=== PATIENT | male | born 1960 | race Caucasian/White ===

== ENCOUNTER 2016-08-28 08:40 | Inpatient (IN) | payer BC, OTHER ==
[~2016-08-28] VITALS: Ht 182.9 cm; Wt 85.5 kg
[2016-08-28] MEDS ORDERED: OMEG10007 PO (09:00)
[2016-08-28] MEDS ORDERED: ASCO10003 PO (09:00)
[2016-08-28] MEDS ORDERED: MULT-506 PO (09:00)
[2016-08-28] MEDS ORDERED: [UNRECOGNIZED DRUG - OTHER] PO (09:00)
[2016-08-28] MEDS ORDERED: CALC500C3 PO (09:00)
[2016-08-28] MEDS ORDERED: SODIUM CHLORIDE 0.9% 1000ML 1,000 ML IV STA (09:59)
--- NOTE | 2016-08-28 10:14 | EMERGENCY ROOM VISIT NOTE ---
History Report prepared by Pedro: Alexia Hawkins Under the Supervision of: Dr. Kell Jarrell D.O. First contact with patient: 09:46 Chief Complaint: DIZZY Stated Complaint: LIGHTHEADED, COUGH, DIZZY History of Present Illness The patient is a 56 year old male who presents to the Emergency Room with complaints of persistent bilateral eye swelling that he first noticed yesterday. The patient states that yesterday he woke up with bilateral eye puffiness which improved during the day. When he woke up this morning his eyes were much more edematous but again have improved since being up . He denies any other rash or itchiness to any other area. He denies any new meds other than otc Jazzmine [place] and Aleve which he has been taking for a cold. No change in detergents or household products. He denies hx of similar and has not taken anything for his symptoms. He also complains of a recent URI and cold He states that two weeks ago he developed a sore throat, and cough has been taking Jazzmine-seltzer and Aleve for his symptoms with improvement. He has had lightheadedness and dizziness with change of position. The patient states that his dizziness is a room spinning sensation. Last night he felt SOB and was having difficulty breathing with lying flat. He associates a productive cough, chills, diaphoresis, post nasal drainage, and two episodes of vomiting with his symptoms. He denies associated chest pain. His , who is present, states he has had increasing exertional dyspnea today as well. He denies a hx of lung or heart disease He also complaining of lower abd pain associated with constipation earlier this week. He took Mylanta which alleviated his constipation. His urine has been darker, but denies any other urinary complaints. The patient notes chronic back problems, but denies any other active medical problems. He states that he quit smoking 1994. He drinks over a 30 pack of beer per week. The patient notes a history of Hepatitis A, but denies any other liver problems. The patient denies any recent travel. He states that he had a tick bite 3 weeks ago that was on his body for less than 24 hours. Source of History: patient Onset: yesterday Position: eye Quality: other (swelling) Timing: other Associated Symptoms: + abdominal pain, + chills, + cough, + diaphoresis, + sorethroat, + vomiting, No chest pain, No fevers Note: Associated symptoms: post nasal drainage, darker urine, dizziness, lightheadedness, room spinning sensation Review of Systems See HPI for pertinent positives & negatives. A total of 10 systems reviewed and were otherwise negative. Past Medical & Surgical Medical Problems: (1) Atrial fibrillation with RVR (2) Hepatitis A Surgical Problems: (1) H/O shoulder surgery Alcoholism Family History Diabetes mellitus Heart disease Social History Smoking Status: Former Smoker Smokeless Tobacco Use: No Alcohol Use: heavy, other (moderate) Marital Status: Housing Status: lives with significant other Current/Historical Medications Scheduled Ascorbic Acid (Vitamin C), 1 TAB PO DAILY Calcium Carbonate (Tums), 1 TAB PO DAILY Fish Oil ([place]-3), 1 CAP PO DAILY Multivitamin (Multivitamin), 1 TAB PO DAILY [Liveco], 2 TAB PO DAILY Allergies Coded Allergies: No Known Allergies (Unverified , 08/28/16) Physical Exam Vital Signs Date Time Temp Pulse Resp B/P Pulse Ox O2 Delivery O2 Flow Rate FiO2 08/28/16 12:31 133/74 08/28/16 12:30 145 20 93 08/28/16 12:16 114/86 08/28/16 12:15 164 30 94 08/28/16 12:01 126/77 08/28/16 12:00 124 22 93 08/28/16 11:52 128/89 08/28/16 11:51 37.5 153 20 135/94 93 Room Air 08/28/16 11:45 146 24 08/28/16 11:36 135/94 08/28/16 11:31 114/79 08/28/16 11:30 125 24 93 08/28/16 11:16 126/98 08/28/16 11:15 139 22 93 08/28/16 11:01 101/92 08/28/16 11:00 158 25 93 08/28/16 10:58 143 20 104/82 08/28/16 10:37 Nasal Cannula 3.0 08/28/16 10:17 193 08/28/16 08:44 37.5 113 20 125/73 95 Physical Exam GENERAL: The patient is a pleasant 56 year old male in no acute distress. Odor of alcohol on breath VITALS: Febrile, tachycardic, normotensive, normal pulse oximetry on room air. FACE: Atraumatic, nontender HEAD: Normocephalic and atraumatic. EARS: Tympanic membranes visualized and intact without infection, erythema , or hemotympanum. EYES: Mild periorbital edema. Pupils equal and reactive to light. Extraocular muscles intact. Conjunctiva are clear. Fundi are benign. NOSE: Nasal mucosa is clear without rhinorrhea or edema. THROAT: Airway is patent. Oral mucosa is minimally injected, no exudate. NECK: Supple without adenopathy. Trachea is midline. No nuchal rigidity, spinal tenderness, or palpable step-off. LUNGS: Clear without wheezing, rhonchi, or rales. THORAX: Symmetrical and nontender to palpation without deformity or palpable crepitus. HEART: Regular rate and rhythm ABDOMEN: Obese, soft and tender in left upper quadrant. without guarding, rigidity, or rebound tenderness. Bowel sounds are present in all 4 quadrants. There are no palpable masses, or organomegaly. No gross costovertebral angle tenderness. Femoral pulses are +2 and symmetrical BACK: Nontender to palpation without step off. PELVIS: Stable to pelvic rock without point tenderness or instability. EXTREMITIES: +1 pitting edema. Without deformity or point tenderness. There are no palpable cords, or erythema. Pulses are palpable and symmetrical. NEUROLOGIC: Exam is intact without focal deficits. SKIN: Without rash. Normal turgor and temperature. Medical Decision & Procedures ER Provider Diagnostic Interpretation: X-ray results as stated below per interpretation by me and the radiologist: CHEST ONE VIEW PORTABLE CLINICAL HISTORY: a fib sob dyspnea COMPARISON STUDY: No previous studies for comparison. FINDINGS: Radiographic findings of congestive failure. Prominent pulmonary vasculature. Heart is top limits normal terms of size. IMPRESSION: Developing congestive failure versus the less likely possibility of bibasilar infiltrates Electronically signed by: Marko Bernal M.D. 08/28/2016 11:15 AM Dictated Date/Time: 08/28/2016 11:14 AM Laboratory Results 08/28/16 10:15 Red Blood Count 3.51, Mean Corpuscular Volume 99.1, Mean Corpuscular Hemoglobin 35.3, Mean Corpuscular Hemoglobin Concent 35.6, Mean Platelet Volume 10.9, Neutrophils (%) (Auto) 81.7, Lymphocytes (%) (Auto) 7.0, Monocytes (%) (Auto) 10.8, Eosinophils (%) (Auto) 0.2, Basophils (%) (Auto) 0.1, Neutrophils # (Auto ) 8.14, Lymphocytes # (Auto) 0.70, Monocytes # (Auto) 1.08, Eosinophils # (Auto ) 0.02, Basophils # (Auto) 0.01 08/28/16 10:15 Test 08/28/16 00:00 08/28/16 10:15 08/28/16 10:24 Urine Opiates Screen NEG (NEG) Urine Methadone, Qualitative NEG (NEG) Urine Barbiturates NEG (NEG) Urine Phencyclidine (PCP) Level NEG (NEG) Ur Amphetamine/Methamphetamine NEG (NEG) MDMA (Ecstasy) Screen NEG (NEG) Urine Benzodiazepines Screen NEG (NEG) Urine Cocaine Metabolite NEG (NEG) Urine Marijuana (THC) NEG (NEG) Influenza Type A (RT-PCR) Neg for Influ A (NEG) Influenza Type B (RT-PCR) Neg for Influ B (NEG) White Blood Count 9.97 K/uL (4.8-10.8) Red Blood Count 3.51 M/uL (4.7-6.1) Hemoglobin 12.4 g/dL (14.0-18.0) Hematocrit 34.8 % (42-52) Mean Corpuscular Volume 99.1 fL (80-100) Mean Corpuscular Hemoglobin 35.3 pg (25-34) Mean Corpuscular Hemoglobin Concent 35.6 g/dl (32-36) Platelet Count 154 K/uL (130-400) Mean Platelet Volume 10.9 fL (7.4-10.4) Neutrophils (%) (Auto) 81.7 % Lymphocytes (%) (Auto) 7.0 % Monocytes (%) (Auto) 10.8 % Eosinophils (%) (Auto) 0.2 % Basophils (%) (Auto) 0.1 % Neutrophils # (Auto) 8.14 K/uL (1.4-6.5) Lymphocytes # (Auto) 0.70 K/uL (1.2-3.4) Monocytes # (Auto) 1.08 K/uL (0.11-0.59) Eosinophils # (Auto) 0.02 K/uL (0-0.5) Basophils # (Auto) 0.01 K/uL (0-0.2) RDW Standard Deviation 44.3 fL (36.4-46.3) RDW Coefficient of Variation 12.3 % (11.5-14.5) Immature Granulocyte % (Auto) 0.2 % Immature Granulocyte # (Auto) 0.02 K/uL (0.00-0.02) Nucleated RBC Absolute Count (auto) 0.02 K/uL (0-0) Nucleated Red Blood Cells % 0.2 % Prothrombin Time 13.8 SECONDS (9.0-12.0) Prothromb Time International Ratio 1.3 (0.9-1.1) Activated Partial Thromboplast Time 29.6 SECONDS (21.0-31.0) Partial Thromboplastin Ratio 1.1 Anion Gap 13.0 mmol/L (3-11) Est Creatinine Clear Calc Drug Dose 129.4 ml/min Estimated GFR () 122.3 Estimated GFR (Non- 105.5 BUN/Creatinine Ratio 9.9 (10-20) Calcium Level 8.3 mg/dl (8.5-10.1) Total Bilirubin 2.9 mg/dl (0.2-1) Direct Bilirubin 1.2 mg/dl (0-0.2) Aspartate Amino Transf (AST/SGOT) 159 U/L (15-37) Alanine Aminotransferase (ALT/SGPT) 193 U/L (12-78) Alkaline Phosphatase 93 U/L (45-117) Total Creatine Kinase 507 U/L (39-308) Creatine Kinase MB 3.9 ng/ml (0.5-3.6) Total Protein 6.6 gm/dl (6.4-8.2) Albumin 3.1 gm/dl (3.4-5.0) Lipase 227 U/L (73-393) Thyroid Stimulating Hormone (TSH) 2.100 uIu/ml (0.300-4.500) Lyme Disease IgG Antibody NEG (NEG) Lyme Disease IgM Antibody NEG (NEG) Bedside Troponin I 0.010 ng/ml (0-0.045) Laboratory studies as stated above per my review. Medications Administered Medications (Trade) Dose Ordered Sig/Vickie Route Start Time Stop Time Status Last Admin Dose Admin Sodium Chloride (Nss 1000ml) 1,000 ml @ 250 mls/hr Q4H STAT IV 08/28/16 09:59 08/28/16 11:31 DC 08/28/16 10:32 250 MLS/HR Diphenhydramine HCl (Benadryl Cap) 50 mg NOW ONCE PO 08/28/16 10:00 08/28/16 10:04 DC 08/28/16 10:32 50 MG Diltiazem HCl (Cardizem Bolus / Drip) 1 ea NOW STAT IV 08/28/16 10:48 08/28/16 10:49 DC 08/28/16 11:25 1 EA Diltiazem HCl 25 mg 25 mg STK-MED ONCE .ROUTE 08/28/16 10:49 08/28/16 10:52 DC 08/28/16 10:58 20 MG Diltiazem HCl/ Dextrose (Cardizem Inj/D5 100ml) 125 ml @ 0 mls/hr Q0M PRN IV 08/28/16 11:00 09/27/16 10:59 08/28/16 11:23 5 MLS/HR Furosemide (Lasix Inj) 20 mg NOW STAT IV 08/28/16 11:23 08/28/16 11:24 DC 08/28/16 14:08 20 MG Diltiazem HCl (Cardizem Inj) 25 mg NOW STAT IV 08/28/16 11:55 08/28/16 11:57 DC 08/28/16 12:40 25 MG ECG Indication: SOB/dyspnea Rate (beats per minute): 174 Rhythm: atrial fibrillation (with RVR) Findings: nonspecific-ST abn, other (rapid rate, RVR, no ST elevation) Comparison ECG Date: 10/18/13 Change: EKG Change: When compared to EKG done on 10/18/13, atrial fibrillation replaced normal sinus rhythm, and nonspecific ST changes are new. ED Course 0947: Past medical records reviewed. The patient was evaluated in room B8. A complete history and physical examination was performed. On examination he was complaining of intermittent facial swelling for the past 2 days. He did have some periorbital edema. No other findings to suggest significant anaphylaxis. He was also complaining of a persistent respiratory illness associated with increasing dyspnea. He was mildly tachycardic during my exam but did not appear to be in atrial fibrillation however, he was searching for his wallet and became markedly more tachycardic- telemetry revealed an A. fib with RVR. An IV of normal saline was initially established at a low rate. This was discontinued. He was medicated with 20 mg of IV Cardizem. He did have mild improvement with this but continued to be quite tachycardic and he was remedicated with 25 mg of IV Cardizem and started on a Cardizem drip with improvement. He was also initially treated with 50 mg of oral Benadryl for his facial swelling. Later with 20 mg of IV Lasix for his CHF. He underwent the above diagnostic workup. Twelve-lead ECG showed an atrial fibrillation with RVR. When compared to previous atrial fibrillation had replaced sinus rhythm and nonspecific ST changes were noted. Chest x-ray did show findings consistent with acute congestive heart failure. On laboratory studies he has a Borderline anemia with a hemoglobin of 12.4. Calcium is 131 with a chloride of 94 calcium is low at 8.3 magnesium is normal. Other electrolytes are normal. His liver function test are elevated with a total bili of 2.9 and direct bili of 1.2 AST of 159 ALT of 193 lipase is normal not suggestive of pancreatitis. CK enzyme is elevated at 507 with an MB of 3.9 his troponin however is normal at 0.010 this is most likely secondary to muscle breakdown. TSH is normal. Magnesium is normal. Urinalysis shows 1+ ketone otherwise negative. Alcohol is 14. INR is 1.3.Strept screen is negative. Lyme IGG is negative This is a 56-year-old gentleman who presents with acute dyspnea and facial swelling. At this time he does have evidence of new onset A. fib with RVR and associated congestive heart failure. He also has been having some vague abdominal pain which he relates to constipation. His liver function tests are all elevated but he admits to heavy alcohol use and this is felt to be reflective of his alcoholism. He has a remote hx of tick bite but lyme testing is negative and this is not felt to be significant, Of note -after discussion with the patient and his - he does recount that he had a chemical exposure in 1995 and did have a tachyarrhythmia which required cardioversion as well as some pulmonary toxicity. He has not had any recurrence or difficulties with arrhythmia since. Consultation has been made with Dr. Ybarra and the patient is being admitted. I refer you to her dictation for further treatment plan. While here in the emergency room he has had clinical improvement and currently is hemodynamically stable. 0959: Ordered Sodium Chloride 1000 ml @ 250 mls/hr IV. 1000: Ordered Benadryl Cap 50 mg PO. 1042: Per nursing staff, the patient has gone in to Atrial fibrillation with RVR. 1048: Ordered Diltiazem HCl 1 ea IV, Diltiazem HCl 25 mg .route. 1050: I reevaluated the patient and he is resting. I discussed the EKG findings with him. 1100: Ordered Diltiazem HCl 125 mg/Dextrose 125 ml @ 5 mls/hr Protocol IV. 1117: I discussed the patients case with NIRU Buchanan. She is going to evaluate the patient for further treatment. 1123: Ordered Lasix Inj 20 mg IV. 1127: I reevaluated the patient and he is resting comfortably. I discussed all the exam findings with him and I discussed the treatment plan. He verbalized complete understanding and agreement. He is going to be evaluated for further treatment. 1155: Ordered Diltiazem HCl 25 mg IV. Medical Decision EMR, nurse's notes, diagnostic studies personally reviewed Differential diagnosis-see above The chart was completed utilizing [employer] Speech Voice Recognition Software. Grammatical errors, random word insertions, pronoun errors, and incomplete sentences are an occasional consequence of this system due to software limitations, ambient noise, and hardware issues. Any formal questions or concerns about the content, text, or information contained within the body of this dictation should be directly addressed to the physician for clarification. Consults Time Called: 1107 Consulting Physician: NIRU Buchanan Returned Call: 1117 I discussed the patients case with NIRU Buchanan. She is going to evaluate the patient for further treatment. Impression Primary Impression: New onset a-fib Additional Impressions: Facial edema LFT elevation Alcohol abuse Critical Care I have personally spent greater than 35 minutes of critical care time in the direct management of this patient. This includes bedside care, interpretation of diagnostic studies, and testing, discussion with consultants, patient, and family members, and other required patient management activities. This 35 minutes is in excess of all separately billable procedures.. Scribe Attestation The scribe's documentation has been prepared under my direction and personally reviewed by me in its entirety. I confirm that the note above accurately reflects all work, treatment, procedures, and medical decision making performed by me. Departure Information Dispostion Being Evaluated By Hospitalist Referrals Ruiz Mercer D.O.Int.Med. (PCP) Problem Qualifiers
[2016-08-28 10:35] LABS: BASO % 0.1 %; BASO ABS # 0.01 K/uL (0-0.2); COMPLETE YES; EOS % 0.2 %; HEMATOCRIT 34.8 % (42-52); IG% 0.2 %; MEAN CELL VOLUME 99.1 fL (80-100); MEAN CORPUSCULAR HEMOGLOBIN 35.3 pg (25-34); MEAN CORPUSCULAR HGB CONC 35.6 g/dl (32-36); MEAN PLATELET VOLUME 10.9 fL (7.4-10.4); MONO % 10.8 %; NEUT % 81.7 %; PLATELET COUNT 154 K/uL (130-400); RED BLOOD COUNT 3.51 M/uL (4.7-6.1); WHITE BLOOD COUNT 9.97 K/uL (4.8-10.8)
[2016-08-28 10:46] LABS: BUN/CREATININE RATIO 9.9 (10-20); CALCIUM 8.3 mg/dl (8.5-10.1); CREATININE 0.7 mg/dl (0.60-1.40); POTASSIUM 3.7 mmol/L (3.5-5.1)
[2016-08-28] MEDS ORDERED: DILTIAZEM BOLUS / DRIP IV STA (10:48)
[2016-08-28] MEDS ORDERED: DILTIAZEM HCL 5 MG/ML 5 ML VIAL ONE (10:49)
[2016-08-28 10:50] LABS: INR 1.3 (0.9-1.1); PARTIAL THROMBOPLASTIN RATIO 1.1; PROTHROMBIN TIME (PATIENT) 13.8 SECONDS (9.0-12.0)
[2016-08-28 10:55] LABS: CKMB/CK RATIO 0.8 (0-3.0); THYROID STIMULATING HORMONE 2.1 uIu/ml (0.300-4.500)
--- NOTE | 2016-08-28 11:17 | DIAGNOSTIC IMAGING REPORT ---
CHEST ONE VIEW PORTABLE CLINICAL HISTORY: a fib sob dyspnea COMPARISON STUDY: No previous studies for comparison. FINDINGS: Radiographic findings of congestive failure. Prominent pulmonary vasculature. Heart is top limits normal terms of size. IMPRESSION: Developing congestive failure versus the less likely possibility of bibasilar infiltrates Electronically signed by: Marko Bernal M.D. 08/28/2016 11:15 AM Dictated Date/Time: 08/28/2016 11:14 AM
[2016-08-28] MEDS: DILTIAZEM HCL INJ 125 MG in DEXTROSE 5% 100ML IV PRN ×2 (11:23→21:52)
[2016-08-28] MEDS ORDERED: FUROSEMIDE 40 MG/4 ML VIAL IV STA (11:23)
[2016-08-28 11:45] LABS: LYME DISEASE AB IGG NEG (NEG)
[2016-08-28 11:51] VITALS: BP 135/94; PULSE 153; TEMP 37.5; O2SAT 93; Ht 182.9 cm; Wt 85.5 kg
[2016-08-28] MEDS ORDERED: DILTIAZEM HCL 5 MG/ML 5 ML VIAL IV STA (11:55)
[2016-08-28] MEDS ORDERED: PIPERACILL/TAZOBAC IV 4.5 GM in DEXTROSE 5% 100ML 100 ML IV SCH (12:45)
[2016-08-28] MEDS ORDERED: ACETAMINOPHEN 325 MG TAB PO PRN (12:45)
[2016-08-28] MEDS ORDERED: POLYETHYLENE (MIRALAX) 17 GM PACK PO PRN (12:45)
[2016-08-28] MEDS ORDERED: ONDANSETRON INJ 2 MG/ML 2 ML VIAL IV PRN (12:45)
[2016-08-28 13:10] LABS: URINE APPEARANCE CLEAR (CLEAR); URINE BILIRUBIN NEG (NEG); URINE COLOR YELLOW; URINE NITRITE NEG (NEG); URINE SPECIFIC GRAVITY 1.003 (1.000-1.030); UROBILINOGEN NEG (NEG)
--- NOTE | 2016-08-28 13:12 | History and Physical ---
History & Physical Date & Time of Service: Aug 28, 2016 at 12:44 Chief Complaint: Lightheaded, Cough, Dizzy Primary Care Physician: Ruiz Mercer D.O.Int.Med. History of Present Illness This is a 56-year-old male with past medical history including Hepatitis A, chronic alcohol abuse, upper respiratory infection, facial edema, prior exposure to trichloroethylene <10 years ago who presents after an episode of puffy eyes, shortness of breath, and lightheadedness this morning. The patient notes that he has been short of breath for about the past 2 weeks. The patient developed an upper respiratory infection 2 weeks ago with cough, fever, sputum production, chills where he took Jazzmine-[place] and Aleve for relief. Patient notes that this did not seem to help. Shortness of breath became increasingly worse today, patient notices that after going up 1 flight of stairs he is acutely short of breath. The patient does not wear supplemental oxygen at baseline. The patient notes left lower quadrant pain which seems to be worse with cough, he does not notice that this is per his postprandial pain, or pain prior to having a bowel movement. Patient reports that he drinks Natural Light x 6-10beers per day for many years, last drink was yesterday. He reports being bit by a tick 3 weeks ago, the tick was removed after 24 hours. Patient admits to body aches, joint aches, fever as described above 2 weeks ago and chills. He was not treated empirically for this with antibiotics. The patient also notes 2 episodes of vomiting in the past 2 days seem to "come out of no where", he denies feeling nauseous currently. In the ER CXR was reviewed showing developing congestive failure versus possibility of high basilar infiltrates. Past Medical/Surgical History Medical Problems: (1) Hepatitis A Status: Resolved Surgical Problems: (1) H/O shoulder surgery Status: Resolved Family History Diabetes mellitus Heart disease Social History Smoking Status: Former Smoker Smokeless Tobacco Use: No Alcohol Use: heavy (6-10 beers daily) Drug Use: none Marital Status: Housing status: lives with family Occupational Status: retired Multi-Drug Resistant Organisms History of MDRO: No Allergies Coded Allergies: No Known Allergies (Unverified , 08/28/16) Home Medications Scheduled Ascorbic Acid (Vitamin C), 1 TAB PO DAILY Calcium Carbonate (Tums), 1 TAB PO DAILY Fish Oil ([place]-3), 1 CAP PO DAILY Multivitamin (Multivitamin), 1 TAB PO DAILY [Liveco], 2 TAB PO DAILY Review of Systems Constitutional: + chills, + fever, + sweats Eyes: + problem reported (puffy eyes), No diplopia ENT: + nasal symptoms, + sore throat, No tinnitus, No trouble swallowing Respiratory: + cough, + dyspnea on exertion, + shortness of breath, + sputum, No dyspnea at rest, No hemoptysis, No wheezing Cardiovascular: No chest pain, No orthopnea, No palpitations Abdomen: + vomiting, No constipation, No diarrhea, No nausea, No pain Musculoskeletal: + joint pain, + muscle pain, No calf pain, No swelling Genitourinary - Male: No dysuria Neurologic: No balance problems, No numbness/tingling, No weakness Endocrine: No fatigue Hematologic / Lymphatic: + night sweats, No abnormal bleeding/bruising, No swollen lymph nodes Integumentary: No itch, No rash Physical Exam Vital Signs Date Time Temp Pulse Resp B/P Pulse Ox O2 Delivery O2 Flow Rate FiO2 08/28/16 11:51 37.5 153 20 135/94 93 Room Air 08/28/16 10:58 143 20 104/82 08/28/16 10:37 Nasal Cannula 3.0 08/28/16 10:17 193 08/28/16 08:44 37.5 113 20 125/73 95 General Appearance: WD/WN, no apparent distress, + pertinent finding (appears flushed) Head: normocephalic, atraumatic Eyes: PERRL, EOMI ENT: hearing grossly normal, pharynx normal Neck: supple, no JVD Respiratory/Chest: chest non-tender, lungs clear, no respiratory distress, no accessory muscle use, + pertinent finding (cough, productive with yellow mucus) Cardiovascular: no murmur, + irregularly irregular, + pertinent finding (Hr= 180s with deep breaths, 140s while sitting ) Abdomen/GI: normal bowel sounds, non tender, soft, + distended Back: normal inspection, no CVA tenderness Extremities/Musculoskelatal: no calf tenderness, no pedal edema, normal range of motion Neurologic/Psych: alert, normal mood/affect, oriented x 3 Skin: normal color, warm/dry Diagnostics Laboratory Results Results Past 24 Hours Test 08/28/16 10:15 08/28/16 10:24 Range/Units White Blood Count 9.97 4.8-10.8 K/uL Red Blood Count 3.51 4.7-6.1 M/uL Hemoglobin 12.4 14.0-18.0 g/dL Hematocrit 34.8 42-52 % Mean Corpuscular Volume 99.1 80-100 fL Mean Corpuscular Hemoglobin 35.3 25-34 pg Mean Corpuscular Hemoglobin Concent 35.6 32-36 g/dl Platelet Count 154 130-400 K/uL Mean Platelet Volume 10.9 7.4-10.4 fL Neutrophils (%) (Auto) 81.7 % Lymphocytes (%) (Auto) 7.0 % Monocytes (%) (Auto) 10.8 % Eosinophils (%) (Auto) 0.2 % Basophils (%) (Auto) 0.1 % Neutrophils # (Auto) 8.14 1.4-6.5 K/uL Lymphocytes # (Auto) 0.70 1.2-3.4 K/uL Monocytes # (Auto) 1.08 0.11-0.59 K/uL Eosinophils # (Auto) 0.02 0-0.5 K/uL Basophils # (Auto) 0.01 0-0.2 K/uL RDW Standard Deviation 44.3 36.4-46.3 fL RDW Coefficient of Variation 12.3 11.5-14.5 % Immature Granulocyte % (Auto) 0.2 % Immature Granulocyte # (Auto) 0.02 0.00-0.02 K/uL Nucleated RBC Absolute Count (auto) 0.02 0-0 K/uL Nucleated Red Blood Cells % 0.2 % Prothrombin Time 13.8 9.0-12.0 SECONDS Prothromb Time International Ratio 1.3 0.9-1.1 Activated Partial Thromboplast Time 29.6 21.0-31.0 SECONDS Partial Thromboplastin Ratio 1.1 Sodium Level 131 136-145 mmol/L Potassium Level 3.7 3.5-5.1 mmol/L Chloride Level 94 98-107 mmol/L Carbon Dioxide Level 24 21-32 mmol/L Anion Gap 13.0 3-11 mmol/L Blood Urea Nitrogen 7 7-18 mg/dl Creatinine 0.70 0.60-1.40 mg/dl Est Creatinine Clear Calc Drug Dose 129.4 ml/min Estimated GFR () 122.3 Estimated GFR (Non- 105.5 BUN/Creatinine Ratio 9.9 10-20 Random Glucose 90 70-99 mg/dl Calcium Level 8.3 8.5-10.1 mg/dl Magnesium Level 2.0 1.8-2.4 mg/dl Total Bilirubin 2.9 0.2-1 mg/dl Direct Bilirubin 1.2 0-0.2 mg/dl Aspartate Amino Transf (AST/SGOT) 159 15-37 U/L Alanine Aminotransferase (ALT/SGPT) 193 12-78 U/L Alkaline Phosphatase 93 45-117 U/L Total Creatine Kinase 507 39-308 U/L Creatine Kinase MB 3.9 0.5-3.6 ng/ml Creatine Kinase MB Ratio 0.8 0-3.0 Total Protein 6.6 6.4-8.2 gm/dl Albumin 3.1 3.4-5.0 gm/dl Lipase 227 73-393 U/L Thyroid Stimulating Hormone (TSH) 2.100 0.300-4.500 uIu/ml Lyme Disease IgG Antibody NEG NEG Bedside Troponin I 0.010 0-0.045 ng/ml Microbiology Results 08/28/16 Group A Streptococcus Screen - Final, Resulted SPECIMEN NEGATIVE FOR GROUP A BETA ST... 08/28/16 Group A Streptococcus Screen (VEENA), Resulted Pending Diagnostic Radiology CHEST ONE VIEW PORTABLE CLINICAL HISTORY: a fib sob dyspnea COMPARISON STUDY: No previous studies for comparison. FINDINGS: Radiographic findings of congestive failure. Prominent pulmonary vasculature. Heart is top limits normal terms of size. IMPRESSION: Developing congestive failure versus the less likely possibility of bibasilar infiltrates Electronically signed by: Marko Bernal M.D. 08/28/2016 11:15 AM Dictated Date/Time: 08/28/2016 11:14 AM The status of this report is Signed. EKG Vent. rate 174 BPM NV interval * ms QRS duration 88 ms QT/QTc 270/459 ms P-R-T axes * 71 41 Atrial fibrillation with RVR Impression Assessment and Plan 56-year-old male with past medical history including Hepatitis A, chronic alcohol abuse, upper respiratory infection, facial edema, prior exposure to trichloroethylene <10 years ago who presents after an episode of puffy eyes, shortness of breath, and lightheadedness this morning. A. fib with RVR Shortness of breath ? new onset CHF exacerbation ? Superimposed upper respiratory infection - Admit to telemetry - Cardiology consulted - In the ED the patient was started on Cardizem IV push, will start on Cardizem drip - Patient is currently still in A. 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 The patient was started on Librium today 25 mg Q8H - When necessary Ativan IV 1 mg - Continue multivitamin, started on folic acid and thiamine Hyponatremia, Na 131 - Likely due to increased alcohol consumption as above Upper respiratory infection - Patient reports history of tick bite 3 weeks ago, will rule out Lyme's disease with lab testing + Western blot - Started empirically on doxycycline 100 mg twice a day - ID consulted History of hepatitis A DVT prophylaxis: Teds, SCDs, out of bed as tolerated CODE STATUS: Full code Disposition: patient from home, return once medically stable The patient was seen and discussed with the attending, please refer to attending addendum for any additions or clarifications. Level of Care Telemetry Advanced Directives Existing Living Will: No Existing Power of Hematology Nurse Educator: No Resuscitation Status FULL RESUSCITATION VTE Prophylaxis VTE Risk Assessment Done? Y/N: Yes Risk Level: Low Given or contraindicated: T.E.D. Stockings, SCD's
[2016-08-28 13:13] LABS: LYME DISEASE AB IGM NEG (NEG)
[2016-08-28 13:15] LABS: MANUAL MICROSCOPIC REQUIRED? NO; REVIEW REQ? NO
[2016-08-28] MEDS ORDERED: FUROSEMIDE 40 MG/4 ML VIAL ONE (14:00)
[2016-08-28] MEDS ORDERED: COUGH DROP (SUGAR FREE) LOZ 24 LOZ/1 BOX PO PRN (14:45)
[2016-08-28] MEDS ORDERED: PANTOprazole SOD 40 MG TAB PO STA (14:52)
[2016-08-28] MEDS ORDERED: NURSING VERBAL MED ORDER ONE ×2 (15:15→17:30)
[2016-08-28 15:21] VITALS: BP 131/83; PULSE 211; TEMP 37.5; O2SAT 94
[2016-08-28] MEDS ORDERED: LORAZEPAM 2 MG/ML 1 ML VIAL IV SCH (15:30)
[2016-08-28] MEDS ORDERED: LORAZEPAM 2 MG/ML 1 ML VIAL IV PRN (15:45)
[2016-08-28] MEDS ORDERED: LORAZEPAM 1 MG TAB PO PRN (15:45)
[2016-08-28] MEDS ORDERED: DIGOXIN IV 250 MCG in SYRINGE 9 ML IV SCH (15:45)
[2016-08-28 15:52] VITALS: BP 124/86
[2016-08-28 16:00] VITALS: O2SAT 94
[2016-08-28] MEDS ORDERED: MULTI-VITAMIN INFUSION INJ 10 ML, THIAMINE HCL INJ 100 MG, FoLIC ACID INJ 1 MG in SODIU... IV ONE (16:00)
--- NOTE | 2016-08-28 16:10 | Medical Consult ---
Consultation Date of Consultation: Aug 28, 2016. Attending Physician: Dominic Boss MD, PhD Reason for Consultation: Lyme, URI, alcoholic History of Present Illness Patient is a 55 yo with history of Hepatitis A and chronic alcohol abuse who presented to the ED with concerns of facial swelling and SOB. The patient states that since Friday, he has been experiencing sweats, chills, subjective fever, and slight swelling of his face. Yesterday, the swelling of his face increased and this morning it ws severe around his eyes. The patient has been having body aches and joint pains for approximately 2 weeks. He does note that he was bitten by a tick about 3 weeks ago on the right elbow. He removed this tick as soon as he noticed it. He also has been having a cough, nasal congestion , post-nasal drip, sore throat and generalized malaise for about 2 weeks as well. Approximately 2 nights ago, the patient took both Aleve and Jazzmine-[place] Plus night time after which he did note some facial swelling and then he took this again last night and woke up with the severe swelling. He has taken both of these medications previously, but never together. He does chronically drink at least 6-10 beers per day, specially Natty Light. He also states that about 2- 3 days ago, he noticed that his urine started to become bright orange. It has been orange since then. He is also experiencing pain in his mid-lower abdomen and bilateral flank pain. He feels bloated but has been moving his bowels in small amounts. He did use stool softeners over the weekend which he has never taken before otherwise. Since admission, the patient was noted to have a WBC count of 9.97. Negative lyme screens. AST and ALT are elevated to 100's, and CK level was 507. Strep screen was negative. CXR showed developing congestive failure and less likely bibasilar infiltrations. This patient has not passed out from alcohol recently and does not seem to have risk for aspiration. I discussed this patient with Dr. Boss. Past Medical/Surgical History Medical Problems: (1) Facial edema Status: Acute (2) New onset a-fib Status: Acute Medical Problems: (1) Atrial fibrillation with RVR (2) Hepatitis A (3) Hx chemical exposure (4) Hx Cardioversion (1996) Surgical Problems: (1) H/O shoulder surgery Family History Diabetes mellitus Heart disease Noncontributory Social History Smoking Status: Former Smoker Smokeless Tobacco Use: No Alcohol Use: heavy (6-10 beers daily) Drug Use: none Marital Status: Housing Status: lives with significant other Occupation Status: retired Allergies Coded Allergies: No Known Allergies (Unverified , 08/28/16) Home Medications Reported Home Medications Medications Dose Route/Sig Max Daily Dose Days Date Category Multivitamin (Multivitamins) Tab 1 Tab PO DAILY 08/28/16 Reported [place]-3 (Fish Oil) 1 Ea Cap 1 Cap PO DAILY 08/28/16 Reported Tums (Calcium Carbonate) 500 Mg Chew 1 Tab PO DAILY 08/28/16 Reported [Liveco] 2 Tab PO DAILY 08/28/16 Reported Vitamin C (Ascorbic Acid) 1,000 Mg Tab 1 Tab PO DAILY 08/28/16 Reported Current Inpatient Medications Current Inpatient Medications Medications (Trade) Dose Ordered Sig/Vickie Route Start Time Stop Time Status Last Admin Dose Admin Diltiazem HCl/ Dextrose (Cardizem Inj/D5 100ml) 125 ml @ 0 mls/hr Q0M PRN IV 08/28/16 11:00 09/27/16 10:59 08/28/16 11:23 5 MLS/HR Acetaminophen (Tylenol Tab) 650 mg Q4H PRN PO 08/28/16 12:45 09/27/16 12:44 Ondansetron HCl (Zofran Inj) 4 mg Q6H PRN IV 08/28/16 12:45 09/27/16 12:44 Polyethylene (Miralax Powder Packet) 17 gm DAILY PRN PO 08/28/16 12:45 09/27/16 12:44 Calcium Carbonate (Tums Chew Tab) 500 mg DAILY PO 08/29/16 09:00 09/28/16 08:59 Fish Oil ([place]-3 (Purified Fish Oil) Cap) 1 gm DAILY PO 08/29/16 09:00 09/28/16 08:59 Multivitamins (Multivitamin Tab) 1 tab DAILY PO 08/29/16 09:00 09/28/16 08:59 Chlordiazepoxide (Librium Cap) 25 mg Q8 PO 08/28/16 22:00 09/27/16 21:59 Folic Acid (Folvite Tab) 1 mg QAM PO 08/29/16 09:00 09/28/16 08:59 Doxycycline Hyclate 100 mg 100 mg BID PO 08/28/16 21:00 09/07/16 20:59 Digoxin/Syringe (Digoxin IV/ Syringe) 10 ml @ 2 mls/min 1545 IV 08/28/16 15:45 08/28/16 16:30 08/28/16 15:52 2 MLS/MIN Digoxin (Lanoxin Tab) 0.125 mg DAILY@16 PO 08/29/16 16:00 09/28/16 15:59 Benzonatate (Tessalon Perles Cap) 100 mg 3XDQ4 PO 08/28/16 16:00 09/27/16 15:59 Guaifenesin (Mucinex Contr Rel Tab) 600 mg Q12 PO 08/28/16 21:00 09/27/16 20:59 Menthol ([place]) 1 socorro Q1H PRN PO 08/28/16 14:45 09/27/16 14:44 Thiamine HCl (Vitamin B-1 Tab) 100 mg QAM PO 08/29/16 09:00 09/28/16 08:59 Pantoprazole Sodium (Protonix Tab) 40 mg QAM PO 08/29/16 09:00 09/28/16 08:59 Enoxaparin Sodium (Lovenox Inj) 40 mg QAM SQ 08/29/16 09:00 09/28/16 08:59 Lorazepam 1 mg 1 mg 1530 IV 08/28/16 15:30 08/28/16 16:00 08/28/16 15:34 1 MG Multivitamins/ Thiamine HCl/ Folic Acid/Sodium Chloride (Mvi Infusion Inj/Vitamin B-1 Inj/Folvite Inj/ Nss 1000ml) 1,011.2 ml @ 500 mls/ hr Q2H2M ONCE IV 08/28/16 16:00 08/28/16 18:01 Lorazepam (Ativan Tab) 1 mg ONE PRN PO 08/28/16 15:45 09/11/16 15:44 Lorazepam (Ativan Inj) PER PROTOCOL Q1H PRN IV 08/28/16 15:45 09/27/16 15:44 Review of Systems Constitutional: + chills, + fatigue, + fever (subjective), + sweats, + weakness Eyes: No worsening of vision ENT: No hearing loss Respiratory: + cough, + dyspnea on exertion (since this morning- walking up stairs), + shortness of breath Cardiovascular: No chest pain, No palpitations Abdomen: + constipation, + pain (lower mid abdominal), No diarrhea Musculoskeletal: + joint pain (knees, toes, etc.), + muscle pain (generalized) , No swelling Genitourinary - Male: + problem reported (orange urine x 2-3 days), + urinary frequency, No dysuria, No hematuria, No urinary hesitancy Neurologic: + weakness Integumentary: + problem reported (tick bite right elbow 3 weeks ago- no rash) , No itch, No new/changing skin lesions, No rash Physical Exam Date Time Temp Pulse Resp B/P Pulse Ox O2 Delivery O2 Flow Rate FiO2 08/28/16 15:52 124/86 08/28/16 15:52 167 08/28/16 15:21 37.5 211 26 131/83 94 Nasal Cannula 2.0 08/28/16 14:30 144 20 151/92 92 08/28/16 14:15 153 20 133/87 91 Nasal Cannula 3.0 08/28/16 13:53 139 18 135/84 95 Nasal Cannula 3.0 08/28/16 13:02 130 138/78 92 Room Air 08/28/16 12:46 08/28/16 12:45 127 24 137/85 90 08/28/16 12:31 133/74 08/28/16 12:30 145 20 93 08/28/16 12:16 114/86 08/28/16 12:15 164 30 94 08/28/16 12:01 126/77 08/28/16 12:00 124 22 93 08/28/16 11:52 128/89 08/28/16 11:51 37.5 153 20 135/94 93 Room Air 08/28/16 11:45 146 24 08/28/16 11:36 135/94 08/28/16 11:31 114/79 08/28/16 11:30 125 24 93 08/28/16 11:16 126/98 08/28/16 11:15 139 22 93 08/28/16 11:01 101/92 08/28/16 11:00 158 25 93 08/28/16 10:58 143 20 104/82 08/28/16 10:37 Nasal Cannula 3.0 08/28/16 10:17 193 08/28/16 08:44 37.5 113 20 125/73 95 General Appearance: WD/WN, no apparent distress, + pertinent finding (tremor on exam) Head: normocephalic, atraumatic Eyes: normal inspection, sclerae normal ENT: hearing grossly normal Neck: supple, trachea midline Respiratory/Chest: chest non-tender, lungs clear, normal breath sounds, no respiratory distress, no accessory muscle use Cardiovascular: + tachycardia, + extra beats Abdomen/GI: + tenderness (left lower quadrant), + distended Back: normal inspection Extremities/Musculoskelatal: no pedal edema, normal range of motion Neurologic/Psych: alert, normal mood/affect Skin: normal color, warm/dry, no rash Laboratory Results CHEST ONE VIEW PORTABLE CLINICAL HISTORY: a fib sob dyspnea COMPARISON STUDY: No previous studies for comparison. FINDINGS: Radiographic findings of congestive failure. Prominent pulmonary vasculature. Heart is top limits normal terms of size. IMPRESSION: Developing congestive failure versus the less likely possibility of bibasilar infiltrates RUN DATE: 08/28/16 [facility] LAB PAGE 1 RUN TIME: 1044 Specimen Inquiry PATIENT: MALIK HERNÁNDEZ LOC: [facility] U # : [id number] AGE/SX: 56/M ROOM: REG : 08/28/[address]: Kell Jarrell : 1960 BED: DIS : STATUS: REG ER TLOC: SPEC #: [id number] SHERLEY: 08/28/16 STATUS: RES REQ #: [id number] RECD: 08/28/[address] [facility] [address]: Kell JarrellD.OMarcelo SOURCE: THROAT ENTR: 08/28/[address]: Ruiz Mercer D.OMarceloInt.Med. SPDESC: ORDERED: GRP A STRP SCN COMMENTS: Specimen Comment RAPID STREP NEG. Has Specimen Been Obtained/Collected? Y Procedure Result Verified Site RAPID GRP A BETA STREP SCREEN Final 08/28/16 SPECIMEN NEGATIVE FOR GROUP A BETA STREP. BY RAPID METHOD, CULTURE REPORT TO FOLLOW. GRP A STREP BACKUP CULTURE PENDING Last 24 Hours Test 08/28/16 10:15 08/28/16 10:24 08/28/16 12:45 08/28/16 13:20 White Blood Count 9.97 K/uL Red Blood Count 3.51 M/uL Hemoglobin 12.4 g/dL Hematocrit 34.8 % Mean Corpuscular Volume 99.1 fL Mean Corpuscular Hemoglobin 35.3 pg Mean Corpuscular Hemoglobin Concent 35.6 g/dl Platelet Count 154 K/uL Mean Platelet Volume 10.9 fL Neutrophils (%) (Auto) 81.7 % Lymphocytes (%) (Auto) 7.0 % Monocytes (%) (Auto) 10.8 % Eosinophils (%) (Auto) 0.2 % Basophils (%) (Auto) 0.1 % Neutrophils # (Auto) 8.14 K/uL Lymphocytes # (Auto) 0.70 K/uL Monocytes # (Auto) 1.08 K/uL Eosinophils # (Auto) 0.02 K/uL Basophils # (Auto) 0.01 K/uL RDW Standard Deviation 44.3 fL RDW Coefficient of Variation 12.3 % Immature Granulocyte % (Auto) 0.2 % Immature Granulocyte # (Auto) 0.02 K/uL Nucleated RBC Absolute Count (auto) 0.02 K/uL Nucleated Red Blood Cells % 0.2 % Prothrombin Time 13.8 SECONDS Prothromb Time International Ratio 1.3 Activated Partial Thromboplast Time 29.6 SECONDS Partial Thromboplastin Ratio 1.1 Sodium Level 131 mmol/L Potassium Level 3.7 mmol/L Chloride Level 94 mmol/L Carbon Dioxide Level 24 mmol/L Anion Gap 13.0 mmol/L Blood Urea Nitrogen 7 mg/dl Creatinine 0.70 mg/dl Est Creatinine Clear Calc Drug Dose 129.4 ml/min Estimated GFR () 122.3 Estimated GFR (Non- 105.5 BUN/Creatinine Ratio 9.9 Random Glucose 90 mg/dl Calcium Level 8.3 mg/dl Magnesium Level 2.0 mg/dl Total Bilirubin 2.9 mg/dl Direct Bilirubin 1.2 mg/dl Aspartate Amino Transf (AST/SGOT) 159 U/L Alanine Aminotransferase (ALT/SGPT) 193 U/L Alkaline Phosphatase 93 U/L Total Creatine Kinase 507 U/L Creatine Kinase MB 3.9 ng/ml Creatine Kinase MB Ratio 0.8 Total Protein 6.6 gm/dl Albumin 3.1 gm/dl Lipase 227 U/L Thyroid Stimulating Hormone (TSH) 2.100 uIu/ml Lyme Disease IgG Antibody NEG Lyme Disease IgM Antibody NEG Bedside Troponin I 0.010 ng/ml Urine Color YELLOW Urine Appearance CLEAR Urine pH 6.0 Urine Specific [place] 1.003 Urine Protein NEG Urine Glucose (UA) NEG Urine Ketones 1+ Urine Occult Blood NEG Urine Nitrite NEG Urine Bilirubin NEG Urine Urobilinogen NEG Urine Leukocyte Esterase NEG Ethyl Alcohol mg/dL 14.0 mg/dl Test 08/28/16 14:40 08/28/16 15:37 08/28/16 15:38 Creatine Kinase MB Ratio Assessment & Plan Patient with acute illness including chills, sweats, myalgias, arthralgias, bilateral flank pain, abdominal discomfort, and SOB along with Afib with RVR in the setting of alcoholism. He is currently on Doxycycline for concerns of Lyme disease. Lyme screen was negative. Will check Lyme WB and Anaplasma serology along with Urine culture- UA pending. Noted Flu PCR also pending. U/S of abdomen pending. Feel that Doxycycline is appropriate pending further workup. With elevated LFTs, will also check acute hepatitis panel. We will follow. Plan: 1. Continue Doxy 2. Lyme WB, Anaplasma serology 3. Acute hepatitis panel 4. Urine culture PROVIDER ADDENDUM: Pt. examined and reviewed with Ms. Chin. Agree with above assessment. Lyme unlikely given negative screening serology.
[2016-08-28] MEDS: BENZONATATE 100MG CAP PO SCH (16:26)
[2016-08-28 16:51] LABS: MAGNESIUM 2.1 mg/dl (1.8-2.4); PHOSPHORUS 2.4 mg/dl (2.5-4.9)
[2016-08-28 17:08] LABS: BENZODIAZEPINE, URINE NEG (NEG); COCAINE,URINE NEG (NEG); PHENCYCLIDINE, URINE NEG (NEG)
--- NOTE | 2016-08-28 17:24 | DIAGNOSTIC IMAGING REPORT ---
ABDOMINAL AORTIC ULTRASOUND CLINICAL HISTORY: Severe abdominal pain. Evaluate for abdominal aortic aneurysm. COMPARISON STUDY: Abdominal aortic ultrasound November 21, 2013. FINDINGS: The proximal abdominal aorta measures 2.7 x 2.6 cm. The mid abdominal aorta measures 2.5 x 2 cm. The distal abdominal aorta measures 2.1 x 2 cm. The caliber of the proximal bilateral common iliac arteries is normal. The abdominal aorta was slightly obscured on this exam. IMPRESSION: Partially obscured abdominal aorta but no abdominal aortic aneurysm identified. Ectatic abdominal aorta without aneurysmal dilatation. Electronically signed by: Nino Ashford M.D. 08/28/2016 5:23 PM Dictated Date/Time: 08/28/2016 5:22 PM
[2016-08-28] MEDS ORDERED: DIGOXIN IV 250 MCG in SYRINGE 9 ML IV ONE (17:45)
--- NOTE | 2016-08-28 17:47 | Cardiology Consultation ---
Cardiology Consultation Date of Consultation: Aug 28, 2016. Requesting Physician: Dr. Boss Reason for Consultation: AF with RVR Pt evaluation today including: conversation w/ patient, conversation w/ family , physical exam, lab review, review of studies, review of inpatient medication list, conversation w/ attending History of Present Illness This is a 56-year-old gentleman who has a reported history of rapid AF occurring about 20 years ago, he reports that they could not control his heart rate with medications and he had cardioversion performed. He has had none since that he knows of but on presentation here he did not have palpitations. He apparently felt poorly for several weeks, but in a nonspecific way including facial swelling, and when he arrived in the emergency room was noted to be in atrial fibrillation with a very rapid heart rate. He denies chest discomfort, presyncope or syncope. He was started on diltiazem intravenously up to 15 mg per hour and received one dose of digoxin 0.25 mg intravenously. His heart remained rapid. At the time of my evaluation he felt better, he was unaware of his heart rate ( which was still rapid but slower than on admission) and had no chest discomfort , lightheadedness or dizziness.l Past Medical/Surgical History (1) Atrial fibrillation with RVR (2) Alcohol abuse (3) LFT elevation (4) Facial edema Family History Diabetes mellitus Heart disease Social History Smoking Status: Former Smoker History of Alcohol Use: Yes (8-10 BEERS A DAY) Review of Systems Constitutional: No fever, No weakness, No weight loss Respiratory: No cough, No dyspnea on exertion, No shortness of breath, No wheezing Cardiac: + see HPI, No PND, No chest pain, No edema, No orthopnea, No palpitations Abdomen: No GI bleeding, No diarrhea, No nausea, No pain, No vomiting Male : No nocturia more than once/night, No sexual dysfunction, No slowing stream, No urinary frequency Neurologic: No balance problems, No numbness/tingling, No paralysis, No weakness Heme: No abnormal bleeding/bruising, No clotting problems Endo: No fatigue Skin: No problem reported All Other Systems: Reviewed and Negative Allergies Coded Allergies: No Known Allergies (Unverified , 08/28/16) Medications Current Inpatient Medications Medications (Trade) Dose Ordered Sig/Vickie Route Start Time Stop Time Status Last Admin Dose Admin Diltiazem HCl/ Dextrose (Cardizem Inj/D5 100ml) 125 ml @ 0 mls/hr Q0M PRN IV 08/28/16 11:00 09/27/16 10:59 08/28/16 11:23 5 MLS/HR Acetaminophen (Tylenol Tab) 650 mg Q4H PRN PO 08/28/16 12:45 09/27/16 12:44 Ondansetron HCl (Zofran Inj) 4 mg Q6H PRN IV 08/28/16 12:45 09/27/16 12:44 Polyethylene (Miralax Powder Packet) 17 gm DAILY PRN PO 08/28/16 12:45 09/27/16 12:44 Calcium Carbonate (Tums Chew Tab) 500 mg DAILY PO 08/29/16 09:00 09/28/16 08:59 Fish Oil ([place]-3 (Purified Fish Oil) Cap) 1 gm DAILY PO 08/29/16 09:00 09/28/16 08:59 Multivitamins (Multivitamin Tab) 1 tab DAILY PO 08/29/16 09:00 09/28/16 08:59 Chlordiazepoxide (Librium Cap) 25 mg Q8 PO 08/28/16 22:00 09/27/16 21:59 Folic Acid (Folvite Tab) 1 mg QAM PO 08/29/16 09:00 09/28/16 08:59 Doxycycline Hyclate (Vibramycin Cap) 100 mg BID PO 08/28/16 21:00 09/07/16 20:59 Digoxin (Lanoxin Tab) 0.125 mg DAILY@16 PO 08/29/16 16:00 09/28/16 15:59 Benzonatate (Tessalon Perles Cap) 100 mg 3XDQ4 PO 08/28/16 16:00 09/27/16 15:59 08/28/16 16:26 100 MG Guaifenesin (Mucinex Contr Rel Tab) 600 mg Q12 PO 08/28/16 21:00 09/27/16 20:59 Menthol (Nice Socorro) 1 socorro Q1H PRN PO 08/28/16 14:45 09/27/16 14:44 Thiamine HCl (Vitamin B-1 Tab) 100 mg QAM PO 08/29/16 09:00 09/28/16 08:59 Pantoprazole Sodium (Protonix Tab) 40 mg QAM PO 08/29/16 09:00 09/28/16 08:59 Enoxaparin Sodium 40 mg 40 mg QAM SQ 08/29/16 09:00 09/28/16 08:59 Multivitamins/ Thiamine HCl/ Folic Acid/Sodium Chloride (Mvi Infusion Inj/Vitamin B-1 Inj/Folvite Inj/ Nss 1000ml) 1,011.2 ml @ 500 mls/ hr Q2H2M ONCE IV 08/28/16 16:00 08/28/16 18:01 08/28/16 16:07 500 MLS/HR Lorazepam (Ativan Tab) 1 mg ONE PRN PO 08/28/16 15:45 09/11/16 15:44 Lorazepam PER PROTOCOL Q1H PRN IV 08/28/16 15:45 09/27/16 15:44 Digoxin/Syringe (Digoxin IV/ Syringe) 10 ml @ 2 mls/min NOW ONCE IV 08/28/16 17:45 08/28/16 17:49 Physical Exam Vital Signs Past 12 Hours Date Time Temp Pulse Resp B/P Pulse Ox O2 Delivery O2 Flow Rate FiO2 08/28/16 16:00 94 Nasal Cannula 2.0 08/28/16 15:52 124/86 08/28/16 15:52 167 08/28/16 15:21 37.5 211 26 131/83 94 Nasal Cannula 2.0 08/28/16 14:30 144 20 151/92 92 08/28/16 14:15 153 20 133/87 91 Nasal Cannula 3.0 08/28/16 13:53 139 18 135/84 95 Nasal Cannula 3.0 08/28/16 13:02 130 138/78 92 Room Air 08/28/16 12:46 08/28/16 12:45 127 24 137/85 90 08/28/16 12:31 133/74 08/28/16 12:30 145 20 93 08/28/16 12:16 114/86 08/28/16 12:15 164 30 94 08/28/16 12:01 126/77 08/28/16 12:00 124 22 93 08/28/16 11:52 128/89 08/28/16 11:51 37.5 153 20 135/94 93 Room Air 08/28/16 11:45 146 24 3/15/17 11:36 135/94 08/28/16 11:31 114/79 08/28/16 11:30 125 24 93 08/28/16 11:16 126/98 08/28/16 11:15 139 22 93 08/28/16 11:01 101/92 08/28/16 11:00 158 25 93 08/28/16 10:58 143 20 104/82 08/28/16 10:37 Nasal Cannula 3.0 08/28/16 10:17 193 08/28/16 08:44 37.5 113 20 125/73 95 Constitutional: General Apperance: heathly-appearing Level of Distress: NAD Psychiatric: Mental Status: active & alert Head: normocephalic Eyes: EOM: EOMI ENMT: normal ENT inspection, hearing grossly normal Neck: supple, no masses Lungs: Respiratory effort: no dyspnea, good air movement Auscultation: breath sounds normal, no wheezing Cardiovascular: Heart Auscultation: no murmurs, no rubs, no gallops, tachycardia, irregular rate rhythm Peripheral Pulses: Bruits: none appreciated Abdomen: Bowel Sounds: normal Inspection & Palpation: soft, no tenderness, guarding & rebound, no masses Musculoskeletal: normal strength (5/5 throughout) Extremities: no edema Neurologic: Cranial Nerves: grossly intact Sensation: grossly intact Data Laboratory Results: Last 24 Hours Test 08/28/16 00:00 08/28/16 10:15 08/28/16 10:24 08/28/16 12:45 Urine Opiates Screen NEG Urine Methadone, Qualitative NEG Urine Barbiturates NEG Urine Phencyclidine (PCP) Level NEG Ur Amphetamine/Methamphetamine NEG MDMA (Ecstasy) Screen NEG Urine Benzodiazepines Screen NEG Urine Cocaine Metabolite NEG Urine Marijuana (THC) NEG White Blood Count 9.97 K/uL Red Blood Count 3.51 M/uL Hemoglobin 12.4 g/dL Hematocrit 34.8 % Mean Corpuscular Volume 99.1 fL Mean Corpuscular Hemoglobin 35.3 pg Mean Corpuscular Hemoglobin Concent 35.6 g/dl Platelet Count 154 K/uL Mean Platelet Volume 10.9 fL Neutrophils (%) (Auto) 81.7 % Lymphocytes (%) (Auto) 7.0 % Monocytes (%) (Auto) 10.8 % Eosinophils (%) (Auto) 0.2 % Basophils (%) (Auto) 0.1 % Neutrophils # (Auto) 8.14 K/uL Lymphocytes # (Auto) 0.70 K/uL Monocytes # (Auto) 1.08 K/uL Eosinophils # (Auto) 0.02 K/uL Basophils # (Auto) 0.01 K/uL RDW Standard Deviation 44.3 fL RDW Coefficient of Variation 12.3 % Immature Granulocyte % (Auto) 0.2 % Immature Granulocyte # (Auto) 0.02 K/uL Nucleated RBC Absolute Count (auto) 0.02 K/uL Nucleated Red Blood Cells % 0.2 % Prothrombin Time 13.8 SECONDS Prothromb Time International Ratio 1.3 Activated Partial Thromboplast Time 29.6 SECONDS Partial Thromboplastin Ratio 1.1 Sodium Level 131 mmol/L Potassium Level 3.7 mmol/L Chloride Level 94 mmol/L Carbon Dioxide Level 24 mmol/L Anion Gap 13.0 mmol/L Blood Urea Nitrogen 7 mg/dl Creatinine 0.70 mg/dl Est Creatinine Clear Calc Drug Dose 129.4 ml/min Estimated GFR () 122.3 Estimated GFR (Non- 105.5 BUN/Creatinine Ratio 9.9 Random Glucose 90 mg/dl Calcium Level 8.3 mg/dl Magnesium Level 2.0 mg/dl Total Bilirubin 2.9 mg/dl Direct Bilirubin 1.2 mg/dl Aspartate Amino Transf (AST/SGOT) 159 U/L Alanine Aminotransferase (ALT/SGPT) 193 U/L Alkaline Phosphatase 93 U/L Total Creatine Kinase 507 U/L Creatine Kinase MB 3.9 ng/ml Creatine Kinase MB Ratio 0.8 Total Protein 6.6 gm/dl Albumin 3.1 gm/dl Lipase 227 U/L Thyroid Stimulating Hormone (TSH) 2.100 uIu/ml Lyme Disease IgG Antibody NEG Lyme Disease IgM Antibody NEG Bedside Troponin I 0.010 ng/ml Urine Color YELLOW Urine Appearance CLEAR Urine pH 6.0 Urine Specific Amelia 1.003 Urine Protein NEG Urine Glucose (UA) NEG Urine Ketones 1+ Urine Occult Blood NEG Urine Nitrite NEG Urine Bilirubin NEG Urine Urobilinogen NEG Urine Leukocyte Esterase NEG Test 08/28/16 13:20 08/28/16 14:40 08/28/16 15:52 Ethyl Alcohol mg/dL 14.0 mg/dl Creatine Kinase MB Ratio Phosphorus Level 2.4 mg/dl Magnesium Level 2.1 mg/dl Imaging: Echo pending EKG: On arrival atrial fibrillation with a rapid heart rate of 174 bpm. Telemetry reviewed: AF, rapid HR, improved but still fast Assessment & Plan 1. Atrial fibrillation with rapid ventricular response: His AF has probably been present for 2-3 weeks, he does not of palpitations and his feelings are nonspecific therefore I can't be sure. I would would control HR if possible, I' m going to give him another dose of digoxin and when necessary IV metoprolol and continue the intravenous diltiazem. He may need JUAN guided CVN. I will check his echo when available. Thank you for allowing me to participate in his care.
[2016-08-28] MEDS ORDERED: HEPARIN IV BOLUS 7,000 UNIT in SYRINGE 0 ML IV ONE (18:15)
[2016-08-28] MEDS: HEPARIN 25,000 UNIT/500ML D5W 500 ML IV PRN (18:19)
[2016-08-28 19:04] LABS: INFLUENZA A PCR Neg for Influ A (NEG); INFLUENZA B PCR Neg for Influ B (NEG)
[2016-08-28 19:34] VITALS: BP 134/73; PULSE 139; TEMP 37.3; O2SAT 93
[2016-08-28] MEDS: DOXYCYCLINE HYCLATE 100 MG CAP PO SCH (19:37)
[2016-08-28] MEDS: GUAIFENESIN 600 MG TABCR PO SCH (19:37)
[2016-08-28] MEDS ORDERED: DIGOXIN 0.25 MG TAB PO ONE (20:00)
[2016-08-28] MEDS: CHLORDIAZEPOXIDE 25 MG CAP PO SCH (21:53)
[2016-08-29] VITALS (27 sets, daily range): BP systolic 110–143; BP diastolic 72–110; PULSE 78–135; TEMP 36.7–37.3; O2SAT 89–96
[2016-08-29 01:35] LABS: PARTIAL THROMBOPLASTIN RATIO 2.1
[2016-08-29] MEDS: HEPARIN 25,000 UNIT/500ML D5W 500 ML IV PRN ×3 (03:13→09:52)
[2016-08-29] MEDS ORDERED: NURSING DECISION MEDICATION ORDER SCH (04:30)
[2016-08-29] MEDS: DILTIAZEM HCL INJ 125 MG in DEXTROSE 5% 100ML IV PRN ×2 (05:00→13:28)
[2016-08-29] MEDS: CHLORDIAZEPOXIDE 25 MG CAP PO SCH ×3 (05:10→20:36)
[2016-08-29] MEDS: METOPROLOL TARTRATE 1 MG/ML VIAL IV PRN ×2 (05:15→09:47)
[2016-08-29 06:17] LABS: BASO % 0.5 %; BASO ABS # 0.04 K/uL (0-0.2); COMPLETE YES; EOS % 0.5 %; HEMATOCRIT 37.6 % (42-52); IG% 0.3 %; LYMPH % 13.6 %; LYMPH ABS # 1.06 K/uL (1.2-3.4); MEAN CORPUSCULAR HEMOGLOBIN 35.1 pg (25-34); MEAN CORPUSCULAR HGB CONC 35.1 g/dl (32-36); MEAN PLATELET VOLUME 10.8 fL (7.4-10.4); MONO % 12.9 %; NEUT % 72.2 %; PLATELET COUNT 197 K/uL (130-400); RED BLOOD COUNT 3.76 M/uL (4.7-6.1)
[2016-08-29 06:32] LABS: PARTIAL THROMBOPLASTIN RATIO 1.8
[2016-08-29 06:59] LABS: BUN/CREATININE RATIO 8.3 (10-20); CALCIUM 8.4 mg/dl (8.5-10.1); CREATININE 0.92 mg/dl (0.60-1.40); MAGNESIUM 2.4 mg/dl (1.8-2.4); POTASSIUM 3.1 mmol/L (3.5-5.1)
[2016-08-29] MEDS ORDERED: HEPARIN IV BOLUS 3,000 UNIT in SYRINGE 0 ML IV ONE (07:00)
[2016-08-29] MEDS ORDERED: POTASSIUM CHLORIDE 10 MEQ TABCR PO STA (07:11)
[2016-08-29] MEDS: POTASSIUM CHLR 10 MEQ / WTR 10 MEQ in PREMIXED WATER 100 ML IV SCH ×2 (07:35→08:19)
[2016-08-29] MEDS: THIAMINE HCL 100 MG TAB PO SCH (07:39)
[2016-08-29] MEDS: DOXYCYCLINE HYCLATE 100 MG CAP PO SCH ×2 (07:39→20:35)
[2016-08-29] MEDS: GUAIFENESIN 600 MG TABCR PO SCH ×2 (07:40→20:35)
[2016-08-29] MEDS: BENZONATATE 100MG CAP PO SCH ×3 (07:40→16:00)
[2016-08-29] MEDS: OMEGA-3 (PURIFIED FISH OIL) 1 GM CAP PO SCH (07:41)
[2016-08-29] MEDS: MULTIVITAMIN TAB PO SCH (07:41)
[2016-08-29] MEDS: CALCIUM CARBONATE 500 MG CHEWABLE PO SCH (07:42)
[2016-08-29] MEDS: PANTOprazole SOD 40 MG TAB PO SCH (08:19)
[2016-08-29] MEDS ORDERED: ENOXAPARIN 40 MG/0.4 ML SYR SQ SCH (09:00)
--- NOTE | 2016-08-29 09:36 | ECHOCARDIOGRAM REPORT ---
*NOTICE TO RECEIVING [employer] This information is strictly Confidential and protected under [place] law. [place] law prohibits you from making any further disclosure of this information unless further disclosure is expressly permitted by the written consent of the person to whom it pertains or is authorized by law. A general authorization for the release of medical or other information is not sufficient for this purpose. Hospital accepts no responsibility if the information is made available to any other person, INCLUDING THE PATIENT. Interpretation Summary * Name: MALIK HERNÁNDEZ Study Date: 08/28/2016 04:08 PM BP: 126/82 mmHg * Patient Location: C.2E\S\E206\S\1 HR: 115 * : 1960 (M/d/yyyy) Gender: Male Height: 72 in * Age: 56 yrs Ethnicity: [place] Weight: 198 lb * Ordering Physician: Celine Wesley * Referring Physician: Self, Referred * Performed By: Nicolette Denny RCS * * Reason For Study: A-FIB * BSA: 2.1 m2 * -- Conclusions -- * Left ventricular systolic function is mildly reduced. * The left atrium is moderately dilated. * There is mild mitral regurgitation. * Right ventricular systolic pressure is elevated at >60mmHg. * There is moderate concentric left ventricular hypertrophy. Procedure Details * A complete two-dimensional transthoracic echocardiogram was performed (2D, M-mode, Doppler and color flow Doppler). Left Ventricle * The left ventricle is grossly normal size. * There is moderate concentric left ventricular hypertrophy. * Ejection Fraction = 40-45%. * Left ventricular systolic function is mildly reduced. Right Ventricle * The right ventricle is grossly normal size. Atria * The left atrium is moderately dilated. * The right atrium is borderline dilated. Mitral Valve * The mitral valve leaflets appear thickened, but open well. * There is mild mitral regurgitation. Tricuspid Valve * The tricuspid valve is not well visualized, but is grossly normal. * There is mild tricuspid regurgitation. * Right ventricular systolic pressure is elevated at >60mmHg. Aortic Valve * The aortic valve is normal in structure and function. * No hemodynamically significant valvular aortic stenosis. * There is no significant aortic regurgitation. Great Vessels * The aortic root is normal size. Pericardium/Pleural * There is no pericardial effusion. Left Ventricular Diastolic Function * Cannnot be assessed due to arrhythmia MMode 2D Measurements and Calculations IVSd 1.5 cm IVSs 1.8 cm LVIDd 5.1 cm LVIDs 3.7 cm LVPWd 1.3 cm LVPWs 1.6 cm IVS/LVPW 1.2 FS 26.6 % EDV(Teich) 122.6 ml ESV(Teich) 59.2 ml EF(Teich) 51.7 % EDV(cubed) 131.0 ml ESV(cubed) 51.9 ml EF(cubed) 60.4 % % IVS thick 19.7 % % LVPW thick 25.8 % LV mass(C)d 288.8 grams LV mass(C)dI 136.1 grams/m\S\2 LV mass(C)s 253.1 grams LV mass(C)sI 119.3 grams/m\S\2 SV(Teich) 63.3 ml SI(Teich) 29.9 ml/m\S\2 SV(cubed) 79.1 ml SI(cubed) 37.3 ml/m\S\2 Ao root diam 3.5 cm Ao root area 9.4 cm\S\2 LA dimension 4.9 cm LA/Ao 1.4 LVOT diam 2.0 cm LVOT area 3.1 cm\S\2 LVAd ap4 21.7 cm\S\2 LVLd ap4 6.1 cm EDV(MOD-sp4) 65.2 ml EDV(sp4-el) 65.9 ml LVAs ap4 15.3 cm\S\2 LVLs ap4 5.3 cm ESV(MOD-sp4) 38.4 ml ESV(sp4-el) 37.4 ml EF(MOD-sp4) 41.0 % EF(sp4-el) 43.3 % LVAd ap2 28.4 cm\S\2 LVLd ap2 7.6 cm EDV(MOD-sp2) 84.8 ml EDV(sp2-el) 90.2 ml LVAs ap2 18.9 cm\S\2 LVLs ap2 6.1 cm ESV(MOD-sp2) 48.6 ml ESV(sp2-el) 49.7 ml EF(MOD-sp2) 42.7 % EF(sp2-el) 44.9 % LVLd %diff 20.2 % EDV(MOD-bp) 79.0 ml LVLs %diff 12.2 % ESV(MOD-bp) 45.9 ml EF(MOD-bp) 41.9 % SV(MOD-sp4) 26.8 ml SI(MOD-sp4) 12.6 ml/m\S\2 SV(MOD-sp2) 36.2 ml SI(MOD-sp2) 17.1 ml/m\S\2 SV(MOD-bp) 33.1 ml SI(MOD-bp) 15.6 ml/m\S\2 SV(sp4-el) 28.5 ml SI(sp4-el) 13.4 ml/m\S\2 SV(sp2-el) 40.5 ml SI(sp2-el) 19.1 ml/m\S\2 Doppler Measurements and Calculations Ao V2 max 146.3 cm/sec Ao max PG 8.6 mmHg Ao max PG (full) 4.7 mmHg JUAN(V,A) 2.1 cm\S\2 JUAN(V,D) 2.1 cm\S\2 LV V1 max PG 3.9 mmHg LV V1 max 98.5 cm/sec TR max mari 367.1 cm/sec
--- NOTE | 2016-08-29 10:32 | Infectious Disease Progress Nt ---
Progress Note Date of Service Aug 29, 2016. Subjective Pt evaluation today including: conversation w/ patient, conversation w/ family , physical exam, chart review, lab review, review of studies, review of inpatient medication list Throat culture is pending but states "Beta Hemolytic colonies present". Urine culture pending. Hep B & C Ab negative. Further studies pending. Patient is feeling improved this morning. He continues to have Afib and tachycardia. He states that he had a "good BM" this morning which relieved his abdominal pain. He continues to have some coughing and 'crackling' in his chest. He also had a sharp pain in his right knee and ankle this morning but that quickly subsided. Abdominal U/S showed no evidence of AAA. He is tolerating Doxycycline well. All Other Systems: Reviewed and Negative Medications Current Inpatient Medications Medications (Trade) Dose Ordered Sig/Vickie Route Start Time Stop Time Status Last Admin Dose Admin Diltiazem HCl/ Dextrose (Cardizem Inj/D5 100ml) 125 ml @ 0 mls/hr Q0M PRN IV 08/28/16 11:00 09/27/16 10:59 08/29/16 05:00 15 MLS/HR Acetaminophen (Tylenol Tab) 650 mg Q4H PRN PO 08/28/16 12:45 09/27/16 12:44 Ondansetron HCl (Zofran Inj) 4 mg Q6H PRN IV 08/28/16 12:45 09/27/16 12:44 Polyethylene (Miralax Powder Packet) 17 gm DAILY PRN PO 08/28/16 12:45 09/27/16 12:44 08/29/16 08:19 17 GM Calcium Carbonate (Tums Chew Tab) 500 mg DAILY PO 08/29/16 09:00 09/28/16 08:59 08/29/16 07:42 500 MG Fish Oil ([place]-3 (Purified Fish Oil) Cap) 1 gm DAILY PO 08/29/16 09:00 09/28/16 08:59 08/29/16 07:41 1 GM Multivitamins (Multivitamin Tab) 1 tab DAILY PO 08/29/16 09:00 09/28/16 08:59 08/29/16 07:41 1 TAB Chlordiazepoxide (Librium Cap) 25 mg Q8 PO 08/28/16 22:00 09/27/16 21:59 Folic Acid (Folvite Tab) 1 mg QAM PO 08/29/16 09:00 09/28/16 08:59 08/29/16 07:40 1 MG Doxycycline Hyclate (Vibramycin Cap) 100 mg BID PO 08/28/16 21:00 09/07/16 20:59 08/29/16 07:39 100 MG Digoxin (Lanoxin Tab) 0.125 mg DAILY@16 PO 08/29/16 16:00 09/28/16 15:59 Benzonatate (Tessalon Perles Cap) 100 mg 3XDQ4 PO 08/28/16 16:00 09/27/16 15:59 08/29/16 07:40 100 MG Guaifenesin (Mucinex Contr Rel Tab) 600 mg Q12 PO 08/28/16 21:00 09/27/16 20:59 08/29/16 07:40 600 MG Menthol (Nice [place]) 1 socorro Q1H PRN PO 08/28/16 14:45 09/27/16 14:44 Thiamine HCl (Vitamin B-1 Tab) 100 mg QAM PO 08/29/16 09:00 09/28/16 08:59 08/29/16 07:39 100 MG Pantoprazole Sodium (Protonix Tab) 40 mg QAM PO 08/29/16 09:00 09/28/16 08:59 08/29/16 08:19 40 MG Lorazepam (Ativan Tab) 1 mg ONE PRN PO 08/28/16 15:45 09/11/16 15:44 Lorazepam (Ativan Inj) PER PROTOCOL Q1H PRN IV 08/28/16 15:45 09/27/16 15:44 Metoprolol Tartrate 5 mg 5 mg Q4 PRN IV 08/28/16 20:00 09/27/16 19:59 08/29/16 09:47 5 MG Heparin Sodium/ Dextrose (Heparin 25,000 Unit/500ml D5W) 500 ml @ 33 mls/hr [id number] PRN IV 08/28/16 18:15 09/27/16 18:14 08/29/16 09:52 33 MLS/HR Objective Vital Signs Date Time Temp Pulse Resp B/P Pulse Ox O2 Delivery O2 Flow Rate FiO2 08/29/16 09:47 135 114/82 08/29/16 09:46 135 114/82 08/29/16 09:41 135 08/29/16 08:25 94 Room Air 08/29/16 08:05 Room Air 08/29/16 08:00 Room Air 08/29/16 07:43 37.2 117 22 126/82 93 Nasal Cannula 4.0 08/29/16 05:15 130 126/81 08/29/16 04:25 37.2 130 18 133/78 92 Nasal Cannula 4.0 08/29/16 04:00 Nasal Cannula 4.0 08/29/16 00:05 37.2 132 18 136/87 95 Nasal Cannula 08/29/16 00:00 Nasal Cannula 2.0 08/28/16 20:00 Nasal Cannula 2.0 08/28/16 19:37 137 08/28/16 19:34 37.3 139 22 134/73 93 Nasal Cannula 4.0 08/28/16 17:59 140 08/28/16 16:00 94 Nasal Cannula 2.0 08/28/16 15:52 124/86 08/28/16 15:52 167 08/28/16 15:21 37.5 211 26 131/83 94 Nasal Cannula 2.0 08/28/16 14:30 144 20 151/92 92 08/28/16 14:15 153 20 133/87 91 Nasal Cannula 3.0 08/28/16 13:53 139 18 135/84 95 Nasal Cannula 3.0 08/28/16 13:02 130 138/78 92 Room Air 08/28/16 12:46 08/28/16 12:45 127 24 137/85 90 08/28/16 12:31 133/74 08/28/16 12:30 145 20 93 08/28/16 12:16 114/86 08/28/16 12:15 164 30 94 08/28/16 12:01 126/77 08/28/16 12:00 124 22 93 08/28/16 11:52 128/89 08/28/16 11:51 37.5 153 20 135/94 93 Room Air 08/28/16 11:45 146 24 08/28/16 11:36 135/94 08/28/16 11:31 114/79 08/28/16 11:30 125 24 93 08/28/16 11:16 126/98 08/28/16 11:15 139 22 93 08/28/16 11:01 101/92 08/28/16 11:00 158 25 93 08/28/16 10:58 143 20 104/82 08/28/16 10:37 Nasal Cannula 3.0 Physical Exam General Appearance: WD/WN, no apparent distress Eyes: normal inspection, sclerae normal ENT: hearing grossly normal Neck: supple, trachea midline Respiratory/Chest: no respiratory distress, no accessory muscle use, + crackles (left lower lobe especially), + wheezing (throughout upper lobes and left lower lobe) Cardiovascular: + tachycardia, + irregularly irregular Abdomen: normal bowel sounds, + distended Extremities: non-tender, no pedal edema Neurologic/Psychiatric: alert, normal mood/affect Skin: normal color, warm/dry, no rash Laboratory Results Item Value Date Time Group A Streptococcus Screen - Final Resulted 08/28/16 1015 Throat SPECIMEN NEGATIVE FOR GROUP A BETA ST... Urine Culture Received 08/28/16 0000 Urine , Clean Catch Pending ABDOMINAL AORTIC ULTRASOUND CLINICAL HISTORY: Severe abdominal pain. Evaluate for abdominal aortic aneurysm. COMPARISON STUDY: Abdominal aortic ultrasound November 21, 2013. FINDINGS: The proximal abdominal aorta measures 2.7 x 2.6 cm. The mid abdominal aorta measures 2.5 x 2 cm. The distal abdominal aorta measures 2.1 x 2 cm. The caliber of the proximal bilateral common iliac arteries is normal. The abdominal aorta was slightly obscured on this exam. IMPRESSION: Partially obscured abdominal aorta but no abdominal aortic aneurysm identified. Ectatic abdominal aorta without aneurysmal dilatation. Last 24 Hours Test 08/28/16 12:45 08/28/16 13:20 08/28/16 14:40 08/28/16 15:52 Urine Color YELLOW Urine Appearance CLEAR Urine pH 6.0 Urine Specific [place] 1.003 Urine Protein NEG Urine Glucose (UA) NEG Urine Ketones 1+ Urine Occult Blood NEG Urine Nitrite NEG Urine Bilirubin NEG Urine Urobilinogen NEG Urine Leukocyte Esterase NEG Ethyl Alcohol mg/dL 14.0 mg/dl Creatine Kinase MB Ratio Phosphorus Level 2.4 mg/dl Magnesium Level 2.1 mg/dl Troponin I 0.025 ng/ml Test 08/29/16 00:46 08/29/16 05:44 Activated Partial Thromboplast Time 53.7 SECONDS 46.4 SECONDS Partial Thromboplastin Ratio 2.1 1.8 White Blood Count 7.80 K/uL Red Blood Count 3.76 M/uL Hemoglobin 13.2 g/dL Hematocrit 37.6 % Mean Corpuscular Volume 100.0 fL Mean Corpuscular Hemoglobin 35.1 pg Mean Corpuscular Hemoglobin Concent 35.1 g/dl Platelet Count 197 K/uL Mean Platelet Volume 10.8 fL Neutrophils (%) (Auto) 72.2 % Lymphocytes (%) (Auto) 13.6 % Monocytes (%) (Auto) 12.9 % Eosinophils (%) (Auto) 0.5 % Basophils (%) (Auto) 0.5 % Neutrophils # (Auto) 5.63 K/uL Lymphocytes # (Auto) 1.06 K/uL Monocytes # (Auto) 1.01 K/uL Eosinophils # (Auto) 0.04 K/uL Basophils # (Auto) 0.04 K/uL RDW Standard Deviation 45.5 fL RDW Coefficient of Variation 12.6 % Immature Granulocyte % (Auto) 0.3 % Immature Granulocyte # (Auto) 0.02 K/uL Sodium Level 138 mmol/L Potassium Level 3.1 mmol/L Chloride Level 100 mmol/L Carbon Dioxide Level 29 mmol/L Anion Gap 9.0 mmol/L Blood Urea Nitrogen 8 mg/dl Creatinine 0.92 mg/dl Est Creatinine Clear Calc Drug Dose 98.4 ml/min Estimated GFR () 107.4 Estimated GFR (Non- 92.6 BUN/Creatinine Ratio 8.3 Random Glucose 145 mg/dl Calcium Level 8.4 mg/dl Phosphorus Level 3.0 mg/dl Magnesium Level 2.4 mg/dl Total Bilirubin 2.4 mg/dl Direct Bilirubin 1.0 mg/dl Aspartate Amino Transf (AST/SGOT) 106 U/L Alanine Aminotransferase (ALT/SGPT) 160 U/L Alkaline Phosphatase 92 U/L Total Protein 6.8 gm/dl Albumin 3.3 gm/dl Hepatitis B Surface Antigen NEG Hepatitis C Antibody NEG Assessment and Plan Patient with acute illness with Afib in the setting of alcoholism. He is currently on Doxycycline and appears to be slightly improving. His throat culture shows beta hemolytic colonies present, so will add Keflex as well for now pending culture. Feel that he most likely has a viral syndrome or respiratory tract infection. Will continue abx pending further improvement/ workup. We will follow. PROVIDER ADDENDUM: Patient examined and reviewed with Ms. Chin. Agree with above assessment. ``
--- NOTE | 2016-08-29 13:17 | Progress Note ---
Subjective Date of Service: Aug 29, 2016. Subjective Pt evaluation today including: conversation w/ patient, conversation w/ family , physical exam, chart review, lab review, review of studies, conversation w/ fashion consultant sales, review of inpatient medication list Voiding: no voiding problems Heart rate is better controlled, this morning was around 110 to 130, looks much less anxious, pleasant, conversational, no tremor Problem List Medical Problems: (1) Alcohol abuse Status: Acute (2) Facial edema Status: Acute (3) LFT elevation Status: Acute (4) New onset a-fib Status: Acute Review of Systems Constitutional: + fatigue, No chills, No fever, No problem reported, No sweats , No weakness, No weight loss Eyes: No diplopia, No discharge, No eye pain, No redness, No worsening of vision ENT: No dental problems, No hearing loss, No nasal symptoms, No sore throat, No tinnitus, No trouble swallowing, No unusual epistaxis Respiratory: + shortness of breath, + wheezing, No cough, No dyspnea at rest, No dyspnea on exertion, No hemoptysis, No sputum Cardiac: + edema, No PND, No chest pain, No claudication, No orthopnea, No palpitations Abdomen: No constipation, No diarrhea, No nausea, No pain, No vomiting Musculoskeletal: No calf pain, No joint pain, No muscle pain, No swelling Male : No dysuria, No hematuria, No incontinence, No nocturia more than once/ night, No slowing stream, No urinary frequency Neurologic: No balance problems, No memory loss, No numbness/tingling, No paralysis, No vertigo, No weakness Psychiatric: No anhedonism, No anxiety, No depression symptoms, No insomnia, No substance abuse Heme: No abnormal bleeding/bruising, No clotting problems, No night sweats, No swollen lymph nodes Endo: No excessive thirst, No excessive urination, No fatigue Skin: No bleeding, No color change, No itch, No new/changing skin lesions, No rash Objective Vital Signs Date Time Temp Pulse Resp B/P Pulse Ox O2 Delivery O2 Flow Rate FiO2 08/29/16 12:09 37.2 108 18 126/73 89 Room Air 08/29/16 12:00 Room Air 08/29/16 09:47 135 114/82 08/29/16 09:46 135 114/82 08/29/16 09:41 135 08/29/16 08:25 94 Room Air 08/29/16 08:05 Room Air 08/29/16 08:00 Room Air 08/29/16 07:43 37.2 117 22 126/82 93 Nasal Cannula 4.0 08/29/16 05:15 130 126/81 08/29/16 04:25 37.2 130 18 133/78 92 Nasal Cannula 4.0 08/29/16 04:00 Nasal Cannula 4.0 08/29/16 00:05 37.2 132 18 136/87 95 Nasal Cannula 08/29/16 00:00 Nasal Cannula 2.0 08/28/16 20:00 Nasal Cannula 2.0 08/28/16 19:37 137 08/28/16 19:34 37.3 139 22 134/73 93 Nasal Cannula 4.0 08/28/16 17:59 140 08/28/16 16:00 94 Nasal Cannula 2.0 08/28/16 15:52 124/86 08/28/16 15:52 167 08/28/16 15:21 37.5 211 26 131/83 94 Nasal Cannula 2.0 08/28/16 14:30 144 20 151/92 92 08/28/16 14:15 153 20 133/87 91 Nasal Cannula 3.0 08/28/16 13:53 139 18 135/84 95 Nasal Cannula 3.0 Physical Exam General Appearance: WD/WN, no apparent distress Eyes: normal inspection, PERRL, EOMI, sclerae normal ENT: normal ENT inspection, hearing grossly normal, pharynx normal Neck: supple, no adenopathy, thyroid normal, no JVD, no carotid bruits, trachea midline Respiratory/Chest: chest non-tender, normal breath sounds, no respiratory distress, no accessory muscle use, + decreased breath sounds, + crackles Cardiovascular: no edema, no gallop, no JVD, no murmur, + irregularly irregular (with hR 130) Abdomen: normal bowel sounds, non tender, soft, no organomegaly, no pulsatile mass Extremities: normal range of motion, non-tender, normal inspection, no pedal edema, no calf tenderness, normal capillary refill, pelvis stable, + swelling (1 +) Neurologic/Psychiatric: tester waste disposal leakage II-XII nml as tested, no motor/sensory deficits, alert, normal mood/affect, oriented x 3 Skin: normal color, warm/dry, no rash Lymphatic: no adenopathy Laboratory Results Last 24 Hours Test 08/28/16 13:20 08/28/16 14:40 08/28/16 15:52 08/29/16 00:46 Ethyl Alcohol mg/dL 14.0 mg/dl Creatine Kinase MB Ratio Phosphorus Level 2.4 mg/dl Magnesium Level 2.1 mg/dl Troponin I 0.025 ng/ml Activated Partial Thromboplast Time 53.7 SECONDS Partial Thromboplastin Ratio 2.1 Test 08/29/16 05:44 08/29/16 13:00 White Blood Count 7.80 K/uL Red Blood Count 3.76 M/uL Hemoglobin 13.2 g/dL Hematocrit 37.6 % Mean Corpuscular Volume 100.0 fL Mean Corpuscular Hemoglobin 35.1 pg Mean Corpuscular Hemoglobin Concent 35.1 g/dl Platelet Count 197 K/uL Mean Platelet Volume 10.8 fL Neutrophils (%) (Auto) 72.2 % Lymphocytes (%) (Auto) 13.6 % Monocytes (%) (Auto) 12.9 % Eosinophils (%) (Auto) 0.5 % Basophils (%) (Auto) 0.5 % Neutrophils # (Auto) 5.63 K/uL Lymphocytes # (Auto) 1.06 K/uL Monocytes # (Auto) 1.01 K/uL Eosinophils # (Auto) 0.04 K/uL Basophils # (Auto) 0.04 K/uL RDW Standard Deviation 45.5 fL RDW Coefficient of Variation 12.6 % Immature Granulocyte % (Auto) 0.3 % Immature Granulocyte # (Auto) 0.02 K/uL Activated Partial Thromboplast Time 46.4 SECONDS Partial Thromboplastin Ratio 1.8 Sodium Level 138 mmol/L Potassium Level 3.1 mmol/L Chloride Level 100 mmol/L Carbon Dioxide Level 29 mmol/L Anion Gap 9.0 mmol/L Blood Urea Nitrogen 8 mg/dl Creatinine 0.92 mg/dl Est Creatinine Clear Calc Drug Dose 98.4 ml/min Estimated GFR () 107.4 Estimated GFR (Non- 92.6 BUN/Creatinine Ratio 8.3 Random Glucose 145 mg/dl Calcium Level 8.4 mg/dl Phosphorus Level 3.0 mg/dl Magnesium Level 2.4 mg/dl Total Bilirubin 2.4 mg/dl Direct Bilirubin 1.0 mg/dl Aspartate Amino Transf (AST/SGOT) 106 U/L Alanine Aminotransferase (ALT/SGPT) 160 U/L Alkaline Phosphatase 92 U/L Total Protein 6.8 gm/dl Albumin 3.3 gm/dl Hepatitis B Surface Antigen NEG Hepatitis C Antibody NEG Assessment and Plan 56-year-old male with past medical history including Hepatitis A, chronic alcohol abuse, upper respiratory infection, facial edema, prior exposure to trichloroethylene <10 years ago admitted on 2016 a with n episode of puffy eyes, shortness of breath, and lightheadedness this morning. A. fib with RVR was up to more than 200 with 2 episodes yesterday, currently improved with beta tavon, Cardizem and digoxin, Shortness of breath Possible new onset acute on chronic mild systolic CHF exacerbation , and significant increased Right ventricular systolic pressure: Echo report * Left ventricular systolic function is mildly reduced. * The left atrium is moderately dilated. * There is mild mitral regurgitation. * Right ventricular systolic pressure is elevated at >60mmHg. * There is moderate concentric left ventricular hypertrophy. Is on heparin drip for stroke prevention because heart rate went up to more than 200, will discussed with cardiology to stop drip sooner Cardiology on the case, cardiology planning JUAN and cardioversion if negative thrombosis in the JUAN Possible Superimposed upper respiratory infection with throat culture shows beta hemolytic colonies present : Keflex added Resend a tick bite 3 weeks ago, Lyme's IgG IgM negative, on doxycycline, western blot sent Acute on Chronic Alcohol use Hyponatremia, Na 131, and hypokinemia, Likely due to increased alcohol consumption as above History of hepatitis A [facility] protocol, follow-up lyres - Continue current care, watch for fluid overload, follow-up cardiology input, - Continue multivitamin, folic acid and thiamine GI and DVT prophylaxis covered, discussed with patient about care plan Continued [facility] stay due to: multiple IV medications needed Discharge planning: home
[2016-08-29 13:34] LABS: PARTIAL THROMBOPLASTIN RATIO 2.1
--- NOTE | 2016-08-29 15:04 | Medical Student: [facility] ---
Med Student Progress Note Date of Service Aug 29, 2016. Subjective Pt evaluation today including: conversation w/ patient Mr. Guerrero is a 56 year old male with past medical history significant for Hep A infection, chronic alcohol abuse, and trichloroethylene exposure ten years ago being treated for URI, uncontrolled afib, and alcohol withdrawal. Per RN no acute events overnight and heart rate has decreased from 200s to 110s. Per tele rate controlled afib without RVR. Heart rate in 110s. Patient states he is feeling much better. Notes facial swelling and shortness of breath have resolved. Reports productive cough and congestion. Notes appetite and sleep good. Denies fever, chills, chest pain, nausea, diarrhea, vomiting, sweating, anxiety, tremor, hallucinations. Review of Systems Constitutional: No chills, No fatigue, No fever, No sweats Respiratory: + cough, + sputum, No hemoptysis, No shortness of breath, No wheezing Cardiac: No chest pain, No edema, No orthopnea, No palpitations Abdomen: No GI bleeding, No diarrhea, No nausea, No pain, No vomiting Musculoskeletal: No calf pain, No swelling Male : No dysuria, No urinary frequency Psychiatric: No anxiety Skin: No rash Objective Vital Signs Date Time Temp Pulse Resp B/P Pulse Ox O2 Delivery O2 Flow Rate FiO2 08/29/16 12:09 37.2 108 18 126/73 89 Room Air 08/29/16 12:00 Room Air 08/29/16 09:47 135 114/82 08/29/16 09:46 135 114/82 08/29/16 09:41 135 08/29/16 08:25 94 Room Air 08/29/16 08:05 Room Air 08/29/16 08:00 Room Air 08/29/16 07:43 37.2 117 22 126/82 93 Nasal Cannula 4.0 08/29/16 05:15 130 126/81 08/29/16 04:25 37.2 130 18 133/78 92 Nasal Cannula 4.0 08/29/16 04:00 Nasal Cannula 4.0 08/29/16 00:05 37.2 132 18 136/87 95 Nasal Cannula 08/29/16 00:00 Nasal Cannula 2.0 08/28/16 20:00 Nasal Cannula 2.0 08/28/16 19:37 137 08/28/16 19:34 37.3 139 22 134/73 93 Nasal Cannula 4.0 08/28/16 17:59 140 08/28/16 16:00 94 Nasal Cannula 2.0 08/28/16 15:52 124/86 08/28/16 15:52 167 08/28/16 15:21 37.5 211 26 131/83 94 Nasal Cannula 2.0 08/28/16 14:30 144 20 151/92 92 08/28/16 14:15 153 20 133/87 91 Nasal Cannula 3.0 Physical Exam General Appearance: WD/WN, no apparent distress ENT: + nasal congestion, + nasal drainage Neck: supple, no adenopathy, no JVD, no carotid bruits Respiratory/Chest: + crackles (diffuse bilaterally), + rhonchi (bilateral diffuse), + wheezing (diffuse, expiratory bilateral) Cardiovascular: + tachycardia, + irregularly irregular Abdomen: normal bowel sounds, non tender, no organomegaly, + distended Extremities: normal inspection, no pedal edema, no calf tenderness Neurologic/Psychiatric: normal mood/affect, oriented x 3 Skin: normal color, warm/dry, no rash Laboratory Results Last 24 Hours Test 08/28/16 14:40 08/28/16 15:52 08/29/16 00:46 08/29/16 05:44 Creatine Kinase MB Ratio Phosphorus Level 2.4 mg/dl 3.0 mg/dl Magnesium Level 2.1 mg/dl 2.4 mg/dl Troponin I 0.025 ng/ml Activated Partial Thromboplast Time 53.7 SECONDS 46.4 SECONDS Partial Thromboplastin Ratio 2.1 1.8 White Blood Count 7.80 K/uL Red Blood Count 3.76 M/uL Hemoglobin 13.2 g/dL Hematocrit 37.6 % Mean Corpuscular Volume 100.0 fL Mean Corpuscular Hemoglobin 35.1 pg Mean Corpuscular Hemoglobin Concent 35.1 g/dl Platelet Count 197 K/uL Mean Platelet Volume 10.8 fL Neutrophils (%) (Auto) 72.2 % Lymphocytes (%) (Auto) 13.6 % Monocytes (%) (Auto) 12.9 % Eosinophils (%) (Auto) 0.5 % Basophils (%) (Auto) 0.5 % Neutrophils # (Auto) 5.63 K/uL Lymphocytes # (Auto) 1.06 K/uL Monocytes # (Auto) 1.01 K/uL Eosinophils # (Auto) 0.04 K/uL Basophils # (Auto) 0.04 K/uL RDW Standard Deviation 45.5 fL RDW Coefficient of Variation 12.6 % Immature Granulocyte % (Auto) 0.3 % Immature Granulocyte # (Auto) 0.02 K/uL Sodium Level 138 mmol/L Potassium Level 3.1 mmol/L Chloride Level 100 mmol/L Carbon Dioxide Level 29 mmol/L Anion Gap 9.0 mmol/L Blood Urea Nitrogen 8 mg/dl Creatinine 0.92 mg/dl Est Creatinine Clear Calc Drug Dose 98.4 ml/min Estimated GFR () 107.4 Estimated GFR (Non- 92.6 BUN/Creatinine Ratio 8.3 Random Glucose 145 mg/dl Calcium Level 8.4 mg/dl Total Bilirubin 2.4 mg/dl Direct Bilirubin 1.0 mg/dl Aspartate Amino Transf (AST/SGOT) 106 U/L Alanine Aminotransferase (ALT/SGPT) 160 U/L Alkaline Phosphatase 92 U/L Total Protein 6.8 gm/dl Albumin 3.3 gm/dl Hepatitis B Surface Antigen NEG Hepatitis C Antibody NEG Test 08/29/16 13:09 Activated Partial Thromboplast Time 55.6 SECONDS Partial Thromboplastin Ratio 2.1 Medications Current Inpatient Medications Medications (Trade) Dose Ordered Sig/Vickie Route Start Time Stop Time Status Last Admin Dose Admin Diltiazem HCl/ Dextrose (Cardizem Inj/D5 100ml) 125 ml @ 0 mls/hr Q0M PRN IV 08/28/16 11:00 09/27/16 10:59 08/29/16 13:28 15 MLS/HR Acetaminophen (Tylenol Tab) 650 mg Q4H PRN PO 08/28/16 12:45 09/27/16 12:44 Ondansetron HCl (Zofran Inj) 4 mg Q6H PRN IV 08/28/16 12:45 09/27/16 12:44 Polyethylene (Miralax Powder Packet) 17 gm DAILY PRN PO 08/28/16 12:45 09/27/16 12:44 08/29/16 08:19 17 GM Calcium Carbonate (Tums Chew Tab) 500 mg DAILY PO 08/29/16 09:00 09/28/16 08:59 08/29/16 07:42 500 MG Fish Oil (Skipwith-3 (Purified Fish Oil) Cap) 1 gm DAILY PO 08/29/16 09:00 09/28/16 08:59 08/29/16 07:41 1 GM Multivitamins (Multivitamin Tab) 1 tab DAILY PO 08/29/16 09:00 09/28/16 08:59 08/29/16 07:41 1 TAB Chlordiazepoxide (Librium Cap) 25 mg Q8 PO 08/28/16 22:00 09/27/16 21:59 Folic Acid (Folvite Tab) 1 mg QAM PO 08/29/16 09:00 09/28/16 08:59 08/29/16 07:40 1 MG Doxycycline Hyclate (Vibramycin Cap) 100 mg BID PO 08/28/16 21:00 09/07/16 20:59 08/29/16 07:39 100 MG Digoxin (Lanoxin Tab) 0.125 mg DAILY@16 PO 08/29/16 16:00 09/28/16 15:59 Benzonatate (Tessalon Perles Cap) 100 mg 3XDQ4 PO 08/28/16 16:00 09/27/16 15:59 08/29/16 11:58 100 MG Guaifenesin (Mucinex Contr Rel Tab) 600 mg Q12 PO 08/28/16 21:00 09/27/16 20:59 08/29/16 07:40 600 MG Menthol (Nice Socorro) 1 socorro Q1H PRN PO 08/28/16 14:45 09/27/16 14:44 Thiamine HCl (Vitamin B-1 Tab) 100 mg QAM PO 08/29/16 09:00 09/28/16 08:59 08/29/16 07:39 100 MG Pantoprazole Sodium (Protonix Tab) 40 mg QAM PO 08/29/16 09:00 09/28/16 08:59 08/29/16 08:19 40 MG Lorazepam (Ativan Tab) 1 mg ONE PRN PO 08/28/16 15:45 09/11/16 15:44 Lorazepam (Ativan Inj) PER PROTOCOL Q1H PRN IV 08/28/16 15:45 09/27/16 15:44 Metoprolol Tartrate 5 mg 5 mg Q4 PRN IV 08/28/16 20:00 09/27/16 19:59 08/29/16 09:47 5 MG Heparin Sodium/ Dextrose (Heparin 25,000 Unit/500ml D5W) 500 ml @ 33 mls/hr [id number] PRN IV 08/28/16 18:15 09/27/16 18:14 08/29/16 09:52 33 MLS/HR Cephalexin Monohydrate (Keflex Cap) 500 mg BID PO 08/29/16 21:00 09/08/16 20:59 Assessment and Plan Assessment and Plan: Mr. Guerrero is a 56 year old male with past medical history significant for previous Hep A infection, chronic alcohol abuse, trichloroethylene exposure being treated for uncontrolled afib, alcohol withdrawal, and URI. 1. Acute on chronic afib with RVR - Likely due to recent illness, infection, and alcohol use. Heart rate stable this afternoon in 110s. Was in 130s this AM and 200s yesterday. Patient exposed to trichloroethylene in 1996 and subsequently developed afib. Cardioversion resolved episode of afib and patient has not been on medications since and has not had any episodes since that time. [id number] vasc score calculated at 0 with 0.2% risk. HAS-BLED score calculated at 1 with 3.4% risk. - Aim HR <110 - Continue digoxin 0.125 mg, Lopressor 5mg IV q4 PRN, diltiazem 125 mg IV - Consider cardioversion - Continue telemetry - Continue Heparin drip. PTT today 55.6 - Continue to monitor platelets for signs of HIT 2. Facial swelling, URI symptoms - Likely due to infection, bacterial vs. viral. Patient has significant history of sinus infections. Patient is status post sinus surgery and deviated septum surgery with Dr. France over 20 years ago. Patient has had >2 weeks cough, fever, sputum production. Low grade fever since admission. Facial swelling resolved. Patient still notes cough, congestion, sputum production, drainage. Length of symptoms and history make bacterial infection most likely. Swelling likely due to infection. No history of allergies so less likely allergic reaction. UA did not reveal protein making nephrotic syndrome less likely cause. History of tick bite, no rash. Inital Lyme IgG antibody negative, Western blot and further serologies pending. - Consider XR or CT of sinuses for infection - Would not consider blood culture at this time since antibiotics have already begun - Consider sputum culture - Continue Doxycyclin, patient on day 2. Would cover Lyme and other bacterial infection. - Continue symptomatic relief: Mucinex, Robitussin, Tessalon Perles, lozenges - Continue to monitor CBC, BMP 3. Alcohol use disorder - Patient drinks 6-10 beers daily. Last drink over 48 hours ago. Toxicology revealed blood alcohol level of 14.0 mg/dl. CIWA score calculated at 1. - CIWA less than 8. Continue prophylactic Librium 25 mg q8 and Ativan 1 mg PRN - Continue thiamine, folic acid - Continue to monitor for signs of withdrawal 4. Hypokalemia - Potassium dropped from 3.7 to 3.1 today. Bicarb level of 29, seemingly normal acid base status. Likely due to diureses for likely acute CHF exacerbation, Lasix injection 20 mg IV yesterday. - Potassium 40 meq PO given as well as Potassium chloride fusion 10 meq IV - Recheck potassium level - Consider potassium supplement and ABG or urine potassium level if level remains <3.5 5. Elevated LFTs - Likely due to alcohol use disorder. On exam abdomen distended , no hepatosplenomegaly, not jaundiced. AST 106, ALT 160. However ratio AST: ALT not 2:1. Less indicative of alcohol source. Patient has history of Hep A. Hep B antigen and Hep C antibody negative. Hep A and Hep B core antigen still pending. Non alcoholic fatty liver could also be possibility. - Continue to follow levels - Encourage cessation of alcohol use 6. Acute on chronic CHF - CXR findings indicative of CHF with prominent pulmonary vasculature and heart at upper limit of normal in size. Received injection 20 mg Lasix in ED yesterday. Echo revealed mildly reduced left ventricular systolic, mildly dilated left atrium, mild mitral regurgitation, right ventricular systolic pressure elevation >60, and ejection fraction 40-45% . Systolic dysfunction likely due to chronic alcohol use. Crackles in lung and distended abdomen indicate fluid. Patient does not have bilateral lower extremity edema. - Continue to monitor daily weights, I/O - Consider diuretic and acei - Continue to monitor BMP, renal profile 7. DVT prophylaxis/GI prophylaxis - Continue Protonix - Anticoagulated with heparin drip Continued [facility] stay due to: multiple IV medications needed Discharge planning: home
[2016-08-29] MEDS ORDERED: PROPOFOL IV EMULSION 10 MG/ML 20 ML VIAL IV ONE ×2 (15:52→16:54)
[2016-08-29] MEDS ORDERED: KETAMINE HCL INJ 50 MG/ML 10 ML VIAL ONE (15:52)
[2016-08-29] MEDS ORDERED: LIDOCAINE HCL 2% 2 ML VIAL (20MG/ML) ONE (15:52)
[2016-08-29] MEDS ORDERED: DIGOXIN 0.125 MG TAB PO SCH (16:00)
[2016-08-29] MEDS ORDERED: ATROPINE SULFATE 0.1 MG/ML 5ML SYR IV PRN (16:45)
[2016-08-29] MEDS ORDERED: EpHEDrine SULFATE INJ 50 MG/ML AMP IV PRN (16:45)
--- NOTE | 2016-08-29 16:45 | Anesthesiology Progress Note ---
Anesthesia Post Op Note Date & Time Aug 29, 2016 at 16:45 Vital Signs Pain Intensity: 0 Vital Signs Past 12 Hours Date Time Temp Pulse Resp B/P Pulse Ox O2 Delivery O2 Flow Rate FiO2 08/29/16 16:40 86 16 124/87 96 Nasal Cannula 4 08/29/16 16:35 90 16 120/85 96 Nasal Cannula 6 08/29/16 16:30 78 16 120/84 96 Nasal Cannula 6 08/29/16 16:27 134 16 143/93 96 Nasal Cannula 6 08/29/16 16:25 130 16 135/94 96 Nasal Cannula 6 08/29/16 16:20 130 16 141/110 96 Nasal Cannula 6 08/29/16 16:15 135 16 130/90 96 Nasal Cannula 4 08/29/16 16:10 128 16 135/100 96 Nasal Cannula 4 08/29/16 16:00 Room Air 08/29/16 15:20 36.7 105 18 110/80 93 Room Air 08/29/16 14:33 37.2 102 18 126/73 95 Room Air 08/29/16 12:09 37.2 108 18 126/73 89 Room Air 08/29/16 12:00 Room Air 08/29/16 09:47 135 114/82 08/29/16 09:46 135 114/82 08/29/16 09:41 135 08/29/16 08:25 94 Room Air 08/29/16 08:05 Room Air 08/29/16 08:00 Room Air 08/29/16 07:43 37.2 117 22 126/82 93 Nasal Cannula 4.0 08/29/16 05:15 130 126/81 Notes Mental Status: alert / awake / arousable, participated in evaluation Pt Amnestic to Procedure: Yes Nausea / Vomiting: adequately controlled Pain: adequately controlled Airway Patency, RR, SpO2: stable & adequate BP & HR: stable & adequate Hydration State: stable & adequate Anesthetic Complications: no major complications apparent
--- NOTE | 2016-08-29 17:15 | TEE ---
*NOTICE TO RECEIVING DEMOCRAT AGENCY This information is strictly Confidential and protected under [place] law. [place] law prohibits you from making any further disclosure of this information unless further disclosure is expressly permitted by the written consent of the person to whom it pertains or is authorized by law. A general authorization for the release of medical or other information is not sufficient for this purpose. Hospital accepts no responsibility if the information is made available to any other person, INCLUDING THE PATIENT. Interpretation Summary * Name: MALIK HERNÁNDEZ Study Date: 08/29/2016 03:40 PM BP: 138/94 mmHg * Patient Location: [id number].[id number]\E206\S\1 HR: 151 * : 1960 (M/d/yyyy) Gender: Male Height: 72 in * Age: 56 yrs Ethnicity: CA Weight: 189 lb * Ordering Physician: Chris Alvarez * Referring Physician: Self, Referred * Performed By: Nicolette Denny RCS * * Reason For Study: A-FIB * BSA: 2.1 m2 * -- Conclusions -- * Left ventricular systolic function is low normal. * No left atrial mass or thrombus visualized. Procedure Details * JUAN probe #3 was used during procedure. Time Out: 1610 Probe In: 1620 Probe Out: 1627 * The study was performed in Cardiac Catheterization Lab. * Time out was conducted by the physician, nurse, and point of care technician with positive identification of patient and procedure. * Informed consent for Transesophageal Echocardiogram was obtained prior to the procedure. * An intravenous line was placed. A topical anesthetic agent was used for oropharangeal anesthesia. A bite block was inserted. * Sedation performed by the anesthesia department. * The patient's vital signs, including blood pressure, heart rate, pulse oximetry and cardiac rhythm were monitored throughout the procedure . * The posterior oropharynx was anesthetized using a topical anesthetic spray. A bite guard was inserted. * A multifrequency, multiplane transesopheageal echocardiographic endoscope was inserted and manipulated in the standard fashion to achieve multiplane views. * The transesophageal probe was passed without difficulty. * The patient tolerated the procedure well without evidence of orophangeal or esophageal trauma. * A 2D transesophageal echocardiogram with spectral and color flow Doppler was performed. * There were no complications. * A 2D transesophageal echocardiogram with Doppler and color flow Doppler was performed. Left Ventricle * The left ventricle is grossly normal size. * Left ventricular systolic function is low normal. Atria * No left atrial mass or thrombus visualized. Mitral Valve * The mitral valve anatomy is normal. * There is no mitral regurgitation noted. Tricuspid Valve * The tricuspid valve anatomy is normal. Aortic Valve * The aortic valve is trileaflet. * No aortic regurgitation is present. Great Vessels * The aortic root and proximal ascending aorta are normal sized. Pericardium * There is no pericardial effusion.
--- NOTE | 2016-08-29 17:55 | CARDIOVERSION ---
DATE OF OPERATION: 08/29/2016 DATE OF SERVICE: 08/29/2016. PROCEDURE PERFORMED: Electrical cardioversion. STAFF [employer] DEVELOPER: Chrsi Alvarez M.D. INDICATIONS: Mr. Gerardo Guerrero is a 56-year-old gentleman who presented to [facility] with atrial fibrillation and rapid ventricular response. The patient was symptomatic and there was some difficulty with rate control. As such he was felt to be a good candidate for cardioversion. PROCEDURE IN DETAIL: The patient was informed of the risks, benefits and alternatives to the intended procedure. He understood such and wished to proceed. He was taken to the cardiac catheterization suite in a fasting state. Preprocedure JUAN was performed in order to confirm the absence of thrombus in the left atrial appendage. Once this was confirmed the patient underwent administration of general anesthetic by the anesthesiology service. Once appropriately anesthetized the patient underwent cardioversion with 200 joules delivered in biphasic fashion. This returned the patient to sinus rhythm. Post procedure EKG confirmed the rhythm change. The patient tolerated the procedure well. There were no immediate complications. IMPRESSION: Successful cardioversion from atrial fibrillation to normal sinus rhythm. I attest to the content of the Intraoperative Record and any orders documented therein. Any exceptio ns are noted below.
[2016-08-29] MEDS: CEPHALEXIN MONOHYDRATE 500 MG CAP PO SCH (20:36)
[2016-08-30 04:00] VITALS: PULSE 84
[2016-08-30] MEDS: CHLORDIAZEPOXIDE 25 MG CAP PO SCH (06:00)
[2016-08-30 06:41] LABS: PARTIAL THROMBOPLASTIN RATIO 2.1
[2016-08-30 06:52] LABS: MAGNESIUM 2.3 mg/dl (1.8-2.4); PHOSPHORUS 3.4 mg/dl (2.5-4.9)
[2016-08-30 07:20] VITALS: BP 120/61; PULSE 90; TEMP 36.9; O2SAT 90
[2016-08-30] MEDS: POTASSIUM CHLR 10 MEQ / WTR 10 MEQ in PREMIXED WATER 100 ML IV SCH ×2 (09:15→10:02)
[2016-08-30] MEDS: GUAIFENESIN 600 MG TABCR PO SCH (09:53)
[2016-08-30] MEDS: THIAMINE HCL 100 MG TAB PO SCH (09:53)
[2016-08-30] MEDS: DOXYCYCLINE HYCLATE 100 MG CAP PO SCH (09:54)
[2016-08-30] MEDS: OMEGA-3 (PURIFIED FISH OIL) 1 GM CAP PO SCH (09:54)
[2016-08-30] MEDS: CEPHALEXIN MONOHYDRATE 500 MG CAP PO SCH (09:54)
[2016-08-30] MEDS: MULTIVITAMIN TAB PO SCH (09:55)
[2016-08-30] MEDS: CALCIUM CARBONATE 500 MG CHEWABLE PO SCH (09:55)
[2016-08-30] MEDS: BENZONATATE 100MG CAP PO SCH ×2 (09:55→14:05)
[2016-08-30] MEDS: PANTOprazole SOD 40 MG TAB PO SCH (09:55)
[2016-08-30 10:58] VITALS: BP 138/90; PULSE 81; TEMP 36.7; O2SAT 96
[2016-08-30] MEDS ORDERED: XRL20 PO (13:11)
[2016-08-30] MEDS ORDERED: FLV1 PO (13:11)
[2016-08-30] MEDS ORDERED: THM100 PO (13:11)
[2016-08-30] MEDS ORDERED: KFL500 PO (13:11)
[2016-08-30] MEDS ORDERED: LBR25 PO (13:11)
[2016-08-30] MEDS ORDERED: TPRSR50 PO (13:11)
[2016-08-30] MEDS ORDERED: DXY100 PO (13:11)
--- NOTE | 2016-08-30 13:11 | Discharge Instructions ---
Discharge Instructions Date of Service Aug 30, 2016. Admission Reason for Admission: Atrial Fibrillation With Rvr Discharge Discharge Diagnosis / Problem: afib with RVR s/p cardioversion, chronic alcohol abuse Discharge Goals Goal(s): Decrease discomfort, Improve function, Increase independence, Improve disease control, Improve nutritional status, Learn about illness, Diagnostic testing, Therapeutic intervention, Prevent Disease Progression, Specific goals Activity Recommendations Activity Limitations: as noted below Exercise/Sports Limitations: as tolerated May Resume Sexual Activity: when tolerated . Instructions / Follow-Up Instructions / Follow-Up you have A. fib with RVR sp. cardioversion you are on Xarelto orally for stoke prevention URI with throat culture shows beta hemolytic colonies present : Resent a tick bite 3 weeks ago, Lyme's IgG IgM negative, cont on doxycycline, you have Acute on Chronic Alcohol use, you should not continue alcohol intake you need to follow up with cardiology Dr. Meadows in 1 month you need to follow up with infectious disease in 7-10 days - you need to follow up with your primary care physician in 1 week, - take medication as instructed, never overdose or any misuse, or take with alcohol, because misuse of medicine may cause organ damage or , call your primary care physician if have questions of medicaitons. - call your primary care physician OR go to local emergency room if has any fever/chill, chest pain, shortness of breathing, nausea/vomiting/abdominal pain , facial droop/slurry speech/local weakness, or if has any questions. - fall precaution - diet as instructed - you need to follow up with your subspecialist - you should understand that it is important to follow up the above instruction , and "not following the above instruction" may cause delayed or missed care of your medical conditions which may cause permanent organ damage and even . Current Hospital Diet Patient's current hospital diet: AHA Diet (Heart Healthy) Discharge Diet Recommended Diet: AHA Diet (Heart Healthy) Procedures Procedures Performed: cardio version Pending Studies Studies pending at discharge: no Laboratory Results Meds Administered (Past 24Hrs) Medications (Trade) Dose Ordered Sig/Vickie Route Start Time Stop Time Status Last Admin Dose Admin Calcium Carbonate (Tums Chew Tab) 500 mg DAILY PO 08/29/16 09:00 09/28/16 08:59 08/30/16 09:55 500 MG Fish Oil ([place]-3 (Purified Fish Oil) Cap) 1 gm DAILY PO 08/29/16 09:00 09/28/16 08:59 08/30/16 09:54 1 GM Multivitamins (Multivitamin Tab) 1 tab DAILY PO 08/29/16 09:00 09/28/16 08:59 08/30/16 09:55 1 TAB Folic Acid (Folvite Tab) 1 mg QAM PO 08/29/16 09:00 09/28/16 08:59 08/30/16 09:53 1 MG Doxycycline Hyclate 100 mg 100 mg BID PO 08/28/16 21:00 09/07/16 20:59 08/30/16 09:54 100 MG Digoxin/Syringe (Digoxin IV/ Syringe) 10 ml @ 2 mls/min 1545 IV 08/28/16 15:45 08/28/16 16:30 DC 08/28/16 15:52 2 MLS/MIN Benzonatate (Tessalon Perles Cap) 100 mg 3XDQ4 PO 08/28/16 16:00 09/27/16 15:59 08/30/16 09:55 100 MG Guaifenesin (Mucinex Contr Rel Tab) 600 mg Q12 PO 08/28/16 21:00 09/27/16 20:59 08/30/16 09:53 600 MG Thiamine HCl (Vitamin B-1 Tab) 100 mg QAM PO 08/29/16 09:00 09/28/16 08:59 08/30/16 09:53 100 MG Pantoprazole Sodium (Protonix Tab) 40 mg QAM PO 08/29/16 09:00 09/28/16 08:59 08/30/16 09:55 40 MG Pantoprazole Sodium (Protonix Tab) 40 mg NOW STAT PO 08/28/16 14:52 08/28/16 15:00 DC 08/28/16 16:26 40 MG Lorazepam 1 mg 1 mg 1530 IV 08/28/16 15:30 08/28/16 16:00 DC 08/28/16 15:34 1 MG Multivitamins 10 ml/Thiamine HCl 100 mg/Folic Acid 1 mg/Sodium Chloride 1,011.2 ml @ 500 mls/ hr Q2H2M ONCE IV 08/28/16 16:00 08/28/16 18:01 DC 08/28/16 16:07 500 MLS/HR Digoxin/Syringe (Digoxin IV/ Syringe) 10 ml @ 2 mls/min NOW ONCE IV 08/28/16 17:45 08/28/16 17:49 DC 08/28/16 17:59 2 MLS/MIN Digoxin (Lanoxin Tab) 0.25 mg NOW ONCE PO 08/28/16 20:00 08/28/16 20:01 DC 08/28/16 19:37 0.25 MG Metoprolol Tartrate 5 mg 5 mg Q4 PRN IV 08/28/16 20:00 09/27/16 19:59 08/29/16 09:47 5 MG Heparin Sodium (Porcine) 7000 unit/Syringe 7 ml @ 10 mls/min NOW ONCE IV 08/28/16 18:15 08/28/16 18:16 DC 08/28/16 18:17 10 MLS/MIN Heparin Sodium/ Dextrose 500 ml @ 33 mls/hr [id number] PRN IV 08/28/16 18:15 08/30/16 12:59 DC 08/29/16 09:52 33 MLS/HR Heparin Sodium (Porcine) 3000 unit/Syringe 3 ml @ 10 mls/min TODAY@0700 ONCE IV 08/29/16 07:00 08/29/16 07:01 DC 08/29/16 07:00 10 MLS/MIN Potassium Chloride/Prmx (Kcl 10 Meq / Wtr/Premixed Water) 100 ml @ 100 mls/hr Q1H IV 08/29/16 07:30 08/29/16 09:29 DC 08/29/16 08:19 100 MLS/HR Potassium Chloride (Klor-Con M10) 40 meq NOW STAT PO 08/29/16 07:11 08/29/16 07:18 DC 08/29/16 07:36 40 MEQ Cephalexin Monohydrate 500 mg 500 mg BID PO 08/29/16 21:00 09/08/16 20:59 08/30/16 09:54 500 MG Potassium Chloride/Prmx (Kcl 10 Meq / Wtr/Premixed Water) 100 ml @ 100 mls/hr Q1H IV 08/30/16 08:15 08/30/16 10:14 DC 08/30/16 09:15 100 MLS/HR Medical Emergencies . Who to Call and When: Medical Emergencies: If at any time you feel your situation is an emergency, please call 911 immediately. . Non-Emergent Contact Non-Emergency issues call your: Primary Care Provider, Applications Analyst Call Non-Emergent contact if: you have a fever . . "Provider Documentation" section prepared by Dominic Boss. VTE Core Measure Inpt VTE Proph given/why not?: Unfractionated heparin SQ, T.E.D. Stockings, SCD 's
[2016-08-30] MEDS ORDERED: METOPROLOL SUCC 50MG EXT REL TAB PO ONE (13:15)
--- NOTE | 2016-08-30 13:34 | Infectious Disease Progress Nt ---
Progress Note Date of Service Aug 30, 2016. Subjective Pt evaluation today including: conversation w/ patient, physical exam, chart review, lab review, review of studies, review of inpatient medication list Patient is feeling well this morning. His potassium was low at 3.1 this morning. His AST and aloe ALT continued to be elevated at 106 and 160 respectively. His total bilirubin today was 2.4. He is tolerating his antibiotics well. He has no continued pain with swallowing. He continues to cough up some yellow sputum. He is having no further shortness of breath, pain in his bilateral lower extremity, or abdominal pain. He is up and go home today. He has been afebrile. His urine culture showed no growth. I did note the patient had a cardioversion yesterday. This report was reviewed today. He was successfully converted from atrial fibrillation to normal sinus rhythm. All Other Systems: Reviewed and Negative Medications Current Inpatient Medications Medications (Trade) Dose Ordered Sig/Vickie Route Start Time Stop Time Status Last Admin Dose Admin Acetaminophen (Tylenol Tab) 650 mg Q4H PRN PO 08/28/16 12:45 09/27/16 12:44 Ondansetron HCl (Zofran Inj) 4 mg Q6H PRN IV 08/28/16 12:45 09/27/16 12:44 Polyethylene (Miralax Powder Packet) 17 gm DAILY PRN PO 08/28/16 12:45 09/27/16 12:44 08/29/16 08:19 17 GM Calcium Carbonate (Tums Chew Tab) 500 mg DAILY PO 08/29/16 09:00 09/28/16 08:59 08/30/16 09:55 500 MG Fish Oil ([place]-3 (Purified Fish Oil) Cap) 1 gm DAILY PO 08/29/16 09:00 09/28/16 08:59 08/30/16 09:54 1 GM Multivitamins (Multivitamin Tab) 1 tab DAILY PO 08/29/16 09:00 09/28/16 08:59 08/30/16 09:55 1 TAB Chlordiazepoxide (Librium Cap) 25 mg Q8 PO 08/28/16 22:00 09/27/16 21:59 Folic Acid (Folvite Tab) 1 mg QAM PO 08/29/16 09:00 09/28/16 08:59 08/30/16 09:53 1 MG Doxycycline Hyclate (Vibramycin Cap) 100 mg BID PO 08/28/16 21:00 09/07/16 20:59 08/30/16 09:54 100 MG Benzonatate (Tessalon Perles Cap) 100 mg 3XDQ4 PO 08/28/16 16:00 09/27/16 15:59 08/30/16 09:55 100 MG Guaifenesin (Mucinex Contr Rel Tab) 600 mg Q12 PO 08/28/16 21:00 09/27/16 20:59 08/30/16 09:53 600 MG Menthol ([place]) 1 [place] Q1H PRN PO 08/28/16 14:45 09/27/16 14:44 Thiamine HCl (Vitamin B-1 Tab) 100 mg QAM PO 08/29/16 09:00 09/28/16 08:59 08/30/16 09:53 100 MG Pantoprazole Sodium (Protonix Tab) 40 mg QAM PO 08/29/16 09:00 09/28/16 08:59 08/30/16 09:55 40 MG Lorazepam (Ativan Tab) 1 mg ONE PRN PO 08/28/16 15:45 09/11/16 15:44 Lorazepam (Ativan Inj) PER PROTOCOL Q1H PRN IV 08/28/16 15:45 09/27/16 15:44 Metoprolol Tartrate (Lopressor Iv) 5 mg Q4 PRN IV 08/28/16 20:00 09/27/16 19:59 08/29/16 09:47 5 MG Cephalexin Monohydrate (Keflex Cap) 500 mg BID PO 08/29/16 21:00 09/08/16 20:59 08/30/16 09:54 500 MG Metoprolol Succinate (Toprol Xl Tab) 50 mg QAM PO 08/31/16 09:00 09/30/16 08:59 Objective Vital Signs Date Time Temp Pulse Resp B/P Pulse Ox O2 Delivery O2 Flow Rate FiO2 08/30/16 12:00 Room Air 08/30/16 10:58 36.7 81 16 138/90 96 Room Air 08/30/16 08:00 Room Air 08/30/16 07:20 36.9 90 24 120/61 90 Room Air 08/30/16 04:00 Room Air 08/30/16 04:00 84 16 Room Air 08/30/16 00:05 Room Air 08/29/16 23:53 37.3 96 18 125/73 94 Nasal Cannula 3.0 08/29/16 20:30 89 22 135/73 93 Nasal Cannula 2.0 08/29/16 20:00 92 20 136/72 94 Nasal Cannula 2.0 08/29/16 20:00 Room Air 08/29/16 19:30 84 22 131/73 96 Nasal Cannula 2.0 08/29/16 19:10 37.2 82 24 119/84 94 Nasal Cannula 2.0 08/29/16 18:30 36.8 84 19 119/84 95 Nasal Cannula 2.0 08/29/16 18:15 36.8 80 19 115/81 94 Nasal Cannula 2.0 08/29/16 18:04 36.7 85 18 119/80 94 Nasal Cannula 2.0 08/29/16 17:45 36.7 85 18 125/84 91 Nasal Cannula 2.0 08/29/16 17:21 36.7 85 18 120/77 91 Nasal Cannula 2.0 08/29/16 17:02 86 16 122/81 96 Room Air 08/29/16 16:52 82 128/78 96 Room Air 08/29/16 16:42 92 120/80 96 Room Air 08/29/16 16:40 86 16 124/87 96 Nasal Cannula 4 08/29/16 16:35 90 16 120/85 96 Nasal Cannula 6 08/29/16 16:30 78 16 120/84 96 Nasal Cannula 6 08/29/16 16:27 134 16 143/93 96 Nasal Cannula 6 08/29/16 16:25 130 16 135/94 96 Nasal Cannula 6 08/29/16 16:20 130 16 141/110 96 Nasal Cannula 6 08/29/16 16:15 135 16 130/90 96 Nasal Cannula 4 08/29/16 16:10 128 16 135/100 96 Nasal Cannula 4 08/29/16 16:00 Room Air 08/29/16 15:20 36.7 105 18 110/80 93 Room Air 08/29/16 14:33 37.2 102 18 126/73 95 Room Air Physical Exam General Appearance: WD/WN, no apparent distress Eyes: normal inspection, sclerae normal ENT: hearing grossly normal Neck: supple, trachea midline Respiratory/Chest: chest non-tender, no respiratory distress, no accessory muscle use, + wheezing (Right lower lobe-mild) Cardiovascular: regular rate, rhythm, no murmur Abdomen: normal bowel sounds, non tender, soft Extremities: normal range of motion Neurologic/Psychiatric: alert, normal mood/affect Skin: normal color, warm/dry, no rash Laboratory Results Item Value Date Time Urine Culture - Final Complete 08/28/16 0000 Urine , Clean Catch NO GROWTH - LESS THAN 1,000 COLONIES/ML Last 24 Hours Test 08/30/16 05:48 08/30/16 13:18 Activated Partial Thromboplast Time 55.3 SECONDS Partial Thromboplastin Ratio 2.1 Phosphorus Level 3.4 mg/dl Magnesium Level 2.3 mg/dl Assessment and Plan Patient with acute illness with Afib in the setting of alcoholism. He is currently on Doxycycline and Keflex. Feel that he most likely has a viral syndrome or respiratory tract infection. Due to his continued mild wheezing and yellow mucus production on exam, recommend continuing p.o. doxycycline and Keflex to complete 7 days. He should follow up with ID next week. He has otherwise okay for discharge from ID perspective. PROVIDER ADDENDUM: Patient reviewed with Ms. Chin. Agree with above assessment.
[2016-08-30 13:38] VITALS: BP 138/90; PULSE 81; TEMP 36.7; O2SAT 96
[2016-08-30 13:52] LABS: BUN/CREATININE RATIO 7.4 (10-20); CALCIUM 8.7 mg/dl (8.5-10.1); CREATININE 0.82 mg/dl (0.60-1.40); MAGNESIUM 2.2 mg/dl (1.8-2.4); POTASSIUM 3.8 mmol/L (3.5-5.1)
[2016-08-30 13:53] LABS: PARTIAL THROMBOPLASTIN RATIO 1.9
--- NOTE | 2016-08-30 15:17 | Discharge Summary ---
Discharge Summary Date of Service Aug 30, 2016. Discharge Summary Admission Date: Aug 28, 2016 at 12:43 Discharge Date: Aug 30, 2016 Discharge Disposition: Home Principal Diagnosis: A. fib with RVR sp. cardioversion Problems/Secondary Diagnoses: URI with throat culture shows beta hemolytic colonies present : Resent a tick bite 3 weeks ago, Lyme's IgG IgM negative, cont on doxycycline, Acute on Chronic Alcohol abuse Procedures: A. fib with RVR sp. cardioversion Consultations: Ground School Instructor and infectious disease Medication Reconciliation New Medications: Rivaroxaban (Xarelto) 20 Mg Tab 20 MG PO DAILY for 30 Days free sample given by grain miller helper, no Rx Cephalexin Monohydrate (Cephalexin) 500 Mg Cap 500 MG PO BID for 5 Days, #10 CAP Chlordiazepoxide (Chlordiazepoxide HCl) 25 Mg Cap 25 MG PO Q8 for 7 Days, #12 CAP 25 mg po tid for 2 days, then 25mg po bid for 2 days then 12.5 mg po bid for 2 days then stop Doxycycline Hyclate (Doxycycline Hyclate) 100 Mg Cap 100 MG PO BID for 19 Days, #38 CAP Folic Acid (Folic Acid) 1 Mg Tab 1 MG PO QAM for 30 Days, #30 TAB Metoprolol Succinate (Metoprolol Succinate ER) 50 Mg Tabcr 50 MG PO QAM for 30 Days Thiamine HCl (Vitamin B-1) 100 Mg Tab 100 MG PO QAM for 30 Days, #30 TAB Continued Medications: Ascorbic Acid (Vitamin C) 1,000 Mg Tab 1 TAB PO DAILY Calcium Carbonate (Tums) 500 Mg Chew 1 TAB PO DAILY Fish Oil ([place]-3) 1 Ea Cap 1 CAP PO DAILY, CAP Multivitamin (Multivitamin) Tab 1 TAB PO DAILY, TAB [Liveco] () 2 TAB PO DAILY Discharge Exam Doing well, up and walk, no complaining, Review of Systems: Constitutional: No chills, No fatigue, No fever, No problem reported, No sweats, No weakness, No weight loss Eyes: No diplopia, No discharge, No eye pain, No problem reported, No redness, No worsening of vision ENT: No dental problems, No hearing loss, No nasal symptoms, No problem reported, No sore throat, No tinnitus, No trouble swallowing, No unusual epistaxis Respiratory: No cough, No dyspnea at rest, No dyspnea on exertion, No hemoptysis, No problem reported, No shortness of breath, No sputum, No wheezing Cardiovascular: + edema (is better), No PND, No chest pain, No claudication , No orthopnea, No palpitations, No problem reported Abdomen: No GI bleeding, No constipation, No diarrhea, No nausea, No pain, No problem reported, No vomiting Musculoskeletal: No calf pain, No joint pain, No muscle pain, No problem reported, No swelling Neurologic: No balance problems, No memory loss, No numbness/tingling, No paralysis, No problem reported, No vertigo, No weakness Psychiatric: No anhedonism, No anxiety, No depression symptoms, No insomnia , No problem reported, No substance abuse Endocrine: No excessive thirst, No excessive urination, No fatigue, No problem reported Hematologic / Lymphatic: No abnormal bleeding/bruising, No clotting problems , No night sweats, No problem reported, No swollen lymph nodes Integumentary: No bleeding, No color change, No itch, No new/changing skin lesions, No problem reported, No rash Physical Exam: General Appearance: WD/WN, no apparent distress ENT: normal ENT inspection, hearing grossly normal, TMs normal Neck: supple Respiratory/Chest: chest non-tender, normal breath sounds, no respiratory distress, no accessory muscle use, + decreased breath sounds, + wheezing ( occasion) Cardiovascular: regular rate, rhythm, no gallop, no murmur, normal peripheral pulses, + pertinent finding (1+ edema) Abdomen / GI: normal bowel sounds, non tender, soft, no organomegaly, no pulsatile mass Extremities: normal inspection, no calf tenderness, normal capillary refill Neurologic/Psychiatric: payroll bookkeeper II-XII nml as tested, no motor/sensory deficits , alert, normal mood/affect, normal reflexes, oriented x 3 Skin: normal color, warm/dry Hospital Course 56-year-old male with past medical history including Hepatitis A, chronic alcohol abuse, upper respiratory infection, facial edema, prior exposure to trichloroethylene <10 years ago admitted on 2016 a with n episode of puffy eyes, shortness of breath, and lightheadedness this morning. A. fib with RVR was up to more than 200 with 2 episodes upon admission He was treated with beta tavon, Cardizem and digoxin, He had a cardioversion yesterday afternoon, continue on normal sinus resume now Echo report * Left ventricular systolic function is mildly reduced. * The left atrium is moderately dilated. * There is mild mitral regurgitation. * Right ventricular systolic pressure is elevated at >60mmHg. * There is moderate concentric left ventricular hypertrophy. Started heparin drip for stroke prevention because heart rate went up to more than 200, Discussed with grain miller helper, he recommend Xarelto anti-coagulation for stroke prevention, free coupons was given to patient by grain miller helper, therefore I updated medicine because mutation, but does not include disp of prescription Possible Superimposed upper respiratory infection with throat culture shows beta hemolytic colonies present : Keflex added will continue 5 days more to complete totally 7 days of treatment Resend a tick bite 3 weeks ago, Lyme's IgG IgM negative, on doxycycline, western blot sent will continue antibiotic for totally 21 days, I told patient need to follow-up with infectious disease as outpatient, they agreed Acute on Chronic Alcohol use Hyponatremia, Na 131, and hypokinemia, Likely due to increased alcohol consumption as above History of hepatitis A alcohol withdrawal protocol, Librium scheduled, Ativan as needed,, was given banana bag, Will give tapering dose of Librium, will continue thiamine, folate acid, and multiple vitamin, has counselling not start any alcohol when or medication, which can cause injury an ddeath, in the bedside, patient agreed, and also agreed to take on the risk by self if taking alcohol. GI and DVT prophylaxis covered, discussed with patient about care plan Instructions / Follow-Up you have A. fib with RVR sp. cardioversion you are on Xarelto orally for stoke prevention URI with throat culture shows beta hemolytic colonies present : Resent a tick bite 3 weeks ago, Lyme's IgG IgM negative, cont on doxycycline, you have Acute on Chronic Alcohol use, you should not continue alcohol intake you need to follow up with cardiology Dr. Meadows in 1 month you need to follow up with infectious disease in 7-10 days - you need to follow up with your primary care physician in 1 week, - take medication as instructed, never overdose or any misuse, or take with alcohol, because misuse of medicine may cause organ damage or , call your primary care physician if have questions of medicaitons. - call your primary care physician OR go to local emergency room if has any fever/chill, chest pain, shortness of breathing, nausea/vomiting/abdominal pain , facial droop/slurry speech/local weakness, or if has any questions. - fall precaution - diet as instructed - you need to follow up with your subspecialist - you should understand that it is important to follow up the above instruction , and "not following the above instruction" may cause delayed or missed care of your medical conditions which may cause permanent organ damage and even . Total Time Spent: Greater than 30 minutes This includes examination of the patient, discharge planning, medication reconciliation, and communication with other providers. Discharge Instructions Please refer to the electronic Patient Visit Report (Discharge Instructions) for additional information. Additional Copies To Ruiz Mercer D.O.Int.Med.
[2016-08-31] MEDS ORDERED: METOPROLOL SUCC 50MG EXT REL TAB PO SCH (09:00)
[2016-08-31 11:27] LABS: ANAPLASMA PHAGOCYTOPHIL IGG <1:64 (<1:64); ANAPLASMA PHAGOCYTOPHIL IGM <1:20 (<1:20)
[2016-09-03 05:33] LABS: 18KDIGG BAND NONREACTIVE (NONREACTIVE); 23KDIGG BAND NONREACTIVE (NONREACTIVE); 23KDIGM BAND NONREACTIVE (NONREACTIVE); 28KDIGG BAND NONREACTIVE (NONREACTIVE); 30KDIGG BAND NONREACTIVE (NONREACTIVE); 39KDIGG BAND NONREACTIVE (NONREACTIVE); 39KDIGM BAND NONREACTIVE (NONREACTIVE); 41KDIGG BAND REACTIVE (NONREACTIVE); 41KDIGM BAND NONREACTIVE (NONREACTIVE); 45KDIGG BAND NONREACTIVE (NONREACTIVE); 58KDIGG BAND NONREACTIVE (NONREACTIVE); 66KDIGG BAND NONREACTIVE (NONREACTIVE); 93KDIGG BAND NONREACTIVE (NONREACTIVE)
--- NOTE | 2017-01-28 18:34 | Procedure Note ---
Procedure Note Date of Service August 29, 2016. Procedure Note Procedure performed: Electrical cardioversion Staff ammunition storage superintendent:Con Alvarez Indication: Symptomatic rapid atrial fibrillation Procedure in detail The patient was informed of the risks benefits alternatives to the intended procedure. He was brought to the cardiac catheterization holding area. A general anesthetic was administered by the Anesthesiology Service. Once appropriately anesthetized the patient underwent cardioversion using a biphasic waveform. Patient returned to sinus rhythm. He was neurologically intact subsequent to the procedure. There were no immediate complications. Impression: Successful cardioversion from atrial fibrillation to sinus rhythm
== END 2016-08-30 14:27 | disposition home or self-care (01) | DRG 308 ==
LOC: ENRESERVTM → ENRESERVDT → C.EDB 08:42 → C.2E 12:43
PROVIDERS: ADMIT Hospitalist; ATTEND Hospitalist
PROC: 5A2204Z Restoration of Cardiac Rhythm, Single (ICD-10-PCS; principal; 2016-08-29 16:00)
DX: I48.91 Unspecified atrial fibrillation (principal); I50.23 Acute on chronic systolic (congestive) heart failure; E87.1 Hypo-osmolality and hyponatremia; I42.6 Alcoholic cardiomyopathy; J06.9 Acute upper respiratory infection, unspecified; F10.20 Alcohol dependence, uncomplicated; R22.0 Localized swelling, mass and lump, head

== ENCOUNTER → 2016-11-20 | Outpatient (CLI) | payer BC ==
[~2016-11-20] MED LIST: ASCO10003 PO; CALC500C3 PO; DXY100 PO; FLV1 PO; KFL500 PO; LBR25 PO; MULT-506 PO; OMEG10007 PO; THM100 PO; TPRSR50 PO; XRL20 PO; [UNRECOGNIZED DRUG - OTHER] PO
--- NOTE | 2016-11-20 11:17 | DIAGNOSTIC IMAGING REPORT ---
C-SPINE ROUTINE 4 OR 5 VIEWS CLINICAL HISTORY: M54.12 Right cervical [id number] Neck [id number] COMPARISON STUDY: No previous studies for comparison. FINDINGS: The prevertebral soft tissues are normal. There are no acute fractures. There are degenerative changes most pronounced the C5-6 and C6-7 levels. There is 3.4 mm of anterolisthesis of C7 on T1, likely degenerative. There is uncovertebral joint spurring with foraminal narrowing most pronounced at the C5-6 and C6-7 levels. IMPRESSION: 1. No acute fractures 2. 3.4 mm of anterolisthesis of C7 on T1, likely degenerative 3. Multilevel degenerative changes most pronounced the C5-6 and C6-7 levels with disc space narrowing and bony foraminal encroachment Electronically signed by: Altaf Childress M.D. 11/20/2016 11:15 AM Dictated Date/Time: 11/20/2016 11:14 AM
[2016-11-20 13:52] LABS: BASO % 1.1 %; BASO ABS # 0.07 K/uL (0-0.2); COMPLETE YES; EOS % 0.8 %; HEMATOCRIT 44.2 % (42-52); IG% 0.2 %; LYMPH % 20.9 %; MEAN CELL VOLUME 102.6 fL (80-100); MEAN CORPUSCULAR HEMOGLOBIN 34.8 pg (25-34); MEAN CORPUSCULAR HGB CONC 33.9 g/dl (32-36); MONO % 9.2 %; NEUT % 67.8 %; PLATELET COUNT 192 K/uL (130-400); RED BLOOD COUNT 4.31 M/uL (4.7-6.1); WHITE BLOOD COUNT 6.21 K/uL (4.8-10.8)
[2016-11-20 14:30] LABS: ALKALINE PHOSPHATASE 80 U/L (45-117); ALT/SGPT 42 U/L (12-78); BLOOD UREA NITROGEN 9 mg/dl (7-18); BUN/CREATININE RATIO 10.6 (10-20); CARBON DIOXIDE 28 mmol/L (21-32); CHLORIDE 104 mmol/L (98-107); CREATININE 0.82 mg/dl (0.60-1.40); GLUCOSE 82 mg/dl (70-99); POTASSIUM 4.3 mmol/L (3.5-5.1); SODIUM 141 mmol/L (136-145)
[2016-11-20 14:32] LABS: ALB/GLOB RATIO 1.2 (0.9-2); AST/SGOT 36 U/L (15-37)
[2016-11-20 14:34] LABS: LYME DISEASE AB IGG NEG (NEG); LYME DISEASE AB IGM NEG (NEG)
[2016-11-20 14:36] LABS: CALCIUM 9.1 mg/dl (8.5-10.1)
== END | disposition home or self-care (01) ==
LOC: C.RADBC 10:50
PROVIDERS: ATTEND Family Medicine
DX: M54.2 Cervicalgia (principal); M54.12 Radiculopathy, cervical region; G45.9 Transient cerebral ischemic attack, unspecified; R51 Headache; T14.8 Other injury of unspecified body region; W57.XXXA Bitten or stung by nonvenomous insect and other nonvenomous arthropods, initial encounter; M43.13 Spondylolisthesis, cervicothoracic region; M50.322 Other cervical disc degeneration at C5-C6 level; M50.323 Other cervical disc degeneration at C6-C7 level

== ENCOUNTER → 2016-11-25 | Outpatient (CLI) | payer BC ==
[~2016-11-25] MED LIST changes: +GADAVIST IV PRN
--- NOTE | 2016-11-25 09:02 | DIAGNOSTIC IMAGING REPORT ---
Brain and internal auditory canal MRI WITH AND WITHOUT CONTRAST HISTORY: R51 Right-sided face pain TECHNIQUE: Multiplanar multisequence MRI of the brain and internal auditory canals were performed both before and after the intravenous administration of contrast. COMPARISON STUDY: None. FINDINGS: Small retention cysts within the left maxillary sinus. The mastoid air cells are clear. The major vascular flow voids at the skull base are well-maintained. The ventricles and sulci are within normal limits for age. There is no mass, hematoma, midline shift, acute infarct. There are few punctate foci of T2 hyperintensity seen within the white matter of the frontal lobes. These are nonspecific but favor minimal microvascular ischemic change. These are of doubtful clinical significance. No abnormal enhancement. No abnormal enhancement or masses within the bilateral internal auditory canals. The 7th and 8th cranial nerves are normal and course and caliber. IMPRESSION: No acute intracranial abnormality. Normal bilateral internal auditory canals. Electronically signed by: Jalen Temple M.D. 11/25/2016 9:01 AM Dictated Date/Time: 11/25/2016 8:53 AM
== END ==
LOC: C.MRIBC 06:37
PROVIDERS: ATTEND Family Medicine
DX: G45.9 Transient cerebral ischemic attack, unspecified (principal); R51 Headache

== ENCOUNTER → 2017-01-31 | Outpatient (CLI) | payer BC ==
[~2017-01-31] MED LIST changes: -GADAVIST IV PRN
[2017-01-31 14:12] LABS: LYME DISEASE AB IGG NEG (NEG); LYME DISEASE AB IGM NEG (NEG)
== END | disposition home or self-care (01) ==
LOC: C.LABBC 10:13
PROVIDERS: ATTEND Internal Medicine
DX: R50.9 Fever, unspecified (principal); M25.50 Pain in unspecified joint

== ENCOUNTER 2017-10-14 13:30 | Observation (INO) | payer BC, MEDICARE ==
[~2017-10-14] VITALS: Ht 182.9 cm; Wt 80.1 kg
[2017-10-14] MEDS ORDERED: SODIUM CHLORIDE 0.9% 1000ML 1,000 ML IV STA (13:46)
[2017-10-14] MEDS ORDERED: METOPROLOL TARTRATE 1 MG/ML VIAL IV STA ×2 (13:47→13:48)
[2017-10-14] MEDS ORDERED: METOPROLOL TARTRATE 1 MG/ML VIAL ONE (13:49)
[2017-10-14 13:57] LABS: BASO % 0.4 %; BASO ABS # 0.03 K/uL (0-0.2); EOS % 0.2 %; EOS ABS # 0.02 K/uL (0-0.5); HEMATOCRIT 42.2 % (42-52); IG# 0.03 K/uL (0.00-0.02); LYMPH % 17.8 %; LYMPH ABS # 1.47 K/uL (1.2-3.4); MEAN CELL VOLUME 104.5 fL (80-100); MEAN CORPUSCULAR HEMOGLOBIN 37.1 pg (25-34); MEAN CORPUSCULAR HGB CONC 35.5 g/dl (32-36); MEAN PLATELET VOLUME 9.7 fL (7.4-10.4); MONO % 9.8 %; MONO ABS # 0.81 K/uL (0.11-0.59); NEUT % 71.4 %; NEUT ABS # 5.92 K/uL (1.4-6.5); PLATELET COUNT 201 K/uL (130-400); RED CELL DISTRIBUTION WIDTH CV 12.9 % (11.5-14.5); WHITE BLOOD COUNT 8.28 K/uL (4.8-10.8)
[2017-10-14 14:02] LABS: ISTAT CREATININE 1.1 mg/dl (0.6-1.3); ISTAT IONIZED CALCIUM 1.18 mmol/l (1.12-1.32); ISTAT POTASSIUM 3.8 mEq/L (3.3-5.0)
[2017-10-14 14:09] LABS: INR 1.1 (0.9-1.1); PTT PATIENT 26.3 SECONDS (21.0-31.0)
[2017-10-14 14:13] LABS: ALBUMIN 3.8 gm/dl (3.4-5.0); ALT/SGPT 405 U/L (12-78); AST/SGOT 247 U/L (15-37); BLOOD UREA NITROGEN 11 mg/dl (7-18); CALCIUM 9.2 mg/dl (8.5-10.1); CARBON DIOXIDE 22 mmol/L (21-32); CREATININE 0.95 mg/dl (0.60-1.40); GLUCOSE 112 mg/dl (70-99); POTASSIUM 3.8 mmol/L (3.5-5.1); SODIUM 130 mmol/L (136-145)
[2017-10-14] MEDS ORDERED: ASPIRIN 81 MG CHEW PO STA (14:32)
[2017-10-14] MEDS ORDERED: RIVAROXABAN 20 MG TAB PO STA (14:35)
[2017-10-14] MEDS ORDERED: METOPROLOL TARTRATE 50 MG TAB PO STA (14:35)
[2017-10-14] MEDS ORDERED: DILTIAZEM BOLUS / DRIP IV STA ×2 (14:35→16:52)
[2017-10-14] MEDS ORDERED: DILTIAZEM HCL 5 MG/ML 5 ML VIAL IV STA (14:35)
[2017-10-14 14:41] LABS: ALKALINE PHOSPHATASE 78 U/L (45-117); CKMB 6.1 ng/ml (0.5-3.6)
--- NOTE | 2017-10-14 14:42 | DIAGNOSTIC IMAGING REPORT ---
CHEST ONE VIEW PORTABLE CLINICAL HISTORY: EVALUATE WEAKNESS dyspnea COMPARISON STUDY: 08/28/2016 FINDINGS: Mild stable cardiomegaly. Slight interstitial and reticular nodular prominence in the lower lungs bilaterally. Diaphragms are smooth. Pulmonary apices are clear. IMPRESSION: Mild stable cardiomegaly. Mild interstitial prominence both lung bases possibly inflammatory. The above report was generated using voice recognition software. It may contain grammatical, syntax or spelling errors. Electronically signed by: Marko Bernal M.D. 10/14/2017 2:40 PM Dictated Date/Time: 10/14/2017 2:40 PM
[2017-10-14] MEDS ORDERED: CALC1TAB27 PO (15:21)
[2017-10-14] MEDS: DILTIAZEM HCL INJ 125 MG in DEXTROSE 5% 100ML IV PRN (15:21)
[2017-10-14] MEDS ORDERED: ASPI-435 PO (15:21)
[2017-10-14] MEDS ORDERED: ONDANSETRON INJ 2 MG/ML 2 ML VIAL IV PRN (17:00)
[2017-10-14] MEDS ORDERED: ALUMINUM/MAGNESIUM/SIMETH (MAALOX MAX) 30 ML UDC PO PRN (17:00)
[2017-10-14] MEDS ORDERED: POLYETHYLENE (MIRALAX) 17 GM PACK PO PRN (17:00)
[2017-10-14] MEDS ORDERED: LORAZEPAM 1 MG TAB PO PRN (17:00)
[2017-10-14] MEDS ORDERED: MAGNESIUM HYDROXIDE SUSP 30 ML UDC PO PRN (17:00)
[2017-10-14] MEDS ORDERED: ACETAMINOPHEN 325 MG TAB PO PRN (17:00)
--- NOTE | 2017-10-14 17:33 | History and Physical ---
History & Physical Date & Time of Service: October 14, 2017 at 17:12 Chief Complaint: Can't Breathe Primary Care Physician: Neftaly Giles M.D. History of Present Illness Source: patient, spouse ( at bedside), clinic records, hospital records This is a 57 y/o male with a history of a-fib, alcohol use, and GERD who presented to the ED on 10/14 with atrial flutter with RVR. The patient notes intermittent shortness of breath recently which became acutely worse today following administration of his Flovent inhaler. He states he felt a burning in his lungs and chest after taking the inhaler, followed by worsening dyspnea on exertion. He had also felt dizzy at that time. He denies palpitations, however. The patient states his symptoms resided with rest. Upon arrival to the ED, he was found to be in a-flutter with RVR. The patient has a history of a-fib in the past. He had a cardioversion in 1996 and was in a-fib again last August which again required electrical cardioversion. The patient has been on diltiazem and Xarelto in the past, but stopped these medications of his own volition several months ago. During my exam, the patient reports feeling well and that his breathing is improved. He does report at times a mild lower abdominal pain, which he states has been present since he started doxycycline over a month ago for his several tick bites. He stopped the doxy about 2 days ago. The patient denies fevers, chills, sweats, chest pain, palpitations, claudication, cough, wheezing, nausea, vomiting, dysuria, hematuria, urinary retention, paralysis, weakness, numbness and tingling. Past Medical/Surgical History Medical Problems: (1) Alcohol abuse (2) Atrial fibrillation with RVR (3) Facial edema (4) Hepatitis A (5) LFT elevation (6) New onset a-fib Surgical Problems: (1) H/O shoulder surgery Family History Diabetes mellitus Heart disease Hypertension Social History Smoking Status: Former Smoker (quit 1995) Smokeless Tobacco Use: No Alcohol Use: heavy (4-5 12 ounce beers/day) Drug Use: none Marital Status: Housing status: lives with significant other Occupational Status: retired Allergies Coded Allergies: No Known Allergies (Unverified , 10/14/17) Home Medications Scheduled Ascorbic Acid (Vitamin C), 1 TAB PO DAILY Aspirin (Aspirin 81), 81 MG PO QAM Calcium Carbonate (Tums), 1 TAB PO DAILY Nmhpfkj-Auyevrvgu-Jxfz (Calcium Magnesium & Zinc), 1 TAB PO DAILY Multivitamin (Multivitamin), 1 TAB PO DAILY Review of Systems Constitutional: No fever, No chills, No sweats Eyes: No worsening of vision, No eye pain, No diplopia ENT: No hearing loss, No nasal symptoms, No trouble swallowing Respiratory: +SHERIDAN. No cough, No wheezing Cardiovascular: No chest pain, No claudication, No palpitations Abdomen: +Abd pain. No nausea, No vomiting Musculoskeletal: No joint pain, No muscle pain, No swelling Genitourinary - Male: No dysuria, No urinary retention, No hematuria Neurologic: No paralysis, No weakness, No numbness/tingling Integumentary: No rash, No itch, No color change Physical Exam Vital Signs Date Time Temp Pulse Resp B/P (MAP) Pulse Ox O2 Delivery O2 Flow Rate FiO2 10/14/17 17:00 137 18 127/93 97 Nasal Cannula 2.0 10/14/17 15:43 120 17 115/88 97 Nasal Cannula 1.0 10/14/17 15:23 139 15 121/88 98 Nasal Cannula 1.0 10/14/17 15:15 138 27 115/96 97 Room Air 10/14/17 14:56 149 20 130/90 95 Nasal Cannula 2.0 10/14/17 14:31 137 20 120/97 96 Nasal Cannula 2.0 10/14/17 14:18 144 16 127/100 97 Nasal Cannula 2.0 10/14/17 14:16 97 Nasal Cannula 2.0 10/14/17 14:10 155 119/89 10/14/17 14:06 159 18 121/96 98 Room Air 10/14/17 13:59 156 136/113 10/14/17 13:56 Nasal Cannula 2.0 10/14/17 13:56 98 Nasal Cannula 2.0 10/14/17 13:54 155 152/123 10/14/17 13:50 155 10/14/17 13:34 36.7 129 22 96/71 98 Room Air General appearance: Well-developed, well-nourished, no apparent distress Head: Normocephalic, atraumatic Eyes: Normal inspection, PERRL, EOMI ENT: Normal ENT inspection, hearing grossly normal, pharynx normal Neck: Supple, no JVD, trachea midline Respiratory/Chest: +On 2L. Lungs clear to auscultation, normal breath sounds, no respiratory distress Cardiovascular: +Irregularly irregular, tachycardic. No gallop, no murmur Abdomen/GI: Normal bowel sounds, non-tender, soft Extremities/Musculoskeletal: Normal inspection, no calf tenderness, no pedal edema Neurological/Psych: Alert, normal mood/affect, oriented x 3 Skin: Normal color, warm/dry, no rash Diagnostics Laboratory Results Results Past 24 Hours Test 10/14/17 13:45 10/14/17 13:51 10/14/17 13:52 10/14/17 15:10 Range/Units White Blood Count 8.28 4.8-10.8 K/uL Red Blood Count 4.04 4.7-6.1 M/uL Hemoglobin 15.0 14.0-18.0 g/dL Hematocrit 42.2 42-52 % Mean Corpuscular Volume 104.5 80-100 fL Mean Corpuscular Hemoglobin 37.1 25-34 pg Mean Corpuscular Hemoglobin Concent 35.5 32-36 g/dl Platelet Count 201 130-400 K/uL Mean Platelet Volume 9.7 7.4-10.4 fL Neutrophils (%) (Auto) 71.4 % Lymphocytes (%) (Auto) 17.8 % Monocytes (%) (Auto) 9.8 % Eosinophils (%) (Auto) 0.2 % Basophils (%) (Auto) 0.4 % Neutrophils # (Auto) 5.92 1.4-6.5 K/uL Lymphocytes # (Auto) 1.47 1.2-3.4 K/uL Monocytes # (Auto) 0.81 0.11-0.59 K/uL Eosinophils # (Auto) 0.02 0-0.5 K/uL Basophils # (Auto) 0.03 0-0.2 K/uL RDW Standard Deviation 49.0 36.4-46.3 fL RDW Coefficient of Variation 12.9 11.5-14.5 % Immature Granulocyte % (Auto) 0.4 % Immature Granulocyte # (Auto) 0.03 0.00-0.02 K/uL Prothrombin Time 11.3 9.0-12.0 SECONDS Prothromb Time International Ratio 1.1 0.9-1.1 Activated Partial Thromboplast Time 26.3 21.0-31.0 SECONDS Partial Thromboplastin Ratio 1.0 Sodium Level 130 136-145 mmol/L Potassium Level 3.8 3.5-5.1 mmol/L Chloride Level 98 98-107 mmol/L Carbon Dioxide Level 22 21-32 mmol/L Anion Gap 10.0 18.0 16-25 mmol/L Blood Urea Nitrogen 11 7-18 mg/dl Creatinine 0.95 0.60-1.40 mg/dl Est Creatinine Clear Calc Drug Dose 94.2 ml/min Estimated GFR () 102.6 Estimated GFR (Non- 88.5 BUN/Creatinine Ratio 11.3 10-20 Random Glucose 112 70-99 mg/dl Calcium Level 9.2 8.5-10.1 mg/dl Magnesium Level 2.1 1.8-2.4 mg/dl Total Bilirubin 2.2 0.2-1 mg/dl Direct Bilirubin 0.7 0-0.2 mg/dl Aspartate Amino Transf (AST/SGOT) 247 15-37 U/L Alanine Aminotransferase (ALT/SGPT) 405 12-78 U/L Alkaline Phosphatase 78 45-117 U/L Total Creatine Kinase 179 39-308 U/L Creatine Kinase MB 6.1 0.5-3.6 ng/ml Creatine Kinase MB Ratio 3.4 0-3.0 Troponin I < 0.015 0-0.045 ng/ml Total Protein 7.0 6.4-8.2 gm/dl Albumin 3.8 3.4-5.0 gm/dl Thyroid Stimulating Hormone (TSH) 1.900 0.300-4.500 uIu/ml Bedside Hemoglobin 16.0 14.0-18.0 g/dl Bedside Hematocrit 47 42-52 % Bedside Sodium 131 135-144 mEq/L Bedside Potassium 3.8 3.3-5.0 mEq/L Bedside Chloride 95 101-112 mEq/L Bedside Total CO2 22 24-31 mEq/l Bedside Blood Urea Nitrogen 11 7-18 mg/dl Bedside Creatinine 1.1 0.6-1.3 mg/dl Bedside Glucose (other) 115 70-99 mg/dl Bedside Ionized Calcium (Mary Lou) 1.18 1.12-1.32 mmol/l Bedside Troponin I < 0.030 0-0.045 ng/ml Urine Color YELLOW Urine Appearance CLEAR CLEAR Urine pH 6.0 4.5-7.5 Urine Specific [place] 1.008 1.000-1.030 Urine Protein NEG NEG Urine Glucose (UA) NEG NEG Urine Ketones NEG NEG Urine Occult Blood NEG NEG Urine Nitrite NEG NEG Urine Bilirubin NEG NEG Urine Urobilinogen NEG NEG Urine Leukocyte Esterase NEG NEG Diagnostic Radiology Reviewed the following studies and agree with interpretation as follows: CHEST ONE VIEW PORTABLE CLINICAL HISTORY: EVALUATE WEAKNESS dyspnea COMPARISON STUDY: 08/28/2016 FINDINGS: Mild stable cardiomegaly. Slight interstitial and reticular nodular prominence in the lower lungs bilaterally. Diaphragms are smooth. Pulmonary apices are clear. IMPRESSION: Mild stable cardiomegaly. Mild interstitial prominence both lung bases possibly inflammatory. EKG Reviewed EKG and agree with interpretation as follows: 136 bpm, atrial flutter Impression Assessment and Plan 57 y/o male with a history of a-fib, alcohol use, and GERD who presented to the ED on 10/14 with a-fib with RVR. Pt tachycardic on arrival with HR up to 150s. Pt hypotensive on arrival but improved with IV fluids. Pt currently on 2L NC, does not wear oxygen at home. The patient received several doses of Lopressor IV, then a diltiazem bolus of 10 mg IV x1 and started on diltiazem drip in ED as well as Xarelto per cardiology recommendations. CXR shows mild interstitial prominence of both bases. EKG shows a-flutter with RVR. Troponin negative. Potassium, magnesium, TSH WNL. Atrial flutter with RVR--h/o a-fib requiring cardioversion x 2 -Admit to telemetry for observation -Consult cardiology, appreciate recs: Recommend metoprolol 50 mg PO BID, aspirin and Xarelto for now -Continue diltiazem drip, titrate as needed -Lopressor 50 mg PO BID -Continue Xarelto 20 mg PO qd and ASA -Echocardiogram -Trend cardiac enzymes q8h x 3. First troponin negative Hyponatremia -Likely secondary to beer intake, will monitor Alcohol use -Alcohol withdrawal protocol -Ativan 1 mg PO prn -Thiamine 100 mg PO qd, folic acid 1 mg PO qd, MVI Elevated LFTs--no RUQ pain -RUQ ultrasound -Continue to monitor DVT prophylaxis -Xarelto -ERROL hose and SCDs Code Status -Level I, FULL RESUSCITATION STATUS Resuscitation Status VTE Prophylaxis Will order VTE Prophylaxis: Yes
--- NOTE | 2017-10-14 17:36 | EMERGENCY ROOM VISIT NOTE ---
History Report prepared by Pedro: Herman Epps Under the Supervision of: Dr. Scott Hong M.D. First contact with patient: 13:43 Chief Complaint: SHORTNESS OF BREATH Stated Complaint: CAN'T BREATHE History of Present Illness The patient is a 57 year old male who presents to the Emergency Room with complaints of intermittent shortness of breath that the patient has been experiencing since , 4 weeks ago. The patient noticed an acute worsening of his shortness of breath today, and also describes a "burning" sensation in his chest. He also describes a constant "pressure" in his abdominal area. The patient notes that he has been taking FloVent, and took two treatments today prior to arrival. He does have a history of atrial fibrillation, but denies that these symptoms feel similar to what he felt during that episode. The patient is currently free of pain and "burning" upon arrival to ED. He denies any LOC, headache, fevers, chills, diaphoresis, visual changes, nausea, vomiting , back pain, melena, hematochezia, urinary symptoms, numbness, weakness, lymphadenopathy, rash, or other complaints. Onset: 4 weeks of SOB Position: chest Quality: pressure (abdomen), burning (in chest), other (SOB) Timing: intermittent Associated Symptoms: + abdominal pain, No nausea, No vomiting, No back pain Review of Systems See HPI for pertinent positives and negatives. A total of ten systems were reviewed and were otherwise negative. Past Medical & Surgical Medical Problems: (1) Atrial fibrillation with RVR (2) Hepatitis A Surgical Problems: (1) H/O shoulder surgery Family History Diabetes mellitus Heart disease Social History Smoking Status: Never Smoker Alcohol Use: heavy, other Drug Use: none Marital Status: Housing Status: lives with significant other Occupation Status: retired Current/Historical Medications Scheduled Ascorbic Acid (Vitamin C), 1 TAB PO DAILY Aspirin (Aspirin 81), 81 MG PO QAM Calcium Carbonate (Tums), 1 TAB PO DAILY Oafjgxj-Erfyedstp-Dvfr (Calcium Magnesium & Zinc), 1 TAB PO DAILY Multivitamin (Multivitamin), 1 TAB PO DAILY Allergies Coded Allergies: No Known Allergies (Unverified , 10/14/17) Physical Exam Vital Signs Date Time Temp Pulse Resp B/P (MAP) Pulse Ox O2 Delivery O2 Flow Rate FiO2 10/14/17 17:00 137 18 127/93 97 Nasal Cannula 2.0 5/1/18 15:43 120 17 115/88 97 Nasal Cannula 1.0 10/14/17 15:23 139 15 121/88 98 Nasal Cannula 1.0 10/14/17 15:15 138 27 115/96 97 Room Air 10/14/17 14:56 149 20 130/90 95 Nasal Cannula 2.0 10/14/17 14:31 137 20 120/97 96 Nasal Cannula 2.0 10/14/17 14:18 144 16 127/100 97 Nasal Cannula 2.0 10/14/17 14:16 97 Nasal Cannula 2.0 10/14/17 14:10 155 119/89 10/14/17 14:06 159 18 121/96 98 Room Air 10/14/17 13:59 156 136/113 10/14/17 13:56 Nasal Cannula 2.0 10/14/17 13:56 98 Nasal Cannula 2.0 10/14/17 13:54 155 152/123 10/14/17 13:50 155 10/14/17 13:34 36.7 129 22 96/71 98 Room Air Physical Exam GENERAL: Awake, alert, well-appearing, in no distress HENT: Normocephalic, atraumatic. Oropharynx unremarkable. EYES: Normal conjunctiva. Sclera non-icteric. NECK: Supple. No nuchal rigidity. FROM. No masses. RESPIRATORY: Clear to auscultation. No wheezes. No rales. Normal respiratory effort. CARDIAC: Tachycardic rate and somewhat irregular rhythm. No murmurs. No rubs. Extremities warm and well perfused. Pulses equal. No JVD. GI: Soft, non-distended. No tenderness to palpation. No rebound or guarding. No masses. RECTAL: Deferred. MUSCULOSKELETAL: Atraumatic. Chest examination reveals no tenderness. The back is symmetrical on inspection without obvious abnormality. There is no CVA tenderness to palpation. No joint edema. LOWER EXTREMITIES: Calves are equal size bilaterally and non-tender. No edema. No discoloration. NEURO: Normal sensorium. No sensory or motor deficits noted. SKIN: No rash or jaundice noted. Medical Decision & Procedures ER Provider Diagnostic Interpretation: Radiology results as stated below per my review and radiologist interpretation: CHEST ONE VIEW PORTABLE CLINICAL HISTORY: EVALUATE WEAKNESS dyspnea COMPARISON STUDY: 08/28/2016 FINDINGS: Mild stable cardiomegaly. Slight interstitial and reticular nodular prominence in the lower lungs bilaterally. Diaphragms are smooth. Pulmonary apices are clear. IMPRESSION: Mild stable cardiomegaly. Mild interstitial prominence both lung bases possibly inflammatory. The above report was generated using voice recognition software. It may contain grammatical, syntax or spelling errors. Electronically signed by: Marko Bernal M.D. 10/14/2017 2:40 PM Dictated Date/Time: 10/14/2017 2:40 PM Laboratory Results 10/14/17 13:45 Red Blood Count 4.04, Mean Corpuscular Volume 104.5, Mean Corpuscular Hemoglobin 37.1, Mean Corpuscular Hemoglobin Concent 35.5, Mean Platelet Volume 9.7, Neutrophils (%) (Auto) 71.4, Lymphocytes (%) (Auto) 17.8, Monocytes (%) ( Auto) 9.8, Eosinophils (%) (Auto) 0.2, Basophils (%) (Auto) 0.4, Neutrophils # ( Auto) 5.92, Lymphocytes # (Auto) 1.47, Monocytes # (Auto) 0.81, Eosinophils # ( Auto) 0.02, Basophils # (Auto) 0.03 10/14/17 13:45 Test 10/14/17 13:45 10/14/17 13:51 10/14/17 13:52 10/14/17 15:10 White Blood Count 8.28 K/uL (4.8-10.8) Red Blood Count 4.04 M/uL (4.7-6.1) Hemoglobin 15.0 g/dL (14.0-18.0) Hematocrit 42.2 % (42-52) Mean Corpuscular Volume 104.5 fL (80-100) Mean Corpuscular Hemoglobin 37.1 pg (25-34) Mean Corpuscular Hemoglobin Concent 35.5 g/dl (32-36) Platelet Count 201 K/uL (130-400) Mean Platelet Volume 9.7 fL (7.4-10.4) Neutrophils (%) (Auto) 71.4 % Lymphocytes (%) (Auto) 17.8 % Monocytes (%) (Auto) 9.8 % Eosinophils (%) (Auto) 0.2 % Basophils (%) (Auto) 0.4 % Neutrophils # (Auto) 5.92 K/uL (1.4-6.5) Lymphocytes # (Auto) 1.47 K/uL (1.2-3.4) Monocytes # (Auto) 0.81 K/uL (0.11-0.59) Eosinophils # (Auto) 0.02 K/uL (0-0.5) Basophils # (Auto) 0.03 K/uL (0-0.2) RDW Standard Deviation 49.0 fL (36.4-46.3) RDW Coefficient of Variation 12.9 % (11.5-14.5) Immature Granulocyte % (Auto) 0.4 % Immature Granulocyte # (Auto) 0.03 K/uL (0.00-0.02) Prothrombin Time 11.3 SECONDS (9.0-12.0) Prothromb Time International Ratio 1.1 (0.9-1.1) Activated Partial Thromboplast Time 26.3 SECONDS (21.0-31.0) Partial Thromboplastin Ratio 1.0 Est Creatinine Clear Calc Drug Dose 94.2 ml/min Estimated GFR () 102.6 Estimated GFR (Non- 88.5 BUN/Creatinine Ratio 11.3 (10-20) Calcium Level 9.2 mg/dl (8.5-10.1) Magnesium Level 2.1 mg/dl (1.8-2.4) Total Bilirubin 2.2 mg/dl (0.2-1) Direct Bilirubin 0.7 mg/dl (0-0.2) Aspartate Amino Transf (AST/SGOT) 247 U/L (15-37) Alanine Aminotransferase (ALT/SGPT) 405 U/L (12-78) Alkaline Phosphatase 78 U/L (45-117) Total Creatine Kinase 179 U/L (39-308) Creatine Kinase MB 6.1 ng/ml (0.5-3.6) Creatine Kinase MB Ratio 3.4 (0-3.0) Troponin I < 0.015 ng/ml (0-0.045) Total Protein 7.0 gm/dl (6.4-8.2) Albumin 3.8 gm/dl (3.4-5.0) Thyroid Stimulating Hormone (TSH) 1.900 uIu/ml (0.300-4.500) Bedside Hemoglobin 16.0 g/dl (14.0-18.0) Bedside Hematocrit 47 % (42-52) Bedside Sodium 131 mEq/L (135-144) Bedside Potassium 3.8 mEq/L (3.3-5.0) Bedside Chloride 95 mEq/L (101-112) Bedside Total CO2 22 mEq/l (24-31) Anion Gap 18.0 mmol/L (16-25) Bedside Blood Urea Nitrogen 11 mg/dl (7-18) Bedside Creatinine 1.1 mg/dl (0.6-1.3) Bedside Glucose (other) 115 mg/dl (70-99) Bedside Ionized Calcium (Mary Lou) 1.18 mmol/l (1.12-1.32) Bedside Troponin I < 0.030 ng/ml (0-0.045) Urine Color YELLOW Urine Appearance CLEAR (CLEAR) Urine pH 6.0 (4.5-7.5) Urine Specific [place] 1.008 (1.000-1.030) Urine Protein NEG (NEG) Urine Glucose (UA) NEG (NEG) Urine Ketones NEG (NEG) Urine Occult Blood NEG (NEG) Urine Nitrite NEG (NEG) Urine Bilirubin NEG (NEG) Urine Urobilinogen NEG (NEG) Urine Leukocyte Esterase NEG (NEG) Laboratory results reviewed by me Medications Administered Medications (Trade) Dose Ordered Sig/Vickie Route Start Time Stop Time Status Last Admin Dose Admin Sodium Chloride 1,000 ml @ 125 mls/hr Q8H STAT IV 10/14/17 13:46 10/14/17 21:45 10/14/17 14:20 125 MLS/HR Metoprolol Tartrate (Lopressor Iv) 5 mg NOW STAT IV 10/14/17 13:47 10/14/17 13:49 DC 10/14/17 13:54 5 MG Metoprolol Tartrate (Lopressor Iv) 5 mg STK-MED ONCE .ROUTE 10/14/17 13:49 10/14/17 13:50 DC 10/14/17 14:10 5 MG Metoprolol Tartrate (Lopressor Iv) 15 mg NOW STAT IV 10/14/17 13:48 10/14/17 13:57 DC 10/14/17 13:59 5 MG Aspirin (Aspirin Chew) 324 mg NOW STAT PO 10/14/17 14:32 10/14/17 14:35 DC 10/14/17 14:40 324 MG Metoprolol Tartrate (Lopressor Tab) 50 mg NOW STAT PO 10/14/17 14:35 10/14/17 14:37 DC 10/14/17 15:12 50 MG Diltiazem HCl (Cardizem Bolus / Drip) 1 ea NOW STAT IV 10/14/17 14:35 10/14/17 14:37 DC 10/14/17 15:21 1 EA Diltiazem HCl (Cardizem Inj) 10 mg NOW STAT IV 10/14/17 14:35 10/14/17 14:37 DC 10/14/17 14:56 10 MG Rivaroxaban (Xarelto Tab) 20 mg NOW STAT PO 10/14/17 14:35 10/14/17 14:37 DC 10/14/17 14:55 20 MG Diltiazem HCl 125 mg/Dextrose 125 ml @ 0 mls/hr Q0M PRN IV 10/14/17 14:45 11/13/17 14:44 10/14/17 15:21 5 MLS/HR ECG Per My Interpretation Indication: chest pain, SOB/dyspnea Rate (beats per minute): 136 Rhythm: atrial flutter (with 2-1 conduction) Findings: ST depression (Anterolateral), ST elevation (Lateral) Comparison ECG Date: 08/29/2016 Change: Flutter is new. STEPH/STD are new. REPEAT EKG: Shows A-flutter with variable block at 144. ST-segments have improved. REPEAT EKG: Shows A-flutter at 143, no changes from previous. ED Course 1346: The patient was evaluated in room C2B. A complete history and physical exam was performed. 1346: Ordered Sodium Chloride 1000 mL @ 125 mL/hr IV, Lopressor 5 mg IV. 1350: The patient had a normal iSTAT evaluation. 1415: I checked on the patient at this time. He was stable. 1430: I discussed the case with Dr. Schneider - Cardiology. He suggests starting the patient on Cardizem, metoprolol po and Xarelto and admitting to the hospitalist service. 1432: Ordered Aspirin 324 mg PO. 1435: Ordered Xarelto 20 mg PO, Cardizem 10 mg IV, po metoprolol. 1442: I discussed the case with Dr. Karyn TODD Hospitalist. He will evaluate the patient for further treatment. 1445: Ordered Diltiazem HCl gtt. Medical Decision Prior records/ancillary studies reviewed. Triage Nursing notes reviewed and agree them. The patient's history was concerning for chest burning, palpitations. Differential diagnosis: Etiologies such as electrolyte abnormality, cardiac dysrhythmia, cardiac ischemia thyroid dysfunction, pulmonary embolism, infection, gastrointestinal , as well as others were entertained. Physical examination: Tachycardia as above. Otherwise the patient was doing well. ER treatment provided: Cardiac monitoring. IV metoprolol 5 mg 3 IV Cardizem bolus and drip Normal saline hydration Oral asked On reassessment the patient felt better. Diagnostic interpretation by me: The electrocardiogram revealed atrial flutter. Initially ST segments were concerning. They improved on subsequent EKGs as noted above. The labs revealed [] Imaging studies: Chest x-ray as above. Consultation: A consultation was placed with the travel counselor [employer] and hospitalist. The case was discussed and diagnostics were reviewed. The patient was evaluated in the ER for further treatment. Medication Reconcilliation Current Medication List: was personally reviewed by me Blood Pressure Screening Patient's blood pressure: Normal blood pressure Consults Time Called: 1426 Consulting Physician: Dr. Schneider - Cariology Returned Call: 1430 I discussed the case with Dr. Schneider - Cardiology. He suggests starting the patient on Cardizem metoprolol and Xarelto and admitting to the hospitalist service. Additional Consults: Time Called: 1440 Consulted Physician: Dr. Karyn MARRUFO Hospitalist Returned Call: 1442 Additional Comments: I discussed the case with Dr. Karyn MARRUFO Hospitalist. He will evaluate the patient for further treatment. Impression Primary Impression: Atrial flutter with rapid ventricular response Additional Impression: Substernal chest pain Critical Care I have personally spent greater than 30 minutes of critical care time in the direct management of this patient. This includes bedside care, interpretation of diagnostic studies, and testing, discussion with consultants, patient, and family members, and other required patient management activities. This 30 minutes is in excess of all separately billable procedures. Scribe Attestation The scribe's documentation has been prepared under my direction and personally reviewed by me in its entirety. I confirm that the note above accurately reflects all work, treatment, procedures, and medical decision making performed by me. Departure Information Dispostion Being Evaluated By Hospitalist Neftaly Levin M.D. (PCP) Patient Instructions My [facility] Problem Qualifiers
[2017-10-14] MEDS ORDERED: IV FLUIDS COMPLETED PRN (20:00)
[2017-10-14] MEDS: METOPROLOL TARTRATE 50 MG TAB PO SCH (21:05)
[2017-10-14 21:23] VITALS: BP 128/81; PULSE 140; TEMP 37.1; O2SAT 97; Ht 182.9 cm; Wt 80.1 kg
[2017-10-14 22:33] LABS: CKMB 4.4 ng/ml (0.5-3.6)
[2017-10-14 23:28] VITALS: BP 121/91; PULSE 120; TEMP 36.7; O2SAT 97
[2017-10-14 23:59] VITALS: O2SAT 97
[2017-10-15] MEDS ORDERED: METOPROLOL TARTRATE 1 MG/ML VIAL IV STA (00:02)
[2017-10-15] MEDS ORDERED: SODIUM CHLORIDE 0.9% 1000ML 1,000 ML IV SCH (00:15)
[2017-10-15] MEDS ORDERED: DIGOXIN IV 250 MCG in SYRINGE 9 ML IV ONE (01:45)
[2017-10-15] MEDS: DILTIAZEM HCL INJ 125 MG in DEXTROSE 5% 100ML IV PRN (02:14)
[2017-10-15] MEDS ORDERED: LORAZEPAM 2 MG/ML 1 ML VIAL IV STA (03:59)
[2017-10-15] MEDS ORDERED: LORAZEPAM 2 MG/ML 1 ML VIAL ONE (04:01)
[2017-10-15 04:04] LABS: BASO % 0.5 %; BASO ABS # 0.03 K/uL (0-0.2); EOS % 0.9 %; EOS ABS # 0.06 K/uL (0-0.5); HEMATOCRIT 39.5 % (42-52); HEMOGLOBIN 14.1 g/dL (14.0-18.0); IG# 0.01 K/uL (0.00-0.02); LYMPH % 22.1 %; LYMPH ABS # 1.41 K/uL (1.2-3.4); MEAN CELL VOLUME 104.5 fL (80-100); MEAN CORPUSCULAR HEMOGLOBIN 37.3 pg (25-34); MEAN CORPUSCULAR HGB CONC 35.7 g/dl (32-36); MONO % 13.3 %; MONO ABS # 0.85 K/uL (0.11-0.59); NEUT ABS # 4.03 K/uL (1.4-6.5); PLATELET COUNT 196 K/uL (130-400); RED CELL DISTRIBUTION WIDTH SD 49.2 fL (36.4-46.3); WHITE BLOOD COUNT 6.39 K/uL (4.8-10.8)
[2017-10-15 04:25] LABS: ALBUMIN 3.6 gm/dl (3.4-5.0); ALT/SGPT 320 U/L (12-78); AST/SGOT 130 U/L (15-37); BLOOD UREA NITROGEN 11 mg/dl (7-18); CALCIUM 8.9 mg/dl (8.5-10.1); CARBON DIOXIDE 26 mmol/L (21-32); CREATININE 0.75 mg/dl (0.60-1.40); GLUCOSE 99 mg/dl (70-99); POTASSIUM 3.9 mmol/L (3.5-5.1); SODIUM 135 mmol/L (136-145)
[2017-10-15 04:37] LABS: ALKALINE PHOSPHATASE 66 U/L (45-117); CKMB 3.9 ng/ml (0.5-3.6); TOTAL PROTEIN 6.5 gm/dl (6.4-8.2)
[2017-10-15 04:47] VITALS: BP 93/66; PULSE 135; TEMP 36.8; O2SAT 97
[2017-10-15 08:20] VITALS: BP 124/84; PULSE 134; TEMP 36.9; O2SAT 96
--- NOTE | 2017-10-15 08:35 | DIAGNOSTIC IMAGING REPORT ---
(LIVER) ABDOMEN LIMITED CLINICAL HISTORY: 57 years-old Male presenting with elevated LFTs. TECHNIQUE: Real-time grayscale and limited color Doppler ultrasound imaging of the abdomen limited to the right upper quadrant was performed. COMPARISON: None. FINDINGS: Pancreas: Visualized portions of the pancreatic head and body normal. Liver: Mildly hyperechogenic parenchyma, although the right hemidiaphragm remains visible, likely indicating mild steatosis. The liver measures 16.5 cm in maximal sagittal dimension. No sonographic evidence of hepatic mass. Main portal vein patent with normal directional flow. Biliary: No intrahepatic biliary ductal dilatation. Common bile duct measures up to 3 mm in diameter. Gallbladder: Mild gallbladder wall thickening may be present. No gallstones or pathologic distention of the gallbladder. No convincing evidence of pericholecystic fluid or inflammatory change. Right kidney: Normal in appearance without evidence of hydronephrosis. Subcentimeter stable cyst noted at the upper pole. Ascites: None. Other: None. IMPRESSION: 1. No cholelithiasis or biliary ductal dilatation. 2. Mild gallbladder wall thickening, nonspecific. 3. Hepatic steatosis. Correlate with liver function tests to exclude steatohepatitis as a cause for abdominal pain. Electronically signed by: Adán Bey M.D. 10/15/2017 8:34 AM Dictated Date/Time: 10/15/2017 8:24 AM
[2017-10-15] MEDS ORDERED: ASPIRIN 81 MG ECTAB PO SCH (09:00)
[2017-10-15] MEDS ORDERED: THIAMINE HCL 100 MG TAB PO SCH (09:00)
[2017-10-15] MEDS ORDERED: MULTIVITAMIN TAB PO SCH (09:00)
--- NOTE | 2017-10-15 09:02 | Cardiology Consultation ---
Cardiology Consultation Date of Consultation: October 15, 2017. Requesting Physician: Qamar Reason for Consultation: Atrial flutter Pt evaluation today including: conversation w/ patient, physical exam, chart review, lab review, review of studies, review of inpatient medication list History of Present Illness Patient is a 57-year-old gentleman with a history of atrial fibrillation who presented [facility] with worsening shortness of breath and some dizziness. Patient states that over the past month he has been slightly more short of breath. He began using his Flovent inhaler around that time. He is generally an active individual who is able perform routine activity without limiting dyspnea or chest discomfort. His dyspnea was fairly mild. Yesterday he planned on doing some extensive work and took 2 puffs of Flovent as a prophylactic. Shortly thereafter he felt more dyspneic and had a burning sensation in his throat and lungs. He also became somewhat woozy at times. Based on the nature of the symptoms he presented [facility] for evaluation where he discovered to be in atrial flutter with rapid ventricular response. Patient states that he did not feel presyncopal. He did not have any symptoms of chest discomfort. He was unaware of his heart racing until he reached the emergency room. He does report taking his blood pressure on occasion measuring his pulse and has not noticed any elevated readings. Past Medical/Surgical History Atrial fibrillation September 2016 Alcohol abuse Gastroesophageal reflux disease Brachial plexopathy Cervical radiculopathy Past surgical history: Rhinoplasty Shoulder surgery Family History Diabetes mellitus Heart disease Hypertension Brother with arrhythmia, likely atrial flutter Social History Smoking Status: Former Smoker History of Alcohol Use: Yes Patient claims to drink anywhere from 3-8 beers daily. He reports having discontinue caffeine use. Review of Systems Cardiac: + see HPI Recently the patient was subjected to several tick bites. He was put on doxycycline as a prophylactic. He did not test positive for Lyme disease but appeared to have a superficial skin infection as well. He has not report subjective fevers or chills. He has been eating well. He has not had any other symptoms of pain, chest pain or syncope. All Other Systems: Reviewed and Negative Allergies Coded Allergies: No Known Allergies (Unverified , 10/14/17) Medications Current Inpatient Medications Medications (Trade) Dose Ordered Sig/Vickie Route Start Time Stop Time Status Last Admin Dose Admin Diltiazem HCl 125 mg/Dextrose 125 ml @ 0 mls/hr Q0M PRN IV 10/14/17 14:45 11/13/17 14:44 10/15/17 02:14 15 MLS/HR Acetaminophen (Tylenol Tab) 650 mg Q4H PRN PO 10/14/17 17:00 11/13/17 16:59 Al Hydrox/Mg Hydrox/Simethicone (Maalox Max Susp) 15 ml Q4H PRN PO 10/14/17 17:00 11/13/17 16:59 Magnesium Hydroxide (Milk Of Magnesia Susp) 30 ml Q12H PRN PO 10/14/17 17:00 11/13/17 16:59 Ondansetron HCl (Zofran Inj) 4 mg Q6H PRN IV 10/14/17 17:00 11/13/17 16:59 Polyethylene (Miralax Powder Packet) 17 gm DAILY PRN PO 10/14/17 17:00 11/13/17 16:59 Rivaroxaban (Xarelto Tab) 20 mg DAILYBD PO 10/15/17 16:00 11/14/17 15:59 Metoprolol Tartrate (Lopressor Tab) 50 mg BID PO 10/14/17 21:00 11/13/17 20:59 10/14/17 21:05 50 MG Aspirin (Ecotrin Tab) 81 mg QAM PO 10/15/17 09:00 11/14/17 08:59 Thiamine HCl (Vitamin B-1 Tab) 100 mg DAILY PO 10/15/17 09:00 11/14/17 08:59 Lorazepam (Ativan Tab) 1 mg ONE PRN PO 10/14/17 17:00 11/13/17 16:59 Folic Acid (Folvite Tab) 1 mg QAM PO 10/15/17 09:00 11/14/17 08:59 Multivitamins (Multivitamin Tab) 1 tab DAILY PO 10/15/17 09:00 11/14/17 08:59 Miscellaneous (Iv Fluids Completed) 1 ea PRN PRN N/A 10/14/17 20:00 10/14/18 19:59 Sodium Chloride 1,000 ml @ 125 mls/hr Q8H IV 10/15/17 00:15 11/14/17 00:14 10/15/17 00:23 125 MLS/HR Physical Exam Vital Signs Past 12 Hours Date Time Temp Pulse Resp B/P (MAP) Pulse Ox O2 Delivery O2 Flow Rate FiO2 10/15/17 08:20 36.9 134 18 124/84 (97) 96 10/15/17 04:47 36.8 135 18 93/66 (75) 97 Nasal Cannula 2.0 10/15/17 04:00 Nasal Cannula 2.0 10/15/17 02:13 114 10/15/17 00:24 131 121/91 10/14/17 23:59 97 Nasal Cannula 2.0 10/14/17 23:28 36.7 120 18 121/91 (101) 97 Nasal Cannula 2.0 10/14/17 21:23 37.1 140 18 128/81 97 Nasal Cannula 2.0 The patient is alert and oriented. Mood and affect appeared normal. He answered all questions appropriately. HEENT: Pupils are equal and reactive to light and accommodation. Extraocular movements are intact. The sclerae are anicteric. Neuro: Cranial nerves intact Neck: Patient's neck is supple. He has palpable carotid pulses bilaterally without bruits on auscultation. There is no evidence of jugular venous distention. The thyroid is not enlarged. Lungs: Clear to auscultation bilaterally. He has good air movement without use of accessory muscles. No rales wheezes or rhonchi. Cardiac: Heart demonstrates a irregular rate and rhythm. Normal S1 and S2. No murmurs on examination. Pulses: The patient has palpable radial pulses bilaterally that are equal in intensity Extremities: There was no evidence of hypoperfusion. There is no cyanosis or clubbing. There is no edema. Skin: I did not appreciate any rashes on examination today. He does have some macular pigmented lesions on the left abdominal area Data Laboratory Results: Last 24 Hours Test 10/14/17 13:45 10/14/17 13:51 10/14/17 13:52 10/14/17 15:10 White Blood Count 8.28 K/uL Red Blood Count 4.04 M/uL Hemoglobin 15.0 g/dL Hematocrit 42.2 % Mean Corpuscular Volume 104.5 fL Mean Corpuscular Hemoglobin 37.1 pg Mean Corpuscular Hemoglobin Concent 35.5 g/dl Platelet Count 201 K/uL Mean Platelet Volume 9.7 fL Neutrophils (%) (Auto) 71.4 % Lymphocytes (%) (Auto) 17.8 % Monocytes (%) (Auto) 9.8 % Eosinophils (%) (Auto) 0.2 % Basophils (%) (Auto) 0.4 % Neutrophils # (Auto) 5.92 K/uL Lymphocytes # (Auto) 1.47 K/uL Monocytes # (Auto) 0.81 K/uL Eosinophils # (Auto) 0.02 K/uL Basophils # (Auto) 0.03 K/uL RDW Standard Deviation 49.0 fL RDW Coefficient of Variation 12.9 % Immature Granulocyte % (Auto) 0.4 % Immature Granulocyte # (Auto) 0.03 K/uL Prothrombin Time 11.3 SECONDS Prothromb Time International Ratio 1.1 Activated Partial Thromboplast Time 26.3 SECONDS Partial Thromboplastin Ratio 1.0 Sodium Level 130 mmol/L Potassium Level 3.8 mmol/L Chloride Level 98 mmol/L Carbon Dioxide Level 22 mmol/L Anion Gap 10.0 mmol/L 18.0 mmol/L Blood Urea Nitrogen 11 mg/dl Creatinine 0.95 mg/dl Est Creatinine Clear Calc Drug Dose 94.2 ml/min Estimated GFR () 102.6 Estimated GFR (Non- 88.5 BUN/Creatinine Ratio 11.3 Random Glucose 112 mg/dl Calcium Level 9.2 mg/dl Magnesium Level 2.1 mg/dl Total Bilirubin 2.2 mg/dl Direct Bilirubin 0.7 mg/dl Aspartate Amino Transf (AST/SGOT) 247 U/L Alanine Aminotransferase (ALT/SGPT) 405 U/L Alkaline Phosphatase 78 U/L Total Creatine Kinase 179 U/L Creatine Kinase MB 6.1 ng/ml Creatine Kinase MB Ratio 3.4 Troponin I < 0.015 ng/ml Total Protein 7.0 gm/dl Albumin 3.8 gm/dl Thyroid Stimulating Hormone (TSH) 1.900 uIu/ml Bedside Hemoglobin 16.0 g/dl Bedside Hematocrit 47 % Bedside Sodium 131 mEq/L Bedside Potassium 3.8 mEq/L Bedside Chloride 95 mEq/L Bedside Total CO2 22 mEq/l Bedside Blood Urea Nitrogen 11 mg/dl Bedside Creatinine 1.1 mg/dl Bedside Glucose (other) 115 mg/dl Bedside Ionized Calcium (Mary Lou) 1.18 mmol/l Bedside Troponin I < 0.030 ng/ml Urine Color YELLOW Urine Appearance CLEAR Urine pH 6.0 Urine Specific [place] 1.008 Urine Protein NEG Urine Glucose (UA) NEG Urine Ketones NEG Urine Occult Blood NEG Urine Nitrite NEG Urine Bilirubin NEG Urine Urobilinogen NEG Urine Leukocyte Esterase NEG Test 10/14/17 21:49 10/15/17 03:53 Total Creatine Kinase 133 U/L 103 U/L Creatine Kinase MB 4.4 ng/ml 3.9 ng/ml Creatine Kinase MB Ratio 3.3 3.8 Troponin I < 0.015 ng/ml < 0.015 ng/ml Chemistry Specimen Hemolysis White Blood Count 6.39 K/uL Red Blood Count 3.78 M/uL Hemoglobin 14.1 g/dL Hematocrit 39.5 % Mean Corpuscular Volume 104.5 fL Mean Corpuscular Hemoglobin 37.3 pg Mean Corpuscular Hemoglobin Concent 35.7 g/dl Platelet Count 196 K/uL Mean Platelet Volume 10.0 fL Neutrophils (%) (Auto) 63.0 % Lymphocytes (%) (Auto) 22.1 % Monocytes (%) (Auto) 13.3 % Eosinophils (%) (Auto) 0.9 % Basophils (%) (Auto) 0.5 % Neutrophils # (Auto) 4.03 K/uL Lymphocytes # (Auto) 1.41 K/uL Monocytes # (Auto) 0.85 K/uL Eosinophils # (Auto) 0.06 K/uL Basophils # (Auto) 0.03 K/uL RDW Standard Deviation 49.2 fL RDW Coefficient of Variation 13.0 % Immature Granulocyte % (Auto) 0.2 % Immature Granulocyte # (Auto) 0.01 K/uL Sodium Level 135 mmol/L Potassium Level 3.9 mmol/L Chloride Level 102 mmol/L Carbon Dioxide Level 26 mmol/L Anion Gap 7.0 mmol/L Blood Urea Nitrogen 11 mg/dl Creatinine 0.75 mg/dl Est Creatinine Clear Calc Drug Dose 119.3 ml/min Estimated GFR () 118.0 Estimated GFR (Non- 101.8 BUN/Creatinine Ratio 15.2 Random Glucose 99 mg/dl Calcium Level 8.9 mg/dl Magnesium Level 2.0 mg/dl Total Bilirubin 3.6 mg/dl Direct Bilirubin 0.5 mg/dl Aspartate Amino Transf (AST/SGOT) 130 U/L Alanine Aminotransferase (ALT/SGPT) 320 U/L Alkaline Phosphatase 66 U/L Total Protein 6.5 gm/dl Albumin 3.6 gm/dl Ethyl Alcohol mg/dL < 3.0 mg/dl Imaging: Liver ultrasound suggested steatosis. Chest x-ray essentially unremarkable EKG: Atrial flutter with rapid ventricular response Telemetry reviewed: Atrial flutter with rapid ventricular response Assessment & Plan 1. Atrial flutter: This is of unclear duration. The patient does report normal heart rates last week, but he has had symptoms of dyspnea for nearly a month. I think we have a clear timeline regarding the duration of his atrial flutter. Last admission in September 2016 his EKG was more consistent with atrial fibrillation. He has minimal symptoms currently. His rate control was poor during his last admission and continues to be poor despite medical therapy during this admission. It appears that a better option for him is cardioversion. Overall he has a chads Vasc score 0. He was administered Xarelto last night and this would likely need to be continued for a month subsequent to cardioversion at which point could be discontinued. Given the unknown duration of his atrial flutter a JUAN will be performed prior to cardioversion in order to exclude thrombus in the left atrial appendage. If his sole rhythm was atrial flutter he would be a good candidate for catheter based therapy as the efficacy at prevent additional episodes approaches 100%. However, with a combination of atrial fibrillation and flutter he is likely to have recurrent arrhythmia is in any event. Given the long period of time without arrhythmia I think a simple cardioversion may be reasonable. Additionally, he does have a history of heavy alcohol use and claims to be interested in stopping or reducing his intake. This may prevent additional episodes of arrhythmia. Addendum: Shortly after my visit the patient did convert to a sinus rhythm. He will not require cardioversion. He went over a year without any documented arrhythmia. I do not think he requires any specific prophylaxis or treatment for his atrial arrhythmias currently. His chads Vasc score is 0. As we did not perform any cardioversion, I do not believe he needs to go home on any anticoagulant. He should follow up in the office for a discussion regarding his risk of recurrent events and additional therapies for prevention. Discontinuing alcohol use may have some benefits reducing his risk of additional episodes.
[2017-10-15] MEDS: METOPROLOL TARTRATE 50 MG TAB PO SCH (09:10)
--- NOTE | 2017-10-15 10:00 | Discharge Instructions ---
Discharge Instructions Date of Service October 15, 2017. Admission Reason for Admission: Atrial Fibrillation With Rvr Discharge Discharge Diagnosis / Problem: Paroxysmal atrial flutter/fibrillation Discharge Goals Goal(s): Improve function, Improve disease control Activity Recommendations Activity Limitations: resume your previous activity . Instructions / Follow-Up Instructions / Follow-Up Medications: no changes Paroxysmal atrial flutter: cardioverted on medications Dr. Alvarez evaluated everything, you are okay for discharge no new medications, you were tried on rate control medications in the past and did not tolerate well no need for anticoagulation, your risk score was calculated to be 0 please be aware that heavy alcohol consumption will set you up for recurrent episodes of atrial flutter and fibrillation, could become permanent Alcohol abuse: recommended that you stop drinking as above, will put you at risk for permanent heart issues also, your liver ultrasound shows some steatosis which is early changes that can lead to cirrhosis Librium: taper to help with withdrawal symptoms 5/2: 50mg at 5pm and 11pm 5/3: 50mg at 7am, 3pm, 11pm 5/4: 25mg at 7am, 3pm, 11pm 5/5: 10mg at 7am and 7pm, continue for 3 days at this dose then stop Ativan: 1mg tablet, can take if you develop bad tremors, anxiety, withdrawal symptoms, can use every 8 hours as needed as we discussed, strongly recommend that you start going to AA meetings immediately if you are committed to quitting increases the chance that you stay sober if you have good support system, others who have gone through similar situations FOLLOW UP - Dr. Alvarez would like to see you in the office in one month, call for appointment, - Call for appointment with Dr. Giles in one week, hospital follow up, assess how you are doing with alcohol withdrawal Current Hospital Diet Patient's current hospital diet: AHA Diet (Heart Healthy) Discharge Diet Recommended Diet: AHA Diet (Heart Healthy) Pending Studies Studies pending at discharge: no Medical Emergencies . Who to Call and When: Medical Emergencies: If at any time you feel your situation is an emergency, please call 911 immediately. . Non-Emergent Contact Non-Emergency issues call your: Fiber Designer Call Non-Emergent contact if: you have any medication questions . . "Provider Documentation" section prepared by Jm Foote. . [place] Drug Monitoring Program Search Results: no issues identified
[2017-10-15 10:23] VITALS: BP 124/84; PULSE 134; TEMP 36.9; O2SAT 96
[2017-10-15] MEDS ORDERED: CHLO10CA7 PO (10:29)
[2017-10-15] MEDS ORDERED: ATV/1 PO (10:29)
[2017-10-15] MEDS ORDERED: CHLO25CA10 PO (10:29)
[2017-10-15] MEDS ORDERED: ATRIN INH (10:29)
[2017-10-15] MEDS ORDERED: CHLORDIAZEPOXIDE 25 MG CAP PO ONE (10:30)
--- NOTE | 2017-10-15 13:27 | ECHOCARDIOGRAM REPORT ---
*NOTICE TO RECEIVING [employer] This information is strictly Confidential and protected under [place] law. [place] law prohibits you from making any further disclosure of this information unless further disclosure is expressly permitted by the written consent of the person to whom it pertains or is authorized by law. A general authorization for the release of medical or other information is not sufficient for this purpose. Hospital accepts no responsibility if the information is made available to any other person, INCLUDING THE PATIENT. Interpretation Summary * Name: MALIK HERNÁNDEZ Study Date: 10/15/2017 06:43 AM BP: 93/66 mmHg * Patient Location: C.2T\S\S242\S\2 HR: 138 * : 1960 (M/d/yyyy) Gender: Male Height: 72 in * Age: 57 yrs Ethnicity: [place] Weight: 185 lb * Ordering Physician: Chacha Talley * Referring Physician: Faheem Carrasquillo * Performed By: Alexia Ma RDCS * * Reason For Study: AFIB * BSA: 2.1 m2 * -- Conclusions -- * Left ventricular systolic function is normal. * No regional wall motion abnormalities noted. * Ejection Fraction = 50-55%. * There is mild concentric left ventricular hypertrophy. * There is mild mitral regurgitation. * There is mild tricuspid regurgitation. Procedure Details * A complete two-dimensional transthoracic echocardiogram was performed (2D, M-mode, Doppler and color flow Doppler). Left Ventricle * The left ventricle is normal in size. * There is mild concentric left ventricular hypertrophy. * Ejection Fraction = 50-55%. * Left ventricular systolic function is normal. * No regional wall motion abnormalities noted. Right Ventricle * The right ventricle is normal size. * The right ventricular systolic function is normal as assessed by tricuspid annular plane systolic excursion (TAPSE) (normal >1.5 cm). Atria * The left atrium is mildly dilated. * The right atrium is mildly dilated. * No ASD detected; PFO is not assessed. Mitral Valve * The mitral valve anatomy is normal. * There is no mitral valve stenosis. * There is mild mitral regurgitation. Tricuspid Valve * The tricuspid valve anatomy is normal. * There is no tricuspid stenosis. * There is mild tricuspid regurgitation. Aortic Valve * The aortic valve is normal in structure and function. * No hemodynamically significant valvular aortic stenosis. * There is no significant aortic regurgitation. Pulmonic Valve * The pulmonary valve is not well seen, but the Doppler examination is normal without significant regurgitation or stenosis. Great Vessels * The aortic root is normal size. * The pulmonary is not well visualized. Pericardium/Pleural * There is no pericardial effusion. Great Vessels * Normal inferior vena cava size and collapsability with sniff indicates a normal right atrial pressure of 3 mmHg MMode 2D Measurements and Calculations IVSd 1.5 cm IVSs 1.6 cm LVIDd 5.5 cm LVIDs 4.1 cm LVPWd 1.4 cm LVPWs 1.8 cm IVS/LVPW 1.1 FS 25.4 % EDV(Teich) 146.3 ml ESV(Teich) 73.7 ml EF(Teich) 49.6 % EDV(cubed) 164.7 ml ESV(cubed) 68.3 ml EF(cubed) 58.5 % % IVS thick 4.1 % % LVPW thick 32.9 % LV mass(C)d 346.4 grams LV mass(C)dI 168.1 grams/m\S\2 LV mass(C)s 288.3 grams LV mass(C)sI 139.9 grams/m\S\2 SV(Teich) 72.6 ml SI(Teich) 35.2 ml/m\S\2 SV(cubed) 96.4 ml SI(cubed) 46.8 ml/m\S\2 Ao root diam 3.0 cm Ao root area 7.2 cm\S\2 LA dimension 4.3 cm LA/Ao 1.4 LVAd ap4 24.4 cm\S\2 LVLd ap4 8.1 cm EDV(MOD-sp4) 60.9 ml EDV(sp4-el) 62.1 ml LVAs ap4 16.0 cm\S\2 LVLs ap4 7.5 cm ESV(MOD-sp4) 30.7 ml ESV(sp4-el) 29.1 ml EF(MOD-sp4) 49.6 % EF(sp4-el) 53.0 % LVAd ap2 27.7 cm\S\2 LVLd ap2 7.9 cm EDV(MOD-sp2) 80.4 ml EDV(sp2-el) 83.0 ml LVAs ap2 17.3 cm\S\2 LVLs ap2 6.9 cm ESV(MOD-sp2) 37.9 ml ESV(sp2-el) 37.2 ml EF(MOD-sp2) 52.8 % EF(sp2-el) 55.1 % LVLd %diff -3.57 % EDV(MOD-bp) 69.8 ml LVLs %diff -8.80 % ESV(MOD-bp) 35.2 ml EF(MOD-bp) 49.6 % SV(MOD-sp4) 30.2 ml SI(MOD-sp4) 14.7 ml/m\S\2 SV(MOD-sp2) 42.5 ml SI(MOD-sp2) 20.6 ml/m\S\2 SV(MOD-bp) 34.6 ml SI(MOD-bp) 16.8 ml/m\S\2 SV(sp4-el) 32.9 ml SI(sp4-el) 16.0 ml/m\S\2 SV(sp2-el) 45.7 ml SI(sp2-el) 22.2 ml/m\S\2 Doppler Measurements and Calculations Ao V2 max 112.6 cm/sec Ao max PG 5.1 mmHg Ao max PG (full) 2.3 mmHg LV V1 max PG 2.8 mmHg LV V1 max 83.0 cm/sec TR max mari 189.8 cm/sec
[2017-10-15] MEDS ORDERED: RIVAROXABAN 10 MG TAB PO SCH (16:00)
--- NOTE | 2017-10-16 08:53 | Discharge Summary ---
Discharge Summary Date of Service October 15, 2017. Discharge Summary Admission Date: October 14, 2017 at 17:12 Discharge Date: October 15, 2017 Discharge Disposition: Home Principal Diagnosis: Paroxysmal atrial flutter Problems/Secondary Diagnoses: Alcohol abuse Procedures: none Consultations: Cardiology - Dr. Alvarez Medication Reconciliation New Medications: Chlordiazepoxide (Librium) 25 Mg Cap 25 MG PO UD for 3 Days, #16 CAP 50mg x 2 doses on 10/15 (1700 and 2300) 50mg x 3 doses on 10/16 (0700, 1500 and 2300) 25mg x 3 doses on 10/17 Chlordiazepoxide (Librium) 10 Mg Cap 10 MG PO Q12 for 3 Days, #6 CAP start on 10/18 Ipratropium [place] (Atrovent Hfa) 200 Puffs/3400 Mcg Aers 2 PUFFS INH QID PRN for Shortness of Breath, #12.9 GM 5 Refills Lorazepam (Ativan) 1 Mg Tab 1 MG PO Q8H PRN for Anxiety/Agitation, #30 TAB Continued Medications: Ascorbic Acid (Vitamin C) 1,000 Mg Tab 1 TAB PO DAILY Aspirin (Aspirin 81) 81 Mg Tab 81 MG PO QAM Calcium Carbonate (Tums) 500 Mg Chew 1 TAB PO DAILY Qodduah-[place]ri[place]oyt-Sldc (Calcium Magnesium & Zinc) 1 Tab Tab 1 TAB PO DAILY Multivitamin (Multivitamin) Tab 1 TAB PO DAILY, TAB Discharge Exam Patient feeling well in the morning. He converted to normal sinus rhythm prior to requiring cardioversion. Discussed the case with Dr. Alvarez. He felt that the patient would not require rate/rhythm control medications, he did not tolerate them well in the past, low blood pressures. CHADSVASc score of 0 so no anticoagulation recommended. Cleared to go home with cardiology follow up. Long discussion with patient and his regarding alcohol abuse. The patient reported drinking 6-8 beers a day. His told me that it was more like 15- 20 beers. 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 Discussed in detail the dangers of drinking, including damage to heart with cardiomyopathy and future episodes of atrial fibrillation, damage to the liver and cirrhosis and possible early . He said that the had quit once before, lasted about 1-2 months. Asked if he had interest in quitting currently and he said yes, that he did not want to develop cirrhosis. Explained to him that his liver US showed some steatosis but no scarring and no cirrhosis so if he would quit now he could spare further damage to liver. He was visibly shaking with tremors in the morning. He had received a dose of Ativan in the morning, helped with the tremors. Discussed plan for discharge and going through withdrawal, see details below. Review of Systems: Constitutional: + weakness, + fatigue, No fever, No chills, No sweats, No weight loss, No problem reported Eyes: No worsening of vision, No eye pain, No redness, No discharge, No diplopia, No problem reported ENT: No hearing loss, No unusual epistaxis, No nasal symptoms, No sore throat, No tinnitus, No dental problems, No trouble swallowing, No problem reported Respiratory: No cough, No sputum, No wheezing, No shortness of breath, No dyspnea on exertion, No dyspnea at rest, No hemoptysis, No problem reported Abdomen: No pain, No nausea, No vomiting, No diarrhea, No constipation, No GI bleeding, No problem reported Musculoskeletal: No joint pain, No muscle pain, No swelling, No calf pain, No problem reported Genitourinary - Male: No hematuria, No dysuria, No urinary frequency, No urinary urgency Neurologic: + problem reported (tremors), No memory loss, No paralysis, No weakness, No numbness/tingling, No vertigo, No balance problems Psychiatric: + anxiety, + substance abuse (alcohol) Endocrine: No fatigue, No excessive thirst, No excessive urination, No problem reported Hematologic / Lymphatic: No abnormal bleeding/bruising, No clotting problems , No swollen lymph nodes, No night sweats, No problem reported Integumentary: No rash, No itch, No new/changing skin lesions, No color change, No bleeding, No problem reported Physical Exam: General Appearance: WD/WN, no apparent distress Eyes: normal inspection, EOMI, sclerae normal ENT: normal ENT inspection, hearing grossly normal, pharynx normal Neck: supple, no adenopathy, no JVD, trachea midline Respiratory/Chest: chest non-tender, lungs clear, normal breath sounds, no respiratory distress, no accessory muscle use Cardiovascular: regular rate, rhythm, no edema, no gallop, no JVD, no murmur , normal peripheral pulses Abdomen / GI: normal bowel sounds, non tender, soft, no organomegaly Extremities: normal inspection, no calf tenderness, normal capillary refill , no pedal edema, normal range of motion, pelvis stable 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 Alvarez, was planning on performing cardioversion prior to the patient converting spontaneously echocardiogram showed a preserved EF, but atria both dilated, going to be prone to atrial arrhythmias in the future no role for metoprolol or cardizem on discharge, he did not tolerate these in the past no need for anticoagulation, CHADSVASc score 0 will follow up with Dr. Alvarez in one month in the office - Alcohol abuse: drinks 15-20 beers a day patient is committed to quitting, his is supportive, present for entire conversation prescribed a Librium taper of 50mg q8 x 2 days, 25mg q8 x 1 day then 10mg q12 for 3 days Ativan 1mg PO provided to take as needed for any increased tremors/anxiety he quit cold turkey before and never had a withdrawal seizure discussed resources such as AA, strongly encouraged him to start going to meetings immediately he had been to AA in the past, he knew of two locations close to his home his said that she was going to make him go follow up in one week with PCP for alcohol withdrawal - Dyspnea: had been prescribed Albuterol inhaler in the past by Dr. Mercer discontinued this due to atrial fibrillation, could have triggered most recent episode prescribed Ipratropium inhaler to use instead DVT prophylaxis: received Xarelto while admitted Total Time Spent: Greater than 30 minutes This includes examination of the patient, discharge planning, medication reconciliation, and communication with other providers. Discharge Instructions Please refer to the electronic Patient Visit Report (Discharge Instructions) for additional information. Follow-Up Dr. Giles in one week Dr. Alvarez in one month Additional Copies To Chris Alvarez MD; Neftaly Giles M.D.
== END 2017-10-15 11:47 | disposition home or self-care (01) ==
LOC: C.EDB 13:31 → C.2T 17:12 → ENRESERV 17:25 → CANRESERV 17:25 → ENRESERV 19:37
PROVIDERS: ADMIT Hospitalist; ATTEND Internal Medicine
DX: I48.92 Unspecified atrial flutter (principal); F10.10 Alcohol abuse, uncomplicated; R06.00 Dyspnea, unspecified; Z79.899 Other long term (current) drug therapy; K21.9 Gastro-esophageal reflux disease without esophagitis; Z98.890 Other specified postprocedural states; Z83.3 Family history of diabetes mellitus; Z82.49 Family history of ischemic heart disease and other diseases of the circulatory system; Z87.891 Personal history of nicotine dependence; Z79.01 Long term (current) use of anticoagulants; Z79.82 Long term (current) use of aspirin

== ENCOUNTER → 2018-01-19 | Outpatient (CLI) | payer MEDICARE ==
[~2018-01-19] MED LIST changes: +ASPI-435 PO; +ATRIN INH; +CALC1TAB27 PO; -DXY100 PO; -FLV1 PO; -KFL500 PO; -LBR25 PO; -OMEG10007 PO; -THM100 PO; -TPRSR50 PO; -XRL20 PO; -[UNRECOGNIZED DRUG - OTHER] PO
--- NOTE | 2018-01-19 16:10 | DIAGNOSTIC IMAGING REPORT ---
LEFT FOREFOOT MRI HISTORY: LEFT FOOT PAIN TECHNIQUE: Multiplanar multisequence MRI of the left forefoot was performed without the use of intravenous contrast. COMPARISON STUDY: None. FINDINGS: No acute fracture or dislocation within the forefoot. Small well-corticated ossified lesion at the dorsal base of the proximal phalanx of the first toe. This measures 6 mm and is well corticated. There is minimal associated edema. This may be due to old trauma or long-standing degenerative change. Full-thickness cartilage loss seen throughout the majority of the first MTP joint with small marginal osteophytes and minimal subchondral edema. There is also a small joint effusion. This is consistent with severe osteoarthritis. Between the first and second MTP joints there is a 2.9 x 1.3 cm subcutaneous septated cyst. This appears to demonstrate a tiny tract extending to the first MTP joint. Therefore, this is consistent with a ganglion cyst. Mild subcutaneous edema within the dorsal aspect of the MTP joints. The flexor and extensor tendons are intact. IMPRESSION: 1. No acute fracture or dislocation within the forefoot. 2. Dorsal to and between the first and second MTP joints there is a septated 2.9 x 1.3 cm subcutaneous cyst. This is consistent with a ganglion cyst. 3. 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 4. A 6 mm loose body dorsal to the base of the proximal phalanx of the first toe. This is likely due to long-standing degenerative change or trauma. This demonstrates minimal edema which is also likely result of the adjacent degenerative change. Electronically signed by: Jalen Temple M.D. 01/19/2018 4:08 PM Dictated Date/Time: 01/19/2018 3:59 PM
== END | disposition home or self-care (01) ==
LOC: C.MRIBC 14:48
PROVIDERS: ATTEND Podiatrist Foot & Ankle Surgery
DX: B43.2 Subcutaneous pheomycotic abscess and cyst (principal); M19.072 Primary osteoarthritis, left ankle and foot

== ENCOUNTER 2018-06-11 08:56 | Inpatient (IN) ==
[2018-06-11] MEDS ORDERED: LORazepam 1 MG TAB PO STA (09:02)
[2018-06-11] MEDS ORDERED: MULTI-VITAMIN INFUSION 10 ML, THIAMINE HCL 100 MG, FOLIC ACID 1 MG in SODIUM CHLORIDE 0... IV SCH (09:15)
--- NOTE | 2018-06-11 09:30 | XRay Report ---
XR chest 1V portable HISTORY: 58 years-old Male Pt c/o left sided back pain acute left-sided low back pain COMPARISON: Chest CT 06/02/2018, chest radiograph 10/14/2017 TECHNIQUE: Portable AP view of the chest FINDINGS: Cardiomediastinal and hilar silhouettes are within normal limits. No pneumothorax, pleural effusion, focal airspace consolidation or overt pulmonary edema. Bones of the chest appear grossly intact. Dege nerative changes of the shoulders and spine. IMPRESSION: No acute process. The above report was generated using voice recognition software. It may contain grammatical, syntax o r spelling errors. Electronically signed by: Russel Keys M.D. 06/11/2018 9:28 AM
[2018-06-11 09:34] LABS: Basophils # (auto) 0.08 K/uL (0-0.2); Basophils % (auto) 1.1 %; Eosinophils # (auto) 0.11 K/uL (0-0.5); Eosinophils % (auto) 1.5 %; Hematocrit (blood only) 35.9 % (42-52); Hemoglobin 11.7 g/dL (14.0-18.0); Immature Granulocytes # (auto) 0.02 K/uL (0.00-0.02); Immature Granulocytes % (auto) 0.3 %; Lymphocytes # (auto) 1.13 K/uL (1.2-3.4); Lymphocytes % (auto) 15.4 %; Mean Corpuscular Hgb Conc 32.6 g/dL (32-36); Mean Corpuscular Volume 99.7 fL (80-100); Mean Platelet Volume 9.7 fL (7.4-10.4); Monocytes # (auto) 0.66 K/uL (0.11-0.59); Neutrophils # (auto) 5.36 K/uL (1.4-6.5); Neutrophils % (auto) 72.7 %; Platelet Count 518 K/uL (130-400); RDW Coefficient of Variation 18.4 % (11.5-14.5); RDW Standard Deviation 67.9 fL (36.4-46.3); White Blood Count 7.36 K/uL (4.8-10.8)
[2018-06-11 09:57] LABS: BUN Creatinine Ratio 13.1 (10-20); Calcium 8.7 mg/dl (8.5-10.1); Creatinine Clr Calc Pharmacy 122.7 ml/min; Est GFR (African American) 119.2; Est GFR (Non-African American) 102.8; Potassium 3.8 mmol/L (3.5-5.1)
[2018-06-11 09:57] LABS: Appearance Urine Clear (Clear); Bacteria Urine Automated Negative (Negative); Bilirubin Urine Negative (Negative); Color Urine Dark Yellow; Glucose Urine UA Negative (Negative); Ketones Urine Negative (Negative); Leukocyte Esterase Urine Trace (Negative); Nitrite Urine Positive (Negative); Protein Urine Negative (Negative); Specific Gravity Urine 1.018 (1.000-1.030); Urobilinogen Urine Negative (Negative); pH Urine 7.5 (4.5-7.5)
--- NOTE | 2018-06-11 09:57 | CT Scan Report ---
CT head/brain wo con CLINICAL HISTORY: 58 years-old Male with Pt c/o AMS. Acutely altered mental status TECHNIQUE: Multiple axial CT images of the head were obtained without contrast. A dose lowering tech nique was utilized adhering to the principles of ALARA. CT DOSE: 614.27 mGy.cm COMPARISON: CT head 06/02/2018. FINDINGS: No acute intracranial hemorrhage, midline shift, intracranial mass, hydrocephalus, territorial ischem ia or abnormal extra-axial collection. Mild atrophy. Senescent calcifications of the lentiform nuclei . Mild degree of ill-defined low-attenuation about the white matter suggest chronic microvascular isc hemic changes. The calvarium is intact. Mild mucosal thickening of the paranasal sinuses. Mastoid air cells are jeanie ar. Soft tissues and orbits appear unremarkable. IMPRESSION: No acute intracranial abnormality. The above report was generated using voice recognition software. It may contain grammatical, syntax o r spelling errors. Electronically signed by: Russel Keys M.D. 06/11/2018 9:56 AM
[2018-06-11 10:07] LABS: Albumin Globulin Ratio 0.8 (0.9-2); Bilirubin,Total 1.1 mg/dl (0.1-1)
[2018-06-11 10:08] LABS: Acetaminophen < 2 ug/ml (10-30); Salicylate < 1.7 mg/dl (2.8-20)
[2018-06-11 10:31] LABS: Creatine Kinase 224 U/L (39-308); Creatine Kinase MB 1.4 ng/ml (0.5-3.6); Troponin I < 0.015 ng/ml (0-0.045)
[2018-06-11 10:54] LABS: Amphetamines+Metham, Urine Neg (Neg); Barbiturates, Urine Neg (Neg); Benzodiazepine, Urine Pos (Neg); Cocaine, Urine Neg (Neg); MDMA (Ecstacy), Urine Neg (Neg); Methadone, Urine Neg (Neg); Opiate, Urine Neg (Neg); Phencyclidine, Urine Neg (Neg)
[2018-06-11] MEDS ORDERED: LORazepam 2 MG/4 ML VIAL ONE (11:49)
--- NOTE | 2018-06-11 12:36 | Magnetic Resonance Report ---
MRI OF THE BRAIN WITHOUT CONTRAST CLINICAL HISTORY: Acute change in mental status. Possible stroke. COMPARISON STUDY: Noncontrast head CT dated 06/11/2018 FINDINGS: Sagittal T1, axial diffusion, proton density and T2 weighted axial, coronal FLAIR, and axial T1-weigh bang images were acquired. No intra or extra-axial mass lesions are visualized Axial diffusion-weighted images reveal no evidence of acute or subacute infarction. There is no evidence of ventricular dilatation. Proton density T2-weighted and FLAIR images reveal minimal foci of increased T2 signal within the whi te matter, likely on a small vessel basis. There are no abnormal flow voids. IMPRESSION: 1. No acute intracranial findings 2. No evidence of acute or subacute infarction 3. No evidence of intracranial mass on this noncontrast study Electronically signed by: Altaf Childress M.D. 06/11/2018 12:35 PM
[2018-06-11] MEDS ORDERED: LORazepam 1 MG/2 ML VIAL IV STA (12:45)
[2018-06-11] MEDS ORDERED: HALOPERIDOL LACTATE 5 MG/ML 1 ML VIAL IV PRN (14:27)
[2018-06-11] MEDS ORDERED: ALUMINUM/MAGNESIUM SUSP 30 ML UDC PO PRN (14:28)
[2018-06-11] MEDS ORDERED: ONDANSETRON INJ 2 MG/ML 2 ML VIAL IV PRN (14:28)
[2018-06-11] MEDS ORDERED: THIAMINE HCL 100 MG in SYRINGE 9 ML IV STA (14:33)
[2018-06-11] MEDS ORDERED: LORazepam 2 MG/4 ML VIAL IV STA (14:36)
[2018-06-11] MEDS ORDERED: HALOPERIDOL LACTATE 5 MG/ML 1 ML VIAL ONE (14:38)
--- NOTE | 2018-06-11 14:51 | History & Physical Report ---
Date of Service June 11, 2018 Assessment & Plan (1) Acute encephalopathy: - This is of unknown etiology and appears to have been progressive since initial admission to [facility] on 05/23 - reports she was told this was from his ETOH withdrawal and ICU delirium but has not returned to his baseline mentation since - reports moments of clarity and recognizes her and calls her by her name. She states these symptoms seem to worsen at night but yesterday prior to his combativeness in the evening he was the best he has been over these past couple weeks - No known mental health issues per - Wernickes/Korsakoff? vs UTI vs Serotonin Syndrome (Tramadol?) vs Other - overuse of benzos given concern for ETOH withdrawal? no signs of infection and MRI unremarkable - maybe need to consider CT/MRI of back to assess for any abscess even though infection unlikely - may need to consider LP? - Check ammonia; UCx pending - Outpatient record with B12/Folate/TSH/Vit D all WNL; Anaplasmosis/Lyme negative; Asbas rice elevated? - He was receiving Lactuolose BID at [facility] - unsure if this was due to hyperammonemia vs simply for bowel regimen - It appears he has been on thiamine but will given Thiamine 500 mg IV TID x 2 days then reduce to 250 mg daily x 5 days - Given extremes of agitation and possible need for sedative medications for protection will admit to the ICU for close monitoring - He was started on Seroquel taking 75 mg HS with 25 mg daily PRN - maybe the cause? - Will hold Seroquel for now given possible need for other medications to control agitation - Haldol 5 mg Q6H PRN - It appears he finished a Librium taper from [facility] - Consult neurology - appreciate input? Present on Admission?: Yes (2) Alcohol abuse: - Per outpatient records he reported 2-3 beers/day and 4-5 on weekends - is not sure how much he drinks as she works and he is disabled and is unemployed - States he is functional even with his drinking - Last drink was 05/23 - reports he has stopped drinking in the past without issues of withdrawal other than a slight tremor but reports his personality improves when he is not drinking Present on Admission?: Yes (3) Paroxysmal atrial fibrillation: - Currently NSR - Was recently started on Toprol XL 12.5 mg daily at [facility] - Will monitor for rebound and may need to consider using IV formulations PRN until mentation improves Present on Admission?: Yes (4) Urinary retention: - Has had a Boyec for majority of the last few weeks per and she reports he was having some retention requiring straight cath and that is why it has remained - Neg bacteria on UA but will send for Cx to R/O UTI as cause of presentation Present on Admission?: Yes (5) Traumatic fracture of right femur with routine healing: - Traumatic fall from tree stand approx. 20 feet resulting in R femur fx; R pubic ring fx; sacral fx; L2 fx - S/P repair of the femur fx - Receiving PT/OT at [facility] Present on Admission?: Yes History of Present Illness Chief Complaint: Altered Mental Status Primary Care Provider: Maribeth Mcdonough MD Mr. Guerrero is a 58 y/o male with PMHx of Paroxysmal Atrial Fibrillation, GERD, ETOH Abuse, and Traumatic Fall with Lumbar Fx/R Femur Fx/Pelvic Fx (admission to [facility] beginning of month) who has had progressive AMS x 3 weeks. HPI obtained by at bedside and [facility] records as patient cannot contribute. Per , patient presented to [facility] on 05/23 after falling from a tree stand. He denied LOC or head injury at that time and scans were negative. However, states he was dangling by his leg from the stand then fell approx. 20 feet so likely did hit his head. Per , he was at his baseline mentation at that time but that was the last he was his normal. She notes progressive mental status changes since this time and has not returned to his baseline. She reports he has moments of clarity and knows her name and can do some functional thinking/tasks but then will rapidly change to disorientation. Currently he is trying to get out of bed to go get ice-cream. Earlier was stating he saw a bear and was whistling for a dog. Per [facility], he was yelling out for the Police last night and the states he thought he was being detained. He has become combative and he was brought to the ED for further evaluation. Per , she states [facility] kept stating his mental status was due to ETOH withdrawal and ICU delirium. Per outpatient records he drinks 2-3 beers/day and approx. 4-5 on weekends. states she is not sure how much he drinks as she works but states regardless he is normally functional at baseline. She denies any known mental health issues for him. She does not recall any complaints that he has had. She does note that his RLE has becoming increasingly edematous and ecchymotic and does report a fall out of bed possibly around Vicky while at [facility]. MRI was negative for acute findings. CXR without infection. Afebrile and no leukocytosis. UA without bacteria but other findings may support this and UCx sent. Last drink would have been on 05/23 as he reported drinking prior to climbing the tree stand and was found to have beer cans in his pockets upon arrival to the ED on that date. Extensive review of outpatient records show he has had multiple testing due to progressive arthralgias. Anaplasmosis/Lyme negative; B12/Folate WNL; TSH WNL; Vit D WNL; mono neg; sabas rice virus elevated. 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 Allergies Allergy/AdvReac Type Severity Reaction Status Date / Time No Known Allergies Allergy Unverified 06/11/18 10:29 Home Medications Home Medications Medication Instructions Recorded Confirmed Type ascorbic acid (vitamin C) 500 mg PO DAILY PRN 05/23/18 06/11/18 History aspirin [Aspir-81] 81 mg PO DAILY PRN 05/23/18 06/11/18 History calcium carb-mag ox-zinc sulf 1 tab PO DAILY 05/23/18 06/11/18 History calcium carbonate [Tums] 200 mg PO UD PRN 05/23/18 06/11/18 History ipratropium bromide [Atrovent HFA] 2 puff INHALATION QID PRN 05/23/18 06/11/18 History multivitamin 1 tab PO DAILY 05/23/18 06/11/18 History Past Med/Surg History Medical History Atrial fibrillation Atrial fibrillation with RVR (Chronic) History of spinal fracture Family History Other No significant family history Social History marital status: Current Living Situation: [facility] Other Information That Helps Us Care for You: No Feels Safe at Home: Declines to Answer Smoking Status: Never smoker Do You Dip or Chew Tobacco: No Second Hand Exposure: No Tobacco Cessation Education Requested by Patient: No Hx Alcohol Use: No Hx Substance Use: No Beliefs That Will Affect Care: None Preferred Language: Tajik Communication Ability: Impaired 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 Review of Systems Unobtainable due to cognitive status Physical Exam 2 Vital Signs (Past 24 Hours): Last Vital Signs Temp 36.8 C 06/11/18 09:32 Pulse 76 06/11/18 13:01 Resp 16 06/11/18 13:01 BP 126/79 06/11/18 13:01 Pulse Ox 97 06/11/18 13:24 Constitutional: well developed, well nourished, + thin and + altered mental status Eyes: + anicteric sclerae largely pinpoint pupils but will react to light; during some moments of alertness would spontaneously open R eye but not the L eye; unable to follow commands for EOM testing ENMT: Throat: no posterior oropharynx abnormality Neck: trachea midline Respiratory: normal respiratory effort, lungs clear to auscultation Cardiovascular: Rate/Rhythm: regular rate and regular rhythm Gastrointestinal (Abdomen): Inspection/Auscultation: normal bowel sounds Percussion/Palpation: abdomen soft; abdomen nontender Musculoskeletal: Head/Neck/Chest: normocephalic, head atraumatic and neck supple Extremities: + extremities abnormal to inspection (RLE with scattered ecchymosis and edema; 2+ dorsal pedis pulse) Skin: no rashes, warm and dry Neurologic: moves all extremities Speech / Cognition: + abnormal speech ( garbled) Motor/Sensory: no tremor unable to perform focused neurological examination due to mental status; was moving all extremities but would only open R eye intermittently and does not follow commands very well Psychiatric: intermittently alert and unable to ask orientation questions; recognizes his at bedside but is intermittently sleeping and combative Results & Data Diagnostic Findings MRI OF THE BRAIN WITHOUT CONTRAST FINDINGS: Sagittal T1, axial diffusion, proton density and T2 weighted axial, coronal FLAIR, and axial T1-weighted images were acquired. No intra or extra-axial mass lesions are visualized Axial diffusion-weighted images reveal no evidence of acute or subacute infarction. There is no evidence of ventricular dilatation. Proton density T2-weighted and FLAIR images reveal minimal foci of increased T2 signal within the white matter, likely on a small vessel basis. There are no abnormal flow voids. IMPRESSION: 1. No acute intracranial findings 2. No evidence of acute or subacute infarction 3. No evidence of intracranial mass on this noncontrast study Code Status & VTE Plan Code Status FULL RESUSCITATION VTE Prophylaxis Plan VTE Prophylaxis will be ordered: Yes Supervising Physician Co-Signing Physician Notes Attending note: patient seen and examined with Fouzia Nicholas PA-C. I agree with her HPI, history, exam, ROS and A/P. I personally reviewed the labs and imaging findings. Case discussed with patient's at the bedside. She says that he has not been normal for three weeks. They were initially treating him for alcohol withdrawal at [facility]. He was discharged on Seroquel at [facility]. She says that not once has he been the she has known for all these years. Extensively reviewed possible causes. MRI brain normal, no stroke, no encephalitis. No signs of infection, normal renal function, normal electrolytes. Ammonia normal at 13. - Encephalopathy: unclear if this is metabolic or toxic, but leaning towards metabolic as there are not signs of a specific toxicity considering Wernicke's due to heavy alcohol use, treat with Thiamine, thiamine level sent out and will be pending ammonia normal, no infection, normal MRI brain consult nephrology for any other recommendations use Haldol PRN, try to avoid benzodiazepines admit to ICU, discussed with Dr. White, he will consider using Phenobarbital patient would likely be too much for the floot given his severe confusion and propensity to get OOB, get violent with staff try to limit tethers, does he need a boyce catheter? treat delirium with re- orientation for full details refer to Fouzia Nicholas's note
[2018-06-11] MEDS ORDERED: IPRATROPIUM BROMIDE HFA INHALER INH PRN (16:49)
--- NOTE | 2018-06-11 17:08 | Critical Care Consultation ---
Date of Consultation June 11, 2018 Assessment & Plan (1) Acute encephalopathy: Impression: 1. Hyperactive delirium, etiology likely related to second phase of alcohol withdrawal which can extend up to a month after the initial phase. 2. Cannot rule out the possibility of organic brain syndrome, it usually improves as the patient clinical condition improved. 3. Paroxysmal A. fib, not anticoagulated due to risk of fall. 4. History of alcoholism. 5. Right hip fracture status post ORIF. Plan: 1. I will treat the patient for the first face in the second phase of alcohol withdrawal including phenobarbital 130 mg IV every 4 hours as well as neuroleptic drugs such as olanzapine 10 mg sublingual twice daily. 2. Continue with Haldol on as-needed basis. 3. Agree with high dose of thiamine. 4. One-on-one sitter. 5. There is no value of continuous infusion of DMM. 6. The patient likely would benefit from psych consult once he is more able to carry on a conversation. 7. We will monitor the patient in ICU overnight. 8. GI and DVT prophylaxis. 9. A.m. labs. 10. I will attempt to avoid benzodiazepines as much as possible. Thank you, case discussed with the staff on rounds and details, critical care time spent with the patient was [address] Foote, appreciate his assistance. History of Present Illness Reason for Consultation: Delirium and agitation and possible withdrawal. Requesting Physician: Dr. Foote Attending Physician: Jm Foote, DO History of Present Illness Dear Dr. Foote: Thank you for your kind referral of Mr. Guerrero to critical care service. This is a 58-year-old gentleman with a history of alcoholism, proximal A. fib not anticoagulated, recently the patient fell off a tree while he was intoxicated with alcohol, and was sent to [facility] where he had his right hip fixation repair. The patient was sent to [facility] where he was found to be hyper actively delirious, the patient was not been able to be controlled at [facility], and transferred to our institution for further management. The patient was admitted to the ICU due to hyperactive delirium, apparently, the patient was treated with benzodiazepines as an outpatient, he has not been treated with vitamin B1, and his home medications did not include any psychedelic drugs. When I interviewed the patient, he was totally paranoid, his answers were not related to the questions are asked him. He denies any pain including chest pain or abdominal pain, no nausea or vomiting reported. He did not have pain in his right hip area as well. He was agitated climbing out of bed. The patient apparently was heavy drinker, his last drink was prior to his admission to [place] 3 weeks ago. He has not been in alcohol withdrawal according to the records, however I cannot verify that. He has not been in AA in the past. Review of system was limited due to the patient's severe agitation. His family history is not obtainable as well as his social history. Past surgical history consistent with right ORIF. Allergies Allergy/AdvReac Type Severity Reaction Status Date / Time No Known Allergies Allergy Unverified 06/11/18 10:29 Home Medications Home Medications Medication Instructions Recorded Confirmed Type ascorbic acid (vitamin C) 500 mg PO DAILY PRN 05/23/18 06/11/18 History aspirin [Aspir-81] 81 mg PO DAILY PRN 05/23/18 06/11/18 History calcium carb-mag ox-zinc sulf 1 tab PO DAILY 05/23/18 06/11/18 History calcium carbonate [Tums] 200 mg PO UD PRN 05/23/18 06/11/18 History ipratropium bromide [Atrovent HFA] 2 puff INHALATION QID PRN 05/23/18 06/11/18 History multivitamin 1 tab PO DAILY 05/23/18 06/11/18 History Patient History Medical History Atrial fibrillation Atrial fibrillation with RVR (Chronic) History of spinal fracture Family History Other No significant family history Social History marital status: Current Living Situation: Group Home Other Information That Helps Us Care for You: No Feels Safe at Home: Declines to Answer Smoking Status: Never smoker Do You Dip or Chew Tobacco: No Second Hand Exposure: No Tobacco Cessation Education Requested by Patient: No Hx Alcohol Use: No Hx Substance Use: No Beliefs That Will Affect Care: None Preferred Language: Lao Communication Ability: Impaired Emissions Testing And Repair Technician Required: No Review of Systems Review of system is not obtainable. Physical Exam 2 Vital Signs (Past 24 Hours): Last Vital Signs Temp 36.8 C 06/11/18 09:32 Pulse 98 H 06/11/18 15:59 Resp 17 06/11/18 15:59 BP 126/79 06/11/18 13:01 Pulse Ox 98 06/11/18 15:59 Physical Exam: Patient vital signs are stable, he is agitated at times, his vital signs however with a heart rate of 99 and blood pressure 127/63. Respiratory rate is 18 O2 sat on room air is 95%. No JVP, S1-S2 regular rate and rhythm, his lungs are clear, abdomen is soft and benign, sutures from ORIF on the right side was noted. No edema in the periphery. Neurologically he is nonfocal but agitated.
[2018-06-11] MEDS: SODIUM CHLORIDE 0.9% 1000ML 1,000 ML IV SCH (17:24)
[2018-06-11] MEDS ORDERED: THIAMINE HCL 500 MG in SYRINGE 9 ML IV SCH (17:30)
[2018-06-11] MEDS: THIAMINE HCL 500 MG in 0.9 % SODIUM CHLORIDE 100 ML IV SCH ×2 (17:43→21:12)
[2018-06-11] MEDS: OLANZAPINE ZYDIS 10 MG ORALLY DIS. TAB PO SCH ×2 (17:44→21:12)
[2018-06-12 04:50] LABS: Hematocrit (blood only) 34.4 % (42-52); Hemoglobin 11.2 g/dL (14.0-18.0); Mean Corpuscular Hgb Conc 32.6 g/dL (32-36); Mean Corpuscular Volume 99.4 fL (80-100); Mean Platelet Volume 9.6 fL (7.4-10.4); Platelet Count 441 K/uL (130-400); RDW Coefficient of Variation 18.3 % (11.5-14.5); RDW Standard Deviation 67.1 fL (36.4-46.3); Red Blood Count 3.46 M/uL (4.7-6.1); White Blood Count 6.16 K/uL (4.8-10.8)
[2018-06-12] MEDS: SODIUM CHLORIDE 0.9% 1000ML 1,000 ML IV SCH ×2 (05:10→17:11)
[2018-06-12 05:19] LABS: Albumin Level 2.9 gm/dl (3.4-5.0); BUN Creatinine Ratio 15.4 (10-20); Calcium 8.8 mg/dl (8.5-10.1); Creatinine Clr Calc Pharmacy 131.5 ml/min; Est GFR (African American) 125.1; Est GFR (Non-African American) 107.9; Potassium 3.6 mmol/L (3.5-5.1)
[2018-06-12 05:22] LABS: Albumin Globulin Ratio 0.7 (0.9-2); Bilirubin,Total 1.1 mg/dl (0.1-1); Total Protein 6.9 gm/dl (6.4-8.2)
[2018-06-12] MEDS ORDERED: OLANZAPINE ZYDIS 10 MG ORALLY DIS. TAB PO PRN (08:20)
[2018-06-12] MEDS: FOLIC ACID 1 MG in SYRINGE 9.8 ML IV SCH (09:21)
[2018-06-12] MEDS: THIAMINE HCL 500 MG in 0.9 % SODIUM CHLORIDE 100 ML IV SCH ×3 (09:21→19:24)
[2018-06-12] MEDS: QUETIAPINE FUMARATE 25 MG TABLET PO SCH ×5 (09:21→19:24)
[2018-06-12] MEDS: MULTIVITAMIN TAB PO SCH ×3 (09:22→10:11)
--- NOTE | 2018-06-12 09:25 | Neurology Consultation ---
Date of Consultation June 12, 2018 Assessment & Plan (1) Acute encephalopathy: This is a 58-year-old male who presents with acute encephalopathy for the past 3 weeks. Appeared to be precipitated by alcohol withdrawal when he was admitted to [facility] for right hip fracture repair. There is no evidence of stroke, vasculitis, or infection on MRI of the brain. At this time there does not appear to be any primary neurological cause for the patient's ongoing delirium and encephalopathy Recommendations: I had ordered an EEG this morning to rule out seizures or partial status as cause for the patient's ongoing encephalopathy. EEG was remarkably normal. Try to avoid medications that can contribute to delirium such as benzodiazepines if possible. Agree with current treatment of delirium with antipsychotics. Agree with testing for thiamine and empiric administration of thiamine. In the future if patient continues to be encephalopathic, could consider testing for RPR, ESR, CRP, RASTA, B12 level (recommend levels above 400 and general), and HIV. I do not think that the patient needs a lumbar puncture at this time as there is no clear signs or symptoms for infection. If there is concern for infection in the future, this can be reevaluated. Certainly if the patient continues to worsen and there is no clear etiology, could consider a lumbar puncture to test for cell count, bacterial, viral, and fungal cultures, cryptococcal, VDRL, AFB culture. Secondarily, if needed in the future if worsening status of unknown cause, could also consider testing CSF for protein 14-3-3 (there is nothing to suggest prion disease at this time), neuron specific endolase, and paraneoplastic panel to [facility] or [facility]. Thank you for allowing me to participate in this patient's care. If there is any questions or concerns, feel free to call/page me. History of Present Illness Reason for Consultation: Consult for acute encephalopathy for 3 weeks Attending Physician: Jm Foote, History of Present Illness This is a 58-year-old male who presents for 3 weeks of altered mental status. Unable to get information from patient and history is taken from the chart. Patient was originally admitted to [place] for repair of right hip fracture secondary to fall from a tree while intoxicated. While he was hospitalized at [place] apparently went through what was believed to be alcohol withdrawal and delirium. Patient was eventually discharged to [facility] for rehab but continued to be confused and agitated and so was transferred to [facility] for evaluation. Patient's last drink was reportedly 3 weeks ago before his admission to [place]. No reports of illnesses, seizures, or strokelike symptoms. Patient has been getting phenobarbital and antipsychotics in the ICU for management of what is believed to be secondary to phase of alcohol withdrawal delirium Previous labs are reviewed. Alkaline Shonna noted to be elevated. Otherwise folic acid, TSH, ammonia were unremarkable. Patient was given thiamine and thiamine level is pending. Tox screen was unremarkable with the exception of benzos which were given for agitation. MRI of the brain report and images were reviewed by myself. Essentially normal MRI of the brain for age with only a couple of nonspecific T2 hyperintensities in the subcortical white matter. Past medical history: A. fib not on anticoagulation due to fall. History of alcoholism and recent right hip fracture repair Family history: Not obtainable at this time Social history: Not obtainable due to mental status Allergies Allergy/AdvReac Type Severity Reaction Status Date / Time No Known Allergies Allergy Unverified 06/11/18 10:29 Home Medications Home Medications Medication Instructions Recorded Confirmed Type ascorbic acid (vitamin C) 500 mg PO DAILY PRN 05/23/18 06/11/18 History aspirin [Aspir-81] 81 mg PO DAILY PRN 05/23/18 06/11/18 History calcium carb-mag ox-zinc sulf 1 tab PO DAILY 05/23/18 06/11/18 History calcium carbonate [Tums] 200 mg PO UD PRN 05/23/18 06/11/18 History ipratropium bromide [Atrovent HFA] 2 puff INHALATION QID PRN 05/23/18 06/11/18 History multivitamin 1 tab PO DAILY 05/23/18 06/11/18 History Patient History Medical History Atrial fibrillation Atrial fibrillation with RVR (Chronic) History of spinal fracture Family History Other No significant family history Social History marital status: Current Living Situation: Assisted Other Information That Helps Us Care for You: No Feels Safe at Home: Declines to Answer Smoking Status: Never smoker Do You Dip or Chew Tobacco: No Second Hand Exposure: No Tobacco Cessation Education Requested by Patient: No Hx Alcohol Use: No Hx Substance Use: No Beliefs That Will Affect Care: None Preferred Language: Yakut Communication Ability: Impaired Business Services Manager Required: No Review of Systems Review of systems not obtainable due to mental status Physical Exam 2 Vital Signs (Past 24 Hours): Last Vital Signs Temp 36.3 C L 06/12/18 07:01 Pulse 88 06/12/18 07:01 Resp 19 06/12/18 07:01 BP 138/89 06/12/18 07:01 Pulse Ox 97 06/12/18 07:01 Physical Exam: Gen.: Exam is severely limited due to mental status. Patient was also reportedly up all night and now appears sleepy. Patient is minimally responsive and does not follow commands or answer questions. Heart: Regular rate and rhythm Extremities: No gross deformities or rashes noted Neurological examination: Mental status: Minimally responsive to tactile and noxious stimuli. No speech is produced. Winces to deep nailbed pressure Cranial nerves: Funduscopic examination was not well visualized. Pupils were pinpoint bilaterally difficult to see reaction to light. Unable to test the rest of cranial nerves due to mental status Strength: Minimally moves extremities bilaterally to nailbed pressure.Tone is normal. Sensation: Grossly intact to nailbed pressure in all 4 extremities Deep tendon reflexes: +1 in bilateral biceps and patellar. Toes are equivocal to plantar stimulation bilaterally Coordination: Unable to test due to mental status Gait not testable due to mental status
--- NOTE | 2018-06-12 09:28 | Procedure Note ---
EEG Procedure Note Date of Service June 12, 2018 Start / End Times Start Time: 7:49 AM End Time: 8:09 AM Referring Physician eMg Thomas History This is a 58-year-old male with acute encephalopathy for 3 weeks. EEG for further evaluation of possible seizure etiology partial status epilepticus. Home Medication List Home Medications Medication Instructions Recorded Confirmed Type ascorbic acid (vitamin C) 500 mg PO DAILY PRN 05/23/18 06/11/18 History aspirin [Aspir-81] 81 mg PO DAILY PRN 05/23/18 06/11/18 History calcium carb-mag ox-zinc sulf 1 tab PO DAILY 05/23/18 06/11/18 History calcium carbonate [Tums] 200 mg PO UD PRN 05/23/18 06/11/18 History ipratropium bromide [Atrovent HFA] 2 puff INHALATION QID PRN 05/23/18 06/11/18 History multivitamin 1 tab PO DAILY 05/23/18 06/11/18 History Inpatient Medication List Haloperidol Lactate (Haldol) 5 mg IV Q6H PRN PRN Reason: Agitation Stop: 07/11/18 14:26 Last Admin: 06/11/18 17:26 Dose: 5 mg Sodium Chloride (Nss 1000ml) 1,000 mls @ 80 mls/hr IV .[id number] [facility] Stop: 07/11/18 17:29 Last Admin: 06/12/18 05:10 Dose: 80 mls/hr Infusion: 06/12/18 05:10 Dose: 0 mls/hr Admin: 06/11/18 17:24 Dose: 80 mls/hr Folic Acid 1 mg/ Syringe 10 mls @ 5 mls/min IV QAM [facility] Stop: 07/12/18 08:59 Last Admin: 06/12/18 09:21 Dose: 5 mls/min Thiamine HCl 500 mg/ Sodium (Chloride) 105 mls @ 210 mls/hr IV TID [facility] Stop: 06/13/18 14:30 Last Admin: 06/12/18 09:21 Dose: 210 mls/hr Infusion: 06/11/18 21:53 Dose: 0 mls/hr Admin: 06/11/18 21:12 Dose: 210 mls/hr Infusion: 06/11/18 18:20 Dose: 0 mls/hr Admin: 06/11/18 17:43 Dose: 210 mls/hr Phenobarbital Sodium 130 mg/ (Syringe) 2 mls @ 2 mls/min IV Q4H [facility] Stop: 07/11/18 19:59 Last Admin: 06/12/18 09:21 Dose: 2 mls/min Admin: 06/12/18 03:49 Dose: 2 mls/min Admin: 06/11/18 23:40 Dose: 2 mls/min Admin: 06/11/18 20:11 Dose: 2 mls/min Multivitamins (Multivitamin) 1 tab PO QAM [facility] Stop: 07/12/18 08:59 Last Admin: 06/12/18 09:22 Dose: 1 tab Quetiapine Fumarate (Seroquel) 50 mg PO TID [facility] Stop: 07/12/18 08:59 Last Admin: 06/12/18 09:21 Dose: 50 mg Discontinued Medications Haloperidol Lactate (Haldol) Confirm Administered Dose 5 mg .ROUTE .STK-MED ONE Stop: 06/11/18 14:39 Last Admin: 06/11/18 14:45 Dose: 5 mg Multivitamins 10 ml/ Thiamine HCl 100 mg/ Folic Acid 1 mg/Sodium Chloride 1, 011.2 mls @ 1,011.2 mls/hr IV .Q1H [facility] Stop: 06/11/18 10:14 Last Infusion: 06/11/18 11:13 Dose: 0 mls/hr Admin: 06/11/18 10:03 Dose: 1,011.2 mls/hr Lorazepam (Ativan) 1 mg in 2 mls @ 2 mls/min IV NOW STA Stop: 06/11/18 12:46 Last Admin: 06/11/18 12:54 Dose: 2 mls/min Thiamine HCl 100 mg/ Syringe 10 mls @ 2 mls/hr IV Q24H STA Stop: 06/11/18 19:32 Last Admin: 06/11/18 15:55 Dose: 2 mls/hr Phenobarbital Sodium 65 mg/ (Syringe) 1 mls @ 2 mls/min IV Q4 [facility] Stop: 07/11/18 17:29 Last Admin: 06/11/18 17:10 Dose: 2 mls/min Lorazepam (Ativan) 1 mg PO NOW STA Stop: 06/11/18 09:03 Last Admin: 06/11/18 09:27 Dose: 1 mg Lorazepam (Ativan) Confirm Administered Dose 2 mg .ROUTE .STK-MED ONE Stop: 06/11/18 11:50 Last Admin: 06/11/18 12:03 Dose: 1 mg Olanzapine (Zyprexa Zydis Od) 10 mg PO BID [facility] Stop: 07/11/18 20:59 Last Admin: 06/11/18 21:12 Dose: 10 mg Description This is a 21 electrode EEG with a single channel dedicated to limited EKG. The electrodes were placed in accordance with the International 10-20 system. At the start of the recording the patient was in altered mental status. Background was well organized and composed of symmetric mixed alpha and excess beta frequencies. There was a symmetric well-formed moderate amplitude 8-9 hz posterior dominant rhythm. Hyperventilation was not done. Intermittent photic stimulation at various frequencies produced no abnormalities. Drowsiness was indicated by loss of muscle artifact and slowing of the background rhythm and poorly formed vertex waves. There was no stage II sleep transients. Interpretation This is a normal awake and drowsy routine EEG. There was no electrographic seizures or epileptiform discharges. Clinical Correlation A normal EEG does not rule out epilepsy if there is a strong clinical suspicion. Excess beta frequency in the background are likely secondary to medications, such as benzodiazepines
[2018-06-12] MEDS: ACETAMINOPHEN 325 MG TAB PO PRN ×2 (10:52→19:33)
--- NOTE | 2018-06-12 12:35 | Hospitalist Progress Note ---
Date of Service June 12, 2018 Assessment & Plan (1) Acute encephalopathy: - This has been continuous since his admission to [facility] on 05/23 - it appears he displays higher levels of thinking and can recognize his however gets episodes of agitation/confusion/hallucinations - No known mental health issues per - It appears he finished a Librium taper from [facility] - Suspect this is a continuation of his alcohol withdrawal - will avoid overuse of benzos at this time - UCx remains pending - Thiamine 500 mg IV TID x 2 days then reduce to 250 mg daily x 5 days; Folate daily - Haldol 5 mg Q6H PRN; Zyprexa 10 mg BID; Phenobarbital PRN; Seroquel 50 mg TID - Neurology consulted - appreciate input - EEG was WNL Present on Admission?: Yes (2) Alcohol abuse: - Per outpatient records he reported 2-3 beers/day and 4-5 on weekends - is not sure how much he drinks as she works and he is disabled/unemployed and he purchases his own beer - States he is functional even with his drinking - Last drink was 05/23 - reports he has stopped drinking in the past without issues of withdrawal other than a slight tremor but reports his personality improves when he is not drinking Present on Admission?: Yes (3) Paroxysmal atrial fibrillation: - Currently NSR; Not on chronic anticoagulation - Was recently started on Toprol XL 12.5 mg daily at [facility] - Will monitor for rebound and may need to consider using IV formulations PRN until mentation improves Present on Admission?: Yes (4) Urinary retention: - Has had a Patel for majority of the last few weeks per and she reports he was having some retention requiring straight cath and that is why it has remained - Neg bacteria on UA but will send for Cx to R/O UTI as cause of presentation Present on Admission?: Yes (5) Traumatic fracture of right femur with routine healing: - Traumatic fall from tree stand approx. 20 feet resulting in R femur fx; R pubic ring fx; sacral fx; L2 fx - S/P repair of the femur fx - Receiving PT/OT at [facility] Subjective Patient is sedated upon my arrival to the room. He is snoring and vitals stable. He does not awake to pinching/fingernail pressing/sternal rubbing. Pupils are pinpoint but reactive. No acute findings to explain his mentation. EEG was normal. It appears he has the ability to intermittently complete more higher level of thinking but then hallucinates or gets very delirious. Review of Systems Unobtainable due to cognitive status Physical Exam 2 Vital Signs (Past 24 Hours): Last Vital Signs Temp 36.3 C L 06/12/18 07:01 Pulse 99 H 06/12/18 10:01 Resp 23 06/12/18 10:01 BP 150/84 H 06/12/18 10:01 Pulse Ox 98 06/12/18 10:01 Constitutional: well developed, well nourished, + thin and + altered mental status Eyes: + anicteric sclerae, reactive pupils and + pinpoint pupils Neck: trachea midline Respiratory: normal respiratory effort, lungs clear to auscultation Cardiovascular: Rate/Rhythm: regular rate and regular rhythm Gastrointestinal (Abdomen): Inspection/Auscultation: normal bowel sounds Percussion/Palpation: abdomen soft; abdomen nontender Musculoskeletal: Head/Neck/Chest: normocephalic, head atraumatic and neck supple Extremities: + extremities abnormal to inspection (RLE with scattered ecchymosis and edema; 2+ dorsal pedis pulse) Skin: no rashes, warm and dry Neurologic: + obtunded
--- NOTE | 2018-06-12 12:51 | Critical Care Progress Note ---
Date of Service June 12, 2018 Assessment & Plan (1) Acute encephalopathy: Impression: 1. Hyperactive delirium, etiology likely related to second phase of alcohol withdrawal which can extend up to a month after the initial phase. 2. 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 3. Paroxysmal A. fib, not anticoagulated due to risk of fall. 4. History of alcoholism. 5. Right hip fracture status post ORIF. 6. By records, the patient has lumbar fracture from recent fall, but the patient is asymptomatic at the moment. Plan: 1. I will start the patient on Seroquel 50 mg p.o. 3 times daily. 2. Continue with Haldol on as-needed basis. 3. Agree with high dose of thiamine. 4. One-on-one sitter. 5. Change Zyprexa to as needed. 6. The patient likely would benefit from psych consult once he is more able to carry on a conversation. 7. Oral intake as tolerated. 8. GI and DVT prophylaxis. 9. Discussed in details with the , all her concerns been answered, will continue with neuroleptics for what appears to be hyperactive delirium and manic disorder. 10. I will attempt to avoid benzodiazepines as much as possible. 11. The patient has right hip sutures that needs to come out according to the on June 15, we will arrange to do so. Thank you, case discussed with the staff on rounds and details, critical care time spent with the patient was [address] Fotoe, appreciate his assistance. Subjective The patient is more somnolent today, likely related to the medications, open his eyes however he continued to have confusion and occasionally delirium. No new symptoms reported. Able to tolerate eating breakfast today. Physical Exam 2 Vital Signs (Past 24 Hours): Last Vital Signs Temp 36.9 C 06/12/18 12: Pulse 107 H 06/12/18 12: Resp 23 06/12/18 12:02 BP 132/70 06/12/18 12: Pulse Ox 91 06/12/18 12:02 Physical Exam: Vital signs were stable, S1-S2 regular rate and rhythm, lungs are distant clear, abdomen is benign, surgical wound on the right side is clear , no edema. Neurologically difficult to assess. Results & Data Laboratory Results Labs were reviewed personally. Diagnostic Findings EEG was done by Dr. Thomas, appreciate input, no evidence of seizure. Head CT did not show any intracranial catastrophe.
[2018-06-12] MEDS ORDERED: PHENobarbital sodium 130 MG/ML VIAL IV PRN (17:10)
[2018-06-12] MEDS: TRAZODONE HCL 100 MG TAB PO SCH (19:24)
[2018-06-13] MEDS: ACETAMINOPHEN 325 MG TAB PO PRN (04:47)
[2018-06-13] MEDS: SODIUM CHLORIDE 0.9% 1000ML 1,000 ML IV SCH ×2 (04:50→17:07)
[2018-06-13 06:46] LABS: Hematocrit (blood only) 34.5 % (42-52); Hemoglobin 11.4 g/dL (14.0-18.0); Mean Corpuscular Volume 99.4 fL (80-100); Mean Platelet Volume 9.1 fL (7.4-10.4); Platelet Count 382 K/uL (130-400); RDW Coefficient of Variation 18.3 % (11.5-14.5); Red Blood Count 3.47 M/uL (4.7-6.1); White Blood Count 7.69 K/uL (4.8-10.8)
[2018-06-13 07:21] LABS: Albumin Level 2.8 gm/dl (3.4-5.0); Calcium 8.6 mg/dl (8.5-10.1); Creatinine Clr Calc Pharmacy 118.4 ml/min; Est GFR (African American) 120.6; Potassium 3.8 mmol/L (3.5-5.1)
[2018-06-13 07:23] LABS: Albumin Globulin Ratio 0.7 (0.9-2); Bilirubin,Total 0.9 mg/dl (0.1-1); Total Protein 6.8 gm/dl (6.4-8.2)
[2018-06-13] MEDS: THIAMINE HCL 500 MG in 0.9 % SODIUM CHLORIDE 100 ML IV SCH ×2 (08:11→13:31)
[2018-06-13] MEDS: FOLIC ACID 1 MG in SYRINGE 9.8 ML IV SCH (08:11)
[2018-06-13] MEDS: QUETIAPINE FUMARATE 25 MG TABLET PO SCH ×3 (08:11→20:32)
[2018-06-13] MEDS: MULTIVITAMIN TAB PO SCH (08:11)
--- NOTE | 2018-06-13 12:25 | Hospitalist Progress Note ---
Date of Service June 13, 2018 Assessment & Plan (1) Acute encephalopathy: - Mentation is improving slowly each day - This has been continuous since his admission to [facility] on 05/23 - it appears he displays higher levels of thinking and can recognize his however gets episodes of agitation/confusion/hallucinations - No known mental health issues per - It appears he finished a Librium taper from [facility] - Suspect this is a continuation of his alcohol withdrawal with hyperactive delirium and maybe and organic brain injury...maybe undiagnosed mental health conditions given substance abuse?- will continue to avoid overuse of benzos at this time - UCx with pinpoint growth; no acute findings to explain encephalopathy - Completed Thiamine 500 mg TID x 2 days and will convert to 250 mg daily x 5 days; Folate daily - Haldol 5 mg Q6H PRN; Zyprexa 10 mg BID; Phenobarbital PRN; Seroquel 50 mg TID - Neurology consulted - appreciate input - EEG was WNL - Pending continued improvement with mentation may benefit from psychiatric input and will get PT/OT Present on Admission?: Yes (2) Alcohol abuse: - Per outpatient records he reported 2-3 beers/day and 4-5 on weekends - is not sure how much he drinks as she works and he is disabled/unemployed and he purchases his own beer - States he is functional even with his drinking and his current state is nowhere near his baseline - Last drink was 05/23 Present on Admission?: Yes (3) Paroxysmal atrial fibrillation: - Currently NSR; Not on chronic anticoagulation - Was recently started on Toprol XL 12.5 mg daily at [facility] - Will monitor for rebound and may need to consider using IV formulations PRN until mentation improves Present on Admission?: Yes (4) Urinary retention: - Has had a Patel for majority of the last few weeks per and she reports he was having some retention requiring straight cath and that is why it has remained - UCx with pinpoint growth - If functionally he continues to improve may be able to remove Patel in next day or two (5) Traumatic fracture of right femur with routine healing: - Traumatic fall on 05/23 from tree stand approx. 20 feet resulting in R femur fx; R pubic ring fx; sacral fx; L2 fx - S/P repair of the femur fx - Given improvement in mentation will place PT/OT evaluations - Sutures need removed from hip on 06/15 which can be done here (6) DVT prophylaxis: - SCDs; Will add Lovenox at this time Disposition: Anticipate prolonged stay due to mental status; As verbal abilities improve will have behavioral health evaluation. Will get PT/OT ordered given his femur fx/back fracture and to assist with disposition planning. If mentation continues to be stable without the need for IV sedatives can likely go to Med/Surg tomorrow Subjective Patient is doing a lot better today. Is awake and oriented to self but easily confused. Is calm and cooperative and following commands. He is exhibiting some flight of ideas. 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 Speech is more comprehensible but can be garbled at times. Poor eye contact. A lot of times will close his eyes and hold a conversation largely with himself. at bedside states occ. he is expressing delusions/hallucinations and asked her to move a box of apples that he thought was in his room. At his most alert state, I introduced myself and he states he thinks he met me before and then stated he hoped he wasn't causing problems then. He does not seem to grasp why he is here or what is truly going on. reports this is the best he has been since this all began and is optimistic for continued better days. Review of Systems Unobtainable due to mental health condition Physical Exam 2 Vital Signs (Past 24 Hours): Last Vital Signs Temp 36.5 C 06/13/18 11:12 Pulse 92 H 06/13/18 11:12 Resp 20 06/13/18 11:12 BP 104/66 06/13/18 11:12 Pulse Ox 97 06/13/18 11:12 Constitutional: well developed, well nourished and + thin Eyes: + anicteric sclerae and PERRL ENMT: Throat: no posterior oropharynx abnormality Neck: trachea midline Respiratory: normal respiratory effort, lungs clear to auscultation Cardiovascular: Rate/Rhythm: regular rate and regular rhythm Gastrointestinal (Abdomen): Inspection/Auscultation: normal bowel sounds Percussion/Palpation: abdomen soft; abdomen nontender Musculoskeletal: Head/Neck/Chest: normocephalic, head atraumatic and neck supple Skin: no rashes, warm and dry Neurologic: + obtunded Speech / Cognition: + abnormal speech (garbled) Motor/Sensory: no tremor Psychiatric: Orientation: alert Eye Contact: + poor eye contact Motor Behavior: + tremor Speech: + mute Affect: + flat affect Thought Process : + flight of ideas Thought Content: + delusions Hallucinations: + visual hallucinations Insight: + poor insight Judgement: + poor judgement
--- NOTE | 2018-06-13 17:20 | Emergency Department Note ---
Entered by Magalie Johns acting as a scribe for Grant Serrano MD History of Present Illness General Chief complaint: Mental Health Evaluation Stated complaint: [facility] / [facility] Time Seen by Provider: 06/11/18 09:02 Source: patient and EMS History of Present Illness Onset (ago): day(s) (yesterday) Location: head Pain Consistency: + other (episode) Maximum Pain Intensity: 9 Quality: + other (mental health evaluation) Associated symptoms: + denies other symptoms (abdominal pain) and + other ( combative, dizziness, left rib pain) The patient is a 58 year old male who presents to the Emergency Room for a mental health evaluation. Per EMS, the patient had significant trauma from falling out of a tree stand during hunting season after drinking alcohol. They report that he ended up being transferred to [place] and he was discharged to [facility]. They states that while being at [facility] he has gone through alcohol withdrawal. They report that he has exponentially gotten worse the past few days and yesterday started becoming combative towards staff and his . They report that the patient was bought in for a psychiatric evaluation and to rule out a head injury. The patient complains of being dizzy right now and having left rib pain. The patient denies abdominal pain. Home Medications Home Medications Medication Instructions Recorded Confirmed Type ascorbic acid (vitamin C) 500 mg PO DAILY PRN 05/23/18 06/11/18 History aspirin [Aspir-81] 81 mg PO DAILY PRN 05/23/18 06/11/18 History calcium carb-mag ox-zinc sulf 1 tab PO DAILY 05/23/18 06/11/18 History calcium carbonate [Tums] 200 mg PO UD PRN 05/23/18 06/11/18 History ipratropium bromide [Atrovent HFA] 2 puff INHALATION QID PRN 05/23/18 06/11/18 History multivitamin 1 tab PO DAILY 05/23/18 06/11/18 History Allergies Allergy/AdvReac Type Severity Reaction Status Date / Time No Known Allergies Allergy Unverified 06/11/18 10:29 Past Med/Surg History Medical History Atrial fibrillation Atrial fibrillation with RVR (Chronic) History of spinal fracture Family History Other No significant family history Social History marital status: Current Living Situation: [facility] Other Information That Helps Us Care for You: No Feels Safe at Home: Declines to Answer Smoking Status: Never smoker Do You Dip or Chew Tobacco: No Second Hand Exposure: No Tobacco Cessation Education Requested by Patient: No Hx Alcohol Use: No Hx Substance Use: No Beliefs That Will Affect Care: None Communication Ability: Effective Review of Systems See HPI for pertinent positives & negatives. and A total of 10 systems reviewed and were otherwise negative Physical Exam Vital Signs Vital Signs - 24 hr 06/12/18 19:21 06/12/18 19:25 06/12/18 23:15 Temperature 36.6 C 36.4 C L Temperature Source Oral Oral Pulse Rate [Finger] 98 H 89 Pulse Rhythm [Finger] Pulse Strength [Finger] Respiratory Rate 19 18 Respiratory Effort / Characteristics Non-Labored Spontaneous Respiratory Depth Normal Respiratory Pattern Regular Blood Pressure [Left Arm] Blood Pressure [Right Arm] 132/88 138/87 Blood Pressure Mean [Left Arm] Blood Pressure Mean [Right Arm] 102 104 Blood Pressure Position [Left Arm] Blood Pressure Position [Right Arm] Lying Lying Pulse Oximetry 95 97 Oxygen Delivery Method Room Air Room Air Room Air 06/12/18 23:50 06/13/18 03:25 06/13/18 07:17 Temperature 37.1 C 36.5 C Temperature Source Oral Axillary Pulse Rate [Finger] 81 80 Pulse Rhythm [Finger] Pulse Strength [Finger] Respiratory Rate 18 22 Respiratory Effort / Characteristics Non-Labored Spontaneous Respiratory Depth Normal Respiratory Pattern Regular Blood Pressure [Left Arm] 109/76 Blood Pressure [Right Arm] 122/75 Blood Pressure Mean [Left Arm] 87 Blood Pressure Mean [Right Arm] 90 Blood Pressure Position [Left Arm] Lying Blood Pressure Position [Right Arm] Lying Pulse Oximetry 96 96 Oxygen Delivery Method Room Air Room Air Room Air 06/13/18 11:12 06/13/18 16:25 Temperature 36.5 C 36.9 C Temperature Source Oral Oral Pulse Rate [Finger] 92 H 94 H Pulse Rhythm [Finger] Regular Pulse Strength [Finger] Normal Respiratory Rate 20 18 Respiratory Effort / Characteristics Non-Labored Respiratory Depth Normal Respiratory Pattern Regular Blood Pressure [Left Arm] 104/66 Blood Pressure [Right Arm] 122/79 Blood Pressure Mean [Left Arm] 78 Blood Pressure Mean [Right Arm] 93 Blood Pressure Position [Left Arm] Lying Blood Pressure Position [Right Arm] Lying Pulse Oximetry 97 96 Oxygen Delivery Method Room Air Room Air GENERAL: Awake, alert, well-appearing, in no distress HENT: Normocephalic, atraumatic. Oropharynx unremarkable. EYES: Normal conjunctiva. Sclera non-icteric. NECK: Supple. No nuchal rigidity. FROM. No masses. RESPIRATORY: Clear to auscultation. No wheezes. No rales. Normal respiratory effort. CARDIAC: Normal rate. Normal rhythm. No murmurs. No rubs. Extremities warm and well perfused. Pulses equal. No JVD. GI: Soft, non-distended. No tenderness to palpation. No rebound or guarding. No masses. : Patel in place. RECTAL: Deferred. MUSCULOSKELETAL: Atraumatic. Chest examination reveals no tenderness. The back is symmetrical on inspection without obvious abnormality. There is no CVA tenderness to palpation. No joint edema. LOWER EXTREMITIES: Calves are equal size bilaterally and non-tender. No edema. No discoloration. NEURO: Normal sensorium. No sensory or motor deficits noted. Course 0858: Past medical records reviewed. The patient was evaluated in room A5, and a complete history and physical examination were performed. 0952: I spoke with the patient's at this time. She is requesting an MRI of his head be done because she does not believe he is going through withdrawal. I informed you that I have already started this process and he has had a CT of his head. 1007: I reevaluated the patient and spoke with his a gain. We had a long talk. I explained that I think his confusion is multifactorial from withdrawal, the fall, and the medications he has been placed on since being at [facility]. She still is requesting an MRI of his head. 1247: I reevaluated the patient and updated him and his on his test results. I discussed the treatment plan with them. They verbally agree and understnad. 1252: I reviewed the patient's case with Dr. Ethan MARRUFO Hospitalist. He will evaluate the patient for further management. Consultations Consultation #1: I reviewed the patient's case with Dr. Ethan MARRUFO Hospitalist. He will evaluate the patient for further management. Time: 12:52 Administered Medications Acetaminophen (Tylenol) 650 mg PO Q4H PRN PRN Reason: Pain or Fever Stop: 07/11/18 14:27 Last Admin: 06/13/18 04:47 Dose: 650 mg Admin: 06/12/18 19:33 Dose: 650 mg Admin: 06/12/18 10:52 Dose: 650 mg Sodium Chloride (Nss 1000ml) 1,000 mls @ 80 mls/hr IV .[id number] [facility] Stop: 07/11/18 17:29 Last Admin: 06/13/18 17:07 Dose: 80 mls/hr Infusion: 06/13/18 14:02 Dose: 0 mls/hr Admin: 06/13/18 04:50 Dose: 80 mls/hr Infusion: 06/13/18 04:50 Dose: 80 mls/hr Admin: 06/12/18 17:11 Dose: 80 mls/hr Infusion: 06/12/18 17:11 Dose: 80 mls/hr Admin: 06/12/18 05:10 Dose: 80 mls/hr Infusion: 06/12/18 05:10 Dose: 0 mls/hr Admin: 06/11/18 17:24 Dose: 80 mls/hr Folic Acid 1 mg/ Syringe 10 mls @ 5 mls/min IV QAM [facility] Stop: 07/12/18 08:59 Last Admin: 06/13/18 08:11 Dose: 5 mls/min Admin: 06/12/18 09:21 Dose: 5 mls/min Multivitamins (Multivitamin) 1 tab PO QAM [facility] Stop: 07/12/18 08:59 Last Admin: 06/13/18 08:11 Dose: 1 tab Admin: 06/12/18 10:11 Dose: 1 tab Admin: 06/12/18 09:29 Dose: Not Given Olanzapine (Zyprexa Zydis Od) 10 mg PO BID PRN PRN Reason: Agitation Stop: 07/11/18 20:59 Last Admin: 06/12/18 20:55 Dose: 10 mg Quetiapine Fumarate (Seroquel) 50 mg PO TID [facility] Stop: 07/12/18 08:59 Last Admin: 06/13/18 13:31 Dose: 50 mg Admin: 12/29/18 08:11 Dose: 50 mg Admin: 06/12/18 19:24 Dose: 50 mg Admin: 06/12/18 14:14 Dose: 50 mg Admin: 06/12/18 10:11 Dose: 50 mg Admin: 06/12/18 09:29 Dose: Not Given Trazodone HCl (Desyrel) 100 mg PO HS DREAD Stop: 07/12/18 20:59 Last Admin: 06/12/18 19:24 Dose: 100 mg Discontinued Medications Haloperidol Lactate (Haldol) 5 mg IV Q6H PRN PRN Reason: Agitation Stop: 07/11/18 14:26 Last Admin: 06/11/18 17:26 Dose: 5 mg Haloperidol Lactate (Haldol) Confirm Administered Dose 5 mg .ROUTE .STK-MED ONE Stop: 06/11/18 14:39 Last Admin: 06/11/18 14:45 Dose: 5 mg Multivitamins 10 ml/ Thiamine HCl 100 mg/ Folic Acid 1 mg/Sodium Chloride 1, 011.2 mls @ 1,011.2 mls/hr IV .Q1H DREAD Stop: 06/11/18 10:14 Last Infusion: 06/11/18 11:13 Dose: 0 mls/hr Admin: 06/11/18 10:03 Dose: 1,011.2 mls/hr Lorazepam (Ativan) 1 mg in 2 mls @ 2 mls/min IV NOW STA Stop: 06/11/18 12:46 Last Admin: 06/11/18 12:54 Dose: 2 mls/min Thiamine HCl 100 mg/ Syringe 10 mls @ 2 mls/hr IV Q24H STA Stop: 06/11/18 19:32 Last Admin: 06/11/18 15:55 Dose: 2 mls/hr Phenobarbital Sodium 65 mg/ (Syringe) 1 mls @ 2 mls/min IV Q4 DREAD Stop: 07/11/18 17:29 Last Admin: 06/11/18 17:10 Dose: 2 mls/min Thiamine HCl 500 mg/ Sodium (Chloride) 105 mls @ 210 mls/hr IV TID DREAD Stop: 06/13/18 14:30 Last Infusion: 06/13/18 14:02 Dose: 0 mls/hr Admin: 06/13/18 13:31 Dose: 210 mls/hr Infusion: 06/13/18 09:02 Dose: 0 mls/hr Admin: 06/13/18 08:11 Dose: 210 mls/hr Infusion: 06/12/18 20:07 Dose: 0 mls/hr Admin: 06/12/18 19:24 Dose: 210 mls/hr Infusion: 06/12/18 14:45 Dose: 0 mls/hr Admin: 06/12/18 14:11 Dose: 210 mls/hr Infusion: 06/12/18 10:17 Dose: 0 mls/hr Admin: 06/12/18 09:21 Dose: 210 mls/hr Infusion: 06/11/18 21:53 Dose: 0 mls/hr Admin: 06/11/18 21:12 Dose: 210 mls/hr Infusion: 06/11/18 18:20 Dose: 0 mls/hr Admin: 06/11/18 17:43 Dose: 210 mls/hr Phenobarbital Sodium 130 mg/ (Syringe) 2 mls @ 2 mls/min IV Q4H DREAD Stop: 07/11/18 19:59 Last Admin: 06/12/18 09:29 Dose: Not Given Admin: 06/12/18 03:49 Dose: 2 mls/min Admin: 06/11/18 23:40 Dose: 2 mls/min Admin: 06/11/18 20:11 Dose: 2 mls/min Lorazepam (Ativan) 1 mg PO NOW STA Stop: 06/11/18 09:03 Last Admin: 06/11/18 09:27 Dose: 1 mg Lorazepam (Ativan) Confirm Administered Dose 2 mg .ROUTE .STK-MED ONE Stop: 06/11/18 11:50 Last Admin: 06/11/18 12:03 Dose: 1 mg Olanzapine (Zyprexa Zydis Od) 10 mg PO BID [facility] Stop: 07/11/18 20:59 Last Admin: 06/11/18 21:12 Dose: 10 mg Medical Decision Making Differential Diagnosis Differential: Toxicological, Infectious, Stroke, SAH, Trauma, Electrolyte Abnormality, Hypoglycemia, Alcohol Intoxication, Drug Intoxication, Cardiac Abnormality, Sepsis, Meningitis/Encephalitis, Trauma, Excited Delirium, Serotonin Syndrome, Psychiatric, amongst other pathologies entertained. Medical Records Attestation: I reviewed the patient's medical records. Home Medications Current Medication List: was personally reviewed by me Laboratory Data Attestation: I reviewed the patient's lab results. Result diagrams: 06/13/18 06:34 06/13/18 06:34 Lab Results 06/11/18 06/11/18 06/11/18 Range/Units 09:19 09:19 09:19 WBC 7.36 (4.8-10.8) K/uL RBC 3.60 L (4.7-6.1) M/uL Hgb 11.7 L (14.0-18.0) g/dL Hct 35.9 L (42-52) % MCV 99.7 (80-100) fL MCH 32.5 (25-34) pg MCHC 32.6 (32-36) g/dL RDW Std Deviation 67.9 H (36.4-46.3) fL RDW Coeff of Brad 18.4 H (11.5-14.5) % Plt Count 518 H (130-400) K/uL MPV 9.7 (7.4-10.4) fL Immature Gran % (Auto) 0.3 % Neut % (Auto) 72.7 % Lymph % (Auto) 15.4 % [place] % (Auto) 9.0 % Eos % (Auto) 1.5 % Baso % (Auto) 1.1 % Immature Gran # (Auto) 0.02 (0.00-0.02) K/uL Neut # (Auto) 5.36 (1.4-6.5) K/uL Lymph # (Auto) 1.13 L (1.2-3.4) K/uL [place] # (Auto) 0.66 H (0.11-0.59) K/uL Eos # (Auto) 0.11 (0-0.5) K/uL Baso # (Auto) 0.08 (0-0.2) K/uL Sodium 139 (136-145) mmol/L Potassium 3.8 (3.5-5.1) mmol/L Chloride 104 (98-107) mmol/L Carbon Dioxide 29 (21-32) mmol/L Anion Gap 6.0 (3-11) BUN 9 (7-18) mg/dl Creatinine 0.72 (0.6-1.4) mg/dl Est Cr Clr Drug Dosing 122.7 ml/min Est GFR ( Amer) 119.2 Est GFR (Non-Af Amer) 102.8 BUN/Creatinine Ratio 13.1 (10-20) Glucose 103 H (70-99) mg/dl Calcium 8.7 (8.5-10.1) mg/dl Total Bilirubin 1.1 H (0.1-1) mg/dl AST 27 (15-37) U/L ALT 27 (12-78) U/L Alkaline Phosphatase 605 H (45-117) U/L Ammonia (11-32) umol/L Total Creatine Kinase (39-308) U/L CK-MB (CK-2) (0.5-3.6) ng/ml CK/CKMB % Calc (0-3.0) Troponin I (0-0.045) ng/ml Total Protein 7.0 (6.4-8.2) gm/dl Albumin 3.0 L (3.4-5.0) gm/dl Globulin 4.0 (2.5-4.0) gm/dl Albumin/Globulin Ratio 0.8 L (0.9-2) Folate (>5.38) ng/ml TSH 1.280 (0.300-4.500) uIu/ml Urine Color Urine Appearance (Clear) Urine pH (4.5-7.5) Ur Specific [place] (1.000-1.030) Urine Protein (Negative) Urine Glucose (UA) (Negative) Urine Ketones (Negative) Urine Blood (Negative) Urine Nitrite (Negative) Urine Bilirubin (Negative) Urine Urobilinogen (Negative) Ur Leukocyte Esterase (Negative) Urine WBC (Auto) (0-5) /hpf Urine RBC (Auto) (0-4) /hpf U Hyaline Cast (Auto) (0-5) /lpf U Epithel Cells (Auto) (0-5) /lpf Urine Bacteria (Auto) (Negative) Nasal Screen MRSA (PCR) (Negative) Salicylates < 1.7 L (2.8-20) mg/dl Urine Opiates Screen (Neg) Ur Methadone, Qual (Neg) Acetaminophen < 2 L (10-30) ug/ml Urine Barbiturates (Neg) Ur Phencyclidine (PCP) (Neg) U Amphetamin/Meth Scrn (Neg) MDMA (Ecstasy) Screen (Neg) U Benzodiazepines Scrn (Neg) Ur Cocaine Metabolite (Neg) U Marijuana (THC) Screen (Neg) Ethyl Alcohol mg/dL (0-3) mg/dl 06/11/18 06/11/18 06/11/18 Range/Units 09:19 09:19 09:40 WBC (4.8-10.8) K/uL RBC (4.7-6.1) M/uL Hgb (14.0-18.0) g/dL Hct (42-52) % MCV (80-100) fL MCH (25-34) pg MCHC (32-36) g/dL RDW Std Deviation (36.4-46.3) fL RDW Coeff of Brad (11.5-14.5) % Plt Count (130-400) K/uL MPV (7.4-10.4) fL Immature Gran % (Auto) % Neut % (Auto) % Lymph % (Auto) % [place] % (Auto) % Eos % (Auto) % Baso % (Auto) % Immature Gran # (Auto) (0.00-0.02) K/uL Neut # (Auto) (1.4-6.5) K/uL Lymph # (Auto) (1.2-3.4) K/uL [place] # (Auto) (0.11-0.59) K/uL Eos # (Auto) (0-0.5) K/uL Baso # (Auto) (0-0.2) K/uL Sodium (136-145) mmol/L Potassium (3.5-5.1) mmol/L Chloride (98-107) mmol/L Carbon Dioxide (21-32) mmol/L Anion Gap (3-11) BUN (7-18) mg/dl Creatinine (0.6-1.4) mg/dl Est Cr Clr Drug Dosing ml/min Est GFR ( Amer) Est GFR (Non-Af Amer) BUN/Creatinine Ratio (10-20) Glucose (70-99) mg/dl Calcium (8.5-10.1) mg/dl Total Bilirubin (0.1-1) mg/dl AST (15-37) U/L ALT (12-78) U/L Alkaline Phosphatase (45-117) U/L Ammonia (11-32) umol/L Total Creatine Kinase 224 (39-308) U/L CK-MB (CK-2) 1.4 (0.5-3.6) ng/ml CK/CKMB % Calc 0.6 (0-3.0) Troponin I < 0.015 (0-0.045) ng/ml Total Protein (6.4-8.2) gm/dl Albumin (3.4-5.0) gm/dl Globulin (2.5-4.0) gm/dl Albumin/Globulin Ratio (0.9-2) Folate (>5.38) ng/ml TSH (0.300-4.500) uIu/ml Urine Color Urine Appearance (Clear) Urine pH (4.5-7.5) Ur Specific [place] (1.000-1.030) Urine Protein (Negative) Urine Glucose (UA) (Negative) Urine Ketones (Negative) Urine Blood (Negative) Urine Nitrite (Negative) Urine Bilirubin (Negative) Urine Urobilinogen (Negative) Ur Leukocyte Esterase (Negative) Urine WBC (Auto) (0-5) /hpf Urine RBC (Auto) (0-4) /hpf U Hyaline Cast (Auto) (0-5) /lpf U Epithel Cells (Auto) (0-5) /lpf Urine Bacteria (Auto) (Negative) Nasal Screen MRSA (PCR) (Negative) Salicylates (2.8-20) mg/dl Urine Opiates Screen Neg (Neg) Ur Methadone, Qual Neg (Neg) Acetaminophen (10-30) ug/ml Urine Barbiturates Neg (Neg) Ur Phencyclidine (PCP) Neg (Neg) U Amphetamin/Meth Scrn Neg (Neg) MDMA (Ecstasy) Screen Neg (Neg) U Benzodiazepines Scrn Pos H (Neg) Ur Cocaine Metabolite Neg (Neg) U Marijuana (THC) Screen Neg (Neg) Ethyl Alcohol mg/dL < 3.0 (0-3) mg/dl 06/11/18 06/11/18 06/11/18 Range/Units 09:40 14:59 14:59 WBC (4.8-10.8) K/uL RBC (4.7-6.1) M/uL Hgb (14.0-18.0) g/dL Hct (42-52) % MCV (80-100) fL MCH (25-34) pg MCHC (32-36) g/dL RDW Std Deviation (36.4-46.3) fL RDW Coeff of Brad (11.5-14.5) % Plt Count (130-400) K/uL MPV (7.4-10.4) fL Immature Gran % (Auto) % Neut % (Auto) % Lymph % (Auto) % [place] % (Auto) % Eos % (Auto) % Baso % (Auto) % Immature Gran # (Auto) (0.00-0.02) K/uL Neut # (Auto) (1.4-6.5) K/uL Lymph # (Auto) (1.2-3.4) K/uL [place] # (Auto) (0.11-0.59) K/uL Eos # (Auto) (0-0.5) K/uL Baso # (Auto) (0-0.2) K/uL Sodium (136-145) mmol/L Potassium (3.5-5.1) mmol/L Chloride (98-107) mmol/L Carbon Dioxide (21-32) mmol/L Anion Gap (3-11) BUN (7-18) mg/dl Creatinine (0.6-1.4) mg/dl Est Cr Clr Drug Dosing ml/min Est GFR ( Amer) Est GFR (Non-Af Amer) BUN/Creatinine Ratio (10-20) Glucose (70-99) mg/dl Calcium (8.5-10.1) mg/dl Total Bilirubin (0.1-1) mg/dl AST (15-37) U/L ALT (12-78) U/L Alkaline Phosphatase (45-117) U/L Ammonia 13.0 (11-32) umol/L Total Creatine Kinase (39-308) U/L CK-MB (CK-2) (0.5-3.6) ng/ml CK/CKMB % Calc (0-3.0) Troponin I (0-0.045) ng/ml Total Protein (6.4-8.2) gm/dl Albumin (3.4-5.0) gm/dl Globulin (2.5-4.0) gm/dl Albumin/Globulin Ratio (0.9-2) Folate > 24.00 (>5.38) ng/ml TSH (0.300-4.500) uIu/ml Urine Color Dark Yellow Urine Appearance Clear (Clear) Urine pH 7.5 (4.5-7.5) Ur Specific [place] 1.018 (1.000-1.030) Urine Protein Negative (Negative) Urine Glucose (UA) Negative (Negative) Urine Ketones Negative (Negative) Urine Blood 2+ H (Negative) Urine Nitrite Positive H (Negative) Urine Bilirubin Negative (Negative) Urine Urobilinogen Negative (Negative) Ur Leukocyte Esterase Trace H (Negative) Urine WBC (Auto) 1-5 (0-5) /hpf Urine RBC (Auto) >30 H (0-4) /hpf U Hyaline Cast (Auto) 1-5 (0-5) /lpf U Epithel Cells (Auto) 10-20 H (0-5) /lpf Urine Bacteria (Auto) Negative (Negative) Nasal Screen MRSA (PCR) (Negative) Salicylates (2.8-20) mg/dl Urine Opiates Screen (Neg) Ur Methadone, Qual (Neg) Acetaminophen (10-30) ug/ml Urine Barbiturates (Neg) Ur Phencyclidine (PCP) (Neg) U Amphetamin/Meth Scrn (Neg) MDMA (Ecstasy) Screen (Neg) U Benzodiazepines Scrn (Neg) Ur Cocaine Metabolite (Neg) U Marijuana (THC) Screen (Neg) Ethyl Alcohol mg/dL (0-3) mg/dl 06/11/18 06/12/18 06/12/18 Range/Units 18:25 04:33 04:33 WBC 6.16 (4.8-10.8) K/uL RBC 3.46 L (4.7-6.1) M/uL Hgb 11.2 L (14.0-18.0) g/dL Hct 34.4 L (42-52) % MCV 99.4 (80-100) fL MCH 32.4 (25-34) pg MCHC 32.6 (32-36) g/dL RDW Std Deviation 67.1 H (36.4-46.3) fL RDW Coeff of Brad 18.3 H (11.5-14.5) % Plt Count 441 H (130-400) K/uL MPV 9.6 (7.4-10.4) fL Immature Gran % (Auto) % Neut % (Auto) % Lymph % (Auto) % [place] % (Auto) % Eos % (Auto) % Baso % (Auto) % Immature Gran # (Auto) (0.00-0.02) K/uL Neut # (Auto) (1.4-6.5) K/uL Lymph # (Auto) (1.2-3.4) K/uL [place] # (Auto) (0.11-0.59) K/uL Eos # (Auto) (0-0.5) K/uL Baso # (Auto) (0-0.2) K/uL Sodium 140 (136-145) mmol/L Potassium 3.6 (3.5-5.1) mmol/L Chloride 108 H (98-107) mmol/L Carbon Dioxide 28 (21-32) mmol/L Anion Gap 4.0 (3-11) BUN 10 (7-18) mg/dl Creatinine 0.64 (0.6-1.4) mg/dl Est Cr Clr Drug Dosing 131.5 ml/min Est GFR ( Amer) 125.1 Est GFR (Non-Af Amer) 107.9 BUN/Creatinine Ratio 15.4 (10-20) Glucose 87 (70-99) mg/dl Calcium 8.8 (8.5-10.1) mg/dl Total Bilirubin 1.1 H (0.1-1) mg/dl AST 22 (15-37) U/L ALT 25 (12-78) U/L Alkaline Phosphatase 554 H (45-117) U/L Ammonia (11-32) umol/L Total Creatine Kinase (39-308) U/L CK-MB (CK-2) (0.5-3.6) ng/ml CK/CKMB % Calc (0-3.0) Troponin I (0-0.045) ng/ml Total Protein 6.9 (6.4-8.2) gm/dl Albumin 2.9 L (3.4-5.0) gm/dl Globulin 4.0 (2.5-4.0) gm/dl Albumin/Globulin Ratio 0.7 L (0.9-2) Folate (>5.38) ng/ml TSH (0.300-4.500) uIu/ml Urine Color Urine Appearance (Clear) Urine pH (4.5-7.5) Ur Specific [place] (1.000-1.030) Urine Protein (Negative) Urine Glucose (UA) (Negative) Urine Ketones (Negative) Urine Blood (Negative) Urine Nitrite (Negative) Urine Bilirubin (Negative) Urine Urobilinogen (Negative) Ur Leukocyte Esterase (Negative) Urine WBC (Auto) (0-5) /hpf Urine RBC (Auto) (0-4) /hpf U Hyaline Cast (Auto) (0-5) /lpf U Epithel Cells (Auto) (0-5) /lpf Urine Bacteria (Auto) (Negative) Nasal Screen MRSA (PCR) Negative (Negative) Salicylates (2.8-20) mg/dl Urine Opiates Screen (Neg) Ur Methadone, Qual (Neg) Acetaminophen (10-30) ug/ml Urine Barbiturates (Neg) Ur Phencyclidine (PCP) (Neg) U Amphetamin/Meth Scrn (Neg) MDMA (Ecstasy) Screen (Neg) U Benzodiazepines Scrn (Neg) Ur Cocaine Metabolite (Neg) U Marijuana (THC) Screen (Neg) Ethyl Alcohol mg/dL (0-3) mg/dl 06/13/18 06/13/18 Range/Units 06:34 06:34 WBC 7.69 (4.8-10.8) K/uL RBC 3.47 L (4.7-6.1) M/uL Hgb 11.4 L (14.0-18.0) g/dL Hct 34.5 L (42-52) % MCV 99.4 (80-100) fL MCH 32.9 (25-34) pg MCHC 33.0 (32-36) g/dL RDW Std Deviation 67.0 H (36.4-46.3) fL RDW Coeff of Brad 18.3 H (11.5-14.5) % Plt Count 382 (130-400) K/uL MPV 9.1 (7.4-10.4) fL Immature Gran % (Auto) % Neut % (Auto) % Lymph % (Auto) % [place] % (Auto) % Eos % (Auto) % Baso % (Auto) % Immature Gran # (Auto) (0.00-0.02) K/uL Neut # (Auto) (1.4-6.5) K/uL Lymph # (Auto) (1.2-3.4) K/uL [place] # (Auto) (0.11-0.59) K/uL Eos # (Auto) (0-0.5) K/uL Baso # (Auto) (0-0.2) K/uL Sodium 140 (136-145) mmol/L Potassium 3.8 (3.5-5.1) mmol/L Chloride 108 H (98-107) mmol/L Carbon Dioxide 26 (21-32) mmol/L Anion Gap 6.0 (3-11) BUN 11 (7-18) mg/dl Creatinine 0.70 (0.6-1.4) mg/dl Est Cr Clr Drug Dosing 118.4 ml/min Est GFR ( Amer) 120.6 Est GFR (Non-Af Amer) 104.0 BUN/Creatinine Ratio 15.0 (10-20) Glucose 99 (70-99) mg/dl Calcium 8.6 (8.5-10.1) mg/dl Total Bilirubin 0.9 (0.1-1) mg/dl AST 16 (15-37) U/L ALT 22 (12-78) U/L Alkaline Phosphatase 563 H (45-117) U/L Ammonia (11-32) umol/L Total Creatine Kinase (39-308) U/L CK-MB (CK-2) (0.5-3.6) ng/ml CK/CKMB % Calc (0-3.0) Troponin I (0-0.045) ng/ml Total Protein 6.8 (6.4-8.2) gm/dl Albumin 2.8 L (3.4-5.0) gm/dl Globulin 4.0 (2.5-4.0) gm/dl Albumin/Globulin Ratio 0.7 L (0.9-2) Folate (>5.38) ng/ml TSH (0.300-4.500) uIu/ml Urine Color Urine Appearance (Clear) Urine pH (4.5-7.5) Ur Specific [place] (1.000-1.030) Urine Protein (Negative) Urine Glucose (UA) (Negative) Urine Ketones (Negative) Urine Blood (Negative) Urine Nitrite (Negative) Urine Bilirubin (Negative) Urine Urobilinogen (Negative) Ur Leukocyte Esterase (Negative) Urine WBC (Auto) (0-5) /hpf Urine RBC (Auto) (0-4) /hpf U Hyaline Cast (Auto) (0-5) /lpf U Epithel Cells (Auto) (0-5) /lpf Urine Bacteria (Auto) (Negative) Nasal Screen MRSA (PCR) (Negative) Salicylates (2.8-20) mg/dl Urine Opiates Screen (Neg) Ur Methadone, Qual (Neg) Acetaminophen (10-30) ug/ml Urine Barbiturates (Neg) Ur Phencyclidine (PCP) (Neg) U Amphetamin/Meth Scrn (Neg) MDMA (Ecstasy) Screen (Neg) U Benzodiazepines Scrn (Neg) Ur Cocaine Metabolite (Neg) U Marijuana (THC) Screen (Neg) Ethyl Alcohol mg/dL (0-3) mg/dl Imaging Data Radiologist's Impression: Radiology results as stated below per my review and the radiologist's interpretation: XR chest 1V portable HISTORY: 58 years-old Male Pt c/o left sided back pain acute left-sided low back pain COMPARISON: Chest CT 06/02/2018, chest radiograph 10/14/2017 TECHNIQUE: Portable AP view of the chest FINDINGS: Cardiomediastinal and hilar silhouettes are within normal limits. No pneumothorax, pleural effusion, focal airspace consolidation or overt pulmonary edema. Bones of the chest appear grossly intact. Degenerative changes of the shoulders and spine. IMPRESSION: No acute process. The above report was generated using voice recognition software. It may contain grammatical, syntax or spelling errors. Electronically signed by: Russel Keys M.D. 06/11/2018 9:[address] head/brain wo con CLINICAL HISTORY: 58 years-old Male with Pt c/o AMS. Acutely altered mental status TECHNIQUE: Multiple axial CT images of the head were obtained without contrast. A dose lowering technique was utilized adhering to the principles of ALARA. CT DOSE: 614.27 mGy.cm COMPARISON: CT head 06/02/2018. FINDINGS: No acute intracranial hemorrhage, midline shift, intracranial mass, hydrocephalus, territorial ischemia or abnormal extra-axial collection. Mild atrophy. Senescent calcifications of the lentiform nuclei. Mild degree of ill- defined low-attenuation about the white matter suggest chronic microvascular ischemic changes. The calvarium is intact. Mild mucosal thickening of the paranasal sinuses. Mastoid air cells are clear. Soft tissues and orbits appear unremarkable. IMPRESSION: No acute intracranial abnormality. The above report was generated using voice recognition software. It may contain grammatical, syntax or spelling errors. Electronically signed by: Russel Keys M.D. 06/11/2018 9:56 AM MRI OF THE BRAIN WITHOUT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
[2018-06-13] MEDS: TRAZODONE HCL 100 MG TAB PO SCH (20:32)
[2018-06-14] MEDS: SODIUM CHLORIDE 0.9% 1000ML 1,000 ML IV SCH ×2 (04:38→17:22)
[2018-06-14] MEDS: MAGNESIUM HYDROXIDE SUSP 30 ML UDC PO PRN (05:15)
[2018-06-14 06:50] LABS: Hematocrit (blood only) 38.2 % (42-52); Hemoglobin 12.5 g/dL (14.0-18.0); Mean Corpuscular Hgb Conc 32.7 g/dL (32-36); Mean Corpuscular Volume 99.7 fL (80-100); Mean Platelet Volume 9.2 fL (7.4-10.4); Platelet Count 396 K/uL (130-400); RDW Standard Deviation 66.1 fL (36.4-46.3); Red Blood Count 3.83 M/uL (4.7-6.1)
[2018-06-14 07:26] LABS: Albumin Level 3.2 gm/dl (3.4-5.0); BUN Creatinine Ratio 11.9 (10-20); Calcium 9.2 mg/dl (8.5-10.1); Creatinine Clr Calc Pharmacy 93.2 ml/min; Est GFR (African American) 109.2; Est GFR (Non-African American) 94.3; Potassium 3.6 mmol/L (3.5-5.1)
[2018-06-14 07:29] LABS: Albumin Globulin Ratio 0.8 (0.9-2); Bilirubin,Total 0.8 mg/dl (0.1-1); Globulin 4.2 gm/dl (2.5-4.0); Total Protein 7.4 gm/dl (6.4-8.2)
[2018-06-14 09:02] LABS: 7-Aminoclonaz, Confirm NEGATIVE NG/ML (CUTOFF=25); Hydro-Alp Ur, GC/MS NEGATIVE NG/ML (CUTOFF=25); Hydroxyethylflurazepam, Conf NEGATIVE NG/ML (CUTOFF=50); Hydroxytriazolam NEGATIVE NG/ML (CUTOFF=50); Lorazepam, Ur GC/MS 1700 NG/ML (CUTOFF=50); Nordiazepam, Confirm 219 NG/ML (CUTOFF=50); Oxazepam Ur, GC/MS >2000 NG/ML (CUTOFF=50); Temazepam, Confirm NEGATIVE NG/ML (CUTOFF=50)
[2018-06-14] MEDS: cefTRIAXone SODIUM 1,000 MG in DEXTROSE 5% 50 ML IV SCH (09:20)
[2018-06-14] MEDS: FOLIC ACID 1 MG in SYRINGE 9.8 ML IV SCH (09:22)
[2018-06-14] MEDS: ENOXAPARIN INJ 40 MG/0.4 ML SYR SQ SCH (09:22)
[2018-06-14] MEDS: QUETIAPINE FUMARATE 25 MG TABLET PO SCH ×3 (09:24→20:50)
[2018-06-14] MEDS: MULTIVITAMIN TAB PO SCH (09:24)
[2018-06-14] MEDS: THIAMINE HCL 250 MG in SODIUM CHLORIDE 0.9% 50 ML IV SCH (10:20)
--- NOTE | 2018-06-14 10:47 | Hospitalist Progress Note ---
Date of Service June 14, 2018 Assessment & Plan (1) Acute encephalopathy: - Mentation is continuing to improve - is alert and oriented to self and time - This has been continuous since his admission to [place] on 05/23 - it appears he displays higher levels of thinking and can recognize his however gets episodes of agitation/confusion/hallucinations but agitation has significantly reduced over the past 2 days - No known mental health issues per - It appears he finished a Librium taper from [place] - Suspect this is a continuation of his alcohol withdrawal with hyperactive delirium and maybe an organic brain injury...maybe undiagnosed mental health conditions given substance abuse?- will continue to avoid overuse of benzos at this time - Completed Thiamine 500 mg TID x 2 days and will convert to 250 mg daily x 5 days; Folate daily - Haldol 5 mg Q6H PRN; Zyprexa 10 mg BID; Phenobarbital PRN; Seroquel 50 mg TID - Neurology consulted - appreciate input - EEG was WNL - Pending continued improvement with mentation may benefit from psychiatric input and will get PT/OT Present on Admission?: Yes (2) Alcohol abuse: - Per outpatient records he reported 2-3 beers/day and 4-5 on weekends - is not sure how much he drinks as she works and he is disabled/unemployed and he purchases his own beer - States he is functional even with his drinking and his current state is nowhere near his baseline - Last drink was 05/23 Present on Admission?: Yes (3) Paroxysmal atrial fibrillation: - Currently NSR; Not on chronic anticoagulation - Was recently started on Toprol XL 12.5 mg daily at [facility] - Will monitor for rebound and may need to consider using IV formulations PRN until mentation improves Present on Admission?: Yes (4) Acute cystitis: - UCx now displaces low colonies of Klebsiella and another gram + cocci - given the prolonged Boyce and elevating WBC count will initiate Rocephin 1 g IV daily - Do not suspect this was the main cause of his mentation as he is clinically improving without antibiotic coverage but will treat given Boyce/recent issues with retention Present on Admission?: Yes (5) Urinary retention: - Has had a Boyce for majority of the last few weeks per and she reports he was having some retention requiring straight cath and that is why it has remained - Will remove boyce at this time - if retention occurs will straight cath - if ongoing may need to replace and will monitor Present on Admission?: Yes (6) Traumatic fracture of right femur with routine healing: - Traumatic fall on 05/23 from [place] approx. 20 feet resulting in R femur fx; R pubic ring fx; sacral fx; L2 fx - S/P repair of the femur fx - Given improvement in mentation will place PT/OT evaluations - Sutures need removed from hip on 06/15 which can be done here Present on Admission?: Yes (7) DVT prophylaxis: - SCDs; Lovenox Disposition: Anticipate prolonged stay due to mental status; As verbal abilities improve will have behavioral health evaluation. Will get PT/OT ordered given his femur fx/back fracture and to assist with disposition planning. Subjective Patient is calm and eating breakfast on my visit. Per nursing, he was difficult to wake up initially this morning but has been awake since. He mostly responds with yes/no answers. Is alert to self and date but mumbled the response for his location which sounded like [place]. Not displaying flight of ideas like yesterday when he was bouncing from topic to topic and rather conversing with himself with no regards to the conversation occurring between myself and his yesterday. was not at bedside today When trying to ask him questions he was easily distracted by asking if I would sit down and finish his breakfast then asking if I would be interested in marrying a man. He states he is not having any pain at this time Review of Systems Unobtainable due to mental health condition (only able to get out that his denies pain - easily distracted) Physical Exam 2 Vital Signs (Past 24 Hours): Last Vital Signs Temp 37.1 C 06/14/18 07:00 Pulse 93 H 06/14/18 07:00 Resp 16 06/14/18 07:00 BP 126/89 06/14/18 07:00 Pulse Ox 96 06/14/18 07:00 Constitutional: well developed, well nourished and + thin Eyes: + anicteric sclerae Neck: trachea midline Respiratory: normal respiratory effort, lungs clear to auscultation Cardiovascular: Rate/Rhythm: regular rate and regular rhythm Gastrointestinal (Abdomen): Inspection/Auscultation: normal bowel sounds Percussion/Palpation: abdomen soft; abdomen nontender Musculoskeletal: Head/Neck/Chest: normocephalic, head atraumatic and neck supple sutures intact to R hip without drainage or erythema of incisions; incisions are well approximated Skin: no rashes, warm and dry Neurologic: awake Speech / Cognition: + abnormal speech (clearer today but with minimal talking; some occ. garbled speech) Psychiatric: Orientation: alert, oriented to person and oriented to time Eye Contact: + poor eye contact Speech: + mute Affect: + flat affect Insight: + poor insight Judgement: + poor judgement
[2018-06-14] MEDS: POLYETHYLENE (MIRALAX) 17 GM PACK PO PRN (10:49)
[2018-06-14] MEDS: TRAZODONE HCL 100 MG TAB PO SCH (20:50)
[2018-06-15] MEDS: SODIUM CHLORIDE 0.9% 1000ML 1,000 ML IV SCH (05:09)
[2018-06-15] MEDS: QUETIAPINE FUMARATE 25 MG TABLET PO SCH ×2 (08:32→22:14)
[2018-06-15] MEDS: MULTIVITAMIN TAB PO SCH (08:33)
[2018-06-15] MEDS: ENOXAPARIN INJ 40 MG/0.4 ML SYR SQ SCH (08:33)
[2018-06-15] MEDS: cefTRIAXone SODIUM 1,000 MG in DEXTROSE 5% 50 ML IV SCH (08:34)
[2018-06-15] MEDS: FOLIC ACID 1 MG in SYRINGE 9.8 ML IV SCH (08:34)
[2018-06-15] MEDS: THIAMINE HCL 250 MG in SODIUM CHLORIDE 0.9% 50 ML IV SCH (09:42)
--- NOTE | 2018-06-15 11:17 | Hospitalist Progress Note ---
Date of Service June 15, 2018 Assessment & Plan (1) Acute encephalopathy: - Mentation is continuing to improve as he is remaining calm and non- combative - however still exhibits some delusional thinking/delirium - This has been continuous since his admission to [place] on 05/23 - it appears he displays higher levels of thinking and can recognize his however gets episodes of agitation/confusion/hallucinations but agitation has significantly reduced over the past few days but not getting over sedation due to the medications - No known mental health issues per - It appears he finished a Librium taper from [place] while at [facility] - Suspect this is a continuation of his alcohol withdrawal with hyperactive delirium and maybe an organic brain injury...maybe undiagnosed mental health conditions given substance abuse?- will continue to avoid overuse of benzos at this time as this seemed to be contributed to his prolonged recovery - Completed Thiamine 500 mg TID x 2 days and will convert to 250 mg daily x 5 days to complete course; Folate daily - Haldol 5 mg Q6H PRN; Zyprexa 10 mg BID; Phenobarbital PRN - Due to over sedation will convert to Seroquel 25 mg BID and reduce Trazodone to 50 mg HS - Neurology consulted - appreciate input - EEG was WNL - Discussed with Psychiatry on 06/14 and agreed with current management and can reduce dosing down to prevent sedation - they stated that they can officially consult if status changes or no improvement but no further input at this time Present on Admission?: Yes (2) Alcohol abuse: - Per outpatient records he reported 2-3 beers/day and 4-5 on weekends - is not sure how much he drinks as she works and he is disabled/unemployed and he purchases his own beer - States he is functional even with his drinking and his current state is nowhere near his baseline - Last drink was 05/23 Present on Admission?: Yes (3) Paroxysmal atrial fibrillation: - Currently exams like NSR; Not on chronic anticoagulation - Was recently started on Toprol XL 12.5 mg daily at [facility] - Will monitor for rebound and may need to consider using IV formulations PRN until mentation improves Present on Admission?: Yes (4) Acute cystitis: - UCx now displaces low colonies of Klebsiella and another gram + cocci - given the prolonged Patel and elevating WBC count will initiate Rocephin 1 g IV daily - Do not suspect this was the main cause of his mentation as he is clinically was improving prior to starting antibiotic coverage but will treat given Patel/ recent issues with retention (5) Urinary retention: - Has had a Patel for majority of the last few weeks per and she reports he was having some retention requiring straight cath and that is why it has remained - Continue to monitor for urinary retention - can bladder scan/straight cath PRN Present on Admission?: Yes (6) Traumatic fracture of right femur with routine healing: - Traumatic fall on 05/23 [place] approx. 20 feet resulting in R femur fx; R pubic ring fx; sacral fx; L2 fx - S/P repair of the femur fx - PT/OT evaluations completed - Sutures removed on 06/15 possible retained suture in 2nd to last incision by lateral R knee - will monitor and should work its way out as I could not grasp it with pushing further into skin - I have a call out to his trauma orthopedic who performed is R femur repair who he was to see on 06/15 for re-evaluation - Dr. Figueredo - currently is R toe touch and can advance weightbearing status pending information from his orthopedic but due to limited PT/OT while at [facility] due to mentation changes this may need to remain Present on Admission?: Yes (7) DVT prophylaxis: - SCDs; Lovenox Disposition: Anticipate prolonged stay due to mental status; Continue to wean medications to keep him calm but not over sedated; PT/OT hopefully as he becomes less lethargic to assist with further disposition planning Subjective Patient continues to remain calm and non-combative. He was initially awake during my visit and when asked how he was feeling stated that it was very busy at the bus [facility]. He then began snoring and remained asleep during my visit which included prolonged time to remove sutures He is awake in the AM but gets very lethargic and sleeps the majority of the day. Will decrease to Seroquel 25 mg BID and reduce Trazadone to 50 mg HS. Seems like the sedation comes around 10 AM in the AM which may be the medications. Unable to get PT/OT due to over sedation. I have a call out to his orthopedic trauma surgeon to discuss weightbearing status as he is R toe touch and has not been able to get therapy at [facility] due to mental status changes Sutures were removed for incision sites that are well-healed and well approximated. The 2nd from the last incision by the lateral knee may have some retained suture material and will monitor. As this should work its way out and did not want to dig into the suture wound. Tolerated procedure well. Review of Systems Unobtainable due to cognitive status Physical Exam 2 Vital Signs (Past 24 Hours): Last Vital Signs Temp 37.7 C H 06/15/18 07:12 Pulse 103 H 06/15/18 07:12 Resp 17 06/15/18 07:12 BP 115/78 06/15/18 07:12 Pulse Ox 98 06/15/18 07:12 Constitutional: well developed, well nourished and + thin Eyes: + anicteric sclerae ENMT: Throat: no posterior oropharynx abnormality Neck: trachea midline Respiratory: normal respiratory effort, lungs clear to auscultation Cardiovascular: Rate/Rhythm: regular rate and regular rhythm Gastrointestinal (Abdomen): Inspection/Auscultation: normal bowel sounds Percussion/Palpation: abdomen soft; abdomen nontender Musculoskeletal: Head/Neck/Chest: normocephalic, head atraumatic and neck supple Extremities: + extremities abnormal to inspection (surgical incisions well-approximated without erythema or redness; possible some retained suture in 2nd to last incision by lateral knee and will monitor) Skin: no rashes, warm and dry Neurologic: awake (but quickly falls asleep) Psychiatric: Orientation: alert (but easily falls asleep) Eye Contact: + poor eye contact Speech: + mute Affect: + flat affect Thought Content: + delusions
[2018-06-15] MEDS: TRAZODONE HCL 50 MG TAB PO SCH (22:14)
[2018-06-16] MEDS: ENOXAPARIN INJ 40 MG/0.4 ML SYR SQ SCH (08:51)
[2018-06-16] MEDS: FOLIC ACID 1 MG in SYRINGE 9.8 ML IV SCH (08:52)
[2018-06-16] MEDS: MULTIVITAMIN TAB PO SCH (08:52)
[2018-06-16] MEDS: cefTRIAXone SODIUM 1,000 MG in DEXTROSE 5% 50 ML IV SCH (08:52)
[2018-06-16] MEDS: QUETIAPINE FUMARATE 25 MG TABLET PO SCH ×2 (08:53→20:46)
[2018-06-16] MEDS: THIAMINE HCL 250 MG in SODIUM CHLORIDE 0.9% 50 ML IV SCH (09:06)
[2018-06-16 09:17] LABS: Hematocrit (blood only) 39.2 % (42-52); Hemoglobin 13.1 g/dL (14.0-18.0); Mean Corpuscular Hgb Conc 33.4 g/dL (32-36); Mean Platelet Volume 9.6 fL (7.4-10.4); Platelet Count 323 K/uL (130-400); RDW Coefficient of Variation 17.8 % (11.5-14.5); RDW Standard Deviation 65.3 fL (36.4-46.3); Red Blood Count 3.92 M/uL (4.7-6.1); White Blood Count 10.19 K/uL (4.8-10.8)
[2018-06-16 09:50] LABS: BUN Creatinine Ratio 16.5 (10-20); Calcium 8.9 mg/dl (8.5-10.1); Creatinine Clr Calc Pharmacy 95.3 ml/min; Est GFR (African American) 110.3; Est GFR (Non-African American) 95.1; Magnesium 2.1 mg/dl (1.8-2.4); Potassium 3.7 mmol/L (3.5-5.1)
--- NOTE | 2018-06-16 13:48 | Hospitalist Progress Note ---
Date of Service June 16, 2018 Assessment & Plan (1) Acute encephalopathy: - Was admitted to [place] on 05/23 for right femur fracture; has had ongoing confusion over the last 3 weeks, now resolving. - No known mental health issues per family; curbsided psych on 06/14, consider official consult for worsening symptoms. - H/o heavy ETOH abuse -- did complete Librium taper at [place]. - Symptoms may be related to hyperactive delirium and organic brain injury vs. undiagnosed mental health disorder. - Convert Thiamine to 100 mg daily and Folic acid to 1 mg daily as pt. is tolerating PO meds. - Decreased Seroquel to 25 mg BID and reduced Trazodone to 50 mg qhs on . - Haldol, Zyprexa and Phenobarbital prn. - Neurology consulted, EEG and MRI brain were negative. (2) Alcohol abuse: - H/o heavy ETOH use -- exact amount is unclear, estimated to be 2-3 beers /day and 4-5 on weekends. - Last drink was on 05/23, completed Librium taper at [place]. (3) Paroxysmal atrial fibrillation: - Currently in NSR. - Continue Toprol XL 12.5 mg daily. - No anticoagulation therapy indicated due to CHADs2 score = 0. (4) Acute cystitis: - UC positive for 10K colonies Klebsiella pneumoniae and 8K colonies gram positive cocci. - Had chronic indwelling boyce, now removed; also complains of dysuria. - Continue Rocephin for empiric coverage (end date: 06/19/18) (5) Urinary retention: - Had chronic indwelling boyce over last few weeks, now removed. - Monitor urine output, bladder scan/straight cath if needed. (6) Traumatic fracture of right femur with routine healing: - Traumatic fall on 05/23, had right femur, pubic ring fx, sacral fracture and L2 fracture s/p repair at [place]. - PT/OT recommending inpt therapy -- plan for acute rehab pending insurance approval. - Sutures removed on 06/15. - Left weight bearing as tolerated, right weight bearing 30 lb per orthopedic surgeon. -will need rescheduled f/u with Trauma Surgeon after discharge (7) DVT prophylaxis: - SCDs; Lovenox Disposition: Discharge to acute rehab pending approval/placement. Supervising Physician Co-Signing Physician Notes PA Supervision Note: I did not personally see or examine the patient today, but I verified all lanier points of ALVINO Cassidy's assessment and plan with the following exceptions/ additions: Review of previous records indicate he drank 15-20 beers daily when he has been in for rapid A-fib/flutter. Likely this delirium is all from EtOH withdrawal delirium as he finished his Librium taper at rehab and then worsened. I don't see the B1 level that was sent off, but regardless, treating with thiamine. Alk phos level in the 600s--> could be from bone injury, liver disease, etc. Check GGT, repeat Alk phos in AM. Consider liver US as well. He is no longer on Toprol XL but would not restart at this time as remains in NSR and previous tachycardia likely was secondary to EtOH withdrawal. His Afib/ flutter is related to EtOH use and should (hopefully) continue to abstain from EtOH use at this point. Leukocytosis improving with treatment of UTI. Subjective Pt. is doing well overall. He denies pain in right hip but does report being "uncanny" when walking. He has been working with PT/OT, recommending inpt rehab. Pt. is agreeable to discharge to rehab pending placement, first choice is [facility]. He had a BM this morning. Pt. complains of dysuria, describes pain as a "blow torch" when peeing. Dysuria has slightly improved since starting IV abx. Acute encephalopathy is also resolving, was alert and oriented x3 this morning. He became angry when discussing ETOH use at home, stating that he can go for days without a drink without any issues. Review of Systems All systems reviewed & are unremarkable except as noted in HPI & below Constitutional: + weakness; no fever and no chills Respiratory: no cough and no dyspnea Cardiovascular: no chest pain, no palpitations and no edema Gastrointestinal: no abdominal pain, no nausea, no constipation and no diarrhea/ loose stools Genitourinary (Male): + dysuria; no difficulty urinating Musculoskeletal: + joint pain Allergy / Immunological: no rash Physical Exam 2 Vital Signs (Past 24 Hours): Last Vital Signs Temp 36.9 C 06/16/18 06:42 Pulse 93 H 06/16/18 06:42 Resp 18 06/16/18 06:42 BP 135/80 06/16/18 06:42 Pulse Ox 97 06/16/18 06:42 Physical Exam: General: Resting comfortably in no apparent distress; A&OX3 HEENT: NC/AT; PERRLA with EOMI; [place] conjunctiva, MMM. No erythema of posterior pharynx Neck: Supple and nontender; No JVD Cardiac: RRR w/o murmurs, gallops or rubs; S1 and S2 Lungs: CTA bilaterally; No rhonchi, wheezing, or rales Abdomen: Bowel normoactive X 4; Nontender to palpation; No organomegaly Rectal: Deferred : Deferred Back: NO spinous tenderness Extremities: Warm. No cyanosis or edema present Neuro: No focal weakness Skin: No rash
[2018-06-16] MEDS: TRAZODONE HCL 50 MG TAB PO SCH (20:45)
[2018-06-17] MEDS: ACETAMINOPHEN 325 MG TAB PO PRN ×2 (04:50→15:02)
[2018-06-17 05:46] LABS: Hematocrit (blood only) 35.4 % (42-52); Hemoglobin 11.7 g/dL (14.0-18.0); Mean Corpuscular Hgb Conc 33.1 g/dL (32-36); Mean Corpuscular Volume 99.2 fL (80-100); Mean Platelet Volume 10.4 fL (7.4-10.4); Platelet Count 268 K/uL (130-400); RDW Coefficient of Variation 17.5 % (11.5-14.5); RDW Standard Deviation 63.7 fL (36.4-46.3); Red Blood Count 3.57 M/uL (4.7-6.1); White Blood Count 6.62 K/uL (4.8-10.8)
[2018-06-17 06:21] LABS: BUN Creatinine Ratio 23.2 (10-20); Calcium 8.9 mg/dl (8.5-10.1); Creatinine Clr Calc Pharmacy 125.6 ml/min; Est GFR (African American) 123.5; Est GFR (Non-African American) 106.6; Potassium 3.7 mmol/L (3.5-5.1)
[2018-06-17] MEDS: ENOXAPARIN INJ 40 MG/0.4 ML SYR SQ SCH (08:33)
[2018-06-17] MEDS: FOLIC ACID 1 MG TAB PO SCH (08:33)
[2018-06-17] MEDS: MULTIVITAMIN TAB PO SCH (08:33)
[2018-06-17] MEDS: THIAMINE HCL 100 MG TAB PO SCH (08:33)
[2018-06-17] MEDS: QUETIAPINE FUMARATE 25 MG TABLET PO SCH ×2 (08:33→20:08)
[2018-06-17] MEDS: cefTRIAXone SODIUM 1,000 MG in DEXTROSE 5% 50 ML IV SCH (08:35)
[2018-06-17 11:26] LABS: Albumin Level 2.9 gm/dl (3.4-5.0); Bilirubin Direct 0.2 mg/dl (0-0.2); Bilirubin,Total 0.5 mg/dl (0.2-1); Total Protein 6.9 gm/dl (6.4-8.2)
--- NOTE | 2018-06-17 15:20 | Hospitalist Progress Note ---
Date of Service June 17, 2018 Assessment & Plan (1) Acute encephalopathy: - Was admitted to [place] on 05/23 following fall from tree stand; developed worsening confusion at [facility] likely related to ETOH withdrawal. - No known mental health issues; curbsided psych, consider official consult. - H/o heavy ETOH abuse, 15-20 beers per day -- completed Librium taper at [place]. - Symptoms may be related to hyperactive delirium and organic brain injury vs. undiagnosed mental health disorder. - Continue Thiamine 100 mg daily and Folic acid 1 mg daily. - Decreased Seroquel to 25 mg BID and reduced Trazodone to 50 mg qhs. - Haldol, Zyprexa and Phenobarbital prn. - Neurology consulted, EEG and MRI brain were negative. (2) Alcohol abuse: - H/o heavy ETOH use -- diagnosed with A. Fib/flutter and noted to drink 15-20 beers per day. - ETOH level was 310.8 on 05/23 after presenting following fall from tree stand. - Last drink was on 05/23, completed Librium taper at [place]. - Continue Thiamine and Folic Acid. - Vitamin D level ordered in AM. (3) Paroxysmal atrial fibrillation: - Currently in NSR. - Holding Toprol XL -- A. fib/flutter likely exacerbated by ETOH. - No anticoagulation therapy indicated due to CHADs2 score = 0. (4) Acute cystitis: - UC positive for 10K colonies Klebsiella pneumoniae and 8K colonies gram positive cocci. - Had chronic indwelling boyce, now removed. - Continue Rocephin for empiric coverage (end date: 06/19/18) (5) Urinary retention: - Had chronic indwelling boyce over last few weeks, now removed. - Monitor urine output, bladder scan/straight cath if needed. (6) Traumatic fracture of right femur with routine healing: - Traumatic fall on 05/23, s/p repair at [facility] on 05/28/18. - PT/OT recommending inpt therapy -- plan for acute rehab. - Sutures removed on 06/15. - Left weight bearing as tolerated, right weight bearing 30 lb per orthopedic surgeon. - Will need appt re-scheduled with trauma surgeon. (7) Elevated alkaline phosphatase level: - Alk phos level elevated, was 495 today. Monitor intermittently. - Is likely related to bone source following multiple fractures; no h/o alk phos elevation prior to fractures. - GGT and Alk phos bone specific labs pending. (8) Leg skin lesion, right: - Has lesion noted on right thigh; is tender to palpation but no evidence of fluctuant mass concerning for abscess. - Apply bactroban ointment TID. - MRSA swab negative at admission. (9) Fracture of sacrum: - Fracture of C4-C6, L2 transverse process, S2, right sacrum cortical fracture, right pubic ring fracture noted following fall from tree stand. - Follows with trauma surgeon at [facility]. (10) DVT prophylaxis: - SCDs; Lovenox Disposition: Discharge to acute rehab pending placement. Supervising Physician Co-Signing Physician Notes Attending Attestation - Chart reviewed in detail, and care plan d/w ALVINO Guidry. I agree w/ the lanier components of her documentation. Patient with numerous bony injuries/fractures after falling out of a tree stand while hunting on 05/23/18. He was intoxicated during that fall based on his presenting etoh level. Was transferred to [facility] trauma surgery service, then was at [facility] for rehab. Readmitted to [facility] in late May for encephalopathy. Fortunately this has improved. Has had extensive w/u to date for the encephalopathy. ?traumatic brain injury from 05/23/18 fall vs etoh-withdrawal delirium vs Wernecke's encephalopathy vs other. Either way mental status has improved. Has considerably elevated alk phos. Suspect this is due to bony injuries in May and ongoing healing. GGT is normal. To be complete send a 25-OH vitamin D level to r/o vitamin D def; could also consider alkaline-specific phosphatase level to determine if both or liver- related. Other care plans per Ms. Guidry. Candelario Gregg MD Subjective Pt. is doing well overall today, is alert and oriented x3 with no signs of agitation/violence. He denies urinary retention; dysuria is now resolving. Pt. is eating/drinking as tolerated. He has pain in right thigh, describes it as muscular pain. Pt. also has lesion on right anterior thigh -- states it developed 2 weeks ago while at [facility]. Has tenderness to palpation over lesion, no discharge was noted. Plan for discharge to [facility] pending acceptance. Review of Systems All systems reviewed & are unremarkable except as noted in HPI & below Constitutional: no fever, no chills and no weakness Respiratory: no cough and no dyspnea Cardiovascular: no chest pain, no dyspnea, no palpitations and no edema Gastrointestinal: no abdominal pain, no nausea, no constipation and no diarrhea/ loose stools Genitourinary (Male): + dysuria; no difficulty urinating Integumentary: + new lesions (Right anterior thigh) Allergy / Immunological: no rash Physical Exam 2 Vital Signs (Past 24 Hours): Last Vital Signs Temp 36.9 C 06/17/18 07:19 Pulse 93 H 06/17/18 07:19 Resp 19 06/17/18 07:19 BP 109/73 06/17/18 07:19 Pulse Ox 97 06/17/18 07:19 Physical Exam: General: Resting comfortably in no apparent distress; A&OX3 HEENT: NC/AT; PERRLA with EOMI; [place] conjunctiva, MMM. Neck: Supple and nontender Cardiac: RRR Lungs: CTA bilaterally Abdomen: Bowel normoactive X 4; Nontender to palpation Extremities: Warm. No edema present. Neuro: No focal weakness Skin: Incision on right lateral thigh healing well; pink lesion on right anterior thigh, tender to palpation with no discharge noted. Results & Data Laboratory Results 06/17/18 06/17/18 06/17/18 Range/Units 10:41 05:26 05:26 WBC (4.8-10.8) K/uL RBC (4.7-6.1) M/uL Hgb (14.0-18.0) g/dL Hct (42-52) % MCV (80-100) fL MCH (25-34) pg MCHC (32-36) g/dL RDW Std Deviation (36.4-46.3) fL RDW Coeff of Brad (11.5-14.5) % Plt Count (130-400) K/uL MPV (7.4-10.4) fL Sodium 136 (136-145) mmol/L Potassium 3.7 (3.5-5.1) mmol/L Chloride 103 (98-107) mmol/L Carbon Dioxide 27 (21-32) mmol/L Anion Gap 6.0 (3-11) BUN 15 (7-18) mg/dl Creatinine 0.66 (0.6-1.4) mg/dl Est Cr Clr Drug Dosing 125.6 ml/min Est GFR ( Amer) 123.5 Est GFR (Non-Af Amer) 106.6 BUN/Creatinine Ratio 23.2 H (10-20) Glucose 88 (70-99) mg/dl Calcium 8.9 (8.5-10.1) mg/dl Total Bilirubin 0.5 (0.2-1) mg/dl Direct Bilirubin 0.2 (0-0.2) mg/dl GGT Pending AST 16 (15-37) U/L ALT 23 (12-78) U/L Alkaline Phosphatase 495 H (45-117) U/L Total Protein 6.9 (6.4-8.2) gm/dl Albumin 2.9 L (3.4-5.0) gm/dl 06/17/18 Range/Units 05:26 WBC 6.62 (4.8-10.8) K/uL RBC 3.57 L (4.7-6.1) M/uL Hgb 11.7 L (14.0-18.0) g/dL Hct 35.4 L (42-52) % MCV 99.2 (80-100) fL MCH 32.8 (25-34) pg MCHC 33.1 (32-36) g/dL RDW Std Deviation 63.7 H (36.4-46.3) fL RDW Coeff of Brad 17.5 H (11.5-14.5) % Plt Count 268 (130-400) K/uL MPV 10.4 (7.4-10.4) fL Sodium (136-145) mmol/L Potassium (3.5-5.1) mmol/L Chloride (98-107) mmol/L Carbon Dioxide (21-32) mmol/L Anion Gap (3-11) BUN (7-18) mg/dl Creatinine (0.6-1.4) mg/dl Est Cr Clr Drug Dosing ml/min Est GFR ( Amer) Est GFR (Non-Af Amer) BUN/Creatinine Ratio (10-20) Glucose (70-99) mg/dl Calcium (8.5-10.1) mg/dl Total Bilirubin (0.2-1) mg/dl Direct Bilirubin (0-0.2) mg/dl GGT AST (15-37) U/L ALT (12-78) U/L Alkaline Phosphatase (45-117) U/L Total Protein (6.4-8.2) gm/dl Albumin (3.4-5.0) gm/dl
[2018-06-17] MEDS: MUPIROCIN 2% OINT 22 GM TUBE EXT SCH (20:07)
[2018-06-17] MEDS: TRAZODONE HCL 50 MG TAB PO SCH (20:08)
[2018-06-18 06:35] LABS: Hematocrit (blood only) 36.8 % (42-52); Hemoglobin 12.1 g/dL (14.0-18.0); Mean Corpuscular Hgb Conc 32.9 g/dL (32-36); Mean Corpuscular Volume 98.4 fL (80-100); Platelet Count 271 K/uL (130-400); RDW Coefficient of Variation 17.3 % (11.5-14.5); RDW Standard Deviation 62.5 fL (36.4-46.3); Red Blood Count 3.74 M/uL (4.7-6.1); White Blood Count 6.39 K/uL (4.8-10.8)
[2018-06-18 07:13] LABS: BUN Creatinine Ratio 20.3 (10-20); Calcium 9.2 mg/dl (8.5-10.1); Creatinine Clr Calc Pharmacy 123.7 ml/min; Est GFR (African American) 122.8; Est GFR (Non-African American) 105.9; Potassium 3.9 mmol/L (3.5-5.1)
[2018-06-18 07:15] LABS: Albumin Globulin Ratio 0.7 (0.9-2); Bilirubin,Total 0.5 mg/dl (0.2-1); Globulin 4.3 gm/dl (2.5-4.0); Total Protein 7.3 gm/dl (6.4-8.2)
[2018-06-18] MEDS: QUETIAPINE FUMARATE 25 MG TABLET PO SCH ×2 (09:03→20:39)
[2018-06-18] MEDS: ENOXAPARIN INJ 40 MG/0.4 ML SYR SQ SCH (09:03)
[2018-06-18] MEDS: FOLIC ACID 1 MG TAB PO SCH (09:03)
[2018-06-18] MEDS: MULTIVITAMIN TAB PO SCH (09:03)
[2018-06-18] MEDS: THIAMINE HCL 100 MG TAB PO SCH (09:03)
[2018-06-18] MEDS: MUPIROCIN 2% OINT 22 GM TUBE EXT SCH ×3 (09:04→20:38)
[2018-06-18] MEDS: cefTRIAXone SODIUM 1,000 MG in DEXTROSE 5% 50 ML IV SCH (09:28)
--- NOTE | 2018-06-18 15:20 | Hospitalist Progress Note ---
Date of Service June 18, 2018 Assessment & Plan (1) Acute encephalopathy: - Was admitted to [place] on 05/23 following fall from tree stand; developed worsening confusion at [facility] likely related to ETOH withdrawal. - No known mental health issues; curbsided psych, consider official consult. - H/o heavy ETOH abuse, 15-20 beers per day -- completed Librium taper at [place]. - Symptoms may be related to hyperactive delirium and organic brain injury vs. undiagnosed mental health disorder. - Continue Thiamine 100 mg daily and Folic acid 1 mg daily. - Decreased Seroquel to 25 mg BID and reduced Trazodone to 50 mg qhs. - Haldol, Zyprexa and Phenobarbital prn. - Neurology consulted, EEG and MRI brain were negative. (2) Alcohol abuse: - H/o heavy ETOH use -- diagnosed with A. Fib/flutter and noted to drink 15-20 beers per day. - ETOH level was 310.8 on 05/23 after presenting following fall from tree stand. - Last drink was on 05/23, completed Librium taper at [place]. - Continue Thiamine and Folic Acid. - Vitamin D level is pending. (3) Paroxysmal atrial fibrillation: - Currently in NSR. - Holding Toprol XL -- A. fib/flutter likely exacerbated by ETOH. - No anticoagulation therapy indicated due to CHADs2 score = 0. (4) Acute cystitis: - UC positive for 10K colonies Klebsiella pneumoniae and 8K colonies gram positive cocci. - Had chronic indwelling boyce, now removed. - Continue Rocephin for empiric coverage (end date: 06/18/18) (5) Urinary retention: - Had chronic indwelling boyce over last few weeks, now removed. - Monitor urine output, bladder scan/straight cath if needed. (6) Traumatic fracture of right femur with routine healing: - Traumatic fall on 05/23, s/p repair at [facility] on 05/28/18. - PT/OT recommending inpt therapy -- plan for acute rehab pending peer to peer vs. SNF. - Sutures removed on 06/15. - Left weight bearing as tolerated, right weight bearing 30 lb per orthopedic surgeon. - Will need appt re-scheduled with trauma surgeon. (7) Elevated alkaline phosphatase level: - Alk phos level remains elevated. - GGT WNL -- likely related to bone source following fractures. - Alk phos bone specific lab pending. (8) Leg skin lesion, right: - Has lesion noted on right thigh; no evidence of fluctuant mass concerning for abscess. - Apply bactroban ointment TID. - MRSA swab negative at admission. (9) Fracture of sacrum: - Fracture of C4-C6, L2 transverse process, S2, right sacrum cortical fracture, right pubic ring fracture noted following fall from tree stand. - Follows with trauma surgeon at [facility]. (10) DVT prophylaxis: - SCDs; Lovenox Disposition: Discharge to acute rehab pending peer to peer vs. [facility]. Supervising Physician Co-Signing Physician Notes Attending Attestation - Chart reviewed in detail, and care plan d/w ALVINO Guidry. I agree w/ the lanier components of her documentation. No significant change in patient's status overnight. Labs/vitals remain acceptable. Awaiting dispo/placement for rehab. Mental status is stable as well. Candelario Gregg MD Subjective Pt. is doing well today. He complains of mild pain in right anterior thigh but denies other symptoms. Lesion on thigh is unchanged. Acute rehab referral denied , will complete peer to peer. If denied, [facility]. Dysuria is improved, is now rated as mild. No difficulty urinating or hematuria. Review of Systems All systems reviewed & are unremarkable except as noted in HPI & below Constitutional: no fever, no chills and no weakness Respiratory: no cough and no dyspnea Cardiovascular: no chest pain, no palpitations and no edema Gastrointestinal: no abdominal pain, no nausea and no constipation Genitourinary (Male): + dysuria; no difficulty urinating Integumentary: + lesions Allergy / Immunological: no rash Physical Exam 2 Vital Signs (Past 24 Hours): Last Vital Signs Temp 37.4 C 06/18/18 14:57 Pulse 96 H 06/18/18 14:57 Resp 17 06/18/18 14:57 BP 96/58 L 06/18/18 14:57 Pulse Ox 95 06/18/18 14:57 Physical Exam: General: Resting comfortably in no apparent distress; A&OX3 HEENT: NC/AT; PERRLA with EOMI; [place] conjunctiva, MMM. Neck: Supple and nontender Cardiac: RRR Lungs: CTA bilaterally Abdomen: Bowel normoactive X 4; Nontender to palpation Extremities: Warm. No edema present. Neuro: No focal weakness Skin: Incisions on right lower back, thigh healing well; pink lesion on right anterior thigh unchanged. Results & Data Laboratory Results 06/18/18 06/18/18 06/18/18 Range/Units 06:11 06:11 06:11 WBC 6.39 (4.8-10.8) K/uL RBC 3.74 L (4.7-6.1) M/uL Hgb 12.1 L (14.0-18.0) g/dL Hct 36.8 L (42-52) % MCV 98.4 (80-100) fL MCH 32.4 (25-34) pg MCHC 32.9 (32-36) g/dL RDW Std Deviation 62.5 H (36.4-46.3) fL RDW Coeff of Brad 17.3 H (11.5-14.5) % Plt Count 271 (130-400) K/uL MPV 10.0 (7.4-10.4) fL Sodium 137 (136-145) mmol/L Potassium 3.9 (3.5-5.1) mmol/L Chloride 104 (98-107) mmol/L Carbon Dioxide 27 (21-32) mmol/L Anion Gap 6.0 (3-11) BUN 13 (7-18) mg/dl Creatinine 0.67 (0.6-1.4) mg/dl Est Cr Clr Drug Dosing 123.7 ml/min Est GFR ( Amer) 122.8 Est GFR (Non-Af Amer) 105.9 BUN/Creatinine Ratio 20.3 H (10-20) Glucose 87 (70-99) mg/dl Calcium 9.2 (8.5-10.1) mg/dl Total Bilirubin 0.5 (0.2-1) mg/dl GGT (3-85) U/L AST 16 (15-37) U/L ALT 22 (12-78) U/L Alkaline Phosphatase 509 H (45-117) U/L Total Protein 7.3 (6.4-8.2) gm/dl Albumin 3.0 L (3.4-5.0) gm/dl Globulin 4.3 H (2.5-4.0) gm/dl Albumin/Globulin Ratio 0.7 L (0.9-2) Vit D 1,25-Dihyd Total Pending 1,25 Dihydroxy Vit D2 Pending 1,25 Dihydroxy Vit D3 Pending Bone Specific Alk Phos Pending 06/17/18 Range/Units 10:41 WBC (4.8-10.8) K/uL RBC (4.7-6.1) M/uL Hgb (14.0-18.0) g/dL Hct (42-52) % MCV (80-100) fL MCH (25-34) pg MCHC (32-36) g/dL RDW Std Deviation (36.4-46.3) fL RDW Coeff of Brad (11.5-14.5) % Plt Count (130-400) K/uL MPV (7.4-10.4) fL Sodium (136-145) mmol/L Potassium (3.5-5.1) mmol/L Chloride (98-107) mmol/L Carbon Dioxide (21-32) mmol/L Anion Gap (3-11) BUN (7-18) mg/dl Creatinine (0.6-1.4) mg/dl Est Cr Clr Drug Dosing ml/min Est GFR ( Amer) Est GFR (Non-Af Amer) BUN/Creatinine Ratio (10-20) Glucose (70-99) mg/dl Calcium (8.5-10.1) mg/dl Total Bilirubin (0.2-1) mg/dl GGT 38 (3-85) U/L AST (15-37) U/L ALT (12-78) U/L Alkaline Phosphatase (45-117) U/L Total Protein (6.4-8.2) gm/dl Albumin (3.4-5.0) gm/dl Globulin (2.5-4.0) gm/dl Albumin/Globulin Ratio (0.9-2) Vit D 1,25-Dihyd Total 1,25 Dihydroxy Vit D2 1,25 Dihydroxy Vit D3 Bone Specific Alk Phos
[2018-06-18] MEDS: TRAZODONE HCL 50 MG TAB PO SCH (20:39)
[2018-06-19] MEDS: MAGNESIUM HYDROXIDE SUSP 30 ML UDC PO PRN ×2 (08:47→21:01)
[2018-06-19] MEDS: THIAMINE HCL 100 MG TAB PO SCH (08:47)
[2018-06-19] MEDS: ENOXAPARIN INJ 40 MG/0.4 ML SYR SQ SCH (08:48)
[2018-06-19] MEDS: MUPIROCIN 2% OINT 22 GM TUBE EXT SCH ×3 (08:48→21:01)
[2018-06-19] MEDS: QUETIAPINE FUMARATE 25 MG TABLET PO SCH ×2 (08:48→21:02)
[2018-06-19] MEDS: FOLIC ACID 1 MG TAB PO SCH (08:48)
[2018-06-19] MEDS: MULTIVITAMIN TAB PO SCH (08:48)
[2018-06-19 09:31] LABS: BUN Creatinine Ratio 18.4 (10-20); Calcium 9.7 mg/dl (8.5-10.1); Est GFR (African American) 117.8; Est GFR (Non-African American) 101.7
[2018-06-19 14:46] LABS: Appearance Urine Clear (Clear); Bilirubin Urine Negative (Negative); Color Urine Dark Yellow; Glucose Urine UA Negative (Negative); Ketones Urine Trace (Negative); Leukocyte Esterase Urine Negative (Negative); Nitrite Urine Negative (Negative); Protein Urine Negative (Negative); Urobilinogen Urine Negative (Negative); pH Urine 5.5 (4.5-7.5)
--- NOTE | 2018-06-19 15:24 | Hospitalist Progress Note ---
Date of Service June 19, 2018 Assessment & Plan (1) Acute encephalopathy: - Admitted to [place] 05/23 following fall from tree [place]; developed worsening confusion at [facility] likely related to ETOH withdrawal, now completely resolved. - No known mental health issues; curbsided psych, consider official consult. - H/o heavy ETOH abuse, 15-20 beers per day -- completed Librium taper at [place]. - Symptoms were likely related to hyperactive delirium and organic brain injury vs. undiagnosed mental health disorder. - Continue Thiamine 100 mg daily and Folic acid 1 mg daily. - Continue Seroquel 25 mg BID and Trazodone 50 mg qhs. - Haldol, Zyprexa and Phenobarbital prn. - Neurology consulted, EEG and MRI brain were negative. (2) Alcohol abuse: - H/o heavy ETOH use -- diagnosed with A. Fib/flutter and noted to drink 15-20 beers per day. - ETOH level was 310.8 on 05/23 after presenting following fall from tree stand. - Last drink was on 05/23, completed Librium taper at [place]. - Continue Thiamine and Folic Acid. - Vitamin D level pending. (3) Paroxysmal atrial fibrillation: - In NSR during this admission. - Holding Toprol XL -- A. fib/flutter likely exacerbated by ETOH. - No anticoagulation therapy indicated due to CHADs2 score = 0. (4) Acute cystitis: - UC positive for 10K colonies Klebsiella pneumoniae and 8K colonies gram positive cocci in setting of previous chronic indwelling boyce. - Completed course of Rocephin IV on 06/18/2018. - Developed recurrent dysuria, repeat u/a and UC is pending. - Consult urology for ongoing dysuria. (5) Urinary retention: - Had chronic indwelling boyce, now removed. - Monitor urine output, bladder scan/straight cath if needed. (6) Traumatic fracture of right femur with routine healing: - Traumatic fall on 05/23, s/p repair at [facility] on 05/28/18. - PT/OT recommending inpt therapy -- plan for discharge to [facility] on . - Sutures removed on 06/15. - Left weight bearing as tolerated, right weight bearing 30 lb per orthopedic surgeon. - Will need appt re-scheduled with trauma surgeon. (7) Elevated alkaline phosphatase level: - Alk phos level remains elevated. - GGT WNL -- likely related to bone source following fractures. - Alk phos bone specific lab pending. (8) Leg skin lesion, right: - Has lesion noted on right thigh; no evidence of fluctuant mass or erythema concerning for infection. - Apply bactroban ointment TID. - MRSA swab negative at admission. (9) Fracture of sacrum: - Fracture of C4-C6, L2 transverse process, S2, right sacrum cortical fracture, right pubic ring fracture noted following fall from tree stand. - Follows with trauma surgeon at [facility]. (10) DVT prophylaxis: - SCDs; Lovenox Disposition: Discharge to acute rehab, [facility], on 06/20/2018. Supervising Physician Co-Signing Physician Notes ALVINO Supervision Note: I personally saw and examined the patient. I verified all lanier points and agree with ALVINO Cassidy with the following exceptions and/or additions: Patient still complaining of dysuria, otherwise his pain is controlled. He admits that he did likely drink too much alcohol and seems like he is contemplating quitting after discharge from rehab. I encouraged complete abstinence from alcohol after discharge. Vitals reviewed Alert awake oriented x3, answers all questions appropriately Gen: AAOx3, NAD HEENT: Anicteric sclerae, EOMI CV: RRR no mgr nl S1S2 Pulm: CTAB no wcr Abd: +BS soft NT ND no masses or hernias Ext: No edema, 2+ DP pulses Skin: Extensive seborrhea of the scalp and face Patient is a 58-year-old male with a history of recent polytrauma with cervical spine spinous process fractures, transverse L2 process fracture, pelvic ring and right femur, as well as right sacral fractures status post repair. Patient is here with acute metabolic encephalopathy secondary to prolonged stage of alcohol withdrawal. He is now significantly improved and is back to his baseline mental status. -Continue treatment as above -Stable for discharge to rehab Subjective Patient is doing well today. He is sitting up in a wheelchair during rounds, moving arms with exercises provided to him by PT. Denies acute pain, shortness of breath. He did have ongoing dysuria overnight. Pt. states dysuria had been improving but returned over last 24 hours. Symptoms were mildly improved this morning. Will repeat U/a and UC. Peer to peer completed, pt. will now be accepted to [facility]. No beds were available today, plan for discharge on 06/20. Review of Systems All systems reviewed & are unremarkable except as noted in HPI & below Constitutional: + weakness; no fever and no chills Respiratory: no cough and no dyspnea Cardiovascular: no chest pain, no palpitations and no edema Gastrointestinal: no abdominal pain, no nausea, no constipation and no diarrhea/ loose stools Genitourinary (Male): + dysuria; no difficulty urinating Musculoskeletal: no joint pain Integumentary: + lesions Allergy / Immunological: no rash Physical Exam 2 Vital Signs (Past 24 Hours): Last Vital Signs Temp 37.4 C 06/19/18 14:48 Pulse 96 H 06/19/18 14:48 Resp 18 06/19/18 14:48 BP 110/76 06/19/18 14:48 Pulse Ox 95 06/19/18 14:48 Physical Exam: General: Resting comfortably in no apparent distress, alert and oriented x3. HEENT: NC/AT; PERRLA with EOMI; [place] conjunctiva, MMM. Neck: Supple and nontender Cardiac: RRR Lungs: CTA bilaterally Abdomen: Bowel normoactive X 4; Nontender to palpation Extremities: Warm. No edema present. Neuro: No focal weakness Skin: Incisions on right lower back, thigh healing well; pink lesion on anterior thigh, no discharge or tenderness to palpation. Results & Data Laboratory Results 06/19/18 06/19/18 Range/Units 14:25 08:29 Sodium 136 (136-145) mmol/L Potassium 4.0 (3.5-5.1) mmol/L Chloride 104 (98-107) mmol/L Carbon Dioxide 27 (21-32) mmol/L Anion Gap 6.0 (3-11) BUN 14 (7-18) mg/dl Creatinine 0.74 (0.6-1.4) mg/dl Est Cr Clr Drug Dosing 112.0 ml/min Est GFR ( Amer) 117.8 Est GFR (Non-Af Amer) 101.7 BUN/Creatinine Ratio 18.4 (10-20) Glucose 95 (70-99) mg/dl Calcium 9.7 (8.5-10.1) mg/dl Urine Color Dark Yellow Urine Appearance Clear (Clear) Urine pH 5.5 (4.5-7.5) Ur Specific [place] 1.030 (1.000-1.030) Urine Protein Negative (Negative) Urine Glucose (UA) Negative (Negative) Urine Ketones Trace H (Negative) Urine Blood Negative (Negative) Urine Nitrite Negative (Negative) Urine Bilirubin Negative (Negative) Urine Urobilinogen Negative (Negative) Ur Leukocyte Esterase Negative (Negative)
[2018-06-19] MEDS: POLYETHYLENE (MIRALAX) 17 GM PACK PO PRN (15:40)
--- NOTE | 2018-06-19 17:27 | Urology Consultation ---
Date of Consultation June 19, 2018 Assessment & Plan (1) UTI (urinary tract infection): Recent klebsiella UTI w/ grm pos cocci - recurrence of symptoms shortly after completion of abx - UCx pending now - certainly could just have some urethral trauma secondary to recent fall and catheterization - will cover with doxycycline x 10d - add tamsulosin History of Present Illness Attending Physician: Isamar Ybarra MD s/p fall from [facility] in early May - complicated by DTs - reports some perineal trauma during the fall - no hematuria, or major voiding difficulties initially - in the midst of DTs, however, he was catheterized - subsequent Kleb/Gram pos cocci UTI - treated from 06/11 until 06/18 - felt well during that time - dysuria (present at dx of UTI) recurred immediately after stopping abx - UA looks ok now - Ucx pending - prior to his fall, some urgency, but generally good strength of stream, etc Allergies Allergy/AdvReac Type Severity Reaction Status Date / Time No Known Allergies Allergy Unverified 06/11/18 10:29 Home Medications Home Medications Medication Instructions Recorded Confirmed Type ascorbic acid (vitamin C) 500 mg PO DAILY PRN 05/23/18 06/11/18 History aspirin [Aspir-81] 81 mg PO DAILY PRN 05/23/18 06/11/18 History calcium carb-mag ox-zinc sulf 1 tab PO DAILY 05/23/18 06/11/18 History calcium carbonate [Tums] 200 mg PO UD PRN 05/23/18 06/11/18 History ipratropium bromide [Atrovent HFA] 2 puff INHALATION QID PRN 05/23/18 06/11/18 History multivitamin 1 tab PO DAILY 05/23/18 06/11/18 History acetaminophen [Mapap 650 mg PO Q4H PRN 1 Days #1 tab 06/19/18 Rx (acetaminophen)] enoxaparin 40 mg SUBCUT QAM 1 Days #0.4 ml 06/19/18 Rx folic acid 1 mg PO QAM 1 Days #1 tab 06/19/18 Rx mupirocin 1 applic EXT TID 1 Days #15 gm 06/19/18 Rx olanzapine 10 mg PO BID PRN 1 Days #1 tab 06/19/18 Rx polyethylene glycol 3350 [Miralax] 17 g PO DAILY PRN 1 Days #1 ea 06/19/18 Rx quetiapine 25 mg PO BID 1 Days #2 tab 06/19/18 Rx thiamine HCl (vitamin B1) [Vitamin 100 mg PO QAM 1 Days #1 tab 06/19/18 Rx B-1] trazodone 50 mg PO HS 1 Days #1 tab 06/19/18 Rx Patient History Medical History Atrial fibrillation Atrial fibrillation with RVR (Chronic) History of spinal fracture Family History Other No significant family history Social History marital status: Current Living Situation: Half-Way Other Information That Helps Us Care for You: No Feels Safe at Home: Declines to Answer Smoking Status: Never smoker Do You Dip or Chew Tobacco: No Second Hand Exposure: No Tobacco Cessation Education Requested by Patient: No Hx Alcohol Use: No Hx Substance Use: No Beliefs That Will Affect Care: None Communication Ability: Effective Review of Systems Constitutional: as per Subjective / HPI; no fever and no chills Respiratory: no cough and no dyspnea Cardiovascular: no chest pain and no dyspnea Gastrointestinal: no abdominal pain and no nausea Musculoskeletal: + back pain and + joint pain recent orthopedic traumas Integumentary: no rash ecchymosis of the penis/scrotum Endocrine: no fatigue Physical Exam 2 Vital Signs (Past 24 Hours): Last Vital Signs Temp 37.4 C 06/19/18 14:48 Pulse 96 H 06/19/18 14:48 Resp 18 06/19/18 14:48 BP 110/76 06/19/18 14:48 Pulse Ox 95 06/19/18 14:48 Physical Exam: NAD AAOx3 no resp distress RRR abd soft skin shows numerous superficial injuries in various states of healing - unsteady on his feet - mild and mostly resolved ecchymosis of the scrotum/penis - no perineal tenderness - no testicular tenderness no significant lower extremity edema - urine in urinal present at bedside - clear
[2018-06-19] MEDS ORDERED: TAMSULOSIN HCL 0.4 MG CAP PO SCH (21:00)
[2018-06-19] MEDS: TRAZODONE HCL 50 MG TAB PO SCH (21:03)
[2018-06-19] MEDS: DOXYCYCLINE HYCLATE 100 MG CAP PO SCH (21:03)
[2018-06-20 06:27] LABS: Hematocrit (blood only) 36.4 % (42-52); Hemoglobin 12.1 g/dL (14.0-18.0); Mean Corpuscular Hgb Conc 33.2 g/dL (32-36); Mean Platelet Volume 10.9 fL (7.4-10.4); Platelet Count 250 K/uL (130-400); RDW Coefficient of Variation 17.3 % (11.5-14.5); RDW Standard Deviation 63.7 fL (36.4-46.3); Red Blood Count 3.64 M/uL (4.7-6.1); White Blood Count 5.98 K/uL (4.8-10.8)
[2018-06-20 07:00] VITALS: TEMP 98.1; O2SAT 97
[2018-06-20 07:04] LABS: Albumin Level 3.1 gm/dl (3.4-5.0); BUN Creatinine Ratio 20.7 (10-20); Calcium 9.2 mg/dl (8.5-10.1); Creatinine Clr Calc Pharmacy 118.4 ml/min; Est GFR (African American) 120.6
[2018-06-20 07:07] LABS: Albumin Globulin Ratio 0.8 (0.9-2); Bilirubin,Total 0.5 mg/dl (0.2-1); Globulin 3.8 gm/dl (2.5-4.0); Total Protein 6.9 gm/dl (6.4-8.2)
[2018-06-20] MEDS: THIAMINE HCL 100 MG TAB PO SCH (08:52)
[2018-06-20] MEDS: MUPIROCIN 2% OINT 22 GM TUBE EXT SCH (08:52)
[2018-06-20] MEDS: ENOXAPARIN INJ 40 MG/0.4 ML SYR SQ SCH (08:52)
[2018-06-20] MEDS: DOXYCYCLINE HYCLATE 100 MG CAP PO SCH (08:52)
[2018-06-20] MEDS: FOLIC ACID 1 MG TAB PO SCH (08:52)
[2018-06-20] MEDS: QUETIAPINE FUMARATE 25 MG TABLET PO SCH (08:52)
[2018-06-20] MEDS: MULTIVITAMIN TAB PO SCH (08:52)
--- NOTE | 2018-06-20 10:12 | Urology Progress Note ---
Date of Service June 20, 2018 Assessment & Plan (1) UTI (urinary tract infection): Empiric coverage with 10 additional days of doxy - added tamsulosin - already with some clinical improvement - I suspect he had incomplete resolution of UTI - no further input needed at this time - please call if any further issues during the hospitalization Subjective less dysuria slept for 6+ hours overnight without waking to void strong stream feels he is emptying completely - only subjective complaint (mentioned yesterday as well) - after morning meds, he develops dizziness, confusion, and generally ill feeling Physical Exam 2 Vital Signs (Past 24 Hours): Last Vital Signs Temp 36.7 C 06/20/18 06:58 Pulse 89 06/20/18 06:58 Resp 16 06/20/18 06:58 BP 112/76 06/20/18 06:58 Pulse Ox 97 06/20/18 06:58 Physical Exam: NAD resting comfortably abd soft clear urine no resp distress
[2018-06-20 11:33] VITALS: BP 124/78; PULSE 96
--- NOTE | 2018-06-20 13:17 | Discharge Summary ---
Date of Service June 20, 2018 Admission HPI Per Admitting Provider Mr. Guerrero is a 58 y/o male with PMHx of Paroxysmal Atrial Fibrillation, GERD, ETOH Abuse, and Traumatic Fall with Lumbar Fx/R Femur Fx/Pelvic Fx (admission to [facility] beginning of month) who has had progressive AMS x 3 weeks. HPI obtained by at bedside and [facility] records as patient cannot contribute. Per , patient presented to [facility] on 05/23 after falling from a tree stand. He denied LOC or head injury at that time and scans were negative. However, states he was dangling by his leg from the stand then fell approx. 20 feet so likely did hit his head. Per , he was at his baseline mentation at that time but that was the last he was his normal. She notes progressive mental status changes since this time and has not returned to his baseline. She reports he has moments of clarity and knows her name and can do some functional thinking/tasks but then will rapidly change to disorientation. Currently he is trying to get out of bed to go get ice-cream. Earlier was stating he saw a bear and was whistling for a dog. Per [facility], he was yelling out for the Police last night and the states he thought he was being detained. He has become combative and he was brought to the ED for further evaluation. Per , she states [facility] kept stating his mental status was due to ETOH withdrawal and ICU delirium. Per outpatient records he drinks 2-3 beers/day and approx. 4-5 on weekends. states she is not sure how much he drinks as she works but states regardless he is normally functional at baseline. She denies any known mental health issues for him. She does not recall any complaints that he has had. She does note that his RLE has becoming increasingly edematous and ecchymotic and does report a fall out of bed possibly around [place] while at [facility]. MRI was negative for acute findings. CXR without infection. Afebrile and no leukocytosis. UA without bacteria but other findings may support this and UCx sent. Last drink would have been on 05/23 as he reported drinking prior to climbing the tree stand and was found to have beer cans in his pockets upon arrival to the ED on that date. Extensive review of outpatient records show he has had multiple testing due to progressive arthralgias. Anaplasmosis/Lyme negative; B12/Folate WNL; TSH WNL; Vit D WNL; mono neg; gianfranco rice virus elevated. 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 Admission Exam Per Admitting Provider Constitutional: well developed, well nourished, + thin and + altered mental status Eyes: + anicteric sclerae largely pinpoint pupils but will react to light; during some moments of alertness would spontaneously open R eye but not the L eye; unable to follow commands for EOM testing ENMT: Throat: no posterior oropharynx abnormality Neck: trachea midline Respiratory: normal respiratory effort, lungs clear to auscultation Cardiovascular: Rate/Rhythm: regular rate and regular rhythm Gastrointestinal (Abdomen): Inspection/Auscultation: normal bowel sounds Percussion/Palpation: abdomen soft; abdomen nontender Musculoskeletal: Head/Neck/Chest: normocephalic, head atraumatic and neck supple Extremities: + extremities abnormal to inspection (RLE with scattered ecchymosis and edema; 2+ dorsal pedis pulse) Skin: no rashes, warm and dry Neurologic: moves all extremities Speech / Cognition: + abnormal speech ( garbled) Motor/Sensory: no tremor unable to perform focused neurological examination due to mental status; was moving all extremities but would only open R eye intermittently and does not follow commands very well Psychiatric: intermittently alert and unable to ask orientation questions; recognizes his at bedside but is intermittently sleeping and combative Principal Diagnosis Acute Encephalopathy, ETOH Withdrawal Discharge Exam General: Resting comfortably in no apparent distress, alert and oriented x3. HEENT: NC/AT; PERRLA with EOMI; [place] conjunctiva, MMM. Neck: Supple and nontender Cardiac: RRR Lungs: CTA bilaterally Abdomen: Bowel normoactive X 4; Nontender to palpation Extremities: Warm. No edema present. Neuro: No focal weakness Skin: Incisions on right lower back & thigh healing well; pink lesion on anterior thigh. Discharge Data Allergies Allergy/AdvReac Type Severity Reaction Status Date / Time No Known Allergies Allergy Unverified 06/11/18 10:29 Consultations 06/19/18 16:24 Consult Urology Routine 06/11/18 12:45 ED Decision to Admit Stat 06/11/18 14:28 Consult Neurology Routine 06/11/18 16:49 Consult Mental Health Therapist Routine Ordered Studies 06/11/18 09:02 CT head/brain wo con Stat 06/11/18 09:59 MR brain wo con Stat Hospital Course (1) Acute encephalopathy: Pt. was admitted to [facility] from acute rehab for acute encephalopathy/ agitation. He was initially admitted to the ICU for close monitoring. Pt. had completed a Librium taper prior to admission for ETOH withdrawal. Thiamine and folic acid were ordered. Seroquel 50 mg TID & Trazodone 50 mg qhs were started along with Zyprexa and Phenobarbital prn agitation. Neurology was consulted, brain MRI and EEG were negative. Psych was curbsided but did not complete an official consult. Pt. does not have a mental health history. Encephalopathy resolved throughout the course of this admission. He did not receive further benzodiazepenes; this class of medications should be avoided in the future. (2) Alcohol abuse: He has a h/o heavy ETOH abuse and completed a librium taper prior to admission. Thiamine and folic acid were ordered. Vitamin D level is pending. He will need ETOH cessation education prior to discharge from acute rehab. (3) Paroxysmal atrial fibrillation: Pt. was in NSR during this admission. He did have episodes of "fluttering " but EKG showed NSR. Toprol XL was held as A. fib is likely exacerbated by ETOH. No anticoagulation therapy was indicated. (4) Acute cystitis: Initial UC was positive for 10K colonies Klebsiella and 8K colonies gram positive cocci. 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 He completed a course of Rocephin IV. Pt. developed recurrent dysuria. Repeat u/a was negative. Urology was consulted and recommended a 10 day course of Doxycycline 100 mg BID. He may require follow up with urology in the future if no improvement in dysuria. (5) Urinary retention: Chronic indwelling boyce was removed. Pt. did not have issues with urinary retention. Flomax 0.4 mg daily was started by urology. (6) Traumatic fracture of right femur with routine healing: Traumatic fall on 05/23, s/p repair at [facility] on 05/28/18. PT/ OT recommended inpt therapy -- he will be discharged to [facility] on 2018. Sutures were removed on 06/15/2018. He will need to follow up with trauma surgeon at [facility]. (7) Elevated alkaline phosphatase level: Alk phos level was elevated likely related to bone fractures. GGT was WNL. Alk phos bone specific lab is pending. (8) Leg skin lesion, right: Has lesion noted on right thigh; no evidence of fluctuant mass or erythema concerning for infection. Bactroban ointment was ordered TID. (9) Fracture of sacrum: Fracture of C4-C6, L2 transverse process, S2, right sacrum cortical fracture, right pubic ring fracture noted following fall from tree stand. Follows with trauma surgeon at [facility]. (10) DVT prophylaxis: SCDs and Lovenox. He was stable for discharge to acute rehab, [facility], on 06/20/2018. Total Time Total Time Spent Total Time Spent (In Minutes): >30 minutes Total Time Includes: Examination of the Patient, Discharge Planning, Medication Reconciliation and Communication With Other Providers Discharge Plan Discharge Items Patient Disposition: Transfer Inpatient Rehab Fac Reason For Visit: ACUTE ENCEPHALOPATHY Discharge Diagnosis: Acute Encephalopathy, Alcohol withdrawal Condition: Good Discharge Goals: Decrease discomfort, Diagnostic testing, Improve function, Increase independence, Improve nutritional status and Prevent disease Activity: As commented below Bathing: No limitations Weightbearing: Left weightbearing and Right partial Weightbearing Comment: Right weight bearing of 30 lb per trauma surgeon Non-emergency contact: Primary Care Provider and Surgeon Call non-emergency contact if: you have any medication questions, your symptoms worsen, your pain is worsening and you have a fever Diet: Regular Addtl Provider Instructions: 1. Acute Encephalopathy * Confusion is now resolved; pt. has completed a librium taper for alcohol withdrawal. * Please continue Seroquel 25 mg BID and Trazodone 50 mg at bedtime. * Please continue Zyprexa 10 mg twice daily as needed for agitation. Avoid use of all benzodiazepenes. * Continue Thiamine 100 mg daily and Folic acid 1 mg daily. * Patient will require alcohol cessation education prior to discharge from acute rehab. 2. Acute UTI * Pt. was treated with a 5 day course of IV abx; urine culture was positive for Klebsiella & gram positive cocci. * Avoid use of indwelling boyce catheter. * He was still having dysuria on the day of discharge--> repeat u/a was negative. * Please continue Doxycycline 100 mg BID for a 10 day course (end date: 2018) * Pt. will need to follow up with urology if he has going dysuria. 3. Traumatic Fall/Multiple Fractures * Please reschedule an appointment with trauma surgeon following discharge from rehab. * Sutures were removed during this admission on 06/15/2018. * Please continue Lovenox 40 mg subQ q24hr for DVT ppx. 4. Right anterior thigh lesion-superficial, healing * Continue to apply Bactroban ointment three times daily. * Monitor area for signs of infection; consider US if necessary to rule out underlying abscess if worsens. 5. Please monitor lab work 2-3 times weekly, including CBC with platelets and CMP. Alkaline phosphatase level has been elevated -- likely related to bone source in setting of fractures. Prescriptions: New doxycycline hyclate 100 mg Capsule 100 mg PO BID 9 Days Qty: 18 RF: 0 Continue multivitamin Tablet 1 tab PO DAILY RF: 0 aspirin [Aspir-81] 81 mg Tablet,Delayed Release (Dr/Ec) 81 mg PO DAILY PRN (Reason: Unknown) RF: 0 ascorbic acid (vitamin C) 500 mg Tablet 500 mg PO DAILY PRN (Reason: supplement) RF: 0 calcium carbonate [Tums] 200 mg calcium (500 mg) Tablet,Chewable 200 mg PO UD PRN (Reason: Indigestion) RF: 0 ipratropium bromide 17 mcg/actuation HFA aerosol inhaler 2 puff Inhalation QID PRN (Reason: Shortness Of Breath) RF: 0 calcium carb-mag ox-zinc sulf 333-133-5 mg Tablet 1 tab PO DAILY RF: 0 Stand-Alone Forms: [facility] Discharge Orders: Discharge Order (Routine); Ordered 06/20/18 Ordered By: Ana Rosa Cassidy Skilled Items Patient informed of condition?: Yes DNR: No Discharge Level of Care: Acute rehab Communicable Disease: No Discharge Prognosis: Stable Admission Data Admit Date/Time: 06/11/18 15:13 Attending Provider: Isamar Ybarra Admit Provider: Jm Foote Primary Care Provider: Maribeth Mcdonough Other Providers: Jm Foote ; Meg Thomas ; Sanna White ; Mahamed Forte Service: Medical Other Interventions: Discharge Summary Assessment (RN) Last Done: 06/20/18 11:30 Pending Studies at Discharge: No DC Date/Time DO NOT enter until pt leaves facility: 06/20/18 13:36 Supervising Physician Co-Signing Physician Notes PA Supervision Note: I did not personally see or examine the patient today, but I verified all lanier points of ALVINO Cassidy's assessment and plan with the following exceptions/ additions: At the time of this dictation, his vitamin D level was back and was severely low at 10-he should be supplemented with vitamin D 3 1000 units once daily Also his bone specific alkaline phosphatase also came back and was significantly elevated at 134. His alkaline phosphatase should be followed over time and I would expect it to return to normal after healing of all of his numerous fractures. Stable for discharge to [facility] for rehab
[2018-06-20 22:34] LABS: Vitamin D3,1,25 10 pg/mL
== END 2018-06-20 13:36 | DRG 896 ==
LOC: ED 08:56 → 1E 15:13 → SUATTDRO 15:13 → 1E 16:09 → 2S 06-12 16:19 → 3W 06-13 16:17
DX: R33.9 Retention of urine, unspecified; W14.XXXA Fall from tree, initial encounter; Z79.82 Long term (current) use of aspirin; N39.0 Urinary tract infection, site not specified; K21.9 Gastro-esophageal reflux disease without esophagitis; I48.0 Paroxysmal atrial fibrillation; R60.0 Localized edema; S32.029A Unspecified fracture of second lumbar vertebra, initial encounter for closed fracture; S32.501A Unspecified fracture of right pubis, initial encounter for closed fracture; G93.41 Metabolic encephalopathy; S32.10XA Unspecified fracture of sacrum, initial encounter for closed fracture; Z79.899 Other long term (current) drug therapy; F10.231 Alcohol dependence with withdrawal delirium

== ENCOUNTER 2024-08-16 11:40 | Inpatient (IN) ==
[2024-08-16 12:22] LABS: Appearance Urine Clear (Clear); Bilirubin Urine Negative (Negative); Blood Urine Negative (Negative); Color Urine Yellow; Glucose Urine UA Negative (Negative); Ketones Urine Negative (Negative); Leukocyte Esterase Urine Negative (Negative); Nitrite Urine Negative (Negative); Protein Urine Negative (Negative); Specific Gravity Urine 1.003 (1.000-1.030); Urobilinogen Urine Negative (Negative)
[2024-08-16 13:06] LABS: Amphetamines+Metham, Urine Neg (Neg); Barbiturates, Urine Neg (Neg); Benzodiazepine, Urine Neg (Neg); Cocaine, Urine Neg (Neg); Fentanyl, Urine Neg (Neg); MDMA (Ecstacy), Urine Neg (Neg); Marijuana, Urine Neg (Neg); Methadone, Urine Neg (Neg); Opiate, Urine Neg (Neg); Phencyclidine, Urine Neg (Neg)
[2024-08-16 13:38] LABS: Basophils # (auto) 0.06 K/uL (0.00-0.20); Basophils % (auto) 1.4 %; Eosinophils # (auto) 0.03 K/uL (0.00-0.50); Eosinophils % (auto) 0.7 %; Hematocrit (blood only) 39.2 % (42.0-52.0); Immature Granulocytes # (auto) 0.01 K/uL (0.01-0.20); Immature Granulocytes % (auto) 0.2 %; Lymphocytes # (auto) 0.88 K/uL (1.20-3.40); Lymphocytes % (auto) 20.4 %; Mean Corpuscular Hemoglobin 35.6 pg (25.0-34.0); Mean Corpuscular Hgb Conc 35.7 g/dL (32.0-36.0); Mean Corpuscular Volume 99.7 fL (80.0-100.0); Mean Platelet Volume 9.7 fL (9.4-12.4); Monocytes # (auto) 0.69 K/uL (0.11-0.59); Neutrophils # (auto) 2.64 K/uL (1.40-6.50); Neutrophils % (auto) 61.3 %; Platelet Count 139 K/uL (130-400); RDW Coefficient of Variation 11.6 % (11.5-14.5); RDW Standard Deviation 42.5 fL (36.4-46.3); Red Blood Count 3.93 M/uL (4.70-6.10); White Blood Count 4.31 K/ul (4.8-10.8)
[2024-08-16 14:00] LABS: Albumin Globulin Ratio 1.8 (0.9-2); Albumin Level 4.8 gm/dl (3.4-5.0); BUN Creatinine Ratio 9.8 (10-20); Bilirubin,Total 1.9 mg/dl (0.2-1.0); Calcium 9.6 mg/dl (8.6-10.3); Creatinine Clr Calc Pharmacy 136.3 ml/min; Globulin 2.6 gm/dl (2.5-4.0); Magnesium 1.8 mg/dl (1.7-2.4); Potassium 3.9 mmol/L (3.5-5.1); Total Protein 7.4 gm/dl (6.0-8.3)
[2024-08-16] MEDS: diazePAM 5 MG/ML 10ML VIAL IV STA ×4 (14:00→17:15)
[2024-08-16 14:02] LABS: Troponin I High Sensitivity 8.2 pg/ml (0-20)
[2024-08-16 14:10] LABS: Thyroid Stimulating Hormone 2.494 uIu/ml (0.300-4.500)
[2024-08-16 14:11] LABS: Prothrombin Time 11.3 Seconds (9.0-12.0)
--- NOTE | 2024-08-16 15:53 | Emergency Department Note ---
Impression & Plan Alcohol abuse, Alcohol withdrawal ED Provider Note ED Provider Note NAME: MALIK HERNÁNDEZ AGE:64 SEX: Male : 1960 ARRIVES VIA: Private vehicle INFORMANT: Patient ED PROVIDER(s): Rebekah Knight DO CHIEF COMPLAINT: Concern for alcohol withdrawal HPI: This is a 64-year-old male with a history of alcohol abuse who presents emergency room due to concern for alcohol withdrawal as he would like to quit drinking. He states he drinks anywhere from 8-15 beers a day, at bedside states that his upwards of 28 some days. He states he has been drinking for a long time. He states he has previously quit drinking and was sober for about a year. He has previously "detoxed in the hospital". He denies any history of seizures related to alcohol use or withdrawal and denies any history of ICU admissions. He denies any recent trauma or injury while intoxicated. Denies any recent illness. Patient states this morning he felt weak and shaky and drank 4 beers and then felt better. He states he was very sweaty and nauseated, but did not vomit. PAST MEDICAL HISTORY:See Below PAST SURGICAL HISTORY:See Below FAMILY HISTORY:See Below SOCIAL HISTORY:See Below HOME MEDICATIONS:See Below ALLERGIES:See Below VITALS:See Below PHYSICAL EXAMINATION: GENERAL: alert, well appearing, well nourished, no distress, non-toxic EYE EXAM: normal conjunctiva, PERRL and EOM's grossly intact OROPHARYNX: no exudate, no erythema, lips, buccal mucosa, and tongue normal and mucous membranes are dry NECK: supple, no nuchal rigidity, no adenopathy, non-tender LUNGS: Clear to auscultation. Normal chest wall mechanics, no w/r/r HEART: no murmurs, S1 normal and S2 normal ABDOMEN: abdomen soft, non-tender, normo-active bowel sounds, no masses, no rebound or guarding. BACK: Back is symmetrical on inspection and there is no deformity, no midline tenderness, no CVA tenderness. SKIN: no rashes, petechiae, orbruising UPPER EXTREMITIES: upper extremities are grossly normal. FROM, nml pulses b/l. LOWER EXTREMITIES: No pitting edema. FROM, nml pulses b/l. NEURO EXAM: Normal sensorium, cranial nerves II-XII grossly intact, normal speech, no facial droop,nogross weakness of arms, no gross weakness of legs. Gross sensation intact. No ataxia. Mild tremors noted. Vital Signs: reviewed and remarkable Differential Diagnosis: alcohol intoxication, substance abuse, hypoglycemia, electrolyte abnormalities, dysrhythmia, dehydration, CHI, ICH, as well as others were entertained. MEDICAL DECISION MAKING: This is a 64 yo male with a hx of alcohol abuse who presents due to concern for alcohol withdrawal and desire to discontinue alcohol use. He was afebrile and VS stable. Labs drawn and sent, IV established, EKG performed and interpreted at bedside, and patient placed on telemetry. He was clinically sober despite have drank several beers prior to arrival. Patient monitored and given oral folic acid and thiamine. 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 While patient monitored he began to exhibit further signs of alcohol withdrawal and was started on IV valium. He did respond well to this. While monitoring his response in the hopes of considering converting him to oral regimen if he wanted to go home, he began to have further worsening symptoms and required several further dosesof valium. Given concern for worsening symptoms and risk of complications of alcohol withdrawal, case discussed with the hospitalist team for further mgmt. No hx of DT's or seizures that he is aware of. Consultation(s): 1720: Discussed with Dr. Ybarra, [facility] hospitalist team, for additional evaluation and management. ER Treatment Provided: See below Diagnostics Interpreted By Me: -ECG: Normal sinus at 81, normal axis, normal intervals, no acute ST/T wave changes -Cardiac Monitoring: An order was placed for continuous cardiac monitoring. The monitor shows a rate of 112 with sinus tachycardia rhythm. -Laboratory studies: As stated above and show below. Triage Nursing Note Reviewed Prior/Outside Records Reviewed Critical Care: Critical care of 51 min performed to assess and manage high likelihood of life- threatening alcohol withdrawal, involving labs and imaging performed with assessment to evaluate alcohol withdrawal diagnosis with frequent reassessment. This time includes bedside time, treatment discussions with patient/family/consultants, documentation time and excludes procedure time. Past Med/Surg History Problem List (Updated 08/16/24 @ 17:32 by Isamar Ybarra MD) Alcohol use disorder Alcohol withdrawal (Acute) Encounter for pre-operative examination History of spinal fracture Acute encephalopathy (Acute) Paroxysmal atrial fibrillation (Chronic) Traumatic fracture of right femur with routine healing (Chronic) Acute cystitis (Acute) Elevated alkaline phosphatase level Leg skin lesion, right Fracture of sacrum UTI (urinary tract infection) Injury of right shoulder and upper arm (Acute) History of rhinoplasty Colon cancer Alcohol use (Chronic) 2-3 beers a day. Drinking for 25 years. Recently quit alcohol use Former smoker Encounter for immunization (Acute) Tick bite (Acute) Back pain (Acute) BPH (benign prostatic hypertrophy) (Chronic) Fatigue (Chronic) Alcoholism in recovery (Chronic) Shortness of breath Upper airway cough syndrome (Chronic) Hypersomnia (Chronic) Sleep apnea Cough Gastro-esophageal reflux Abnormal chest CT SNHL (sensorineural hearing loss) Asthma-COPD overlap syndrome Exertional shortness of breath ETD (eustachian tube dysfunction) Alcohol abuse (Chronic) LAURA (obstructive sleep apnea) Cannot tolerate CPAP History of shoulder surgery Dr Conde, Left shoulder arthroscopy (2016) Asthma Tinnitus, bilateral hx Osteoporosis History of vertebral compression fracture hx - 2018. no surgery Medical History History of cardioversion 1996 Hx of atrial fibrillation without current medication 1996 after an incident at work in an enclosed area with an aersol spray patient developed palpitations, treated at an emergency room for new onset of a.fib. attempted treatment with medication while inpatient, patient had cardioversion and success and no problems since. 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 Left arm weakness left arm atrophy from a work accident in 2015. Chronic back pain follows with chiropractor every 2 months. Hepatitis A at age 20 d/t raw clams. no problems since. Lyme disease ~5 years ago, has had tick bites, never tested positive but has been treated for symptoms of lyme. last episode ~August 2022. Hyperlipidemia Hypertension Hemochromatosis Femur fracture, right fell from a tree stand -- fx pelvis, right femur, and compression fracture in 2018 Hearing loss COPD (chronic obstructive pulmonary disease) "seasonal" per patient. has not needed rescue inhaler recently. does not use daily inhaler routinely d/t his heart racing. only uses if needed Dyslipidemia Stomach ulcer hx Surgical History History of open reduction and internal fixation (ORIF) procedure right femur (2018) History of nasal septoplasty with polyp removal. History of esophagogastroduodenoscopy (EGD) History of colonoscopy Family History Father Aneurysm of abdominal aorta Brother Coronary heart disease Aneurysm of abdominal aorta Grandmother (Paternal) Diabetes Type 2 Grandfather (Paternal) Aneurysm of abdominal aorta Uncle Aneurysm of abdominal aorta Other Hearing loss Hypertension No family history of adverse response to anesthesia Denies family history of Malignant hypothermia due to anesthesia Prostate cancer Heart disease Colorectal cancer Family history of adverse reaction to anesthesia Social History Smoking Status: Never smoker Tobacco Type: Cigarettes Second Hand Exposure: No; Do You Dip or Chew Tobacco: No; Hx Alcohol Use: Yes Alcohol type: beer Hx Substance Use: No Preferred Language: Greenlandic Communication Ability: Effective Ase Certified Technician Required: No Beliefs That Will Affect Care: None marital status: Current Living Situation: Spouse Other Information That Helps Us Care for You: No Feels Safe at Home: Yes Safety Concerns: Feels Safe At This Time Dental Care, Regularly: Yes Seatbelt Use: always Assistive Devices: None Allergies Allergies Allergy/AdvReac Type Severity Reaction Status Date / Time diphenhydramine Allergy Severe tachycardia Verified 09/17/23 07:31 [From [employer] [facility] c/palpitati Night-Time] ons doxylamine Allergy Severe tachycardia Verified 09/17/23 07:31 [From [employer] [facility] c/palpitati Night-Time] ons naproxen [From Aleve] Allergy Severe tachycardia Verified 09/17/23 07:31 /palpitatio ns phenylephrine Allergy Severe tachycardia Verified 09/17/23 07:31 [From [employer] Plus c/palpitati Night-Time] ons lorazepam [From Ativan] AdvReac Severe violent Verified 09/17/23 07:31 and aggressive [id number] Allergy Unknown pt is Uncoded 09/17/23 07:31 unsure what this medication is Home Meds Home Medications Medication Instructions Recorded Confirmed calcium 600 mg (as 1 tab PO QAM 01/21/23 09/17/23 carbonate)-vitamin D3 5 mcg (200 unit) tablet cholecalciferol (vitamin D3) 125 125 mcg PO QAM 01/21/23 09/17/23 mcg (5,000 unit) tablet (Vitamin D3) magnesium 200 mg tablet 400 mg PO QAM 01/21/23 09/17/23 melatonin 5 mg tablet 5 - 10 mg PO HS PRN Sleep 01/21/23 09/17/23 multivitamin 2 tab PO QAM 01/21/23 09/17/23 niacin 500 mg tablet 500 mg PO QAM 01/21/23 09/17/23 vitamin C 45 mg-zinc citrate 3.75 2 tab PO QAM 01/21/23 09/17/23 mg-elderberry 50 mg chewable tablet ([employer]) mecobalamin (vitamin B12) 1,000 1,000 mcg PO DAILY 09/17/23 09/17/23 mcg chewable tablet Previous Rx's Medication Instructions Recorded amoxicillin 875 mg-potassium 1 tab PO BID #14 tabs 02/12/24 clavulanate 125 mg tablet sucralfate 100 mg/mL oral 10 ml PO QID #420 mL 02/12/24 suspension (Carafate) teriparatide 20 mcg/dose (620 20 mcg (0.08 mL) subcut DAILY 06/21/24 mcg/2.48 mL) subcutaneous pen #7.44 mL injector Results & Data (ED) Vital Signs Vital Signs - 24 hr 08/16/24 13:40 08/16/24 13:40 08/16/24 16:00 Pulse Rate 88 Pulse Rate [Finger] 95 H 108 H Respiratory Rate 20 24 Blood Pressure [Right Arm] 152/102 H 170/109 H Blood Pressure Mean [Right Arm] 118 129 Pulse Oximetry 96 94 Oxygen Delivery Method Room Air Room Air 08/16/24 16:30 08/16/24 16:33 Pulse Rate 101 H Pulse Rate [Finger] 103 H Respiratory Rate 24 Blood Pressure [Right Arm] 158/95 H Blood Pressure Mean [Right Arm] 116 Pulse Oximetry 97 Oxygen Delivery Method Room Air Laboratory Data 08/17/24 08:28 08/17/24 08:28 Lab Results 08/16/24 08/16/24 Range/Units 12:02 12:24 WBC 4.31 L (4.8-10.8) K/ul RBC 3.93 L (4.70-6.10) M/uL Hgb 14.0 (14.0-18.0) g/dl Hct 39.2 L (42.0-52.0) % MCV 99.7 (80.0-100.0) fL MCH 35.6 H (25.0-34.0) pg MCHC 35.7 (32.0-36.0) g/dL RDW Std Deviation 42.5 (36.4-46.3) fL RDW Coeff of Brad 11.6 (11.5-14.5) % Plt Count 139 (130-400) K/uL MPV 9.7 (9.4-12.4) fL Immature Gran % (Auto) 0.2 % Neut % (Auto) 61.3 % Lymph % (Auto) 20.4 % [place] % (Auto) 16.0 % Eos % (Auto) 0.7 % Baso % (Auto) 1.4 % Neut # (Auto) 2.64 (1.40-6.50) K/uL Lymph # (Auto) 0.88 L (1.20-3.40) K/uL [place]ler # (Auto) 0.69 H (0.11-0.59) K/uL Eos # (Auto) 0.03 (0.00-0.50) K/uL Baso # (Auto) 0.06 (0.00-0.20) K/uL Immature Gran # (Auto) 0.01 (0.01-0.20) K/uL PT 11.3 (9.0-12.0) Seconds INR 1.0 (0.9-1.1) Sodium 129 L (136-145) mmol/L Potassium 3.9 (3.5-5.1) mmol/L Chloride 96 L (98-107) mmol/L Carbon Dioxide 23 (21-32) mmol/L Anion Gap 10 (3-11) BUN 6 (6-23) mg/dl Creatinine 0.61 (0.6-1.4) mg/dl Est Cr Clr Drug Dosing 136.3 ml/min eGFR 107.26 BUN/Creatinine Ratio 9.8 L (10-20) Glucose 96 (70-99(Fasting)) mg/dl Calcium 9.6 (8.6-10.3) mg/dl Magnesium 1.8 (1.7-2.4) mg/dl Total Bilirubin 1.9 H (0.2-1.0) mg/dl AST 61 H (13-39) U/L ALT 40 (7-52) U/L Alkaline Phosphatase 79 (34-104) U/L Troponin I High Sens 8.2 (0-20) pg/ml Total Protein 7.4 (6.0-8.3) gm/dl Albumin 4.8 (3.4-5.0) gm/dl Globulin 2.6 (2.5-4.0) gm/dl Albumin/Globulin Ratio 1.8 (0.9-2) Lipase 67 (11-82) U/L TSH 2.494 (0.300-4.500) uIu/ml Urine Color Yellow Urine Appearance Clear (Clear) Urine pH 7.0 (4.5-7.5) Ur Specific [place] 1.003 (1.000-1.030) Urine Protein Negative (Negative) Urine Glucose (UA) Negative (Negative) Urine Ketones Negative (Negative) Urine Blood Negative (Negative) Urine Nitrite Negative (Negative) Urine Bilirubin Negative (Negative) Urine Urobilinogen Negative (Negative) Ur Leukocyte Esterase Negative (Negative) Urine Opiates Screen Neg (Neg) Ur Methadone, Qual Neg (Neg) Urine Fentanyl Screen Neg (Neg) Urine Barbiturates Neg (Neg) Ur Phencyclidine (PCP) Neg (Neg) U Amphetamin/Meth Scrn Neg (Neg) MDMA (Ecstasy) Screen Neg (Neg) U Benzodiazepines Scrn Neg (Neg) Ur Cocaine Metabolite Neg (Neg) U Marijuana (THC) Screen Neg (Neg) Ethyl Alcohol mg/dL 172.3 H (<10.0) mg/dl Administered Medications Calcium/Vitamin D (Calcium 600mg + Vit D 400 Iu Tab) 1 tab PO QAM [facility] Stop: 09/16/24 08:59 Last Admin: 08/17/24 09:06 Dose: 1 tab Documented By: ERIS Cyanocobalamin (Cyanocobalamin (B-12) 500 Mcg Tablet) 1,000 mcg PO DAILY [facility] Stop: 09/16/24 08:59 Last Admin: 08/17/24 09:06 Dose: 1,000 mcg Documented By: ERIS Diazepam (Diazepam 5 Mg/Ml 10ml Vial) 5 mg IV Q4H PRN PRN Reason: AWSS 5-9 Stop: 09/15/24 20:16 Last Admin: 08/17/24 11:17 Dose: 5 mg Documented By: Admin: 08/17/24 06:22 Dose: 5 mg Documented By: Admin: 08/17/24 01:36 Dose: 5 mg Documented By: Admin: 08/16/24 21:01 Dose: 5 mg Documented By: JORGE Enoxaparin Sodium (Enoxaparin Inj 40 Mg/0.4 Ml Syr) 40 mg SQ Q24H [facility] Stop: 09/15/24 20:44 Last Admin: 08/16/24 20:53 Dose: Not Given Documented By: JORGE Folic Acid (Folic Acid 1 Mg Tab) [facility] [place] [facility]: 09/16/24 08:59 Last Admin: 08/17/24 09:06 Dose: 1 mg Documented By: ERIS Lactated Ringer's (Lr) 1,000 mls @ 125 mls/hr IV .Q8H [facility] Stop: 08/17/24 20:16 Last Admin: 08/17/24 06:17 Dose: 125 mls/hr Documented By: Infusion: 08/17/24 04:54 Dose: Infused Documented By: Admin: 08/16/24 20:54 Dose: 125 mls/hr Documented By: JORGE Magnesium Oxide (Magnesium Oxide 400 Mg Tab) [facility] [place] Stop: 09/16/24 08:59 Last Admin: 08/17/24 09:06 Dose: 400 mg Documented By: ERIS Miscellaneous (Order Awaiting Action - Teriparatide 20 Mcg/Dose (620mcg/2.48ml) Pen Injector) 1 each N/A QS [facility] Stop: 09/16/24 00:00 Last Admin: 08/17/24 09:05 Dose: Not Given Documented By: Admin: 08/17/24 00:19 Dose: Not Given Documented By: JANE Multivitamins (Multivitamin Tab) [facility] [place] Stop: 09/16/24 08:59 Last Admin: 08/17/24 09:07 Dose: 1 tab Documented By: ERIS Pantoprazole Sodium (Pantoprazole 40 Mg Tab) [facility] [place] Stop: 09/16/24 08:59 Last Admin: 08/17/24 09:07 Dose: 40 mg Documented By: ERIS Thiamine HCl (Thiamine Hcl 100 Mg Tab) 100 mg PO QAM [facility] Stop: 09/16/24 08:59 Last Admin: 08/17/24 09:06 Dose: 100 mg Documented By: ERIS Discontinued Medications Chlordiazepoxide HCl (Chlordiazepoxide Hcl 25 Mg Cap) 25 mg PO NOW ONE Stop: 08/16/24 18:25 Last Admin: 08/16/24 18:39 Dose: 25 mg Documented By: MR Chlordiazepoxide HCl (Chlordiazepoxide Hcl 25 Mg Cap) 25 mg PO Q6H [facility] Stop: 08/17/24 12:01 Last Admin: 08/17/24 11:20 Dose: 25 mg Documented By: Admin: 08/17/24 05:32 Dose: 25 mg Documented By: Admin: 08/17/24 00:16 Dose: 25 mg Documented By: JANE Diazepam (Diazepam 5 Mg/Ml 10ml Vial) 5 mg IV NOW STA Stop: 08/16/24 13:46 Last Admin: 08/16/24 14:00 Dose: 5 mg Documented By: CASPER Diazepam (Diazepam 5 Mg/Ml 10ml Vial) 5 mg IV NOW STA Stop: 08/16/24 15:50 Last Admin: 08/16/24 16:08 Dose: 5 mg Documented By: MR Diazepam (Diazepam 5 Mg/Ml 10ml Vial) 5 mg IV NOW STA Stop: 08/16/24 16:35 Last Admin: 08/16/24 16:48 Dose: 5 mg Documented By: MR Diazepam (Diazepam 5 Mg/Ml 10ml Vial) 10 mg IV NOW STA Stop: 08/16/24 16:58 Last Admin: 08/16/24 17:15 Dose: 10 mg Documented By: MR Folic Acid (Folic Acid 1 Mg Tab) 1 mg PO NOW STA Stop: 08/16/24 16:11 Last Admin: 08/16/24 16:48 Dose: 1 mg Documented By: MR Sodium Chloride (Nss) 1,000 mls @ 125 mls/hr IV .Q8H [facility] Stop: 08/17/24 16:59 Last Infusion: 08/16/24 20:23 Dose: Infused Documented By: Admin: 08/16/24 17:14 Dose: 125 mls/hr Documented By: MR Magnesium Sulfate/Dextrose (Magnesium Sulfate / D5w) 1 gm in 100 mls @ 50 mls/hr IV ONE ONE Stop: 08/16/24 19:44 Last Infusion: 08/16/24 20:23 Dose: Infused Documented By: Admin: 08/16/24 18:22 Dose: 50 mls/hr Documented By: Thiamine HCl (Thiamine Hcl 100 Mg Tab) 100 mg PO NOW STA Stop: 08/16/24 16:11 Last Admin: 08/16/24 16:48 Dose: 100 mg Documented By: Discharge Plan Visit Data Chief Complaint: Alcohol Withdrawal Stated Complaint: ALCOHOL WITHDRAWAL ED Provider: Rebekah Knight Discharge Problem: Alcohol abuse, Alcohol withdrawal Patient Disposition: Admitted As Inpatient Discharge Instructions Interventions: ED Discharge Assessment Last Done: 08/16/24 20:18
[2024-08-16] MEDS: THIAMINE HCL 100 MG TAB PO STA (16:48)
[2024-08-16] MEDS: FOLIC ACID 1 MG TAB PO STA (16:48)
[2024-08-16] MEDS: SODIUM CHLORIDE 0.9% 1,000 ML IV SCH (17:14)
--- NOTE | 2024-08-16 17:27 | History & Physical Report ---
Date of Service August 16, 2024 Assessment & Plan (1) Alcohol use disorder: (2) Alcohol withdrawal: (3) Sleep apnea: (4) Asthma-COPD overlap syndrome: Plan This patient is a 64-year-old male with a history of alcohol use disorder, osteoporosis, asthma-COPD overlap syndrome, LAURA, hyperlipidemia, and lone atrial fibrillation, who presents with request for alcohol detox. He reports drinking 24 beers per day for quite some time. He was trying to slowly wean himself off of alcohol over the last week and had cut down to 8 beers per day. In the mornings when he wakes up he often feels shaky and sweaty and has to drink to make the shakes go away. Last night, he was very sweaty, shaky, and vomited at home. He drank 2 beers quickly and felt better. He drank 8 beers through the day today but remained tremulous and came to the ER for detox. In the ER, he was noted to be tremulous and diaphoretic, hypertensive and tachycardic. He was given a total of 25 mg of IV Valium, 1 L of normal saline, thiamine, and folate, and hospitalist was contacted for admission for inpatient alcohol detox followed by inpatient rehab at patient's request. #Alcohol use disorder/alcohol withdrawal-patient with longstanding history of drinking 24 light beers daily. He has quit in the past and attended inpatient rehab with medical detox. No history of seizures but frequently has tremulousness and diaphoresis and heart palpitations at home when he tries to cut down on drinking. Alcohol level here is 172 which is likely much lower than his usual. TSH is negative, urine drug screen negative. No evidence of infection otherwise. -Admit to PCU for telemetry monitoring given history of lone atrial fibrillation 30 years ago -Give 1 g IV magnesium to keep magnesium optimal at 2.0 -AWSS scales with Librium taper and as needed IV Valium as he cannot tolerate lorazepam -Encouraged cessation and he is committed to going to rehab-he would like information on inpatient rehab -Start thiamine 100 mg p.o. once daily, folic acid 1 mg p.o. once daily, and multivitamin 1 tablet p.o. once daily -Continue LR at 125 mL/h through tomorrow as he is volume depleted #Hyponatremia-sodium 129 on admission, likely secondary to beer Potomania -Continue volume resuscitation with LR at 125 mL/h -Cessation from beer -Fluid restrict -Check BMP in the morning #Elevated LFTs-total bilirubin elevated at 1.9, AST elevated at 61. Likely secondary to alcoholic hepatitis. INR is normal, platelets are normal, albumin normal-unlikely he has cirrhosis. There is some mild hepatomegaly on physical examination. He denies abdominal pains. He does admit to history of hepatitis A decades ago. -Check liver ultrasound -Follow LFTs, CBC in the morning -Continued alcohol cessation #Asthma-COPD overlap syndrome/LAURA-no acute issues and no longer uses as needed inhaler at home. No current wheezing or hypoxia -Monitor for any symptoms #Hyperlipidemia-reports taking flush free niacin at home which is not available here -Hold niacin DVT prophylaxis-Lovenox SQ Disposition-admit to PCU Full code History of Present Illness Chief Complaint: Alcohol detox request Primary Care Provider: Rito Leyva This patient is a 64-year-old male with a history of alcohol use disorder, osteoporosis, asthma-COPD overlap syndrome, LAURA, hyperlipidemia, and lone atrial fibrillation who presents with request for alcohol detox. He reports drinking 24 beers per day for quite some time. He was trying to slowly wean himself off of alcohol over the last week and had cut down to 8 beers per day. In the mornings when he wakes up he often feels shaky and sweaty and has to drink to make the shakes go away. Last night, he was very sweaty, shaky, and vomited at home. He drank 2 beers quickly and felt better. He drank 8 beers through the day today but remained tremulous and came to the ER for detox. In the ER, he was noted to be tremulous and diaphoretic, hypertensive and tachycardic. He was given a total of 25 mg of IV Valium, 1 L of normal saline, thiamine, and folate, and hospitalist was contacted for admission for inpatient alcohol detox followed by inpatient rehab at patient's request. Allergies Allergy/AdvReac Type Severity Reaction Status Date / Time diphenhydramine Allergy Severe tachycardia Verified 09/17/23 07:31 [From [employer] [facility] c/palpitati Night-Time] ons doxylamine Allergy Severe tachycardia Verified 09/17/23 07:31 [From [facility] c/palpitati Night-Time] ons naproxen [From Aleve] Allergy Severe tachycardia Verified 09/17/23 07:31 /palpitatio ns phenylephrine Allergy Severe tachycardia Verified 09/17/23 07:31 [From [employer] c/palpitati Night-Time] ons lorazepam [From Ativan] AdvReac Severe violent Verified 09/17/23 07:31 and aggressive fentaNYL [id number] Allergy Unknown pt is Uncoded 09/17/23 07:31 unsure what this medication is Home Medications Medication Instructions Recorded Confirmed Type calcium 600 mg (as 1 tab PO QAM 01/21/23 09/17/23 History carbonate)-vitamin D3 5 mcg (200 unit) tablet cholecalciferol (vitamin D3) 125 125 mcg PO QAM 01/21/23 09/17/23 History mcg (5,000 unit) tablet (Vitamin D3) magnesium 200 mg tablet 400 mg PO QAM 01/21/23 09/17/23 History melatonin 5 mg tablet 5 - 10 mg PO HS PRN Sleep 01/21/23 09/17/23 History multivitamin 2 tab PO QAM 01/21/23 09/17/23 History niacin 500 mg tablet 500 mg PO QAM 01/21/23 09/17/23 History vitamin C 45 mg-zinc citrate 3.75 2 tab PO QAM 01/21/23 09/17/23 History mg-elderberry 50 mg chewable tablet ([employer]) mecobalamin (vitamin B12) 1,000 1,000 mcg PO DAILY 09/17/23 09/17/23 History mcg chewable tablet amoxicillin 875 mg-potassium 1 tab PO BID #14 tabs 02/12/24 Rx clavulanate 125 mg tablet sucralfate 100 mg/mL oral 10 ml PO QID #420 mL 02/12/24 Rx suspension (Carafate) teriparatide 20 mcg/dose (620 20 mcg (0.08 mL) subcut DAILY 06/21/24 Rx mcg/2.48 mL) subcutaneous pen #7.44 mL injector Past Med/Surg History Problem List (Updated 08/16/24 @ 17:32 by Isamar Ybarra MD) Alcohol use disorder Alcohol withdrawal (Acute) Encounter for pre-operative examination History of spinal fracture Acute encephalopathy (Acute) Paroxysmal atrial fibrillation (Chronic) Traumatic fracture of right femur with routine healing (Chronic) Acute cystitis (Acute) Elevated alkaline phosphatase level Leg skin lesion, right Fracture of sacrum UTI (urinary tract infection) Injury of right shoulder and upper arm (Acute) History of rhinoplasty Colon cancer Alcohol use (Chronic) 2-3 beers a day. Drinking for 25 years. Recently quit alcohol use Former smoker Encounter for immunization (Acute) Tick bite (Acute) Back pain (Acute) BPH (benign prostatic hypertrophy) (Chronic) Fatigue (Chronic) Alcoholism in recovery (Chronic) Shortness of breath Upper airway cough syndrome (Chronic) Hypersomnia (Chronic) Sleep apnea Cough Gastro-esophageal reflux Abnormal chest CT SNHL (sensorineural hearing loss) Asthma-COPD overlap syndrome Exertional shortness of breath ETD (eustachian tube dysfunction) Alcohol abuse (Chronic) LAURA (obstructive sleep apnea) Cannot tolerate CPAP History of shoulder surgery Dr Cnode, Left shoulder arthroscopy (2016) Asthma Tinnitus, bilateral hx Osteoporosis History of vertebral compression fracture hx - 2018. no surgery Medical History History of cardioversion 1996 Hx of atrial fibrillation without current medication 1996 after an incident at work in an enclosed area with an aersol spray patient developed palpitations, treated at an emergency room for new onset of a.fib. attempted treatment with medication while inpatient, patient had cardioversion and success and no problems since. no qa tester. Left arm weakness left arm atrophy from a work accident in 2015. Chronic back pain follows with chiropractor every 2 months. Hepatitis A at age 20 d/t raw clams. no problems since. Lyme disease ~5 years ago, has had tick bites, never tested positive but has been treated for symptoms of lyme. last episode ~August 2022. Hyperlipidemia Hypertension Hemochromatosis Femur fracture, right fell from a tree stand -- fx pelvis, right femur, and compression fracture in 2018 Hearing loss COPD (chronic obstructive pulmonary disease) "seasonal" per patient. has not needed rescue inhaler recently. does not use daily inhaler routinely d/t his heart racing. only uses if needed Dyslipidemia Stomach ulcer hx Surgical History History of open reduction and internal fixation (ORIF) procedure right femur (2018) History of nasal septoplasty with polyp removal. History of esophagogastroduodenoscopy (EGD) History of colonoscopy Family History Father Aneurysm of abdominal aorta Brother Coronary heart disease Aneurysm of abdominal aorta Grandmother (Paternal) Diabetes Type 2 Grandfather (Paternal) Aneurysm of abdominal aorta Uncle Aneurysm of abdominal aorta Other Hearing loss Hypertension No family history of adverse response to anesthesia Denies family history of Malignant hypothermia due to anesthesia Prostate cancer Heart disease Colorectal cancer Family history of adverse reaction to anesthesia Social History Smoking Status: Former smoker Tobacco Type: Cigarettes Second Hand Exposure: No; Do You Dip or Chew Tobacco: No; Hx Alcohol Use: Yes (15 pack/week as of 09/17/2022) Alcohol type: beer Hx Substance Use: No Preferred Language: Occitan Communication Ability: Effective Decay Control Operator Required: No Beliefs That Will Affect Care: None marital status: Current Living Situation: Spouse Feels Safe at Home: Yes Dental Care, Regularly: Yes Seatbelt Use: always Assistive Devices: Brace/Splint/Immobilizer and Glasses Review of Systems Review of Systems: All systems reviewed & are unremarkable except as noted in HPI & below Physical Exam Constitutional: WD/WN, vitals as above Eyes: + conjunctival abnormality (Injected con junctiva bilaterally) Neck: trachea midline, no thyromegaly Respiratory: normal respiratory effort, lungs clear to auscultation Cardiovascular: Rate/Rhythm: regular rhythm and + tachycardic Heart Sounds: no murmur Extremities: no edema Chest (Breasts): Chest: normal inspection of chest Gastrointestinal (Abdomen): Inspection/Auscultation: abdomen normal to inspection and normal bowel sounds; abdomen not distended P ercussion/Palpation: abdomen soft and + hepatomegaly (Liver edge palpable approximately 3 cm beyond costal margin); abdomen nontender Musculoskeletal: Extremities: extremities normal to inspection; no cyanosis and no clubbing Skin: no rashes, warm and dry Neurologic: moves all extremities (Except limited motion left shoulder, atrophy left shoulder girdle) and awake; no focal motor deficits Motor/Sensory: + tremor (Intention tremor throughout all extremities) Psychiatric: A+Ox3, euthymic affect Lymphatic: no lymphedema Results & Data Results & Data Vital Signs (Past 12 Hours) Vital Signs Temp Pulse Pulse Resp BP BP Pulse Ox 08/16/24 16:33 101 H 08/16/24 16:30 103 H 24 158/95 H 97 08/16/24 16:00 108 H 24 170/109 H 94 08/16/24 13:40 95 H 20 152/102 H 96 08/16/24 13:40 88 08/16/24 11:54 36.7 C 96 H 18 186/113 H 97 O2 Del Method 08/16/24 16:33 08/16/24 16:30 Room Air 08/16/24 16:00 Room Air 08/16/24 13:40 Room Air 08/16/24 13:40 08/16/24 11:54 Room Air Laboratory Results CBC, INR, CMP, magnesium, lipase, TSH, UA, urine drug screen, and alcohol level reviewed Diagnostic Findings No radiology studies for review ECG Additional Comments: ECG on 08/16/2024 at 1234 with normal sinus rhythm, rate 81, no ischemic changes Code Status & VTE Plan Code Status Full code VTE Prophylaxis Plan VTE Prophylaxis will be ordered: Yes PG Care Time/CCT Total # of Minutes Spent Total Time Spent with Patient: Total time spent is greater than 50% in coordination of care (as documented) at patient's floor/unit and/or counseling patient: Coding Level of Care Code 40665 INT INP/OBS CARE MIN Diagnoses Alcohol use disorder F10.90 Alcohol withdrawal F10.939 Sleep apnea G47.30 Asthma-COPD overlap syndrome J44.9
[2024-08-16] MEDS: MAGNESIUM SULFATE / D5W 1 GM/100 ML BAG IV ONE (18:22)
[2024-08-16] MEDS: chlordiazePOXIDE HCl 25 MG CAP PO ONE (18:39)
[2024-08-16] MEDS ORDERED: ONDANSETRON INJ 2 MG/ML 2 ML VIAL IV PRN (20:17)
[2024-08-16] MEDS ORDERED: POLYETHYLENE (MIRALAX) 17 GM PACK PO PRN (20:17)
[2024-08-16] MEDS ORDERED: MAGNESIUM HYDROXIDE SUSP 30 ML UDC PO PRN (20:17)
[2024-08-16] MEDS ORDERED: ACETAMINOPHEN 325 MG TAB PO PRN (20:17)
[2024-08-16] MEDS ORDERED: ALUMINUM/MAGNESIUM SUSP 30 ML UDC PO PRN (20:17)
[2024-08-16] MEDS ORDERED: chlordiazePOXIDE ALCOHOL WITHDRAWL 25MG PO STA (20:17)
[2024-08-16] MEDS ORDERED: chlordiazePOXIDE HCl 25 MG CAP PO SCH (20:30)
[2024-08-16] MEDS: ENOXAPARIN INJ 40 MG/0.4 ML SYR SQ SCH (20:53)
[2024-08-16] MEDS: LACTATED RINGER'S 1,000 ML IV SCH (20:54)
[2024-08-16] MEDS: diazePAM 5 MG/ML 10ML VIAL IV PRN (21:01)
[2024-08-17] MEDS: chlordiazePOXIDE HCl 25 MG CAP PO SCH ×2 (00:16→19:34)
--- NOTE | 2024-08-17 07:40 | Ultrasound Report ---
EXAM: US liver CLINICAL HISTORY: Elevated LFTs. TECHNIQUE: An ultrasound examination of the right upper quadrant was performed using a [high-frequency transducer]. Scanning was performed with the patient in the supine position. The following structures were specifically evaluated: COMPARISON: 12/06/2022 MR FINDINGS: Liver: Liver size: [Measures 20.5 cm ]. The liver appears mildly enlarged in size with bright echotexture. Detected area of focal fat sparing near the gall bladder bed measuring about 11 x 8 mm. No evidence of focal lesions, cysts, or masses. Hepatic vasculature appears normal. Gallbladder: Multiple mobile stones with possible sludge. No wall thickening (2 mm), or pericholecystic fluid noted. No evidence of gallbladder wall edema or signs of acute cholecystitis. Negative sonographic Joyce's sign. Biliary Tree: Common bile duct diameter: [Measurement in 3 mm]. The common bile duct is within normal limits in caliber and not dilated. No evidence of choledocholithiasis or biliary obstruction. Right Kidney: Right kidney size: [Measures 12.5 x 5.2 x 5.2 cm ]. Right kidney appears normal in size with preserved corticomedullary differentiation. Right renal upper pole 10 x 7 x 17 mm simple cyst seen. No evidence of hydronephrosis or renal masses. Pancreas Echogenic appearing likely due to fatty changes. The tail is slightly obscured by the bowel, yet no focal lesions or masses. IMPRESSION: 1. Hepatomegaly with fatty changes. 2. Cholelithiasis. 3. Small right renal simple cortical cyst. 4. No time interval changes compared to the last MRI. RECOMMENDATIONS: Clinical correlation with symptoms and further evaluation as indicated. Electronically signed by Berenice Smith 08-17-2024 07:40 AM
[2024-08-17 08:56] LABS: Basophils # (auto) 0.07 K/uL (0.00-0.20); Basophils % (auto) 1.8 %; Eosinophils # (auto) 0.09 K/uL (0.00-0.50); Eosinophils % (auto) 2.3 %; Hematocrit (blood only) 38.2 % (42.0-52.0); Hemoglobin 13.7 g/dl (14.0-18.0); Immature Granulocytes # (auto) 0.02 K/uL (0.01-0.20); Immature Granulocytes % (auto) 0.5 %; Lymphocytes # (auto) 0.81 K/uL (1.20-3.40); Lymphocytes % (auto) 20.9 %; Mean Corpuscular Hemoglobin 36.8 pg (25.0-34.0); Mean Corpuscular Hgb Conc 35.9 g/dL (32.0-36.0); Mean Corpuscular Volume 102.7 fL (80.0-100.0); Mean Platelet Volume 10.1 fL (9.4-12.4); Monocytes # (auto) 0.69 K/uL (0.11-0.59); Monocytes % (auto) 17.8 %; Neutrophils # (auto) 2.19 K/uL (1.40-6.50); Neutrophils % (auto) 56.7 %; Platelet Count 117 K/uL (130-400); RDW Coefficient of Variation 11.7 % (11.5-14.5); Red Blood Count 3.72 M/uL (4.70-6.10); White Blood Count 3.87 K/ul (4.8-10.8)
[2024-08-17 09:06] LABS: Albumin Level 4.2 gm/dl (3.4-5.0); BUN Creatinine Ratio 12.8 (10-20); Bilirubin Direct 0.5 mg/dl (0-0.2); Bilirubin,Total 3.2 mg/dl (0.2-1.0); Calcium 9.2 mg/dl (8.6-10.3); Creatinine Clr Calc Pharmacy 105.4 ml/min; Magnesium 1.9 mg/dl (1.7-2.4); Total Protein 6.6 gm/dl (6.0-8.3)
[2024-08-17] MEDS: MAGNESIUM OXIDE 400 MG TAB PO SCH (09:06)
[2024-08-17] MEDS: FOLIC ACID 1 MG TAB PO SCH (09:06)
[2024-08-17] MEDS: CYANOCOBALAMIN (B-12) 500 MCG TABLET PO SCH (09:06)
[2024-08-17] MEDS: THIAMINE HCL 100 MG TAB PO SCH (09:06)
[2024-08-17] MEDS: CALCIUM 600MG + VIT D 400 IU TAB PO SCH (09:06)
[2024-08-17] MEDS: MULTIVITAMIN TAB PO SCH (09:07)
[2024-08-17] MEDS: PANTOprazole 40 MG TAB PO SCH (09:07)
[2024-08-17] MEDS: MAGNESIUM SULFATE / D5W 1 GM/100 ML BAG IV ONE (12:52)
[2024-08-17] MEDS: TERIPARATIDE INJ SQ SCH (15:47)
--- NOTE | 2024-08-17 21:06 | Hospitalist Progress Note ---
Date of Service August 17, 2024 Assessment & Plan (1) Alcohol use disorder: (2) Alcohol withdrawal: (3) LFT elevation: (4) Asthma-COPD overlap syndrome: Plan This patient is a 64-year-old male with a history of alcohol use disorder, osteoporosis, asthma-COPD overlap syndrome, LAURA, hyperlipidemia, and lone atrial fibrillation, who presents with request for alcohol detox. He reports drinking 24 beers per day for quite some time. He was trying to slowly wean himself off of alcohol over the last week and had cut down to 8 beers per day. In the mornings when he wakes up he often feels shaky and sweaty and has to drink to make the shakes go away. On the night before admission, he was very sweaty, shaky, and vomited at home. He drank 2 beers quickly and felt better. He drank 8 beers through the day but remained tremulous and came to the ER for detox. In the ER, he was noted to be tremulous and diaphoretic, hypertensive and tachycardic. He was given a total of 25 mg of IV Valium, 1 L of normal saline, thiamine, and folate, and hospitalist was contacted for admission for inpatient alcohol detox followed by inpatient rehab at patient's request. #Alcohol use disorder/alcohol withdrawal-patient with longstanding history of drinking 24 light beers daily. He has quit in the past and attended inpatient rehab with medical detox. No history of seizures but frequently has tremulousness and diaphoresis and heart palpitations at home when he tries to cut down on drinking. Alcohol level here on arrival is 172 which is likely much lower than his usual. TSH is negative, urine drug screen negative. No evidence of infection otherwise. Significantly improved with starting Librium taper and giving as needed Valium. -Continued stay on PCU for telemetry monitoring given history of lone atrial fibrillation 30 years ago -Continue AWSS scales with Librium taper and as needed IV Valium (as he cannot tolerate lorazepam) -Encouraged cessation and he is committed to going to rehab-he would like information on inpatient rehab-appreciate case management consultation -Continue thiamine 100 mg p.o. once daily, folic acid 1 mg p.o. once daily, and multivitamin 1 tablet p.o. once daily -Can DC IV fluids #Hyponatremia-sodium 129 on admission, likely secondary to beer Potomania. Now improved to 135 with IV fluid hydration and cessation of drinking beer -DC IV fluids -Continue cessation from beer -Can remove fluid restrict -Follow BMP in the morning and replace electrolytes as needed #Elevated LFTs-total bilirubin elevated at 1.9, AST elevated at 61. Now total bilirubin further increased to 3.2 but AST is decreasing. Likely secondary to alcoholic hepatitis. INR is normal, platelets are normal, albumin normal- unlikely he has cirrhosis. There is some mild hepatomegaly on physical e xamination. He denies abdominal pains. He does admit to history of hepatitis A decades ago. Liver ultrasound here shows hepatomegaly with a 20 cm liver, stones with sludge in the gallbladder and a fatty liver. -Encouraged continued alcohol cessation-liver should improve with doing this -Follow LFTs, CBC in the morning #Asthma-COPD overlap syndrome/LAURA-no acute issues and no longer uses as needed inhaler at home. No current wheezing or hypoxia -Monitor for any symptoms #Hyperlipidemia-reports taking flush free niacin at home which is not available here -Hold niacin DVT prophylaxis-Lovenox SQ Disposition-continued stay on PCU, improving, expect another 1 to 2 days in the hospital Full code Admission and Anticipated Discharge Date Admission Date: August 16, 2024 Subjective Patient reports feeling pretty well today. He does admit that at 1 point last night he looked at the window of the door to his room and thought he was at his house but then was able to reorient himself. He denies hallucinations. He is received 5 doses of IV Ativan as needed today. He denies nausea and has been eating. He feels his tremors are much improved. Telemetry with normal sinus rhythm, PACs and PVCs with rates in the 70s to 1 teens Physical Exam Constitutional: WD/WN, vitals as above Neck: trachea midline, no thyromegaly Respiratory: normal respiratory effort, lungs clear to auscultation Cardiovascular: Rate/Rhythm: regular rate and regular rhythm Heart Sounds: no murmur Extremities: no edema Chest (Breasts): Chest: normal inspection of chest Musculoskeletal: Extremities: extremities normal to inspection; no cyanosis and no clubbing Skin: no rashes, warm and dry Neurologic: moves all extremities (Except limited motion left shoulder, atrophy left shoulder girdle) and awake; no focal motor deficits Intention tremor significantly improved Psychiatric: A+Ox3, euthymic affect Lymphatic: no lymphedema Results & Data Results & Data Vital Signs (Past 12 Hours) Vital Signs Temp Pulse Pulse Resp BP Pulse Ox O2 Del Method 08/17/24 19:28 37 C 86 20 146/97 H 95 Room Air 08/17/24 15:14 36.7 C 100 H 18 162/102 H 96 Room Air 08/17/24 14:30 104 H 08/17/24 10:49 36.8 C 92 H 18 163/107 H 96 Room Air Laboratory Results CBC, BMP, LFTs, magnesium reviewed Diagnostic Findings Liver ultrasound reviewed PG Care Time/CCT Total # of Minutes Spent Total Time Spent with Patient: Total time spent is greater than 50% in coordination of care (as documented) at patient's floor/unit and/or counseling patient: Coding Level of Care Code 80999 SUB INP/OBS CARE 3/50MIN Diagnoses Alcohol use disorder F10.90 Alcohol withdrawal F10.939 LFT elevation R94.5 Asthma-COPD overlap syndrome J44.9
[2024-08-17] MEDS: diazePAM 5 MG/ML 10ML VIAL IV PRN (23:21)
[2024-08-18 06:30] LABS: Basophils # (auto) 0.06 K/uL (0.00-0.20); Basophils % (auto) 1.4 %; Eosinophils # (auto) 0.13 K/uL (0.00-0.50); Hematocrit (blood only) 40.4 % (42.0-52.0); Lymphocytes # (auto) 1.01 K/uL (1.20-3.40); Lymphocytes % (auto) 23.2 %; Mean Corpuscular Hemoglobin 36.3 pg (25.0-34.0); Mean Corpuscular Hgb Conc 34.7 g/dL (32.0-36.0); Mean Corpuscular Volume 104.7 fL (80.0-100.0); Mean Platelet Volume 10.5 fL (9.4-12.4); Monocytes # (auto) 0.74 K/uL (0.11-0.59); Neutrophils # (auto) 2.41 K/uL (1.40-6.50); Neutrophils % (auto) 55.4 %; Platelet Count 115 K/uL (130-400); RDW Coefficient of Variation 11.9 % (11.5-14.5); RDW Standard Deviation 45.8 fL (36.4-46.3); Red Blood Count 3.86 M/uL (4.70-6.10); White Blood Count 4.35 K/ul (4.8-10.8)
[2024-08-18 07:07] LABS: Albumin Level 4.4 gm/dl (3.4-5.0); BUN Creatinine Ratio 18.1 (10-20); Bilirubin Direct 0.4 mg/dl (0-0.2); Bilirubin,Total 2.5 mg/dl (0.2-1.0); Calcium 9.4 mg/dl (8.6-10.3); Magnesium 2.1 mg/dl (1.7-2.4); Total Protein 7.2 gm/dl (6.0-8.3)
[2024-08-18] MEDS: chlordiazePOXIDE HCl 25 MG CAP PO ONE (09:49)
--- NOTE | 2024-08-18 14:02 | Hospitalist Progress Note ---
Date of Service August 18, 2024 Assessment & Plan (1) Alcohol use disorder: (2) Alcohol withdrawal: (3) LFT elevation: (4) Asthma-COPD overlap syndrome: Plan This patient is a 64-year-old male with a history of alcohol use disorder, osteoporosis, asthma-COPD overlap syndrome, LAURA, hyperlipidemia, and lone atrial fibrillation, who presents with request for alcohol detox. He reports drinking 24 beers per day for quite some time. He was trying to slowly wean himself off of alcohol over the last week and had cut down to 8 beers per day. In the mornings when he wakes up he often feels shaky and sweaty and has to drink to make the shakes go away. On the night before admission, he was very sweaty, shaky, and vomited at home. He drank 2 beers quickly and felt better. He drank 8 beers through the day but remained tremulous and came to the ER for detox. In the ER, he was noted to be tremulous and diaphoretic, hypertensive and tachycardic. He was given a total of 25 mg of IV Valium, 1 L of normal saline, thiamine, and folate, and hospitalist was contacted for admission for inpatient alcohol detox followed by inpatient rehab at patient's request. #Alcohol use disorder/alcohol withdrawal-patient with longstanding history of drinking 24 light beers daily. He has quit in the past and attended inpatient rehab with medical detox. No history of seizures but frequently has tremulousness and diaphoresis and heart palpitations at home when he tries to cut down on drinking. Alcohol level here on arrival is 172 which is likely much lower than his usual. TSH is negative, urine drug screen negative. No evidence of infection otherwise. Was improving with starting Librium taper and giving as needed Valium, however now ANDREINA S scores are higher and he is having more confusion/encephalopathy -Give Librium 50 mg p.o. x 1 now then order a slower taper of Librium-go back to 25 mg p.o. every 6 hours for today -Continued stay on PCU for telemetry monitoring given history of lone atrial fibrillation 30 years ago-no arrhythmias been having sinus tachycardia -Continue AWSS scales with Librium taper and as needed IV Valium (as he cannot tolerate lorazepam) -Encouraged cessation and he is committed to going to rehab-he would like information on inpatient rehab-appreciate case management consultation -Patient also asking about Vivitrol-would defer to outpatient PCP versus p.o. naltrexone after discharge if liver function tests continue to improve -Continue thiamine 100 mg p.o. once daily, folic acid 1 mg p.o. once daily, and multivitamin 1 tablet p.o. once daily #Hyponatremia-sodium 129 on admission, likely secondary to beer Potomania. Now improved to normal with IV fluid hydration and cessation of drinking beer. He is now tolerating p.o. and no longer on IV fluids, fluid restriction removed -Continue cessation from beer -Follow BMP #Elevated LFTs/thrombocytopenia-total bilirubin peaked at 3.2, AST elevated at 61. LFTs now trending downward. Likely secondary to alcoholic hepatitis. INR is normal, platelets are mildly low at 115, albumin normal-unlikely he has cirrhosis. There is some mild hepatomegaly on physical examination. He denies abdominal pains. He does admit to history of hepatitis A decades ago. Liver ultrasound here shows hepatomegaly with a 20 cm liver, stones with sludge in the gallbladder and a fatty liver. -Encouraged continued alcohol cessation-liver should continue to improve with doing this -Follow LFTs, CBC in the morning #Asthma-COPD overlap syndrome/LAURA-no acute issues and no longer uses as needed inhaler at home. No current wheezing or hypoxia -Monitor for any symptoms #Hyperlipidemia-reports taking flush free niacin at home which is not available here -Hold niacin DVT prophylaxis-Lovenox SQ Disposition-continued stay on PCU, with ongoing encephalopathy/delirium from alcohol withdrawal. If worsens and not responding to benzodiazepines, would consider transfer to ICU for Precedex. Not a good candidate for phenobarbital given liver issues. Called and left a voicemail on cell phone and home phone to give an update Full code Admission and Anticipated Discharge Date Admission Date: August 16, 2024 Subjective Patient confused through the night and getting out of bed. Was requiring higher doses of Valium this morning for higher alcohol withdrawal scale scores. Was given higher dose of Librium and is now improved. He denies pain anywhere. He is eating and drinking. He denies complaints. He asks me "oh are you having trouble going in and out of the road?" He also asks about an injection to help with alcohol (Vivitrol) Telemetry with normal sinus rhythm and sinus tachycardia with rates in the 110s to 140s at times with activity Physical Exam Constitutional: WD/WN, vitals as above Neck: trachea midline, no thyromegaly Respiratory: normal respiratory effort, lungs clear to auscultation Cardiovascular: Rate/Rhythm: regular rate and regular rhythm Heart Sounds: no murmur Extremities: no edema Chest (Breasts): Chest: normal inspection of chest Gastrointestinal (Abdomen): Inspection/Auscultation: abdomen normal to inspection and normal bowel sounds; abdomen not distended Percussion/Palpat ion: abdomen soft and + hepatomegaly (Liver edge palpable approximately 3 cm beyond costal margin); abdomen nontender Musculoskeletal: Extremities: extremities normal to inspection; no cyanosis and no clubbing Skin: no rashes, warm and dry Neurologic: moves all extremities (Except limited motion left shoulder, atrophy left shoulder girdle) and awake; no focal motor deficits No tremor Psychiatric: Orientation: alert, oriented to person and cooperative; + not oriented to place and + not oriented to time Lymphatic: no lymphedema Results & Data Results & Data Vital Signs (Past 12 Hours) Vital Signs Temp Pulse Pulse Resp BP BP Pulse Ox 08/18/24 11:04 36.9 C 91 H 19 151/90 H 94 08/18/24 08:00 91 H 08/18/24 07:35 36.8 C 105 H 18 161/107 H 96 08/18/24 02:58 36.8 C 90 20 170/120 H 102 H O2 Del Method 08/18/24 11:04 Room Air 08/18/24 08:00 08/18/24 07:35 Room Air 08/18/24 02:58 Room Air Laboratory Results CBC, BMP, magnesium, LFTs reviewed PG Care Time/CCT Total # of Minutes Spent Total Time Spent with Patient: Total time spent is greater than 50% in coordination of care (as documented) at patient's floor/unit and/or counseling patient: Coding Level of Care Code 38709 SUB INP/OBS CARE 3/50MIN Diagnoses Alcohol use disorder F10.90 Alcohol withdrawal F10.939 LFT elevation R94.5 Asthma-COPD overlap syndrome J44.9
[2024-08-18] MEDS: chlordiazePOXIDE HCl 25 MG CAP PO SCH ×2 (15:05→21:04)
[2024-08-18] MEDS: OLANZapine 10 MG/2.1 ML SDV IM STA (18:00)
[2024-08-18] MEDS ORDERED: STAT IV Infusion **Titration per Protocol STA ×2 (19:04→19:24)
--- NOTE | 2024-08-18 19:12 | Critical Care Consultation ---
Date of Consultation August 18, 2024 Assessment & Plan (1) Alcohol withdrawal: (2) Asthma: Plan Reason Critically Ill: 64 YOM admitted for request to detox from alcohol. Transferred to ICU on 08/18/24 for refractory symptoms of alcohol withdraw with increased aggressive behavior. Will initiate Precedex and phenobarb protocol. Neuro - Encephalopathy, ETOH withdraw, ETOH misuse/abuse CAM ICU: [facility] - Acute ETOH withdrawal- day #2 of hospitalization- Tremors, Tachycardia, HTN, Diaphoresis, Confusion/hallucinations - Received 15mg of Valium since this morning at least per review of MAR- will stop Diazepam. - Initiate Phenobarb- as patient has received multiple doses of benzodiazepines at this time, will load at 195mg IV - and bolus dosing of 65mg-130 mg every 15 min for RASS > 2 to obtain a loading dose. - Will then have 65mg IV PRN dosing for RASS scores - transition to 12 hour dosing and then to oral de-escalation - Precedex infusion as well - PRN benzo over top for CIWA if needed - if therapy with phenobarb effective can likely d/c benzo coverage - If patient continues to do poorly with symptoms of elevated HR, tachycardia, or combativeness not controlled- will consider intubation and sedation - Continue Thiamine and Folate- will change to high dose thiamine with severity of his alcohol intake Cardiac - no acute needs, Hx of HTN - Current tachycardia and HTN are likely secondary to his ETOH withdraw and will be managed as above Respiratory - No acute needs, Hx of Asthma/COPD overlap syndrome, LAURA - noncompliant with CPAP per history - ETCO2 while on sedating medications if patient will leave in place GI - No acute needs- Hx of fatty liver and elevated LFTS - LFTS elevation resolving - Ultrasound of liver reveals fatty liver disease - follow while hospitalized and with new introduction of medications RENAL/LYTES - No acute needs - Hyponatremia resolved - Continue ICU electrolyte protocol - No acute needs ENDO - No acute needs HEME - No acute needs ID - No concerns at this time for infective process LINES/IV ACCESS - PIV Continue use of these lines DVT PROPHYLAXIS - SCDS, Lovenox 40mg SQ daily DISPO: ICU until symptoms of ETOH are better controlled and patient less risk to self and others I have personally spent 50 minutes of critical care time in the direct management of this patient. This is a life/limb threatening event. This includes time spent evaluating patient, direct bedside care, chart review, placing orders, interpretation of diagnostic studies, discussion with consultants, patient, and family members, as well as other required patient management activities. This time is exclusive of all separately billable procedures, and separate from and in addition to any other critical care service time. Thank you for allowing us to participate in the care of this patient. Please refer to my attending physician's documentation for any further recommendations. Supervising Physician Co-Signing Physician Notes Patient seen and examined. EMR reviewed. Discussed with critical care PHOEBE as well as hospitalist. Agree with assessment plan as noted. For additional details please refer to my progress note from History of Present Illness Reason for Consultation: Alcohol withdraw refractory to benzodiazepines and librium Requesting Physician: Isamar Ybarra MD Attending Physician: Isamar Ybarra MD History of Present Illness 64 YOM with significant Alcohol intake. Patient presented about 2 days ago for request for detox from ETOH intake. He was intoxicated on admission with ETOH level of 172.3, he was admitted to PCU and initiated on Diazepam for CIWA as well as Librium. Review of CIWAs through the day reveal moderate increase in scores from 5-21 this evening, with increasing agitation and aggressiveness. He has also had increase in tachycardia, HTN, and tremors. He was given 5 and 10mg IV boluses of Diazepam with little to no effect, and nursing notes make it feel as patient was worsening after benzo administration. He has also received 5mg of IM Zyprexa prior to arrival to the ICU. On arrival to the ICU, the patient is lying in bed, with tremors, attempting to kick at nursing staff. HR in the 130s BP initially 150/90s, and agitated in appearance. We will transition the patient to Precedex infusion as well as increase his Librium and change benzodiazepines to IV phenobarb load and PRN phenobarb. CODE: FULL Allergies Allergy/AdvReac Type Severity Reaction Status Date / Time diphenhydramine Allergy Severe tachycardia Verified 09/17/23 07:31 [From [facility] [facility] c/palpitati Night-Time] ons doxylamine Allergy Severe tachycardia Verified 09/17/23 07:31 [From [facility] [facility] c/palpitati Night-Time] ons naproxen [From Aleve] Allergy Severe tachycardia Verified 09/17/23 07:31 /palpitatio ns phenylephrine Allergy Severe tachycardia Verified 09/17/23 07:31 [From [facility] [facility] c/palpitati Night-Time] ons fentanyl Allergy Unknown Unknown Verified 08/18/24 22:38 ropinirole Allergy Unknown Unknown Verified 08/18/24 22:38 lorazepam [From Ativan] AdvReac Severe violent Verified 09/17/23 07:31 and aggressive Home Medications Medication Instructions Recorded Confirmed Type calcium 600 mg (as 1 tab PO QAM 01/21/23 09/17/23 History carbonate)-vitamin D3 5 mcg (200 unit) tablet cholecalciferol (vitamin D3) 125 125 mcg PO QAM 01/21/23 09/17/23 History mcg (5,000 unit) tablet (Vitamin D3) magnesium 200 mg tablet 400 mg PO QAM 01/21/23 09/17/23 History melatonin 5 mg tablet 5 - 10 mg PO HS PRN Sleep 01/21/23 09/17/23 History multivitamin 2 tab PO QAM 01/21/23 09/17/23 History niacin 500 mg tablet 500 mg PO QAM 01/21/23 09/17/23 History vitamin C 45 mg-zinc citrate 3.75 2 tab PO QAM 01/21/23 09/17/23 History mg-elderberry 50 mg chewable tablet (IQcard) mecobalamin (vitamin B12) 1,000 1,000 mcg PO DAILY 09/17/23 09/17/23 History mcg chewable tablet amoxicillin 875 mg-potassium 1 tab PO BID #14 tabs 02/12/24 Rx clavulanate 125 mg tablet sucralfate 100 mg/mL oral 10 ml PO QID #420 mL 02/12/24 Rx suspension (Carafate) teriparatide 20 mcg/dose (620 20 mcg (0.08 mL) subcut DAILY 06/21/24 Rx mcg/2.48 mL) subcutaneous pen #7.44 mL injector Patient History Medical History History of cardioversion 1996 Hx of atrial fibrillation without current medication 1996 after an incident at work in an enclosed area with an aersol spray patient developed palpitations, treated at an emergency room for new onset of a.fib. attempted treatment with medication while inpatient, patient had cardioversion and success and no problems since. 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 Left arm weakness left arm atrophy from a work accident in 2016. Chronic back pain follows with chiropractor every 2 months. Hepatitis A at age 20 d/t raw clams. no problems since. Lyme disease ~5 years ago, has had tick bites, never tested positive but has been treated for symptoms of lyme. last episode ~August 2022. Hyperlipidemia Hypertension Hemochromatosis Femur fracture, right fell from a tree stand -- fx pelvis, right femur, and compression fracture in 2018 Hearing loss COPD (chronic obstructive pulmonary disease) "seasonal" per patient. has not needed rescue inhaler recently. does not use daily inhaler routinely d/t his heart racing. only uses if needed Dyslipidemia Stomach ulcer hx Surgical History History of open reduction and internal fixation (ORIF) procedure right femur (2018) History of nasal septoplasty with polyp removal. History of esophagogastroduodenoscopy (EGD) History of colonoscopy Family History Father Aneurysm of abdominal aorta Brother Coronary heart disease Aneurysm of abdominal aorta Grandmother (Paternal) Diabetes Type 2 Grandfather (Paternal) Aneurysm of abdominal aorta Uncle Aneurysm of abdominal aorta Other Hearing loss Hypertension No family history of adverse response to anesthesia Denies family history of Malignant hypothermia due to anesthesia Prostate cancer Heart disease Colorectal cancer Family history of adverse reaction to anesthesia Social History Smoking Status: Never smoker Tobacco Type: Cigarettes Second Hand Exposure: No; Do You Dip or Chew Tobacco: No; Hx Alcohol Use: Yes Alcohol type: beer Hx Substance Use: No Preferred Language: Cambodian Communication Ability: Effective Car Supplier Required: No Beliefs That Will Affect Care: None marital status: Current Living Situation: Spouse Other Information That Helps Us Care for You: No Feels Safe at Home: Yes Safety Concerns: Feels Safe At This Time Dental Care, Regularly: Yes Seatbelt Use: always Assistive Devices: None Review of Systems Review of Systems: unable to obtain secondary to patient mental status/confusion from ETOH medications Physical Exam Physical Exam: PHYSICAL EXAM: General: awake, agitated, tremors and diaphoretic Head: Normocephalic, atraumatic ENT: PERRLA, EOMI, no pharyngeal exudate, mucous membranes dry Neuro: AAO x 1, speech slow and garbled not making sense, but then turns to yelling and attempting to hit/kick nursing staff, moves all extremities Chest: equal rise and fall of the chest, no accessory muscle use, no heaves or thrills, Clear to auscultation, on room air, Cardiac: Regular rate and rhythm, telemetry reviewed- tachycardia no ectopy, skin warm and moist, cap refill <3 seconds, peripheral pulses +2 no JVD, S1S2 no murmur, GI: NABS x 4 quadrants, soft, nontender to palpation, no rebound, guarding or tenderness : Spontaneously voiding Psych: agitated and anxious Results & Data Results & Data Vital Signs (Past 12 Hours) Vital Signs Temp Pulse Pulse Resp BP BP Pulse Ox 08/18/24 17:00 36.8 C 136 H 26 H 172/126 H 08/18/24 15:01 36.8 C 93 H 20 154/90 H 96 08/18/24 11:04 36.9 C 91 H 19 151/90 H 94 08/18/24 08:00 91 H 08/18/24 07:35 36.8 C 105 H 18 161/107 H 96 O2 Del Method 08/18/24 17:00 08/18/24 15:01 Room Air 08/18/24 11:04 Room Air 08/18/24 08:00 08/18/24 07:35 Room Air Laboratory Results Abnormal lab results 08/18/24 Range/Units 05:26 WBC 4.35 L (4.8-10.8) K/ul RBC 3.86 L (4.70-6.10) M/uL Hct 40.4 L (42.0-52.0) % MCV 104.7 H (80.0-100.0) fL MCH 36.3 H (25.0-34.0) pg Plt Count 115 L (130-400) K/uL Lymph # (Auto) 1.01 L (1.20-3.40) K/uL [place] # (Auto) 0.74 H (0.11-0.59) K/uL Immature Gran # (Auto) 0.00 L (0.01-0.20) K/uL Glucose 108 H (70-99(Fasting)) mg/dl Total Bilirubin 2.5 H (0.2-1.0) mg/dl Direct Bilirubin 0.4 H (0-0.2) mg/dl Medications Administered Home Medications calcium 600 mg (as carbonate)-vitamin D3 5 mcg (200 unit) tablet 1 tab PO QAM 01/21/23 [History Confirmed 09/17/23] cholecalciferol (vitamin D3) 125 mcg (5,000 unit) tablet (Vitamin D3) 125 mcg PO QAM 01/21/23 [History Confirmed 09/17/23] magnesium 200 mg tablet 400 mg PO QAM 01/21/23 [History Confirmed 09/17/23] melatonin 5 mg tablet 5 - 10 mg PO HS PRN Sleep 01/21/23 [History Confirmed 09/17/23] multivitamin 2 tab PO QAM 01/21/23 [History Confirmed 09/17/23] niacin 500 mg tablet 500 mg PO QAM 01/21/23 [History Confirmed 09/17/23] vitamin C 45 mg-zinc citrate 3.75 mg-elderberry 50 mg chewable tablet (IQcard) 2 tab PO QAM 01/21/23 [History Confirmed 09/17/23] mecobalamin (vitamin B12) 1,000 mcg chewable tablet 1,000 mcg PO DAILY 09/17/23 [History Confirmed 09/17/23] amoxicillin 875 mg-potassium clavulanate 125 mg tablet 1 tab PO BID #14 tabs 02/12/24 [Rx] sucralfate 100 mg/mL oral suspension (Carafate) 10 ml PO QID #420 mL 02/12/24 [Rx] teriparatide 20 mcg/dose (620 mcg/2.48 mL) subcutaneous pen injector 20 mcg (0.08 mL) subcut DAILY #7.44 mL 06/21/24 [Rx] Active Medications Acetaminophen (Acetaminophen 325 Mg Tab) 650 mg PO Q4H PRN PRN Reason: Pain or Fever Stop: 09/15/24 20:16 Al Hydrox/Mg Hydrox/Simethicone (Aluminum/Magnesium Susp 30 Ml Udc) 15 ml PO Q4H PRN PRN Reason: Dyspepsia Stop: 09/15/24 20:16 Calcium/Vitamin D (Calcium 600mg + Vit D 400 Iu Tab) 1 tab PO QAM [facility] Stop: 09/16/24 08:59 Last Admin: 08/18/24 07:45 Dose: 1 tab Chlordiazepoxide HCl (Chlordiazepoxide Hcl 25 Mg Cap) 50 mg PO Q6H [facility] Stop: 09/17/24 20:59 Cyanocobalamin (Cyanocobalamin (B-12) 500 Mcg Tablet) 1,000 mcg PO DAILY [facility] Stop: 09/16/24 08:59 Last Admin: 08/18/24 07:45 Dose: 1,000 mcg Diazepam (Diazepam 5 Mg/Ml 10ml Vial) 5 mg IV Q4H PRN PRN Reason: AWSS 5-9 Stop: 09/15/24 20:16 Last Admin: 08/17/24 16:01 Dose: 5 mg Diazepam (Diazepam 5 Mg/Ml 10ml Vial) 10 mg IV Q4H PRN PRN Reason: AWSS 10 or higher Stop: 09/15/24 20:16 Last Admin: 08/18/24 17:04 Dose: 10 mg Enoxaparin Sodium (Enoxaparin Inj 40 Mg/0.4 Ml Syr) 40 mg SQ Q24H [facility] Stop: 09/15/24 20:44 Last Admin: 08/17/24 19:34 Dose: 40 mg Folic Acid (Folic Acid 1 Mg Tab) 1 mg PO QAM [facility] Stop: 09/16/24 08:59 Last Admin: 08/18/24 07:46 Dose: 1 mg Dexmedetomidine/Sodium Chloride (Precedex) 200 mcg in 50 mls @ 8.84 mls/hr IV .Q5H40M [facility]; Protocol Stop: 08/22/24 19:14 Last Admin: 08/18/24 19:18 Dose: 0.4 mcg/kg/hr, 8.8 mls/hr Dexmedetomidine/Sodium Chloride (Precedex) 200 mcg in 50 mls @ 8.84 mls/hr IV .Q5H40M [facility]; Protocol Stop: 08/22/24 19:23 Lactated Ringer's (Lr) 1,000 mls @ 110 mls/hr IV .Q9H6M [facility] Stop: 08/19/24 19:23 Magnesium Hydroxide (Magnesium Hydroxide Susp 30 Ml Udc) 30 ml PO Q12H PRN PRN Reason: Constipation Stop: 09/15/24 20:16 Magnesium Oxide (Magnesium Oxide 400 Mg Tab) [facility] [place]: 09/16/24 08:59 Last Admin: 08/18/24 09:48 Dose: 400 mg Multivitamins (Multivitamin Tab) 1 tab PO QAM [facility] Stop: 09/16/24 08:59 Last Admin: 08/18/24 07:46 Dose: 1 tab Ondansetron HCl (Ondansetron Inj 2 Mg/Ml 2 Ml Vial) 4 mg IV Q6H PRN PRN Reason: Nausea Stop: 09/15/24 20:16 Pantoprazole Sodium (Pantoprazole 40 Mg Tab) [facility] [place] Stop: 09/16/24 08:59 Last Admin: 08/18/24 07:46 Dose: 40 mg Phenobarbital (Phenobarbital 30 Mg Tab) 60 mg PO Q12H [facility] Stop: 08/20/24 01:31 Phenobarbital (Phenobarbital 30 Mg Tab) 30 mg PO Q12H [facility] Stop: 08/21/24 01:31 Phenobarbital (Phenobarbital 30 Mg Tab) 30 mg PO Q24H [facility] Stop: 08/22/24 01:31 Phenobarbital Sodium (Phenobarbital Sodium 65 Mg/Ml Vial) 65 mg IV Q15M PRN PRN Reason: AWSS greater than 8 Stop: 08/18/24 21:17 Phenobarbital Sodium (Phenobarbital Sodium 65 Mg/Ml Vial) 65 mg IV Q6H PRN PRN Reason: AWSS greater than 8 Stop: 08/22/24 23:59 Polyethylene Glycol (Polyethylene (Miralax) 17 Gm Pack) 17 gm PO DAILY PRN PRN Reason: Constipation Stop: 09/15/24 20:16 Teriparatide Acetate (Teriparatide Inj) 1 each SQ DAILY [facility] Stop: 09/16/24 14:14 Last Admin: 08/18/24 07:48 Dose: 1 each Thiamine HCl (Thiamine Hcl 100 Mg Tab) [facility] [place] Stop: 09/16/24 08:59 Last Admin: 08/18/24 07:45 Dose: 100 mg Coding Level of Care Code 03532 CRITICAL CARE 1ST 30-74M Diagnoses Alcohol withdrawal F10.939 Asthma J45.909
--- NOTE | 2024-08-18 19:15 | Electrocardiogram Report ---
Test Reason : Blood Pressure : */* mmHG Vent. Rate : 81 BPM Atrial Rate : 81 BPM P-R Int : 154 ms QRS Dur : 92 ms QT Int : 362 ms P-R-T Axes : 52 62 62 degrees QTcB Int : 420 ms Normal sinus rhythm Normal ECG When compared with ECG of 20-Jun-2018 09:36, T wave amplitude has increased in Anterior leads Confirmed by Travis Meadows ([id number]) on 08/18/2024 7:15:08 PM Referred By: REFERRED SELF Confirmed By: Travis Meadows
[2024-08-18] MEDS ORDERED: PHENobarbital PO Alcohol Withdrawal PO STA (19:17)
[2024-08-18] MEDS: dexMEDEtomidine 200 MCG/50 ML BAG IV SCH ×2 (19:18→20:30)
[2024-08-18] MEDS: LACTATED RINGER'S 1,000 ML IV SCH (19:25)
[2024-08-18] MEDS ORDERED: PHENobarbital sodium 65 MG/ML VIAL IV PRN ×2 (19:32→21:17)
[2024-08-18] MEDS: PHENobarbital sodium 65 MG/ML VIAL IV STA (19:38)
[2024-08-18] MEDS: PHENobarbital sodium 65 MG/ML VIAL IV PRN (20:15)
[2024-08-18] MEDS: THIAMINE HCL 500 MG in SODIUM CHLORIDE 0.9% 50 ML IV STA (21:14)
[2024-08-19] MEDS: PHENobarbital sodium 65 MG/ML VIAL IV PRN (00:50)
[2024-08-19] MEDS: PHENobarbital sodium 65 MG/ML VIAL IV ONE (01:40)
[2024-08-19] MEDS: THIAMINE HCL 500 MG in SODIUM CHLORIDE 0.9% 50 ML IV SCH (04:11)
[2024-08-19 05:13] LABS: Basophils # (auto) 0.05 K/uL (0.00-0.20); Eosinophils # (auto) 0.11 K/uL (0.00-0.50); Eosinophils % (auto) 2.1 %; Hemoglobin 13.4 g/dl (14.0-18.0); Immature Granulocytes # (auto) 0.01 K/uL (0.01-0.20); Immature Granulocytes % (auto) 0.2 %; Lymphocytes # (auto) 0.98 K/uL (1.20-3.40); Lymphocytes % (auto) 18.7 %; Mean Corpuscular Hemoglobin 36.2 pg (25.0-34.0); Mean Corpuscular Hgb Conc 35.3 g/dL (32.0-36.0); Mean Corpuscular Volume 102.7 fL (80.0-100.0); Mean Platelet Volume 10.2 fL (9.4-12.4); Monocytes # (auto) 0.72 K/uL (0.11-0.59); Monocytes % (auto) 13.7 %; Neutrophils # (auto) 3.38 K/uL (1.40-6.50); Neutrophils % (auto) 64.3 %; Platelet Count 138 K/uL (130-400); RDW Coefficient of Variation 11.9 % (11.5-14.5); RDW Standard Deviation 45.1 fL (36.4-46.3); White Blood Count 5.25 K/ul (4.8-10.8)
[2024-08-19 05:25] LABS: Albumin Globulin Ratio 1.5 (0.9-2); Albumin Level 4.1 gm/dl (3.4-5.0); BUN Creatinine Ratio 26.1 (10-20); Bilirubin,Total 1.8 mg/dl (0.2-1.0); Calcium 9.5 mg/dl (8.6-10.3); Globulin 2.7 gm/dl (2.5-4.0); Magnesium 1.9 mg/dl (1.7-2.4); Potassium 3.6 mmol/L (3.5-5.1); Total Protein 6.8 gm/dl (6.0-8.3)
[2024-08-19] MEDS: MAGNESIUM SULFATE / D5W 1 GM/100 ML BAG IV SCH ×2 (06:16→20:23)
[2024-08-19] MEDS: POTASSIUM CHLORIDE / WTR 10 MEQ/100 ML PLCT IV SCH ×2 (06:20→20:23)
--- NOTE | 2024-08-19 07:46 | Critical Care Progress Note ---
Date of Service August 19, 2024 Assessment & Plan (1) Alcohol withdrawal: (2) Asthma: Plan Reason Critically Ill: 64 YOM admitted for request to detox from alcohol. Transferred to ICU on 08/18/24 for refractory symptoms of alcohol withdraw with increased aggressive behavior. 24-hour events: Patient transferred to the ICU due to concerns about high requirement for benzodiazepines. He was loaded on phenobarbital and intermittently on Precedex overnight. Recommendations: Neuro -alcohol withdrawal, severe. Continue phenobarbital. As needed Haldol. Continue high-dose thiamine and folate. Start Catapres patch, can transition to oral needed. Will need case management to be involved to assist with outpatient alcohol abuse management. Cardiac -no current issues. He is Catapres for energy properties and follow blood pressure and heart rate Respiratory -history of sleep apnea and asthma. Clinically active currently. Continue to follow GI -no current issues. Discontinue Tylenol given his alcohol history. Diet as tolerated. Continue PPI RENAL/LYTES -ICU electrolyte protocol - No acute needs ENDO - No acute needs HEME - No acute needs ID - No concerns at this time for infective process LINES/IV ACCESS - PIV Continue use of these lines DVT PROPHYLAXIS - SCDS, Lovenox 40mg SQ daily Will follow in the ICU pending improvement in the patient's agitated state. If he does well, he can transfer back to the hospitalist service and complete his phenobarb taper Total of 50 minutes was spent in review and management of care for this patient. Admission and Anticipated Discharge Date Admission Date: August 16, 2024 Subjective Patient seen and examined. EMR reviewed. Discussed with overnight critical care PHOEBE and with bedside critical care nurse and on multidisciplinary rounds. The patient is intermittently somnolent and agitated. He appears to be resp onding well to phenobarb. Review of Systems Review of Systems: Unobtainable due to reduced consciousness Physical Exam Constitutional: + disheveled Neck: trachea midline, no thyromegaly Respiratory: normal respiratory effort, lungs clear to auscultation Cardiovascular: Rate/Rhythm: regular rate and regular rhythm Heart Sounds: no murmur Extremities: no edema Chest (Breasts): Chest: normal inspection of chest Gastrointestinal (Abdomen): Inspection/Auscultation: abdomen normal to inspection and normal bowel sounds; abdomen not distended Percussion/ Palpation: abdomen soft and + hepatomegaly (Liver edge palpable approximately 3 cm beyond costal margin); abdomen nontender Musculoskeletal: Extremities: extremities normal to inspection; no cyanosis and no clubbing Skin: no rashes, warm and dry Neurologic: moves all extremities (Except limited motion left shoulder, atrophy left shoulder girdle) and awake; no focal motor deficits Sedated Lymphatic: no lymphedema Results & Data Results & Data Vital Signs (Past 12 Hours) Vital Signs Temp Pulse Resp BP Pulse Ox 08/19/24 06:00 36.5 C 83 22 107/73 94 08/19/24 05:30 104/72 08/19/24 05:00 84 22 96/75 L 94 08/19/24 04:54 86 22 94 08/19/24 04:33 83 22 96 08/19/24 04:30 108/76 08/19/24 04:15 36.5 C 82 19 96 08/19/24 03:00 83 24 111/75 95 08/19/24 02:27 24 94 08/19/24 02:15 140/95 08/19/24 02:09 92 H 26 H 95 08/19/24 01:40 108 H 26 H 08/19/24 01:33 103 H 34 H 95 08/19/24 01:00 104 H 27 H 93 08/19/24 00:50 110 H 25 H 08/19/24 00:30 36.8 C 103 H 29 H 96 08/19/24 00:03 87 23 96 08/19/24 00:00 87 115/80 08/18/24 23:53 86 08/18/24 23:30 119/83 08/18/24 23:30 90 22 96 08/18/24 23:00 112/80 08/18/24 22:57 89 22 96 08/18/24 22:33 91 H 19 94 08/18/24 22:30 121/80 08/18/24 22:00 118/84 08/18/24 22:00 86 23 96 08/18/24 21:30 112/83 08/18/24 21:00 90 26 H 138/93 97 08/18/24 20:45 94 H 25 H 144/90 H 99 08/18/24 20:30 159/106 H 08/18/24 20:30 124 H 20 93 08/18/24 20:27 37.3 C 142 H 26 H 100 08/18/24 20:15 37.3 C 140 H 24 98 08/18/24 20:15 132 H 25 H 157/129 H 08/18/24 20:00 149 H 20 154/98 H 98 Critical Care Results & Data Vital Signs (Past 12 Hours) Vital Signs Temp Pulse Resp BP Pulse Ox 08/19/24 06:00 36.5 C 83 22 107/73 94 08/19/24 05:30 104/72 08/19/24 05:00 84 22 96/75 L 94 08/19/24 04:54 86 22 94 08/19/24 04:33 83 22 96 08/19/24 04:30 108/76 08/19/24 04:15 36.5 C 82 19 96 08/19/24 03:00 83 24 111/75 95 08/19/24 02:27 24 94 08/19/24 02:15 140/95 08/19/24 02:09 92 H 26 H 95 08/19/24 01:40 108 H 26 H 08/19/24 01:33 103 H 34 H 95 08/19/24 01:00 104 H 27 H 93 08/19/24 00:50 110 H 25 H 08/19/24 00:30 36.8 C 103 H 29 H 96 08/19/24 00:03 87 23 96 08/19/24 00:00 87 115/80 08/18/24 23:53 86 08/18/24 23:30 119/83 08/18/24 23:30 90 22 96 08/18/24 23:00 112/80 08/18/24 22:57 89 22 96 08/18/24 22:33 91 H 19 94 08/18/24 22:30 121/80 08/18/24 22:00 118/84 08/18/24 22:00 86 23 96 08/18/24 21:30 112/83 08/18/24 21:00 90 26 H 138/93 97 08/18/24 20:45 94 H 25 H 144/90 H 99 08/18/24 20:30 159/106 H 08/18/24 20:30 124 H 20 93 08/18/24 20:27 37.3 C 142 H 26 H 100 08/18/24 20:15 37.3 C 140 H 24 98 08/18/24 20:15 132 H 25 H 157/129 H 08/18/24 20:00 149 H 20 154/98 H 98 Lab & Micro Results (Past 24 Hours) RBC 3.70 M/uL (4.70-6.10) L 08/19/24 WBC 5.25 K/ul (4.8-10.8) 08/19/24 Hgb 13.4 g/dl (14.0-18.0) L 08/19/24 Hct 38.0 % (42.0-52.0) L 08/19/24 MCV 102.7 fL (80.0-100.0) H 08/19/24 MCH 36.2 pg (25.0-34.0) H 08/19/24 MCHC 35.3 g/dL (32.0-36.0) 08/19/24 RDW Standard Deviation 45.1 fL (36.4-46.3) 08/19/24 RDW Coefficient of Variation 11.9 % (11.5-14.5) 08/19/24 Plt Count 138 K/uL (130-400) 08/19/24 MPV 10.2 fL (9.4-12.4) 08/19/24 Neutrophils (%) (Auto) 64.3 % 08/19/24 Lymphocytes (%) (Auto) 18.7 % 08/19/24 Monocytes # (Auto) 0.72 K/uL (0.11-0.59) H 08/19/24 Eosinophils # (Auto) 0.11 K/uL (0.00-0.50) 08/19/24 Immature Granulocyte % (Auto) 0.2 % 08/19/24 Neutrophils # (Auto) 3.38 K/uL (1.40-6.50) 08/19/24 Lymphocytes # (Auto) 0.98 K/uL (1.20-3.40) L 08/19/24 Monocytes # (Auto) 0.72 K/uL (0.11-0.59) H 08/19/24 Eosinophils # (Auto) 0.11 K/uL (0.00-0.50) 08/19/24 Basophils # (Auto) 0.05 K/uL (0.00-0.20) 08/19/24 Immature Granulocyte # (Auto) 0.01 K/uL (0.01-0.20) 5 Na 138 mmol/L (136-145) 08/19/24 K 3.6 mmol/L (3.5-5.1) 08/19/24 Cl 110 mmol/L (98-107) H 08/19/24 CO2 22 mmol/L (21-32) 08/19/24 Anion Gap 6 (3-11) 08/19/24 BUN 18 mg/dl (6-23) 08/19/24 Creatinine 0.69 mg/dl (0.6-1.4) 08/19/24 BUN/Creatinine Ratio 26.1 (10-20) H 08/19/24 Glu 106 mg/dl (70-99(Fasting)) H 08/19/24 Ca 9.5 mg/dl (8.6-10.3) 08/19/24 Total Bilirubin 1.8 mg/dl (0.2-1.0) H 08/19/24 AST 35 U/L (13-39) 08/19/24 ALT 27 U/L (7-52) 08/19/24 Alkaline Phosphatase 62 U/L (34-104) 08/19/24 TP 6.8 gm/dl (6.0-8.3) 08/19/24 Albumin 4.1 gm/dl (3.4-5.0) 08/19/24 Globulin 2.7 gm/dl (2.5-4.0) 08/19/24 Albumin/Globulin Ratio 1.5 (0.9-2) 08/19/24 Mg 1.9 mg/dl (1.7-2.4) 08/19/24 04:47 Calcium Level 9.5 mg/dl (8.6-10.3) 08/19/24 04:47 I & O Totals 24 Hours 08/18/24 08/19/24 08/20/24 06:59 06:59 06:59 Intake Total 3109.583 / 3109.583 1501.097 / 1501.097 100 / 100 Output Total 576 / 576 800 / 800 Balance 2533.583 / 2533.583 701.097 / 701.097 100 / 100 Cumulative 08/16/24 11:40 thru 08/19/24 07:20 Intake Total 6204.430 Output Total 2101 Balance 4103.430 RT Ventilator Mngmt (Last Documented) Ventilator Ordered Settings Respiratory Rate 22 08/19/24 06:00 Ventilator - PT Measurements Respiratory Rate 22 End-Tidal CO2 29 Coding Level of Care Code 94473 SUB INP/OBS CARE 3/50MIN Diagnoses Alcohol withdrawal F10.939 Asthma J45.909
[2024-08-19] MEDS: HALOPERIDOL LACTATE 5 MG/ML 1 ML VIAL IV PRN (08:14)
[2024-08-19] MEDS: PHENobarbital sodium 65 MG/ML VIAL IV STA (08:37)
[2024-08-19] MEDS: CHECK CLONIDINE PATCH PLACEMENT SCH (11:44)
[2024-08-19] MEDS: PANTOprazole 40 MG/10 ML SYR IV SCH (11:46)
[2024-08-19] MEDS ORDERED: PHENobarbitaL 30 MG TAB PO SCH (13:30)
--- NOTE | 2024-08-19 13:48 | Hospitalist Progress Note ---
Date of Service August 19, 2024 Assessment & Plan (1) Alcohol use disorder: (2) Alcohol withdrawal: (3) LFT elevation: (4) Asthma-COPD overlap syndrome: Plan This patient is a 64-year-old male with a history of alcohol use disorder, osteoporosis, asthma-COPD overlap syndrome, LAURA, hyperlipidemia, and lone atrial fibrillation, who presents with request for alcohol detox. He reports drinking 24 beers per day for quite some time. He was trying to slowly wean himself off of alcohol over the last week and had cut down to 8 beers per day. In the mornings when he wakes up he often feels shaky and sweaty and has to drink to make the shakes go away. On the night before admission, he was very sweaty, shaky, and vomited at home. He drank 2 beers quickly and felt better. He drank 8 beers through the day but remained tremulous and came to the ER for detox. In the ER, he was noted to be tremulous and diaphoretic, hypertensive and tachycardic. He was given a total of 25 mg of IV Valium, 1 L of normal saline, thiamine, and folate, and hospitalist was contacted for admission for inpatient alcohol detox followed by inpatient rehab at patient's request. #Alcohol use disorder/severe alcohol withdrawal-patient with longstanding history of drinking 24 light beers daily. He has quit in the past x 1 year and attended intensive outpatient rehab after inpatient medical detox. No history of seizures but frequently has tremulousness and diaphoresis and heart palpitations at home when he tries to cut down on drinking. Alcohol level here on arrival is 172 after drinking 8 beers prior to admission. TSH is negative, urine drug screen negative. No evidence of infection otherwise. Was improving with starting Librium taper and giving as needed Valium, however he then became severely confused, had increasing as needed Valium requirements, and became combative. He was transferred to the ICU and started on a Precedex drip and loaded with IV phenobarbital followed by maintenance doses. Librium taper and IV Valium were discontinued. He is now lethargic but maintaining/protecting his airway. Was having significantly elevated blood pressures and some tachycardia -Continue telemetry monitoring given history of lone A-fib and continue end-tid al CO2 monitoring while lethargic with IV phenobarbital -Continue AWSS scales and phenobarbital -Encouraged cessation and he is committed to going to rehab-he would like information on inpatient rehab-appreciate case management consultation -Patient also asking about Vivitrol-would defer to outpatient PCP versus p.o. naltrexone after discharge if liver function tests continue to improve -Continue thiamine 100 mg p.o. once daily, folic acid 1 mg p.o. once daily, and multivitamin 1 tablet p.o. once daily once able to take p.o.-in the meantime, continue IV fluids and IV thiamine -Added clonidine patch in ICU -Haldol as needed IV for agitation -Continue IV Protonix for GI prophylaxis #Hyponatremia-sodium 129 on admission, likely secondary to beer Potomania. Now improved to normal with IV fluid hydration and cessation of drinking beer. He is now back on IV fluids as he is not taking p.o. while lethargic on phenobarbital -Continue cessation from beer -Follow BMP #Elevated LFTs/thrombocytopenia/hemochromatosis-total bilirubin peaked at 3.2, AST elevated at 61. LFTs now continue to be trending downward. Likely secondary to alcoholic hepatitis but patient's reports he also has a history of hemochromatosis proven with genetic testing. He previously was receiving frequent phlebotomies. INR is normal, platelets are mildly low at but now improving, albumin normal. There is some mild hepatomegaly on physical examination. He denies abdominal pains. Liver ultrasound here shows hepatomegaly with a 20 cm liver, stones with sludge in the gallbladder and a fatty liver. -Encouraged continued alcohol cessation-liver should continue to improve with doing this -Follow LFTs, CBC in the morning -Follow-up with hepatology as an outpatient given history of hemochromatosis #Asthma-COPD overlap syndrome/LAURA-no acute issues and no longer uses as needed inhaler at home. No current wheezing or hypoxia -Monitor for any symptoms #Hyperlipidemia-reports taking flush free niacin at home which is not available here -Hold niacin DVT prophylaxis-Lovenox SQ Disposition-continued stay in ICU. Discussed his care with his at the bedside on 08/19 at length Full code Admission and Anticipated Discharge Date Admission Date: August 16, 2024 Subjective Patient remains in ICU. Was on Precedex drip overnight which was stopped and he has received multiple high doses of phenobarbital. He is sleeping but a bit restless when I saw him. I discussed his care with his at the bedside. He remains in mitts to keep him from pulling out equipment. He has not been eating or drinking as he is too lethargic. Physical Exam Constitutional: + ill appearing and + lethargic; no acut e distress Neck: trachea midline, no thyromegaly Respiratory: normal respiratory effort, lungs clear to auscultation Cardiovascular: Rate/Rhythm: regular rate, regular rhythm and + tachycardic Heart Sounds: no murmur Extremities: no edema Chest (Breasts): Chest: normal inspection of chest Musculoskeletal: Extremities: extremities normal to inspection; no cyanosis and no clubbing Skin: no rashes, warm and dry Neurologic: moves all extremities (Except limited motion left shoulder, atrophy left shoulder girdle); no focal motor deficits Motor/Sensory: no tremor Lymphatic: no lymphedema Results & Data Results & Data Vital Signs (Past 12 Hours) Vital Signs Temp Pulse Resp BP Pulse Ox O2 Del Method 08/19/24 10:57 102 H 18 94 08/19/24 10:33 149/97 H 08/19/24 10:27 96 H 32 H 95 08/19/24 10:00 105 H 34 H 96 08/19/24 09:39 103 H 0 L 97 08/19/24 09:31 121/84 08/19/24 09:31 121/84 08/19/24 09:18 93 H 26 H 95 08/19/24 09:03 89 21 94 08/19/24 09:01 152/76 H 08/19/24 08:45 112 H 40 H 93 08/19/24 08:37 101 H 28 H 127/92 08/19/24 08:36 104 H 33 H 96 08/19/24 08:32 127/92 08/19/24 08:21 113 H 36 H 95 08/19/24 08:00 112 H 33 H 91 08/19/24 07:52 85 20 108/72 08/19/24 07:45 Room Air 08/19/24 07:30 81 21 95 08/19/24 07:30 108/72 08/19/24 07:30 108/72 08/19/24 07:06 79 24 95 08/19/24 06:48 80 22 95 08/19/24 06:30 106/77 08/19/24 06:18 81 24 95 08/19/24 06:00 36.5 C 83 22 107/73 94 08/19/24 05:30 104/72 08/19/24 05:00 84 22 96/75 L 94 08/19/24 04:54 86 22 94 08/19/24 04:33 83 22 96 08/19/24 04:30 108/76 08/19/24 04:15 36.5 C 82 19 96 08/19/24 03:00 83 24 111/75 95 08/19/24 02:27 24 94 08/19/24 02:15 140/95 08/19/24 02:09 92 H 26 H 95 Laboratory Results CBC, CMP, magnesium reviewed PG Care Time/CCT Total # of Minutes Spent Total Time Spent with Patient: Total time spent is greater than 50% in coordination of care (as documented) at patient's floor/unit and/or counseling patient: Coding Level of Care Code 89445 SUB INP/OBS CARE 3/50MIN Diagnoses Alcohol use disorder F10.90 Alcohol withdrawal F10.939 LFT elevation R94.5 Asthma-COPD overlap syndrome J44.9
[2024-08-19] MEDS: PHENobarbital sodium 130 MG/ML VIAL IV SCH (16:47)
[2024-08-19] MEDS: ICU ELECTROLYTE REPLACEMENT PROTOCOL SCH (19:25)
[2024-08-19] MEDS: LACTATED RINGER'S 1,000 ML IV SCH (21:16)
[2024-08-20] MEDS ORDERED: chlordiazePOXIDE HCl 5 MG CAP PO SCH
[2024-08-20 04:31] LABS: Basophils # (auto) 0.05 K/uL (0.00-0.20); Eosinophils # (auto) 0.15 K/uL (0.00-0.50); Hematocrit (blood only) 39.2 % (42.0-52.0); Hemoglobin 13.8 g/dl (14.0-18.0); Immature Granulocytes # (auto) 0.01 K/uL (0.01-0.20); Immature Granulocytes % (auto) 0.2 %; Lymphocytes # (auto) 1.19 K/uL (1.20-3.40); Lymphocytes % (auto) 23.6 %; Mean Corpuscular Hemoglobin 36.8 pg (25.0-34.0); Mean Corpuscular Hgb Conc 35.2 g/dL (32.0-36.0); Mean Corpuscular Volume 104.5 fL (80.0-100.0); Mean Platelet Volume 10.2 fL (9.4-12.4); Monocytes # (auto) 0.84 K/uL (0.11-0.59); Monocytes % (auto) 16.6 %; Neutrophils # (auto) 2.81 K/uL (1.40-6.50); Neutrophils % (auto) 55.6 %; Platelet Count 153 K/uL (130-400); RDW Coefficient of Variation 11.9 % (11.5-14.5); RDW Standard Deviation 45.9 fL (36.4-46.3); Red Blood Count 3.75 M/uL (4.70-6.10); White Blood Count 5.05 K/ul (4.8-10.8)
[2024-08-20 04:47] LABS: Albumin Level 4.1 gm/dl (3.4-5.0); BUN Creatinine Ratio 17.3 (10-20); Bilirubin Direct 0.5 mg/dl (0-0.2); Bilirubin,Total 2.2 mg/dl (0.2-1.0); Calcium 9.3 mg/dl (8.6-10.3); Creatinine Clr Calc Pharmacy 99.5 ml/min; Phosphorus 4.4 mg/dl (2.5-4.9); Potassium 3.9 mmol/L (3.5-5.1); Total Protein 6.9 gm/dl (6.0-8.3)
[2024-08-20] MEDS: POTASSIUM CHLORIDE / WTR 10 MEQ/100 ML PLCT IV SCH (05:53)
[2024-08-20] MEDS: MAGNESIUM SULFATE / D5W 1 GM/100 ML BAG IV SCH (05:54)
--- NOTE | 2024-08-20 09:22 | Hospitalist Progress Note ---
Date of Service August 20, 2024 Assessment & Plan (1) Alcohol use disorder: Plan: -Continue telemetry monitoring given history of lone A-fib and continue end- tidal CO2 monitoring while lethargic with IV phenobarbital -Continue AWSS scales and phenobarbital -Encouraged cessation and he is committed to going to rehab-he would like information on inpatient rehab-appreciate case management consultation -Patient also asking about Vivitrol-would defer to outpatient PCP versus p.o. naltrexone after discharge if liver function tests continue to improve -Continue thiamine 100 mg p.o. once daily, folic acid 1 mg p.o. once daily, and multivitamin 1 tablet p.o. once daily once able to take p.o.-in the meantime, continue IV fluids and IV thiamine -Added clonidine patch in ICU -Haldol as needed IV for agitation -Continue IV Protonix for GI prophylaxis (2) Alcohol withdrawal: Plan: -Continue AWSS scales and phenobarbital (3) LFT elevation: Plan: total bilirubin peaked at 3.2, AST elevated at 61. LFTs now continue to be trending downward. Likely secondary to alcoholic hepatitis but patient's reports he also has a history of hemochromatosis proven with genetic testing. He previously was receiving frequent phlebotomies. INR is normal, platelets are mildly low at but now improving, albumin normal. There is some mild hepatomegaly on physical examination. He denies abdominal pains. Liver ultrasound here shows hepatomegaly with a 20 cm liver, stones with sludge in the gallbladder and a fatty liver. -Encouraged continued alcohol cessation-liver should continue to improve with doing this -Follow LFTs, CBC in the morning -Follow-up with hepatology as an outpatient given history of hemochromatosis (4) Asthma-COPD overlap syndrome: Plan: no acute issues and no longer uses as needed inhaler at home. No current wheezing or hypoxia -Monitor for any symptoms Plan This patient is a 64-year-old male with a history of alcohol use disorder, osteoporosis, asthma-COPD overlap syndrome, LAURA, hyperlipidemia, and lone atrial fibrillation, who presents with request for alcohol detox. He reports drinking 24 beers per day for quite some time. He was trying to slowly wean himself off of alcohol over the last week and had cut down to 8 beers per day. In the mornings when he wakes up he often feels shaky and sweaty and has to drink to make the shakes go away. On the night before admission, he was very sweaty, shaky, and vomited at home. He drank 2 beers quickly and felt better. He drank 8 beers through the day but remained tremulous and came to the ER for detox. In the ER, he was noted to be tremulous and diaphoretic, hypertensive and tachycardic. He was given a total of 25 mg of IV Valium, 1 L of normal saline, thiamine, and folate, and hospitalist was contacted for admission for inpatient alcohol detox followed by inpatient rehab at patient's request. Disposition-possible downgrade from ICU today. Full code Admission and Anticipated Discharge Date Admission Date: August 16, 2024 Subjective Pt doing better this am, not having much agitation, eating his breakfast. Review of Systems Review of Systems: CONST: Negative for fever, body aches and chills. HENT: Negative for neck pain/stiffness, headache, congestion, sore throat, swelling. EYES: Negative for discharge/pain or vision changes. RESP: Negative for cough/hemoptysis and shortness of breath. CV: Negative chest pain, difficulty breathing, palpitations. ABD: Negative pain, nausea, vomiting. : Negative increase frequency, dysuria, blood in urine or stool. MUSC: Negative for muscle aches, edema. SKIN: Negative rash, lesions/sores. NEURO: Negative headache, dizziness, weakness. Physical Exam Physical Exam: GENERAL APPEARANCE NAD, activity normal for age, well developed/ well nourished, no cyanosis, pallor, or diaphoresis. EYES lids/conjunctiva normal. EARS/NOSE/THROAT Mucous membranes moist, nares normal, lips/teeth normal uvula midline without oral pharyngeal erythema, exudate or swelling TMs normal bilaterally. No lymphangitis/lymphedema. HEAD/NECK normocephalic atraumatic, no facial trauma, neck is supple. RESPIRATORY respiratory effort normal, speaks in full sentences, no tripod position, no accessory muscle use. Lungs clear to auscultation without rhonchi, wheezes, rales CARDIAC Regular rate and rhythm, no edema. ABDOMINAL Soft, ND/NT. No evidence of fluid wave. No pulsatile masses on exam, rebound tenderness, Joyce sign or pain over Mcburney's point. MUSCLES/EXTREMITIES No abnormal range of motion, no swelling. SKIN Warm, pink and dry. No rashes, dermatoses, petechiae or lesions. NEUROLOGICAL Speech is clear and appropriate. Normal level of consciousness. Gait and coordination are normal. 5/5 strength in all extremities. PSYCH Normal mood and affect. Judgement/competence is appropriate Results & Data Results & Data Vital Signs (Past 12 Hours) Vital Signs Temp Pulse Resp BP Pulse Ox 08/20/24 06:00 144/98 H 08/20/24 05:54 36.9 C 73 15 97 08/20/24 05:30 146/115 H 08/20/24 05:30 146/115 H 08/20/24 05:30 36.9 C 94 H 14 97 08/20/24 05:18 36.9 C 75 12 94 08/20/24 05:00 156/105 H 08/20/24 04:57 36.9 C 78 21 96 08/20/24 04:36 36.9 C 90 18 96 08/20/24 04:30 163/108 H 08/20/24 04:27 36.9 C 79 21 96 08/20/24 04:00 37.0 C 91 H 20 96 08/20/24 04:00 151/101 H 08/20/24 04:00 151/101 H 08/20/24 04:00 151/101 H 08/20/24 04:00 151/101 H 08/20/24 03:30 37.0 C 94 H 28 H 97 08/20/24 03:30 153/90 H 08/20/24 03:30 153/90 H 08/20/24 03:03 37.0 C 100 H 25 H 97 08/20/24 03:00 151/105 H 08/20/24 03:00 151/105 H 08/20/24 03:00 151/105 H 08/20/24 02:54 37.0 C 92 H 17 97 08/20/24 02:42 36.9 C 82 28 H 96 08/20/24 02:30 160/110 H 08/20/24 02:30 160/110 H 08/20/24 02:30 160/110 H 08/20/24 02:18 36.8 C 88 24 96 08/20/24 02:12 36.8 C 96 H 14 97 08/20/24 02:00 159/103 H 08/20/24 01:51 36.8 C 92 H 13 96 08/20/24 01:30 151/94 H 08/20/24 01:30 151/94 H 08/20/24 01:30 151/94 H 08/20/24 01:30 151/94 H 08/20/24 01:30 36.8 C 78 23 95 08/20/24 01:03 36.7 C 86 20 96 08/20/24 01:00 139/95 08/20/24 01:00 139/95 08/20/24 01:00 139/95 08/20/24 01:00 139/95 08/20/24 00:36 36.9 C 83 20 93 08/20/24 00:30 36.9 C 78 21 94 08/20/24 00:30 117/79 08/20/24 00:30 117/79 08/20/24 00:30 117/79 08/20/24 00:00 37.1 C 81 14 92 08/20/24 00:00 123/80 08/20/24 00:00 123/80 08/19/24 23:33 37.2 C 81 12 92 08/19/24 23:30 131/88 08/19/24 23:30 131/88 08/19/24 23:21 37.3 C 83 14 94 08/19/24 23:00 141/89 H 08/19/24 23:00 141/89 H 08/19/24 23:00 141/89 H 08/19/24 23:00 141/89 H 08/19/24 23:00 141/89 H 08/19/24 23:00 37.3 C 81 21 94 08/19/24 22:46 85 08/19/24 22:30 37.3 C 98 H 25 H 95 08/19/24 22:30 149/104 H 08/19/24 22:30 149/104 H 08/19/24 22:30 149/104 H 08/19/24 22:00 37.3 C 98 H 24 95 08/19/24 22:00 163/101 H 08/19/24 22:00 163/101 H 08/19/24 22:00 163/101 H 08/19/24 21:36 37.2 C 106 H 22 97 08/19/24 21:30 158/111 H 08/19/24 21:27 37.2 C 102 H 26 H 97 PG Care Time/CCT Total # of Minutes Spent Total Time Spent with Patient: Total time spent is greater than 50% in coordination of care (as documented) at patient's floor/unit and/or counseling patient: Coding Level of Care Code 20375 SUB INP/OBS CARE 2/35MIN Diagnoses Alcohol use disorder F10.90 Alcohol withdrawal F10.939 LFT elevation R94.5 Asthma-COPD overlap syndrome J44.9
--- NOTE | 2024-08-20 09:51 | Critical Care Progress Note ---
Date of Service August 20, 2024 Assessment & Plan (1) Alcohol withdrawal: (2) Asthma: Plan Reason Critically Ill: 64 YOM admitted for request to detox from alcohol. Transferred to ICU on 08/18/24 for refractory symptoms of alcohol withdraw with increased aggressive behavior. 24-hour events: Good response to phenobarbital load. No requirements for Precedex. More awake alert and conversant this morning. Did require Haldol yesterday as phenobarb was being loaded. Recommendations: Neuro -alcohol withdrawal, severe. Continue phenobarbital. Transition to oral per protocol. Continue high-dose thiamine and folate, transition to oral. Discontinue Catapres patch now that he is taking oral and placed on clonidine 0.2 mg twice a day for alpha adrenergic effect. Will need case management to be involved to assist with outpatient alcohol abuse management. Cardiac -no current issues. Catapres for hypertension Respiratory -history of sleep apnea and asthma. Clinically active currently. Continue to follow GI -no current issues. Diet as tolerated. Continue PPI RENAL/LYTES -ICU electrolyte protocol - No acute needs ENDO - No acute needs HEME - No acute needs ID - No concerns at this time for infective process LINES/IV ACCESS - PIV Continue use of these lines DVT PROPHYLAXIS - SCDS, Lovenox 40mg SQ daily Okay to transfer to floor. Critical care services will sign off. Will free to contact us with questions or concerns Admission and Anticipated Discharge Date Admission Date: August 16, 2024 Subjective Patient seen and examined. EMR reviewed. The patient is more awake and alert this morning. He sitting up eating breakfast. He continues to have tremors but offers no new complaints Review of Systems Review of Systems: All systems reviewed & are unremarkable except as noted in Subjective Physical Exam Constitutional: + disheveled Neck: trachea midline, no thyromegaly Respiratory: normal respiratory effort, lungs clear to auscultation Cardiovascular: Rate/Rhythm: regular rate and regular rhythm Heart Sounds: no murmur Extremities: no edema Chest (Breasts): Chest: normal inspection of chest Gastrointestinal (Abdomen): Inspection/Auscultation: abdomen normal to inspection and normal bowel sounds; abdomen not distended Percussion/Palpation: abdomen soft and + hepatomegaly (Liver edge palpable approximately 3 cm beyond costal margin); abdomen nontender Musculoskeletal: Extremities: extremities normal to inspection; no cyanosis and no clubbing Skin: no rashes, warm and dry Neurologic: moves all extremities (Except limited motion left shoulder, atrophy left shoulder girdle) and awake; no focal motor deficits Lymphatic: no lymphedema Results & Data Results & Data Vital Signs (Past 12 Hours) Vital Signs Temp Pulse Resp BP Pulse Ox 08/20/24 06:00 144/98 H 08/20/24 05:54 36.9 C 73 15 97 08/20/24 05:30 146/115 H 08/20/24 05:30 146/115 H 08/20/24 05:30 36.9 C 94 H 14 97 08/20/24 05:18 36.9 C 75 12 94 08/20/24 05:00 156/105 H 08/20/24 04:57 36.9 C 78 21 96 08/20/24 04:36 36.9 C 90 18 96 08/20/24 04:30 163/108 H 08/20/24 04:27 36.9 C 79 21 96 08/20/24 04:00 37.0 C 91 H 20 96 08/20/24 04:00 151/101 H 08/20/24 04:00 151/101 H 08/20/24 04:00 151/101 H 08/20/24 04:00 151/101 H 08/20/24 03:30 37.0 C 94 H 28 H 97 08/20/24 03:30 153/90 H 08/20/24 03:30 153/90 H 08/20/24 03:03 37.0 C 100 H 25 H 97 08/20/24 03:00 151/105 H 08/20/24 03:00 151/105 H 08/20/24 03:00 151/105 H 08/20/24 02:54 37.0 C 92 H 17 97 08/20/24 02:42 36.9 C 82 28 H 96 08/20/24 02:30 160/110 H 08/20/24 02:30 160/110 H 08/20/24 02:30 160/110 H 08/20/24 02:18 36.8 C 88 24 96 08/20/24 02:12 36.8 C 96 H 14 97 08/20/24 02:00 159/103 H 08/20/24 01:51 36.8 C 92 H 13 96 08/20/24 01:30 151/94 H 08/20/24 01:30 151/94 H 08/20/24 01:30 151/94 H 08/20/24 01:30 151/94 H 08/20/24 01:30 36.8 C 78 23 95 08/20/24 01:03 36.7 C 86 20 96 08/20/24 01:00 139/95 08/20/24 01:00 139/95 08/20/24 01:00 139/95 08/20/24 01:00 139/95 08/20/24 00:36 36.9 C 83 20 93 08/20/24 00:30 36.9 C 78 21 94 08/20/24 00:30 117/79 08/20/24 00:30 117/79 08/20/24 00:30 117/79 08/20/24 00:00 37.1 C 81 14 92 08/20/24 00:00 123/80 08/20/24 00:00 123/80 08/19/24 23:33 37.2 C 81 12 92 08/19/24 23:30 131/88 08/19/24 23:30 131/88 08/19/24 23:21 37.3 C 83 14 94 08/19/24 23:00 141/89 H 08/19/24 23:00 141/89 H 08/19/24 23:00 141/89 H 08/19/24 23:00 141/89 H 08/19/24 23:00 141/89 H 08/19/24 23:00 37.3 C 81 21 94 08/19/24 22:46 85 08/19/24 22:30 37.3 C 98 H 25 H 95 08/19/24 22:30 149/104 H 08/19/24 22:30 149/104 H 08/19/24 22:30 149/104 H 08/19/24 22:00 37.3 C 98 H 24 95 08/19/24 22:00 163/101 H 08/19/24 22:00 163/101 H 08/19/24 22:00 163/101 H Critical Care Results & Data Vital Signs (Past 12 Hours) Vital Signs Temp Pulse Resp BP Pulse Ox 08/20/24 06:00 144/98 H 08/20/24 05:54 36.9 C 73 15 97 08/20/24 05:30 146/115 H 08/20/24 05:30 146/115 H 08/20/24 05:30 36.9 C 94 H 14 97 08/20/24 05:18 36.9 C 75 12 94 08/20/24 05:00 156/105 H 08/20/24 04:57 36.9 C 78 21 96 08/20/24 04:36 36.9 C 90 18 96 08/20/24 04:30 163/108 H 08/20/24 04:27 36.9 C 79 21 96 08/20/24 04:00 37.0 C 91 H 20 96 08/20/24 04:00 151/101 H 08/20/24 04:00 151/101 H 08/20/24 04:00 151/101 H 08/20/24 04:00 151/101 H 08/20/24 03:30 37.0 C 94 H 28 H 97 08/20/24 03:30 153/90 H 08/20/24 03:30 153/90 H 08/20/24 03:03 37.0 C 100 H 25 H 97 08/20/24 03:00 151/105 H 08/20/24 03:00 151/105 H 08/20/24 03:00 151/105 H 08/20/24 02:54 37.0 C 92 H 17 97 08/20/24 02:42 36.9 C 82 28 H 96 08/20/24 02:30 160/110 H 08/20/24 02:30 160/110 H 08/20/24 02:30 160/110 H 08/20/24 02:18 36.8 C 88 24 96 08/20/24 02:12 36.8 C 96 H 14 97 08/20/24 02:00 159/103 H 08/20/24 01:51 36.8 C 92 H 13 96 08/20/24 01:30 151/94 H 08/20/24 01:30 151/94 H 08/20/24 01:30 151/94 H 08/20/24 01:30 151/94 H 08/20/24 01:30 36.8 C 78 23 95 08/20/24 01:03 36.7 C 86 20 96 08/20/24 01:00 139/95 08/20/24 01:00 139/95 08/20/24 01:00 139/95 08/20/24 01:00 139/95 08/20/24 00:36 36.9 C 83 20 93 08/20/24 00:30 36.9 C 78 21 94 08/20/24 00:30 117/79 08/20/24 00:30 117/79 08/20/24 00:30 117/79 08/20/24 00:00 37.1 C 81 14 92 08/20/24 00:00 123/80 08/20/24 00:00 123/80 08/19/24 23:33 37.2 C 81 12 92 08/19/24 23:30 131/88 08/19/24 23:30 131/88 08/19/24 23:21 37.3 C 83 14 94 08/19/24 23:00 141/89 H 08/19/24 23:00 141/89 H 08/19/24 23:00 141/89 H 08/19/24 23:00 141/89 H 08/19/24 23:00 141/89 H 08/19/24 23:00 37.3 C 81 21 94 08/19/24 22:46 85 08/19/24 22:30 37.3 C 98 H 25 H 95 08/19/24 22:30 149/104 H 08/19/24 22:30 149/104 H 08/19/24 22:30 149/104 H 08/19/24 22:00 37.3 C 98 H 24 95 08/19/24 22:00 163/101 H 08/19/24 22:00 163/101 H 08/19/24 22:00 163/101 H Lab & Micro Results (Past 24 Hours) RBC 3.75 M/uL (4.70-6.10) L 08/20/24 WBC 5.05 K/ul (4.8-10.8) 08/20/24 Hgb 13.8 g/dl (14.0-18.0) L 08/20/24 Hct 39.2 % (42.0-52.0) L 08/20/24 MCV 104.5 fL (80.0-100.0) H 08/20/24 MCH 36.8 pg (25.0-34.0) H 08/20/24 MCHC 35.2 g/dL (32.0-36.0) 08/20/24 RDW Standard Deviation 45.9 fL (36.4-46.3) 08/20/24 RDW Coefficient of Variation 11.9 % (11.5-14.5) 08/20/24 Plt Count 153 K/uL (130-400) 08/20/24 MPV 10.2 fL (9.4-12.4) 08/20/24 Neutrophils (%) (Auto) 55.6 % 08/20/24 Lymphocytes (%) (Auto) 23.6 % 08/20/24 Monocytes # (Auto) 0.84 K/uL (0.11-0.59) H 08/20/24 Eosinophils # (Auto) 0.15 K/uL (0.00-0.50) 08/20/24 Immature Granulocyte % (Auto) 0.2 % 08/20/24 Neutrophils # (Auto) 2.81 K/uL (1.40-6.50) 08/20/24 Lymphocytes # (Auto) 1.19 K/uL (1.20-3.40) L 08/20/24 Monocytes # (Auto) 0.84 K/uL (0.11-0.59) H 08/20/24 Eosinophils # (Auto) 0.15 K/uL (0.00-0.50) 08/20/24 Basophils # (Auto) 0.05 K/uL (0.00-0.20) 08/20/24 Immature Granulocyte # (Auto) 0.01 K/uL (0.01-0.20) 5 Na 137 mmol/L (136-145) 08/20/24 K 3.9 mmol/L (3.5-5.1) 08/20/24 Cl 107 mmol/L (98-107) 08/20/24 CO2 26 mmol/L (21-32) 08/20/24 Anion Gap 4 (3-11) 08/20/24 BUN 13 mg/dl (6-23) 08/20/24 Creatinine 0.75 mg/dl (0.6-1.4) 08/20/24 BUN/Creatinine Ratio 17.3 (10-20) 08/20/24 Glu 80 mg/dl (70-99(Fasting)) 08/20/24 Ca 9.3 mg/dl (8.6-10.3) 08/20/24 Phosphorus Level 4.4 mg/dl (2.5-4.9) 08/20/24 Total Bilirubin 2.2 mg/dl (0.2-1.0) H 08/20/24 Direct Bilirubin 0.5 mg/dl (0-0.2) H 08/20/24 AST 38 U/L (13-39) 08/20/24 ALT 29 U/L (7-52) 08/20/24 Alkaline Phosphatase 66 U/L (34-104) 08/20/24 TP 6.9 gm/dl (6.0-8.3) 08/20/24 Albumin 4.1 gm/dl (3.4-5.0) 08/20/24 Mg 2.0 mg/dl (1.7-2.4) 08/20/24 03:55 Calcium Level 9.3 mg/dl (8.6-10.3) 08/20/24 03:55 I & O Totals 24 Hours 08/19/24 08/20/24 08/21/24 06:59 06:59 06:59 Intake Total 1501.097 / 8531.406 1369.014 / 2774.014 475.000 / 475.000 Output Total 800 / 800 750 / 750 Balance 701.097 / 810.793 5108.014 / 2024.014 475.000 / 475.000 Cumulative 08/16/24 11:40 thru 08/20/24 09:00 Intake Total 9228.444 Output Total 2851 Balance 6377.444 RT Ventilator Mngmt (Last Documented) Ventilator Ordered Settings Respiratory Rate 15 08/20/24 05:54 Ventilator - PT Measurements Respiratory Rate 15 End-Tidal CO2 24 Coding Level of Care Code 97661 SUB INP/OBS CARE 2/35MIN Diagnoses Alcohol withdrawal F10.939 Asthma J45.909
[2024-08-20] MEDS: THIAMINE HCL 100 MG TAB PO SCH (10:19)
[2024-08-20] MEDS: PANTOprazole 40 MG TAB PO SCH (10:22)
[2024-08-20] MEDS: cloNIDine HCL 0.1 MG TAB PO SCH (10:23)
[2024-08-20] MEDS: PANTOprazole 40 MG/10 ML SYR IV SCH (12:56)
[2024-08-20] MEDS: PHENobarbitaL 30 MG TAB PO SCH (13:03)
[2024-08-20] MEDS ORDERED: PHENobarbitaL 30 MG TAB PO SCH (13:30)
[2024-08-21 06:21] LABS: BUN Creatinine Ratio 11.6 (10-20); Calcium 9.4 mg/dl (8.6-10.3); Creatinine Clr Calc Pharmacy 86.8 ml/min; Magnesium 1.9 mg/dl (1.7-2.4); Phosphorus 4.2 mg/dl (2.5-4.9); Potassium 4.3 mmol/L (3.5-5.1)
[2024-08-21] MEDS: PHENobarbitaL 30 MG TAB PO SCH (08:02)
--- NOTE | 2024-08-21 09:22 | Hospitalist Progress Note ---
Date of Service August 21, 2024 Assessment & Plan (1) Alcohol use disorder: Plan: -Continue telemetry monitoring given history of lone A-fib and continue end- tidal CO2 monitoring while lethargic with IV phenobarbital -Continue AWSS scales and phenobarbital -Encouraged cessation and he is committed to going to rehab-he would like information on inpatient rehab-appreciate case management consultation -Patient also asking about Vivitrol-would defer to outpatient PCP versus p.o. naltrexone after discharge if liver function tests continue to improve -Continue thiamine 100 mg p.o. once daily, folic acid 1 mg p.o. once daily, and multivitamin 1 tablet p.o. once daily once able to take p.o.-in the meantime, continue IV fluids and IV thiamine -Added clonidine patch in ICU -Haldol as needed IV for agitation -Continue IV Protonix for GI prophylaxis -phenobarbital change to PO -downgraded to PCU (2) Alcohol withdrawal: Plan: -Continue AWSS scales and phenobarbital (3) LFT elevation: Plan: total bilirubin peaked at 3.2, AST elevated at 61. LFTs now continue to be trending downward. Likely secondary to alcoholic hepatitis but patient's reports he also has a history of hemochromatosis proven with genetic testing. He previously was receiving frequent phlebotomies. INR is normal, platelets are mildly low at but now improving, albumin normal. There is some mild hepatomegaly on physical examination. He denies abdominal pains. Liver ultrasound here shows hepatomegaly with a 20 cm liver, stones with sludge in the gallbladder and a fatty liver. -Encouraged continued alcohol cessation-liver should continue to improve with doing this -Follow LFTs, CBC in the morning -Follow-up with hepatology as an outpatient given history of hemochromatosis (4) Asthma-COPD overlap syndrome: Plan: no acute issues and no longer uses as needed inhaler at home. No current wheezing or hypoxia -Monitor for any symptoms Plan This patient is a 64-year-old male with a history of alcohol use disorder, osteoporosis, asthma-COPD overlap syndrome, LAURA, hyperlipidemia, and lone atrial fibrillation, who presents with request for alcohol detox. He reports drinking 24 beers per day for quite some time. He was trying to slowly wean himself off of alcohol over the last week and had cut down to 8 beers per day. In the mornings when he wakes up he often feels shaky and sweaty and has to drink to make the shakes go away. On the night before admission, he was very sweaty, shaky, and vomited at home. He drank 2 beers quickly and felt better. He drank 8 beers through the day but remained tremulous and came to the ER for detox. In the ER, he was noted to be tremulous and diaphoretic, hypertensive and tachycardic. He was given a total of 25 mg of IV Valium, 1 L of normal saline, thiamine, and folate, and hospitalist was contacted for admission for inpatient alcohol detox followed by inpatient rehab at patient's request. Disposition-possible downgrade from ICU today. Full code Admission and Anticipated Discharge Date Admission Date: August 16, 2024 Subjective Pt having slow improvment in mental status, less agitation this am. Review of Systems Review of Systems: CONST: Negative for fever, body aches and chills. HENT: Negative for neck pain/stiffness, headache, congestion, sore throat, swelling. EYES: Negative for discharge/pain or vision changes. RESP: Negative for cough/hemoptysis and shortness of breath. CV: Negative chest pain, difficulty breathing, palpitations. ABD: Negative pain, nausea, vomiting. : Negative increase frequency, dysuria, blood in urine or stool. MUSC: Negative for muscle aches, edema. SKIN: Negative rash, lesions/sores. NEURO: Negative headache, dizziness, weakness. Physical Exam Physical Exam: GENERAL APPEARANCE NAD, activity normal for age, well developed/ well nourished, no cyanosis, pallor, or diaphoresis. EYES lids/conjunctiva normal. EARS/NOSE/THROAT Mucous membranes moist, nares normal, lips/teeth normal uvula midline without oral pharyngeal erythema, exudate or swelling TMs normal bilaterally. No lymphangitis/lymphedema. HEAD/NECK normocephalic atraumatic, no facial trauma, neck is supple. RESPIRATORY respiratory effort normal, speaks in full sentences, no tripod position, no accessory muscle use. Lungs clear to auscultation without rhonchi, wheezes, rales CARDIAC Regular rate and rhythm, no edema. ABDOMINAL Soft, ND/NT. No evidence of fluid wave. No pulsatile masses on exam, rebound tenderness, Joyce sign or pain over Mcburney's point. MUSCLES/EXTREMITIES No abnormal range of motion, no swelling. SKIN Warm, pink and dry. No rashes, dermatoses, petechiae or lesions. NEUROLOGICAL Speech is clear and appropriate. Normal level of consciousness. Gait and coordination are normal. 5/5 strength in all extremities. PSYCH Normal mood and affect. Judgement/competence is appropriate Results & Data Results & Data Vital Signs (Past 12 Hours) Vital Signs Temp Pulse Resp BP Pulse Ox 08/21/24 04:10 144/96 H 08/21/24 03:57 37.6 C H 101 H 24 95 08/21/24 00:00 90 08/21/24 00:00 137/88 08/20/24 23:51 37.3 C 86 22 93 08/20/24 21:32 36.9 C 86 22 94 PG Care Time/CCT Total # of Minutes Spent Total Time Spent with Patient: Total time spent is greater than 50% in coordination of care (as documented) at patient's floor/unit and/or counseling patient: Coding Level of Care Code 61860 SUB INP/OBS CARE 2/35MIN Diagnoses Alcohol use disorder F10.90 Alcohol withdrawal F10.939 LFT elevation R94.5 Asthma-COPD overlap syndrome J44.9
[2024-08-21] MEDS ORDERED: PHENOBARBITAL SODIUM IV ONE (11:49)
[2024-08-21] MEDS: PHENobarbital sodium 65 MG/ML VIAL IV ONE (19:56)
[2024-08-22] MEDS ORDERED: PHENobarbitaL 30 MG TAB PO SCH (01:30)
[2024-08-22 05:55] LABS: BUN Creatinine Ratio 21.1 (10-20); Calcium 9.2 mg/dl (8.6-10.3); Creatinine Clr Calc Pharmacy 82.9 ml/min; Phosphorus 4.3 mg/dl (2.5-4.9); Potassium 4.2 mmol/L (3.5-5.1)
--- NOTE | 2024-08-22 09:54 | Hospitalist Progress Note ---
Date of Service August 22, 2024 Assessment & Plan (1) Alcohol use disorder: Plan: -Continue telemetry monitoring given history of lone A-fib and continue end- tidal CO2 monitoring while lethargic with IV phenobarbital -Continue AWSS scales and phenobarbital -Encouraged cessation and he is committed to going to rehab-he would like information on inpatient rehab-appreciate case management consultation -Patient also asking about Vivitrol-would defer to outpatient PCP versus p.o. naltrexone after discharge if liver function tests continue to improve -Continue thiamine 100 mg p.o. once daily, folic acid 1 mg p.o. once daily, and multivitamin 1 tablet p.o. once daily once able to take p.o.-in the meantime, continue IV fluids and IV thiamine -Added clonidine patch in ICU -Haldol as needed IV for agitation -Continue IV Protonix for GI prophylaxis -phenobarbital change to PO -downgraded to PCU -PT/OT evaluation -social work follow up for out patient etoh services (2) Alcohol withdrawal: Plan: -Continue AWSS scales and phenobarbital (3) LFT elevation: Plan: total bilirubin peaked at 3.2, AST elevated at 61. LFTs now continue to be trending downward. Likely secondary to alcoholic hepatitis but patient's reports he also has a history of hemochromatosis proven with genetic testing. He previously was receiving frequent phlebotomies. INR is normal, platelets are mildly low at but now improving, albumin normal. There is some mild hepatomegaly on physical examination. He denies abdominal pains. Liver ultrasound here shows hepatomegaly with a 20 cm liver, stones with sludge in the gallbladder and a fatty liver. -Encouraged continued alcohol cessation-liver should continue to improve with doing this -Follow LFTs, CBC in the morning -Follow-up with hepatology as an outpatient given history of hemochromatosis (4) Asthma-COPD overlap syndrome: Plan: no acute issues and no longer uses as needed inhaler at home. No current wheezing or hypoxia -Monitor for any symptoms Plan This patient is a 64-year-old male with a history of alcohol use disorder, osteoporosis, asthma-COPD overlap syndrome, LAURA, hyperlipidemia, and lone atrial fibrillation, who presents with request for alcohol detox. He reports drinking 24 beers per day for quite some time. He was trying to slowly wean himself off of alcohol over the last week and had cut down to 8 beers per day. In the mornings when he wakes up he often feels shaky and sweaty and has to drink to make the shakes go away. On the night before admission, he was very sweaty, shaky, and vomited at home. He drank 2 beers quickly and felt better. He drank 8 beers through the day but remained tremulous and came to the ER for detox. In the ER, he was noted to be tremulous and diaphoretic, hypertensive and tachycardic. He was given a total of 25 mg of IV Valium, 1 L of normal saline, thiamine, and folate, and hospitalist was contacted for admission for inpatient alcohol detox followed by inpatient rehab at patient's request. Disposition-possible downgrade from ICU today. Full code Admission and Anticipated Discharge Date Admission Date: August 16, 2024 Subjective Pt appears to have improved affect and mental status this am. Review of Systems Review of Systems: CONST: Negative for fever, body aches and chills. HENT: Negative for neck pain/stiffness, headache, congestion, sore throat, swelling. EYES: Negative for discharge/pain or vision changes. RESP: Negative for cough/hemoptysis and shortness of breath. CV: Negative chest pain, difficulty breathing, palpitations. ABD: Negative pain, nausea, vomiting. : Negative increase frequency, dysuria, blood in urine or stool. MUSC: Negative for muscle aches, edema. SKIN: Negative rash, lesions/sores. NEURO: Negative headache, dizziness, weakness. Physical Exam Physical Exam: GENERAL APPEARANCE NAD, activity normal for age, well developed/ well nourished, no cyanosis, pallor, or diaphoresis. EYES lids/conjunctiva normal. EARS/NOSE/THROAT Mucous membranes moist, nares normal, lips/teeth normal uvula midline without oral pharyngeal erythema, exudate or swelling TMs normal bilaterally. No lymphangitis/lymphedema. HEAD/NECK normocephalic atraumatic, no facial trauma, neck is supple. RESPIRATORY respiratory effort normal, speaks in full sentences, no tripod position, no accessory muscle use. Lungs clear to auscultation without rhonchi, wheezes, rales CARDIAC Regular rate and rhythm, no edema. ABDOMINAL Soft, ND/NT. No evidence of fluid wave. No pulsatile masses on exam, rebound tenderness, Joyce sign or pain over Mcburney's point. MUSCLES/EXTREMITIES No abnormal range of motion, no swelling. SKIN Warm, pink and dry. No rashes, dermatoses, petechiae or lesions. NEUROLOGICAL Speech is clear and appropriate. Normal level of consciousness. Gait and coordination are normal. 5/5 strength in all extremities. PSYCH Normal mood and affect. Judgement/competence is appropriate Results & Data Results & Data Vital Signs (Past 12 Hours) Vital Signs Temp Pulse Pulse Resp BP BP Pulse Ox 08/22/24 08:51 90 08/22/24 07:50 08/22/24 07:26 36.7 C 74 17 145/93 H 95 08/22/24 04:13 36.8 C 08/22/24 04:00 113/85 08/22/24 03:54 81 17 94 08/22/24 00:33 36.8 C 08/22/24 00:00 79 08/22/24 00:00 133/86 08/21/24 23:54 81 15 91 O2 Del Method 08/22/24 08:51 08/22/24 07:50 Room Air 08/22/24 07:26 Room Air 08/22/24 04:13 08/22/24 04:00 08/22/24 03:54 08/22/24 00:33 08/22/24 00:00 08/22/24 00:00 08/21/24 23:54 PG Care Time/CCT Total # of Minutes Spent Total Time Spent with Patient: Total time spent is greater than 50% in coordination of care (as documented) at patient's floor/unit and/or counseling patient: Coding Level of Care Code 56419 SUB INP/OBS CARE 2/35MIN Diagnoses Alcohol use disorder F10.90 Alcohol withdrawal F10.939 LFT elevation R94.5 Asthma-COPD overlap syndrome J44.9
[2024-08-23 06:46] LABS: BUN Creatinine Ratio 23.8 (10-20); Calcium 9.3 mg/dl (8.6-10.3); Creatinine Clr Calc Pharmacy 88.8 ml/min; Magnesium 1.9 mg/dl (1.7-2.4); Phosphorus 3.3 mg/dl (2.5-4.9)
--- NOTE | 2024-08-23 10:04 | Hospitalist Progress Note ---
Date of Service August 23, 2024 Assessment & Plan (1) Alcohol use disorder: Plan: -Continue telemetry monitoring given history of lone A-fib and continue end- tidal CO2 monitoring while lethargic with IV phenobarbital -Continue AWSS scales and phenobarbital -Encouraged cessation and he is committed to going to rehab-he would like information on inpatient rehab-appreciate case management consultation -Patient also asking about Vivitrol-would defer to outpatient PCP versus p.o. naltrexone after discharge if liver function tests continue to improve -Continue thiamine 100 mg p.o. once daily, folic acid 1 mg p.o. once daily, and multivitamin 1 tablet p.o. once daily once able to take p.o.-in the meantime, continue IV fluids and IV thiamine -Added clonidine patch in ICU -Haldol as needed IV for agitation -Continue IV Protonix for GI prophylaxis -phenobarbital change to PO, now tapered off -haldol prn -downgraded to PCU -PT/OT evaluation -social work follow up for inpatient D&A rehab (2) Alcohol withdrawal: Plan: -Continue AWSS scales and phenobarbital (3) LFT elevation: Plan: total bilirubin peaked at 3.2, AST elevated at 61. LFTs now continue to be trending downward. Likely secondary to alcoholic hepatitis but patient's reports he also has a history of hemochromatosis proven with genetic testing. He previously was receiving frequent phlebotomies. INR is normal, platelets are mildly low at but now improving, albumin normal. There is some mild hepatomegaly on physical examination. He denies abdominal pains. Liver ultrasound here shows hepatomegaly with a 20 cm liver, stones with sludge in the gallbladder and a fatty liver. -Encouraged continued alcohol cessation-liver should continue to improve with doing this -Follow LFTs, CBC in the morning -Follow-up with hepatology as an outpatient given history of hemochromatosis (4) Asthma-COPD overlap syndrome: Plan: no acute issues and no longer uses as needed inhaler at home. No current wheezing or hypoxia -Monitor for any symptoms Plan This patient is a 64-year-old male with a history of alcohol use disorder, osteoporosis, asthma-COPD overlap syndrome, LAURA, hyperlipidemia, and lone atrial fibrillation, who presents with request for alcohol detox. He reports drinking 24 beers per day for quite some time. He was trying to slowly wean himself off of alcohol over the last week and had cut down to 8 beers per day. In the mornings when he wakes up he often feels shaky and sweaty and has to drink to make the shakes go away. On the night before admission, he was very sweaty, shaky, and vomited at home. He drank 2 beers quickly and felt better. He drank 8 beers through the day but remained tremulous and came to the ER for detox. In the ER, he was noted to be tremulous and diaphoretic, hypertensive and tachycardic. He was given a total of 25 mg of IV Valium, 1 L of normal saline, thiamine, and folate, and hospitalist was contacted for admission for inpatient alcohol detox followed by inpatient rehab at patient's request. Disposition-possible downgrade from ICU today. Full code Admission and Anticipated Discharge Date Admission Date: August 16, 2024 Subjective Pt having paranoid thoughts and hallucinations this am. Review of Systems Review of Systems: CONST: Negative for fever, body aches and chills. HENT: Negative for neck pain/stiffness, headache, congestion, sore throat, swelling. EYES: Negative for discharge/pain or vision changes. RESP: Negative for cough/hemoptysis and shortness of breath. CV: Negative chest pain, difficulty breathing, palpitations. ABD: Negative pain, nausea, vomiting. : Negative increase frequency, dysuria, blood in urine or stool. MUSC: Negative for muscle aches, edema. SKIN: Negative rash, lesions/sores. NEURO: Negative headache, dizziness, weakness. Physical Exam Physical Exam: GENERAL APPEARANCE NAD, activity normal for age, well developed/ well nourished, no cyanosis, pallor, or diaphoresis. EYES lids/conjunctiva normal. EARS/NOSE/THROAT Mucous membranes moist, nares no rmal, lips/teeth normal uvula midline without oral pharyngeal erythema, exudate or swelling TMs normal bilaterally. No lymphangitis/lymphedema. HEAD/NECK normocephalic atraumatic, no facial trauma, neck is supple. RESPIRATORY respiratory effort normal, speaks in full sentences, no tripod position, no accessory muscle use. Lungs clear to auscultation without rhonchi, wheezes, rales CARDIAC Regular rate and rhythm, no edema. ABDOMINAL Soft, ND/NT. No evidence of fluid wave. No pulsatile masses on exam, rebound tenderness, Joyce sign or pain over Mcburney's point. MUSCLES/EXTREMITIES No abnormal range of motion, no swelling. SKIN Warm, pink and dry. No rashes, dermatoses, petechiae or lesions. NEUROLOGICAL Speech is clear and appropriate. Normal level of consciousness. Gait and coordination are normal. 5/5 strength in all extremities. PSYCH Normal mood and affect. Judgement/competence is appropriate Results & Data Results & Data Vital Signs (Past 12 Hours) Vital Signs Temp Pulse Pulse Resp BP BP Pulse Ox 08/23/24 07:57 37.1 C 67 20 173/74 H 93 08/23/24 03:29 36.8 C 84 20 129/81 96 08/23/24 01:17 85 08/22/24 22:46 36.8 C 91 H 18 125/88 94 08/22/24 22:03 O2 Del Method 08/23/24 07:57 Room Air 08/23/24 03:29 Room Air 08/23/24 01:17 08/22/24 22:46 Room Air 08/22/24 22:03 Room Air PG Care Time/CCT Total # of Minutes Spent Total Time Spent with Patient: Total time spent is greater than 50% in coordination of care (as documented) at patient's floor/unit and/or counseling patient: Coding Level of Care Code 34747 SUB INP/OBS CARE 2/35MIN Diagnoses Alcohol use disorder F10.90 Alcohol withdrawal F10.939 LFT elevation R94.5 Asthma-COPD overlap syndrome J44.9
[2024-08-23] MEDS: PHENobarbitaL 30 MG TAB PO STA (11:04)
[2024-08-23] MEDS: ACETAMINOPHEN 325 MG TAB PO PRN (17:16)
[2024-08-24 06:22] LABS: BUN Creatinine Ratio 22.4 (10-20); Calcium 9.3 mg/dl (8.6-10.3); Creatinine Clr Calc Pharmacy 95.2 ml/min; Magnesium 1.9 mg/dl (1.7-2.4); Phosphorus 3.7 mg/dl (2.5-4.9); Potassium 4.2 mmol/L (3.5-5.1)
--- NOTE | 2024-08-24 08:45 | Hospitalist Progress Note ---
Date of Service August 24, 2024 Assessment & Plan (1) Alcohol use disorder: Plan: -Continue telemetry monitoring given history of lone A-fib and continue end- tidal CO2 monitoring while lethargic with IV phenobarbital -Continue AWSS scales and phenobarbital -Encouraged cessation and he is committed to going to rehab-he would like information on inpatient rehab-appreciate case management consultation -Patient also asking about Vivitrol-would defer to outpatient PCP versus p.o. naltrexone after discharge if liver function tests continue to improve -Continue thiamine 100 mg p.o. once daily, folic acid 1 mg p.o. once daily, and multivitamin 1 tablet p.o. once daily once able to take p.o.-in the meantime, continue IV fluids and IV thiamine -Added clonidine patch in ICU -Haldol as needed IV for agitation -Continue IV Protonix for GI prophylaxis -phenobarbital change to PO, now tapered off -haldol prn -downgraded to PCU -PT/OT evaluation-recommending rehab placement -social work follow up for inpatient D&A rehab (2) Alcohol withdrawal: Plan: -Continue AWSS scales and phenobarbital (3) LFT elevation: Plan: total bilirubin peaked at 3.2, AST elevated at 61. LFTs now continue to be trending downward. Likely secondary to alcoholic hepatitis but patient's reports he also has a history of hemochromatosis proven with genetic testing. He previously was receiving frequent phlebotomies. INR is normal, platelets are mildly low at but now improving, albumin normal. There is some mild hepatomegaly on physical examination. He denies abdominal pains. Liver ultrasound here shows hepatomegaly with a 20 cm liver, stones with sludge in the gallbladder and a fatty liver. -Encouraged continued alcohol cessation-liver should continue to improve with doing this -Follow LFTs, CBC in the morning -Follow-up with hepatology as an outpatient given history of hemochromatosis (4) Asthma-COPD overlap syndrome: Plan: no acute issues and no longer uses as needed inhaler at home. No current wheezing or hypoxia -Monitor for any symptoms Plan This patient is a 64-year-old male with a history of alcohol use disorder, osteoporosis, asthma-COPD overlap syndrome, LAURA, hyperlipidemia, and lone atrial fibrillation, who presents with request for alcohol detox. He reports drinking 24 beers per day for quite some time. He was trying to slowly wean himself off of alcohol over the last week and had cut down to 8 beers per day. In the mornings when he wakes up he often feels shaky and sweaty and has to drink to make the shakes go away. On the night before admission, he was very sweaty, shaky, and vomited at home. He drank 2 beers quickly and felt better. He drank 8 beers through the day but remained tremulous and came to the ER for detox. In the ER, he was noted to be tremulous and diaphoretic, hypertensive and tachycardic. He was given a total of 25 mg of IV Valium, 1 L of normal saline, thiamine, and folate, and hospitalist was contacted for admission for inpatient alcohol detox followed by inpatient rehab at patient's request. Disposition-possible downgrade from ICU today. Full code Admission and Anticipated Discharge Date Admission Date: August 16, 2024 Subjective Pt appears without any paranoia this am. Review of Systems Review of Systems: CONST: Negative for fever, body aches and chills. HENT: Negative for neck pain/stiffness, headache, congestion, sore throat, swelling. EYES: Negative for discharge/pain or vision changes. RESP: Negative for cough/hemoptysis and shortness of breath. CV: Negative chest pain, difficulty breathing, palpitations. ABD: Negative pain, nausea, vomiting. : Negative increase frequency, dysuria, blood in urine or stool. MUSC: Negative for muscle aches, edema. SKIN: Negative rash, lesions/sores. NEURO: Negative headache, dizziness, weakness. Physical Exam Physical Exam: GENERAL APPEARANCE NAD, activity normal for age, well developed/ well nourished, no cyanosis, pallor, or diaphoresis. EYES lids/conjunctiva normal. EARS/NOSE/THROAT Mucous membranes moist, nares normal, lips/teeth normal uvula midline without oral pharyngeal erythema, exudate or swelling TMs normal bilaterally. No lymphangitis/lymphedema. HEAD/NECK normocephalic atraumatic, no facial trauma, neck is supple. RESPIRATORY respiratory effort normal, speaks in full sentences, no tripod position, no accessory muscle use. Lungs clear to auscultation without rhonchi, wheezes, rales CARDIAC Regular rate and rhythm, no edema. ABDOMINAL Soft, ND/NT. No evidence of fluid wave. No pulsatile masses on exam, rebound tenderness, Joyce sign or pain over Mcburney's point. MUSCLES/EXTREMITIES No abnormal range of motion, no swelling. SKIN Warm, pink and dry. No rashes, dermatoses, petechiae or lesions. NEUROLOGICAL Speech is clear and appropriate. Normal level of consciousness. Gait and coordination are normal. 5/5 strength in all extremities. PSYCH Normal mood and affect. Judgement/competence is appropriate Results & Data Results & Data Vital Signs (Past 12 Hours) Vital Signs Temp Pulse Pulse Resp BP Pulse Ox O2 Del Method 08/24/24 08:09 36.8 C 102 H 18 116/81 97 Room Air 08/24/24 08:00 80 08/24/24 01:57 36.6 C 80 18 128/80 97 Room Air 08/23/24 23:00 70 08/23/24 22:30 36.4 C L 77 16 115/72 96 Room Air PG Care Time/CCT Total # of Minutes Spent Total Time Spent with Patient: Total time spent is greater than 50% in coordination of care (as documented) at patient's floor/unit and/or counseling patient: Coding Level of Care Code 24391 SUB INP/OBS CARE 2/35MIN Diagnoses Alcohol use disorder F10.90 Alcohol withdrawal F10.939 LFT elevation R94.5 Asthma-COPD overlap syndrome J44.9
[2024-08-25 06:37] LABS: BUN Creatinine Ratio 20.7 (10-20); Calcium 9.3 mg/dl (8.6-10.3); Creatinine Clr Calc Pharmacy 98.5 ml/min; Magnesium 1.9 mg/dl (1.7-2.4); Phosphorus 3.3 mg/dl (2.5-4.9); Potassium 3.9 mmol/L (3.5-5.1)
[2024-08-25 07:43] LABS: Hematocrit (blood only) 37.9 % (42.0-52.0); Hemoglobin 13.4 g/dl (14.0-18.0); Mean Corpuscular Hemoglobin 36.9 pg (25.0-34.0); Mean Corpuscular Hgb Conc 35.4 g/dL (32.0-36.0); Mean Corpuscular Volume 104.4 fL (80.0-100.0); Mean Platelet Volume 10.7 fL (9.4-12.4); Platelet Count 217 K/uL (130-400); RDW Coefficient of Variation 11.3 % (11.5-14.5); RDW Standard Deviation 43.6 fL (36.4-46.3); Red Blood Count 3.63 M/uL (4.70-6.10); White Blood Count 4.02 K/ul (4.8-10.8)
--- NOTE | 2024-08-25 09:19 | Hospitalist Progress Note ---
Date of Service August 25, 2024 Assessment & Plan (1) Alcohol use disorder: Plan: -Continue telemetry monitoring given history of lone A-fib and continue end- tidal CO2 monitoring while lethargic with IV phenobarbital -Continue AWSS scales and phenobarbital -Encouraged cessation and he is committed to going to rehab-he would like information on inpatient rehab-appreciate case management consultation -Patient also asking about Vivitrol-would defer to outpatient PCP versus p.o. naltrexone after discharge if liver function tests continue to improve -Continue thiamine 100 mg p.o. once daily, folic acid 1 mg p.o. once daily, and multivitamin 1 tablet p.o. once daily once able to take p.o.-in the meantime, continue IV fluids and IV thiamine -Added clonidine patch in ICU -Haldol as needed IV for agitation -Continue IV Protonix for GI prophylaxis -phenobarbital change to PO, now tapered off -haldol prn -downgraded to PCU -PT/OT evaluation-recommending rehab placement -social work follow up for inpatient D&A rehab (2) Alcohol withdrawal: Plan: -Continue AWSS scales and phenobarbital (3) LFT elevation: Plan: total bilirubin peaked at 3.2, AST elevated at 61. LFTs now continue to be trending downward. Likely secondary to alcoholic hepatitis but patient's reports he also has a history of hemochromatosis proven with genetic testing. He previously was receiving frequent phlebotomies. INR is normal, platelets are mildly low at but now improving, albumin normal. There is some mild hepatomegaly on physical examination. He denies abdominal pains. Liver ultrasound here shows hepatomegaly with a 20 cm liver, stones with sludge in the gallbladder and a fatty liver. -Encouraged continued alcohol cessation-liver should continue to improve with doing this -Follow LFTs, CBC in the morning -Follow-up with hepatology as an outpatient given history of hemochromatosis (4) Asthma-COPD overlap syndrome: Plan: no acute issues and no longer uses as needed inhaler at home. No current wheezing or hypoxia -Monitor for any symptoms Plan This patient is a 64-year-old male with a history of alcohol use disorder, osteoporosis, asthma-COPD overlap syndrome, LAURA, hyperlipidemia, and lone atrial fibrillation, who presents with request for alcohol detox. He reports drinking 24 beers per day for quite some time. He was trying to slowly wean himself off of alcohol over the last week and had cut down to 8 beers per day. In the mornings when he wakes up he often feels shaky and sweaty and has to drink to make the shakes go away. On the night before admission, he was very sweaty, shaky, and vomited at home. He drank 2 beers quickly and felt better. He drank 8 beers through the day but remained tremulous and came to the ER for detox. In the ER, he was noted to be tremulous and diaphoretic, hypertensive and tachycardic. He was given a total of 25 mg of IV Valium, 1 L of normal saline, thiamine, and folate, and hospitalist was contacted for admission for inpatient alcohol detox followed by inpatient rehab at patient's request. Disposition- Pt will need rehab placement and then drug and alcohol detox Full code Admission and Anticipated Discharge Date Admission Date: August 16, 2024 Subjective No events overnight. Pt appearing at baseline mental status. Review of Systems Review of Systems: CONST: Negative for fever, body aches and chills. HENT: Negative for neck pain/stiffness, headache, congestion, sore throat, swelling. EYES: Negative for discharge/pain or vision changes. RESP: Negative for cough/hemoptysis and shortness of breath. CV: Negative chest pain, difficulty breathing, palpitations. ABD: Negative pain, nausea, vomiting. : Negative increase frequency, dysuria, blood in urine or stool. MUSC: Negative for muscle aches, edema. SKIN: Negative rash, lesions/sores. NEURO: Negative headache, dizziness, weakness. Physical Exam Physical Exam: GENERAL APPEARANCE NAD, activity normal for age, well developed/ well nourished, no cyanosis, pallor, or diaphoresis. EYES lids/conjunctiva normal. EARS/NOSE/THROAT Mucous membranes moist, nares normal, lips/teeth normal uvula midline without oral pharyngeal erythema, exudate or swelling TMs normal bilaterally. No lymphangitis/lymphedema. HEAD/NECK normocephalic atraumatic, no facial trauma, neck is supple. RESPIRATORY respiratory effort normal, speaks in full sentences, no tripod position, no accessory muscle use. Lungs clear to auscultation without rhonchi, wheezes, rales CARDIAC Regular rate and rhythm, no edema. ABDOMINAL Soft, ND/NT. No evidence of fluid wave. No pulsatile masses on exam, rebound tenderness, Joyce sign or pain over Mcburney's point. MUSCLES/EXTREMITIES No abnormal range of motion, no swelling. SKIN Warm, pink and dry. No rashes, dermatoses, petechiae or lesions. NEUROLOGICAL Speech is clear and appropriate. Normal level of consciousness. Gait and coordination are normal. 5/5 strength in all extremities. PSYCH Normal mood and affect. Judgement/competence is appropriate Results & Data Results & Data Vital Signs (Past 12 Hours) Vital Signs Temp Pulse Pulse Resp BP Pulse Ox O2 Del Method 08/25/24 08:24 36.9 C 91 H 19 149/87 H 97 Room Air 08/25/24 08:00 91 H 08/25/24 00:03 78 PG Care Time/CCT Total # of Minutes Spent Total Time Spent with Patient: Total time spent is greater than 50% in coordination of care (as documented) at patient's floor/unit and/or counseling patient: Coding Level of Care Code 30232 SUB INP/OBS CARE 2/35MIN Diagnoses Alcohol use disorder F10.90 Alcohol withdrawal F10.939 LFT elevation R94.5 Asthma-COPD overlap syndrome J44.9
[2024-08-26 06:53] LABS: BUN Creatinine Ratio 16.7 (10-20); Calcium 9.8 mg/dl (8.6-10.3); Creatinine Clr Calc Pharmacy 96.2 ml/min; Phosphorus 3.6 mg/dl (2.5-4.9); Potassium 4.3 mmol/L (3.5-5.1)
--- NOTE | 2024-08-26 09:37 | Hospitalist Progress Note ---
Date of Service August 26, 2024 Assessment & Plan (1) Alcohol use disorder: Plan: -Continue telemetry monitoring given history of lone A-fib and continue end- tidal CO2 monitoring while lethargic with IV phenobarbital -Continue AWSS scales and phenobarbital -Encouraged cessation and he is committed to going to rehab-he would like information on inpatient rehab-appreciate case management consultation -Patient also asking about Vivitrol-would defer to outpatient PCP versus p.o. naltrexone after discharge if liver function tests continue to improve -Continue thiamine 100 mg p.o. once daily, folic acid 1 mg p.o. once daily, and multivitamin 1 tablet p.o. once daily once able to take p.o.-in the meantime, continue IV fluids and IV thiamine -Added clonidine patch in ICU -Haldol as needed IV for agitation -Continue IV Protonix for GI prophylaxis -phenobarbital change to PO, now tapered off -haldol prn -downgraded to PCU -PT/OT evaluation-recommending rehab placement -Pt approved for SNF placement at [facility] -social work follow up for inpatient D&A rehab (2) Alcohol withdrawal: Plan: -Continue AWSS scales and phenobarbital (3) LFT elevation: Plan: total bilirubin peaked at 3.2, AST elevated at 61. LFTs now continue to be trending downward. Likely secondary to alcoholic hepatitis but patient's reports he also has a history of hemochromatosis proven with genetic testing. He previously was receiving frequent phlebotomies. INR is normal, platelets are mildly low at but now improving, albumin normal. There is some mild hepatomegaly on physical examination. He denies abdominal pains. Liver ultrasound here shows hepatomegaly with a 20 cm liver, stones with sludge in the gallbladder and a fatty liver. -Encouraged continued alcohol cessation-liver should continue to improve with doing this -Follow LFTs, CBC in the morning -Follow-up with hepatology as an outpatient given history of hemochromatosis (4) Asthma-COPD overlap syndrome: Plan: no acute issues and no longer uses as needed inhaler at home. No current wheezing or hypoxia -Monitor for any symptoms Plan This patient is a 64-year-old male with a history of alcohol use disorder, osteoporosis, asthma-COPD overlap syndrome, LAURA, hyperlipidemia, and lone atrial fibrillation, who presents with request for alcohol detox. He reports drinking 24 beers per day for quite some time. He was trying to slowly wean himself off of alcohol over the last week and had cut down to 8 beers per day. In the mornings when he wakes up he often feels shaky and sweaty and has to drink to make the shakes go away. On the night before admission, he was very sweaty, shaky, and vomited at home. He drank 2 beers quickly and felt better. He drank 8 beers through the day but remained tremulous and came to the ER for detox. In the ER, he was noted to be tremulous and diaphoretic, hypertensive and tachycardic. He was given a total of 25 mg of IV Valium, 1 L of normal saline, thiamine, and folate, and hospitalist was contacted for admission for inpatient alcohol detox followed by inpatient rehab at patient's request. Disposition- Pt will need rehab placement and then drug and alcohol detox Full code Admission and Anticipated Discharge Date Admission Date: August 16, 2024 Subjective No events overnight. Pt appearing at baseline mental status. Review of Systems Review of Systems: CONST: Negative for fever, body aches and chills. HENT: Negative for neck pain/stiffness, headache, congestion, sore throat, swelling. EYES: Negative for discharge/pain or vision changes. RESP: Negative for cough/hemoptysis and shortness of breath. CV: Negative chest pain, difficulty breathing, palpitations. ABD: Negative pain, nausea, vomiting. : Negative increase frequency, dysuria, blood in urine or stool. MUSC: Negative for muscle aches, edema. SKIN: Negative rash, lesions/sores. NEURO: Negative headache, dizziness, weakness. Physical Exam Physical Exam: GENERAL APPEARANCE NAD, activity normal for age, well developed/ well nourished, no cyanosis, pallor, or diaphoresis. EYES lids/conjunctiva normal. EARS/NOSE/THROAT Mucous membranes moist, nares normal, lips/teeth normal uvula midline without oral pharyngeal erythema, exudate or swelling TMs normal bilaterally. No lymphangitis/lymphedema. HEAD/NECK normocephalic atraumatic, no facial trauma, neck is supple. RESPIRATORY respiratory effort normal, speaks in full sentences, no tripod position, no accessory muscle use. Lungs clear to auscultation without rhonchi, wheezes, rales CARDIAC Regular rate and rhythm, no edema. ABDOMINAL Soft, ND/NT. No evidence of fluid wave. No pulsatile masses on exam, rebound tenderness, Joyce sign or pain over Mcburney's point. MUSCLES/EXTREMITIES No abnormal range of motion, no swelling. SKIN Warm, pink and dry. No rashes, dermatoses, petechiae or lesions. NEUROLOGICAL Speech is clear and appropriate. Normal level of consciousness. Gait and coordination are normal. 5/5 strength in all extremities. PSYCH Normal mood and affect. Judgement/competence is appropriate Results & Data Results & Data Vital Signs (Past 12 Hours) Vital Signs Temp Pulse Pulse Resp BP Pulse Ox O2 Del Method 08/26/24 08:20 36.7 C 104 H 23 138/91 97 Room Air 08/26/24 04:14 36.9 C 74 18 129/86 97 Room Air 08/25/24 23:07 73 PG Care Time/CCT Total # of Minutes Spent Total Time Spent with Patient: Total time spent is greater than 50% in coordination of care (as documented) at patient's floor/unit and/or counseling patient: Coding Level of Care Code 57359 SUB INP/OBS CARE 2/35MIN Diagnoses Alcohol use disorder F10.90 Alcohol withdrawal F10.939 LFT elevation R94.5 Asthma-COPD overlap syndrome J44.9
[2024-08-26 15:47] VITALS: RESP 18
[2024-08-27 07:32] VITALS: BP 145/94; TEMP 98.6; O2SAT 99
[2024-08-27 08:34] VITALS: PULSE 99
--- NOTE | 2024-08-27 10:05 | Discharge Summary ---
Discharge Summary Date of Service August 27, 2024 Principal Dx & Hospital Course #1 = Principal Diagnosis (1) Alcohol use disorder: -Continue telemetry monitoring given history of lone A-fib and continue end- tidal CO2 monitoring while lethargic with IV phenobarbital -Continue AWSS scales and phenobarbital -Encouraged cessation and he is committed to going to rehab-he would like information on inpatient rehab-appreciate case management consultation -Patient also asking about Vivitrol-would defer to outpatient PCP versus p.o. naltrexone after discharge if liver function tests continue to improve -Continue thiamine 100 mg p.o. once daily, folic acid 1 mg p.o. once daily, and multivitamin 1 tablet p.o. once daily once able to take p.o.-in the meantime, continue IV fluids and IV thiamine -Added clonidine patch in ICU -Haldol as needed IV for agitation -Continue IV Protonix for GI prophylaxis -phenobarbital change to PO, now tapered off -haldol prn -downgraded to PCU -PT/OT evaluation-recommending rehab placement -Pt approved for SNF placement at [facility] -social work follow up for inpatient D&A rehab (2) Alcohol withdrawal: -Continue AWSS scales and phenobarbital (3) LFT elevation: total bilirubin peaked at 3.2, AST elevated at 61. LFTs now continue to be trending downward. Likely secondary to alcoholic hepatitis but patient's reports he also has a history of hemochromatosis proven with genetic testing. He previously was receiving frequent phlebotomies. INR is normal, platelets are mildly low at but now improving, albumin normal. There is some mild hepatomegaly on physical examination. He denies abdominal pains. Liver ultrasound here shows hepatomegaly with a 20 cm liver, stones with sludge in the gallbladder and a fatty liver. -Encouraged continued alcohol cessation-liver should continue to improve with doing this -Follow LFTs, CBC in the morning -Follow-up with hepatology as an outpatient given history of hemochromatosis (4) Asthma-COPD overlap syndrome: no acute issues and no longer uses as needed inhaler at home. No current wheezing or hypoxia -Monitor for any symptoms Plan This patient is a 64-year-old male with a history of alcohol use disorder, osteoporosis, asthma-COPD overlap syndrome, LAURA, hyperlipidemia, and lone atrial fibrillation, who presents with request for alcohol detox. He reports drinking 24 beers per day for quite some time. He was trying to slowly wean himself off of alcohol over the last week and had cut down to 8 beers per day. In the mornings when he wakes up he often feels shaky and sweaty and has to drink to make the shakes go away. On the night before admission, he was very sweaty, shaky, and vomited at home. He drank 2 beers quickly and felt better. He drank 8 beers through the day but remained tremulous and came to the ER for detox. In the ER, he was noted to be tremulous and diaphoretic, hypertensive and tachycardic. He was given a total of 25 mg of IV Valium, 1 L of normal saline, thiamine, and folate, and hospitalist was contacted for admission for inpatient alcohol detox followed by inpatient rehab at patient's request. Disposition- Pt will need rehab placement and then drug and alcohol detox Full code Admission HPI Per Admitting Provider This patient is a 64-year-old male with a history of alcohol use disorder, osteoporosis, asthma-COPD overlap syndrome, LAURA, hyperlipidemia, and lone atrial fibrillation who presents with request for alcohol detox. He reports drinking 24 beers per day for quite some time. He was trying to slowly wean himself off of alcohol over the last week and had cut down to 8 beers per day. In the mornings when he wakes up he often feels shaky and sweaty and has to drink to make the shakes go away. Last night, he was very sweaty, shaky, and vomited at home. He drank 2 beers quickly and felt better. He drank 8 beers through the day today but remained tremulous and came to the ER for detox. In the ER, he was noted to be tremulous and diaphoretic, hypertensive and tachycardic. He was given a total of 25 mg of IV Valium, 1 L of normal saline, thiamine, and folate, and hospitalist was contacted for admission for inpatient alcohol detox followed by inpatient rehab at patient's request. Discharge Exam GENERAL APPEARANCE NAD, activity normal for age, well developed/ well nourished, no cyanosis, pallor, or diaphoresis. EYES lids/conjunctiva normal. EARS/NOSE/THROAT Mucous membranes moist, nares normal, lips/teeth normal uvula midline without oral pharyngeal erythema, exudate or swelling TMs normal bilaterally. No lymphangitis/lymphedema. HEAD/NECK normocephalic atraumatic, no facial trauma, neck is supple. RESPIRATORY respiratory effort normal, speaks in full sentences, no tripod posi tion, no accessory muscle use. Lungs clear to auscultation without rhonchi, wheezes, rales CARDIAC Regular rate and rhythm, no edema. ABDOMINAL Soft, ND/NT. No evidence of fluid wave. No pulsatile masses on exam, rebound tenderness, Joyce sign or pain over Mcburney's point. MUSCLES/EXTREMITIES No abnormal range of motion, no swelling. SKIN Warm, pink and dry. No rashes, dermatoses, petechiae or lesions. NEUROLOGICAL Speech is clear and appropriate. Normal level of consciousness. Gait and coordination are normal. 5/5 strength in all extremities. PSYCH Normal mood and affect. Judgement/competence is appropriate Discharge Plan Discharge Items Patient Disposition: Home - Self-Care Reason For Visit: ETOH WITHDRAWL Discharge Diagnosis: Etoh withdrawal Activity: Resume your previous activity Non-emergency contact: Primary Care Provider Call non-emergency contact if: you have any medication questions Follow-up/Referrals: Rito Leyva [Primary Care Provider] - Diet: Regular Addtl Attending Provider Instructions: Follow up with PMD in 2 weeks Pending Studies at Discharge: No Stand-Alone Forms: My [facility] [employer], Smoking Cessation Medications and DC Order Prescriptions: New thiamine HCl (vitamin B1) 100 mg Tablet 200 mg PO BID Qty: 60 0RF cyanocobalamin (vitamin B-12) 500 mcg Tablet 1,000 mcg PO DAILY Qty: 30 0RF folic acid 1 mg Tablet 1 mg PO QAM Qty: 30 0RF Continued teriparatide 20 mcg/dose (620mcg/2.48mL) pen injector 20 mcg subcut DAILY Qty: 7.44 1RF Rx Instructions: inject 20mcg under the skin daily mecobalamin (vitamin B12) 1,000 mcg tablet,chewable 1,000 mcg PO DAILY calcium carbonate-vitamin D3 600 mg-5 mcg (200 unit) Tablet 1 tab PO QAM niacin 500 mg Tablet 500 mg PO QAM magnesium 200 mg Tablet 400 mg PO QAM multivitamin Tablet,Chewable 2 tab PO QAM melatonin 5 mg Tablet 5 - 10 mg PO HS PRN (Reason: Sleep) cholecalciferol (vitamin D3) [Vitamin D3] 125 mcg (5,000 unit) Tablet 125 mcg PO QAM [employer] 45-3.75-50 mg Tablet,Chewable 2 tab PO QAM sucralfate [Carafate] 100 mg/mL suspension 10 ml PO QID Qty: 420 0RF Rx Instructions: swish in mouth and swallow; use after food/drink: May substitute tablets as a slurry. Discontinued amoxicillin-pot clavulanate 875-125 mg tablet 1 tab PO BID Qty: 14 0RF Discharge Orders: Discharge Order (Routine); Ordered 08/27/24 Ordered By: Ladarius Krueger Admission Data Admit Date/Time: 08/16/24 17:48 Attending Provider: Ladarius Krueger Admit Provider: Isamar Ybarra Primary Care Provider: Rito Leyva Other Providers: Isamar Ybarra; Efren Barrera; [facility]; [place],[facility]; [facility] Stay Data Consultations 08/16/24 17:33 ED Decision to Admit Stat 08/18/24 17:48 Consult [employer] Stat Diagnostic Imagining Performed 08/17/24 liver Routine Pending Results Patient Have Any Pending Studies at Discharge: No Discharge Instructions Given to Patient (Per Discharging Provider) Follow up with PMD in 2 weeks Total Time Total Time Spent Total Time Spent (In Minutes): 50 Coding Level of Care Code 68605 INP/OBS DISCH >30 MIN Diagnoses Alcohol use disorder F10.90 Alcohol withdrawal F10.939 LFT elevation R94.5 Asthma-COPD overlap syndrome J44.9
== END 2024-08-27 11:00 | disposition home or self-care (01) | DRG 897 ==
LOC: SUATTDRO → ED 11:40 → EDINP 17:48 → SUATTDRO 17:48 → 2E 20:18 → 1E 08-18 19:09 → 2E 08-22 06:52